=== PATIENT | female | born 2000 | race Caucasian/White ===

== ENCOUNTER 2021-08-25 14:55 | Emergency (ER) | payer OTHER, SELFPAY ==
[2021-08-25 15:04] VITALS: BP 152/97; PULSE 114; RESP 20; TEMP 36.8; O2SAT 100; BMI 25.6
--- NOTE | 2021-08-25 16:24 | ED_ITS ---
HPI - Abdominal Pain General Chief Complaint: Abdominal Pain Stated Complaint: throwing up since this morning Time Seen by Provider: 08/25/21 16:11 Source: patient Mode of arrival: ambulatory Limitations: no limitations History of Present Illness HPI narrative: Patient is a 20-year-old female with no significant past medical history. She reports that she awoke 12 hours ago with nausea and vomiting. She states that since she is vomiting any time she has anything to eat or drink. Had homemade Rolo last night, denies recent eating at any restaurants. In addition, she has diffuse lower abdominal pain, and right greater than left flank pain. She reports the symptoms to be consistent with past pyelonephritis. However, she denies any burning with micturition, dysuria, urinary frequency/hesitancy/urgency. Has not recently been treated for urinary tract infection. She does report that she smoke marijuana about once a week for her migraine headaches. Denies fevers, chills, headache, lightheadedness, di zziness, chest pain, palpitations, shortness of breath. Last menstrual period was 2 weeks ago, she is not on any contraceptives, and denies possibility of . Denies any known sick contacts, others in her home are not experiencing similar symptoms. Denies vaginal bleeding, abnormal vaginal d ischarge, pelvic pain, pain with intercourse. MD elicited complaint: abdominal pain Pertinent past history: past UTI Onset (ago): hour(s) Pain Consistency: constant Location: RLQ and LLQ Severity: moderate Pain scale (0-10): 7 Quality: cramping Exacerbating factors: eating Relieving factors: nothing Associated symptoms: nausea and vomiting Related Data Date of Last Menstrual Period: 08/11/21 Previous Rx's Medication Instructions Recorded ondansetron 4 mg disintegrating 4 mg PO Q8H PRN #6 tab 08/25/21 tablet Allergies Allergy/AdvReac Type Severity Reaction Status Date / Time No Known Allergies Allergy Unverified 04/05/20 16:45 [No Known Allergies*] Review of Systems Review of Systems Constitutional : No Weight loss, No Fever, No Chills ENT/Mouth :? No sore throat, No Rhinorrhea Eyes: No Swelling, No Redness Cardiovascular : No Chest Pain, No SOB, No Edema Respiratory : No Cough, No Sputum, No Wheezing Gastrointestinal : Positive Nausea, Positive Vomiting, Positive abdominal pain, No Diarrhea, No Constipation, No Hematochezia, No Melena Genitourinary : No Dysuria, No Urinary Frequency, No Hematuria, No Urgency? Musculoskeletal : No joint pain, No Myalgias, No Joint Swelling Skin : No Skin Lesions, No rash Neuro : No Weakness, No Numbness, No Dizziness, No Headache Psych : No Anxiety/Panic, No Depression Heme/Lymph: No Bruising, No Lymphadenopathy Endocrine : No Polyuria, No Polydipsia All other systems reviewed and are negative. Physical Exam Verdana 4l Vital Signs: Verdana 4d Verdana 4d Vital Signs: Verdana 4d Verdana 4Bd Last Vital Signs Verdana 4d [employer] New 4d [employer] New 4d Temp 97.7 F 08/25/21 18:37 [employer] New 4d Pulse 115 H 08/25/21 18:37 [employer] New 4d Resp 12 08/25/21 18:37 BP 130/79 08/25/21 18:37 Pulse Ox 100 08/25/21 18:37 BMI result Body Mass Index 25.6 Vital signs have been reviewed and appeared to be correct. Blood pressure initially elevated at 152/97, improved to 132/83. Heart rate initially elevated at 114, improved to 94.? Respiration rate normal. Temperature normal.? Oxygen saturation normal. Appearance: Alert.?Oriented to person, place and time. No acute distress.?Normal affect. Eyes: Pupils equal, round and reactive to light.? ENT: Pharynx normal.?? Neck: Normal inspection.? Neck supple.?? CVS: Heart sounds normal. Normal heart rate and rhythm.? Pulses normal.?? Respiratory: No respiratory distress.? Lung sounds clear to auscultation bilaterally?? Abdomen: Soft with diffuse lower abdominal tenderness with deep palpation.. Normoactive bowel sounds. No pulsatile mass.?? Skin: Skin warm and dry.? Normal skin color.? Normal skin turgor.?? Extremities: No lower extremity edema.? Neuro: Moves all extremities spontaneously. Sensation intact bilaterally. No focal neuro deficits. Ambulates with normal steady gait. Course Course Course Narrative: Patient is a 20-year-old female being evaluated for vomiting abdominal pain. She is well appearing, nontoxic, afebrile, resolution of initial tachycardia and hypertension. On exam she has no rebound tenderness or involuntary guarding, percussive tenderness. She declines having a exam. Not consistent with GI perforation, GI bleed, AAA, aortic dissection, ectopic , DKA. Not consistent with strangulated hernia, bowel obstruction, pulmonary embolism, mesenteric ischemia, myocardial infarction, or ovarian torsion. Patient to receive Zofran IV, Toradol IV, and 1L NS IV. Disposition pending results and PO trial. Reevaluation(s) Reevaluation #1: CBC reveals a mild anemia, hemoglobin 11.9 and hematocrit 33.5, patient reports that this is typical for her. Urine test is negative, urinalysis is unremarkable. CMP overall unremarkable, however mild LFT elevation AST 56 ALT 45 total bilirubin 2.0 suspect that this is reactive to vomiting. COVID-19 testing negative. Tolerated p.o. trial with crackers and dilshad jessica. Reports resolution of abdomen and flank pain. Symptoms are most consistent with gastroenteritis. Discussed reasons to return to the emergency department, advised plan for discharge home with prescription for ondansetron, all questions answered, patient agrees with plan of care. MDM - Abdominal Pain Medical Records Attestation: I reviewed the patient's medical records. Lab Data Attestation: I reviewed the patient's lab results. Result diagrams: 08/25/21 16:56 08/25/21 16:56 Labs: Lab Results 08/25/21 08/25/21 08/25/21 Range/Units 16:55 16:55 16:55 WBC (4.8-10.8) X10*3/uL RBC (4.20-5.50) X10*6/uL Hgb (12.0-16.0) g/dl Hct (37.0-47.0) % MCV (80.0-98.0) fL MCH (27.0-33.0) pg MCHC (31.0-35.0) g/dl RDW (11.0-16.0) % Plt Count (160-400) X10*3/uL MPV (9.4-12.3) fL Absolute Nucleated (0.0-0.012) RBC X10*3/uL Nucleated RBC % (0.0-0.2) /100WBC (auto) Sodium (135-145) mmol/L Potassium (3.3-5.1) mmol/L Chloride (96-108) mmol/L Carbon Dioxide (22-29) mmol/L Anion Gap (12-20) BUN (9-16) mg/dL Creatinine (0.5-1.4) mg/dL Estim Creat Clear Calc Estimated GFR Random Glucose (60-115) mg/dL Calcium (8.4-10.2) mg/dL Total Bilirubin (0.0-1.0) mg/dL AST (5-31) U/L ALT (0-31) U/L Alkaline Phosphatase (39-117) U/L Total Protein (6.5-8.0) g/dL Albumin (3.5-5.0) g/dL Lipase (8-78) U/L Urine Color DK YELLOW Urine Appearance HAZY Urine pH 6.0 (5.0-8.0) Ur Specific [place] >= 1.030 H (1.005-1.025) Urine Protein 1+ H (NEG-TRACE) MG/DL Urine Glucose (UA) NEG (NEG) MG/DL Urine Ketones >=80 (NEG) MG/DL Urine Blood NEG (NEG) Urine Nitrite NEG (NEG) Ur Leukocyte NEG (NEG) Esterase Urine RBC 0-2 (0) /HPF Urine WBC 1-4 (0-4) /HPF Ur Squamous Epith 1+ /LPF Cells Urine Bacteria TRACE /LPF Urine Mucus 2+ /LPF Urine Test NEGATIVE (NEGATIVE) Urine Opiates Screen Not Detected (Not Detect) Urine Fentanyl Not Detected (Not Detect) Screen Ur Barbiturates Not Detected (Not Detect) Screen Ur Phencyclidine Not Detected (Not Detect) Scrn Ur Amphetamines Not Detected (Not Detect) Screen U Benzodiazepines Not Detected (Not Detect) Scrn Urine Cocaine Screen Not Detected (Not Detect) U Marijuana (THC) POSITIVE H (Not Detect) Screen COVID-19 (NABEEL) (Negative) COVID-19 Clin Com 08/25/21 08/25/21 08/25/21 Range/Units 16:56 16:56 16:56 WBC 4.5 L (4.8-10.8) X10*3/uL RBC 3.58 L (4.20-5.50) X10*6/uL Hgb 11.9 L (12.0-16.0) g/dl Hct 33.5 L (37.0-47.0) % MCV 93.6 (80.0-98.0) fL MCH 33.2 H (27.0-33.0) pg MCHC 35.5 H (31.0-35.0) g/dl RDW 12.0 (11.0-16.0) % Plt Count 200 (160-400) X10*3/uL MPV 10.2 (9.4-12.3) fL Absolute Nucleated RBC 0.000 (0.0-0.012) X10*3/uL Nucleated RBC % (auto) 0.0 (0.0-0.2) /100WBC Sodium 137 (135-145) mmol/L Potassium 4.6 (3.3-5.1) mmol/L Chloride 102 (96-108) mmol/L Carbon Dioxide 22 (22-29) mmol/L Anion Gap 18 (12-20) BUN 12 (9-16) mg/dL Creatinine 0.73 (0.5-1.4) mg/dL Estim Creat Clear Calc 105.8 Estimated GFR > 60 Random Glucose 89 (60-115) mg/dL Calcium 9.9 (8.4-10.2) mg/dL Total Bilirubin 2.0 H (0.0-1.0) mg/dL AST 56 H (5-31) U/L ALT 45 H (0-31) U/L Alkaline Phosphatase 43 (39-117) U/L Total Protein 7.6 (6.5-8.0) g/dL Albumin 4.5 (3.5-5.0) g/dL Lipase 19 (8-78) U/L Urine Color Urine Appearance Urine pH (5.0-8.0) Ur Specific [place] (1.005-1.025) Urine Protein (NEG-TRACE) MG/DL Urine Glucose (UA) (NEG) MG/DL Urine Ketones (NEG) MG/DL Urine Blood (NEG) Urine Nitrite (NEG) Ur Leukocyte Esterase (NEG) Urine RBC (0) /HPF Urine WBC (0-4) /HPF Ur Squamous Epith Cells /LPF Urine Bacteria /LPF Urine Mucus /LPF Urine Test (NEGATIVE) Urine Opiates Screen (Not Detect) Urine Fentanyl Screen (Not Detect) Ur Barbiturates Screen (Not Detect) Ur Phencyclidine Scrn (Not Detect) Ur Amphetamines Screen (Not Detect) U Benzodiazepines Scrn (Not Detect) Urine Cocaine Screen (Not Detect) U Marijuana (THC) Screen (Not Detect) COVID-19 (NABEEL) Negative (Negative) COVID-19 Clin Com See Note ECG Data Attestation: I personally reviewed and interpreted this ECG as follows: Discharge Plan Discharge Clinical Impression: Gastroenteritis Patient Disposition: Home, Self-Care Instructions: Acute Nausea and Vomiting (ED) Additional Instructions: You have been given a new prescription for Zofran, a medication for nausea to be used only as needed. Please be sure to stay well hydrated, and follow a bland diet; including crackers, bananas, rice, cereal, toast, boiled vegetables and you can progress to plain baked or boiled chicken or turkey, and avoid dairy products or foods high in fat or grease until you are feeling better. Please return to the emergency department if you are having profuse watery diarrhea, more than 6 unformed stools in 1 day, severe abdominal pain, persistent v omiting, fevers, chills, blood or mucus in your stool or any new or worsening symptoms or concerns. You may follow up with your primary care provider in 1-3 days. Prescriptions: New ondansetron 4 mg tablet,disintegrating 4 mg PO Q8H PRN (Reason: nausea and vomiting) Qty: 6 0RF Interventions: ED Discharge Assessment Last Done: 08/25/21 19:16 Discharge Date/Time: 08/25/21 19:18 [facility] Past Medical History Attestation statement: The following information was validated with the patient. Source: old records reviewed Medical History No known health problems No known health problems Date of Last Menstrual Period: 08/11/21 Social History Social History Alcohol intake: never Patient Tobacco Use Status: Never used Tobacco Use of substances other than those prescribed or required for medical reasons: No Advance Directives: No Advance Directives Information Provided: No Patient : No
[2021-08-25 16:47] VITALS: BP 132/83; PULSE 94; RESP 18; TEMP 37.1; O2SAT 98
[2021-08-25] MEDS: Ketorolac Tromethamine 30 MG/ML VIAL IVPUSH (17:05)
[2021-08-25] MEDS: ondansetron HCL 4 MG/2 ML VIAL IVPUSH (17:05)
[2021-08-25] MEDS: 0.9 % Sodium Chloride 1,000 ML 999 ML IV (17:05)
--- NOTE | 2021-08-25 17:09 | PC.NURSE ---
Pt describing bilateral lower abd pain near ovaries. also radiating pain to Bli lower back. no CVA tenderness. urine is very concentrated, color of ice tea. Awaits results. no active vomiting while in ed but states she's been unable to keep po down. abd is soft and non tender. moist mm. skin pwd/
[2021-08-25 17:13] LABS: Appearance Urine HAZY; Color Urine DK YELLOW; Glucose Urine UA NEG (NEG); Leukocyte Esterase Urine NEG (NEG); Nitrite Urine NEG (NEG); Specific Gravity - Urine >= 1.030 (1.005-1.025); UACC Culture Trigger NO; Urine Blood NEG (NEG); Urine Ketones >=80 MG/DL (NEG); Urine Protein 1+ MG/DL (NEG-TRACE)
[2021-08-25 17:14] LABS: Hematocrit 33.5 % (37.0-47.0); Hemoglobin 11.9 g/dl (12.0-16.0); Mean Corpuscular HGB Conc 35.5 g/dl (31.0-35.0); Mean Corpuscular Hemoglobin 33.2 pg (27.0-33.0); Mean Corpuscular Volume 93.6 fL (80.0-98.0); Mean Platelet Volume 10.2 fL (9.4-12.3); Platelet Count 200 X10*3/uL (160-400); Red Blood Count 3.58 X10*6/uL (4.20-5.50); White Blood Count 4.5 X10*3/uL (4.8-10.8)
[2021-08-25 17:14] LABS: UPreg QC Valid YES; Urine Pregnancy NEGATIVE (NEGATIVE)
[2021-08-25 17:20] LABS: COVID-19 Test Negative (Negative)
[2021-08-25 17:23] LABS: Bacteria Urine TRACE /LPF; Mucus Urine 2+ /LPF; RBC Urine 0-2 /HPF (0); Squamous Epithelial Cell Urine 1+ /LPF
[2021-08-25 17:28] LABS: Alanine Aminotransferase 45 U/L (0-31); Albumin Level 4.5 g/dL (3.5-5.0); Alkaline Phosphatase 43 U/L (39-117); Anion Gap 18 (12-20); Aspartate Amino Transferase 56 U/L (5-31); Blood Urea Nitrogen 12 mg/dL (9-16); Calcium 9.9 mg/dL (8.4-10.2); Carbon Dioxide 22 mmol/L (22-29); Chloride 102 mmol/L (96-108); Creatinine Clr Calc Pharmacy 105.8; Estimated Glomerular Filt Rate > 60; Glucose Random 89 mg/dL (60-115); Lipase 19 U/L (8-78); Potassium 4.6 mmol/L (3.3-5.1); Sodium 137 mmol/L (135-145); Total Protein 7.6 g/dL (6.5-8.0)
--- NOTE | 2021-08-25 18:14 | PC.NURSE ---
taking PO without vomiting
[2021-08-25 18:37] VITALS: BP 130/79; PULSE 115; RESP 12; TEMP 36.5; O2SAT 100
[2021-08-25 19:13] LABS: Amphetamine Screen Urine Not Detected (Not Detect); Barbiturates, Urine Not Detected (Not Detect); Benzodiazepines Screen Urine Not Detected (Not Detect); Cannabinoid Screen Urine POSITIVE (Not Detect); Cocaine Screen Urine Not Detected (Not Detect); Fentanyl, urine Not Detected (Not Detect); Opiate Screen Urine Not Detected (Not Detect); Phencyclidine Screen Urine Not Detected (Not Detect)
== END 2021-08-25 19:18 | disposition home or self-care (01) ==
PROVIDERS: Nurse Practitioner Family; Emergency Provider Emergency Medicine Emergency Medical Services
DX: K52.9 Noninfective gastroenteritis and colitis, unspecified (principal); R11.10 Vomiting, unspecified; Z20.822 Contact with and (suspected) exposure to COVID-19; Z79.899 Other long term (current) drug therapy
CPT/HCPCS: 36415; 80053; 80307; 81001; 81025; 83690; 85027; 87635; 96374; 96376; 99284; J1885; J2405

== ENCOUNTER 2022-10-30 04:46 | Emergency (ER) | payer OTHER, SELFPAY ==
[2022-10-30 04:50] VITALS: BP 152/93; PULSE 111; RESP 18; TEMP 36.6; O2SAT 100
[2022-10-30 05:09] LABS: Basophils Absolute Auto 0.1 X10*3/uL (0.0-0.2); Basophils Percent Auto 0.4 % (0-2); Hematocrit 42.5 % (37.0-47.0); Hemoglobin 14.6 g/dl (12.0-16.0); Imm Gran Abs Auto 0.04 X10*3/uL (0.00-0.03); Imm Gran Pct Auto 0.3 % (0.0-0.4); Lymphocytes Absolute Auto 0.7 X10*3/uL (1.2-4.9); Lymphocytes Percent Auto 4.9 % (20-40); Mean Corpuscular HGB Conc 34.4 g/dl (31.0-35.0); Mean Corpuscular Hemoglobin 32.3 pg (27.0-33.0); Mean Platelet Volume 9.4 fL (9.4-12.3); Monocytes Absolute Auto 0.5 X10*3/uL (0.1-1.2); Monocytes Percent Auto 3.5 % (2-11); Neutrophils Absolute Auto 13.5 x10*3/uL (2.0-8.3); Neutrophils Percent Auto 90.9 % (45-73); Platelet Count 459 X10*3/uL (160-400); Red Blood Count 4.52 X10*6/uL (4.20-5.50); Red Cell Distribution Width 13.5 % (11.0-16.0); SCAN SMEAR FLAG 1; White Blood Count 14.9 X10*3/uL (4.8-10.8)
[2022-10-30] MEDS: ondansetron HCL 4 MG/2 ML VIAL IVPUSH (05:10)
[2022-10-30 05:11] LABS: MANUAL DIFF FLAG SCAN
--- NOTE | 2022-10-30 05:17 | ED_ITS ---
HPI - Headache General Chief Complaint: Headache Stated Complaint: n/v, migraine Time Seen by Provider: 10/30/22 05:17 Source: patient Mode of arrival: ambulatory Limitations: no limitations History of Present Illness HPI Narrative: Patient history of chronic migraine headaches been having headache as usual getting worse for last 2 days associated with nausea vomiting photosensitivity vomited about more than 15 times also had diarrhea about 10 times unable to hold down anything solid liquids no fever no chills no neck pain no other family member sick patient also does smoke marijuana and feels better after hot shower Related Data Previous Rx's Medication Instructions Recorded ondansetron 4 mg disintegrating 4 mg PO Q8H PRN nausea and 08/25/21 tablet vomiting #6 tabs nczeftride-wforjdvqvolfm-vttuokos 1 cap PO Q6H PRN headache #20 caps 10/30/22 50 mg-300 mg-40 mg capsule (Fioricet) loperamide 2 mg tablet (Imodium 2 mg PO Q6H PRN loose stool #14 10/30/22 A-D) tabs ondansetron 4 mg disintegrating 4 mg PO Q6-8H PRN nausea and 10/30/22 tablet vomiting #10 tabs sumatriptan succinate 50 mg tablet 50 mg PO Q2H PRN migraine headache 10/30/22 (Imitrex) #10 tabs Allergies Allergy/AdvReac Type Severity Reaction Status Date / Time No Known Allergies Allergy Verified 10/30/22 04:53 [No Known Allergies*] Review of Systems Review of Systems: Yes all other systems are reviewed and are negative [facility] Past Medical History Medical History (Updated 10/30/22 @ 07:06 by Kelver Kyle MD) Migraine headache Social History Social History Alcohol intake: never Patient Tobacco Use Status: Never used Tobacco Smoked in Last 30 Days: No Use of substances other than those prescribed or required for medical reasons: Yes Substance Use Type: Marijuana Substance Use Frequency: Weekly Advance Directives: No Advance Directives Information Provided: Yes Patient : No Physical Exam Vital Signs: Vital Signs: Last Vital Signs Temp 97.8 F 10/30/22 04:50 Pulse 111 H 10/30/22 04:50 Resp 18 10/30/22 04:50 BP 152/93 H 10/30/22 04:50 Pulse Ox 100 10/30/22 04:50 O2 Del Method Room Air 10/30/22 04:50 BMI result Body Mass Index 20.0 Appearance: Alert. Oriented X3. Sensitive to light Eyes: PERRLA, No Nystagmus ENT: Pharynx normal. Oral Mucosa dry Neck: Normal inspection. Neck supple. No temporal artery tenderness CVS: Normal heart rate and rhythm. Pulses normal. Respiratory: No respiratory distress. Equal air entry bilateral, no wheezing/rales/rhonchi Abdomen: Soft and nontender. Bowel sounds are present, no mass palpable, no CVA tenderness Skin: Skin warm and dry. Normal skin color. Normal skin turgor. Extremities: No lower extremity edema. No calf tenderness Neuro: Oriented X 3. No motor deficit. No sensory deficit.No cerebellar signs , cranial nerves II-XII intact Medications Administered Discontinued Medications Generic Name Dose Route Start Last Admin Trade Name Freq PRN Reason Stop Dose Admin Sodium Chloride 1,000 mls @ 999 mls/hr 10/30/22 05:22 10/30/22 05:34 Ns IV 10/30/22 06:22 999 mls/hr .Q1H1M ONE Administration Lorazepam 2 mg 10/30/22 05:41 10/30/22 05:58 Lorazepam 2 Mg/Ml Vial IVPUSH 10/30/22 05:42 2 mg ONCE ONE Administration Ondansetron HCl 4 mg 10/30/22 05:07 10/30/22 05:10 Ondansetron Hcl 4 Mg/2 Ml Vial IVPUSH 10/30/22 05:08 4 mg ONCE ONE Administration Sumatriptan Succinate 6 mg 10/30/22 05:22 10/30/22 05:30 Sumatriptan Succinate 6 Mg/0.5 Ml Vial SUBCUT 10/30/22 05:23 6 mg ONCE ONE Administration Medical Decision Making Medical Decision Making MDM Narrative: Patient with migraine headache along with likely cannabis induced vomiting possible viral also had anion gap metabolic acidosis likely from fluid loss in diarrhea will give IV fluids recheck chemistry patient feeling much better after Ativan Lab Data MDM Lab Attestation statement: I reviewed the patient's lab results. 10/30/22 05:02 10/30/22 05:02 Labs: Lab Results 04/13/23 04/13/23 04/13/23 Range/Units 05:02 05:02 05:02 WBC 14.9 H (4.8-10.8) X10*3/uL RBC 4.52 D (4.20-5.50) X10*6/uL Hgb 14.6 D (12.0-16.0) g/dl Hct 42.5 D (37.0-47.0) % MCV 94.0 (80.0-98.0) fL MCH 32.3 (27.0-33.0) pg MCHC 34.4 (31.0-35.0) g/dl RDW 13.5 (11.0-16.0) % Plt Count 459 H D (160-400) X10*3/uL MPV 9.4 (9.4-12.3) fL Immature Gran % (Auto) 0.3 (0.0-0.4) % Neut % (Auto) 90.9 H (45-73) % Lymph % (Auto) 4.9 L (20-40) % [place] % (Auto) 3.5 (2-11) % Eos % (Auto) 0.0 (0-4) % Baso % (Auto) 0.4 (0-2) % Lymph # (Auto) 0.7 L (1.2-4.9) X10*3/uL [place] # (Auto) 0.5 (0.1-1.2) X10*3/uL Eos # (Auto) 0.0 (0.0-0.4) X10*3/uL Baso # (Auto) 0.1 (0.0-0.2) X10*3/uL Abs Immat Gran (auto) 0.04 H (0.00-0.03) X10*3/uL Absolute Neuts (auto) 13.5 H (2.0-8.3) x10*3/uL Absolute Nucleated RBC 0.000 (0.0-0.012) X10*3/uL Nucleated RBC % (auto) 0.0 (0.0-0.2) /100WBC Smear Tech's Comments VERIFIED Sodium (135-145) mmol/L Potassium (3.3-5.1) mmol/L Chloride (96-108) mmol/L Carbon Dioxide (22-29) mmol/L Anion Gap (12-20) BUN (9-16) mg/dL Creatinine (0.5-1.4) mg/dL Estim Creat Clear Calc Estimated GFR Random Glucose (60-115) mg/dL Calcium (8.4-10.2) mg/dL Total Bilirubin (0.0-1.0) mg/dL AST (5-31) U/L ALT (0-31) U/L Alkaline Phosphatase (39-117) U/L Total Protein (6.5-8.0) g/dL Albumin (3.5-5.0) g/dL Lipase (8-78) U/L COVID-19 (NABEEL) Negative (Negative) COVID-19 Clin Com See Note Influenza Type A (JOVANA) Negative (Negative) Influenza Type B (JOVANA) Negative (Negative) Influenza A & B Note See Note 10/30/22 Range/Units 05:02 WBC (4.8-10.8) X10*3/uL RBC (4.20-5.50) X10*6/uL Hgb (12.0-16.0) g/dl Hct (37.0-47.0) % MCV (80.0-98.0) fL MCH (27.0-33.0) pg MCHC (31.0-35.0) g/dl RDW (11.0-16.0) % Plt Count (160-400) X10*3/uL MPV (9.4-12.3) fL Immature Gran % (Auto) (0.0-0.4) % Neut % (Auto) (45-73) % Lymph % (Auto) (20-40) % [place] % (Auto) (2-11) % Eos % (Auto) (0-4) % Baso % (Auto) (0-2) % Lymph # (Auto) (1.2-4.9) X10*3/uL [place] # (Auto) (0.1-1.2) X10*3/uL Eos # (Auto) (0.0-0.4) X10*3/uL Baso # (Auto) (0.0-0.2) X10*3/uL Abs Immat Gran (auto) (0.00-0.03) X10*3/uL Absolute Neuts (auto) (2.0-8.3) x10*3/uL Absolute Nucleated RBC (0.0-0.012) X10*3/uL Nucleated RBC % (auto) (0.0-0.2) /100WBC Smear Tech's Comments Sodium 139 (135-145) mmol/L Potassium 4.6 (3.3-5.1) mmol/L Chloride 102 (96-108) mmol/L Carbon Dioxide 9 L* D (22-29) mmol/L Anion Gap 33 H (12-20) BUN 20 H (9-16) mg/dL Creatinine 0.75 (0.5-1.4) mg/dL Estim Creat Clear Calc 99.4 Estimated GFR > 60 Random Glucose 92 (60-115) mg/dL Calcium 9.9 (8.4-10.2) mg/dL Total Bilirubin 0.9 (0.0-1.0) mg/dL AST 48 H (5-31) U/L ALT 21 (0-31) U/L Alkaline Phosphatase 50 (39-117) U/L Total Protein 8.4 H (6.5-8.0) g/dL Albumin 5.1 H (3.5-5.0) g/dL Lipase 13 (8-78) U/L COVID-19 (NABEEL) (Negative) COVID-19 Clin Com Influenza Type A (JOVANA) (Negative) Influenza Type B (JOVANA) (Negative) Influenza A & B Note Discharge Plan Discharge Clinical Impression: Migraine, Gastroenteritis, Cannabis abuse with cannabis-induced disorder Patient Disposition: Still a Patient Instructions: Migraine Headache (ED), Gastroenteritis (ED), Cannabis Abuse (ED) Additional Instructions: Drink plenty of fluids Stop using cannabis at it may be contributing to the vomiting Imitrex and Fioricet for headache Zofran for nausea Follow with PCP if not better Prescriptions: New loperamide [Imodium A-D] 2 mg tablet 2 mg PO Q6H PRN (Reason: loose stool) Qty: 14 0RF sumatriptan succinate [Imitrex] 50 mg tablet 50 mg PO Q2H PRN (Reason: migraine headache) Qty: 10 0RF Rx Instructions: do not exceed 2 doses per 24 hrs tporbwvgdd-xrqeemiosefgy-qcos [Fioricet] 50-300-40 mg capsule 1 cap PO Q6H PRN (Reason: headache) Qty: 20 0RF ondansetron 4 mg tablet,disintegrating 4 mg PO Q6-8H PRN (Reason: nausea and vomiting) Qty: 10 0RF No Action ondansetron 4 mg tablet,disintegrating 4 mg PO Q8H PRN (Reason: nausea and vomiting) Qty: 6 0RF
[2022-10-30 05:28] LABS: Alanine Aminotransferase 21 U/L (0-31); Albumin Level 5.1 g/dL (3.5-5.0); Alkaline Phosphatase 50 U/L (39-117); Anion Gap 33 (12-20); Aspartate Amino Transferase 48 U/L (5-31); Bilirubin Total 0.9 mg/dL (0.0-1.0); Blood Urea Nitrogen 20 mg/dL (9-16); Calcium 9.9 mg/dL (8.4-10.2); Carbon Dioxide 9 mmol/L (22-29); Chloride 102 mmol/L (96-108); Creatinine Clr Calc Pharmacy 99.4; Estimated Glomerular Filt Rate > 60; Glucose Random 92 mg/dL (60-115); Lipase 13 U/L (8-78); Potassium 4.6 mmol/L (3.3-5.1); Sodium 139 mmol/L (135-145); Total Protein 8.4 g/dL (6.5-8.0)
[2022-10-30] MEDS: SUMAtriptan succinate 6 MG/0.5 ML VIAL SUBCUT (05:30)
[2022-10-30 05:31] LABS: COVID-19 Test Negative (Negative); IDNOW Serial# 08D9AD1C; IDNOW Serial# BCCEAD1C; Influenza A Negative (Negative); Influenza B2 Negative (Negative)
[2022-10-30 05:32] LABS: SLIDE REVIEW VERIFIED
[2022-10-30] MEDS: 0.9 % Sodium Chloride 1,000 ML 999 ML IV ×4 (05:34→10:34)
[2022-10-30] MEDS: LORazepam 2 MG/ML VIAL IVPUSH (05:58)
--- NOTE | 2022-10-30 06:32 | PC.NURSE ---
Pt reports 10/10 constant headache with N/V, states it feels like pressure and similar episodes. IV line started, meds given as documented. Pt dry heaving, ambulating to BR with staff stand by assist. Pt reports effectiveness to meds given.
[2022-10-30 07:16] VITALS: BP 120/58; PULSE 114; RESP 16; O2SAT 99
[2022-10-30 07:27] LABS: Appearance Urine Clear; Color Urine Yellow; Glucose Urine UA Negative (Negative); Leukocyte Esterase Urine Negative (Negative); Nitrite Urine Negative (Negative); UMIC TRIGGER UACC YES; Urine Blood Moderate (2+) (Negative); Urine Ketones 80 mg/dL (Negative); Urine Protein 30 (1+) mg/dL (Neg-Trace)
[2022-10-30 07:28] LABS: UPreg QC Valid YES; Urine Pregnancy NEGATIVE (NEGATIVE)
[2022-10-30 07:39] LABS: Bacteria Urine None Seen (None Seen); Hyaline Casts Urine 0-2 /LPF (0-2); RBC Urine 0-2 /HPF (0-2); WBC Urine 0-5 /HPF (0-5)
--- NOTE | 2022-10-30 09:10 | MHC.EDTECH ---
Labs collected and sent
[2022-10-30 09:31] LABS: Blood Urea Nitrogen 15 mg/dL (9-16); Creatinine Clr Calc Pharmacy 116.5; Estimated Glomerular Filt Rate > 60; Glucose Random 83 mg/dL (60-115)
[2022-10-30 09:38] LABS: Anion Gap 17 (12-20); Calcium 7.9 mg/dL (8.4-10.2); Carbon Dioxide 11 mmol/L (22-29); Chloride 110 mmol/L (96-108); Potassium 4.8 mmol/L (3.3-5.1); Sodium 133 mmol/L (135-145)
[2022-10-30 10:12] VITALS: BP 130/65; PULSE 107; RESP 19; O2SAT 98
--- NOTE | 2022-10-30 11:18 | PC.NURSE ---
resumed care of patient at this time. Pt dad is present at bedside, IV fluids running via pressure bag, plan to redraw lab work and assess at that time for further plan
[2022-10-30 12:42] LABS: Anion Gap 17 (12-20); Blood Urea Nitrogen 13 mg/dL (9-16); Carbon Dioxide 16 mmol/L (22-29); Chloride 106 mmol/L (96-108); Creatinine Clr Calc Pharmacy 122.1; Estimated Glomerular Filt Rate > 60; Glucose Random 66 mg/dL (60-115); Potassium 4.6 mmol/L (3.3-5.1); Sodium 134 mmol/L (135-145)
== END 2022-10-30 13:49 | disposition home or self-care (01) ==
PROVIDERS: Emergency Medicine; Emergency Provider Internal Medicine
DX: G43.909 Migraine, unspecified, not intractable, without status migrainosus (principal); K52.9 Noninfective gastroenteritis and colitis, unspecified; F12.19 Cannabis abuse with unspecified cannabis-induced disorder; Z20.822 Contact with and (suspected) exposure to COVID-19; Z20.828 Contact with and (suspected) exposure to other viral communicable diseases; Z79.899 Other long term (current) drug therapy
CPT/HCPCS: 36415; 80048; 80053; 81001; 81025; 83690; 85025; 87502; 87635; 96361; 96372; 96374; 96375; 99285; J2060; J2405; J3030

== ENCOUNTER 2022-11-08 17:32 | Emergency (ER) | payer OTHER, SELFPAY ==
--- NOTE | 2022-11-08 17:41 | ED_ITS ---
HPI - General Adult General Chief complaint: Headache <Tj Corbin - Last Filed: 11/08/22 17:48> Stated complaint: vomiting, migraine, lightheadedness, fainting <Tj Corbin - Last Filed: 11/08/22 17:48> Time Seen by Provider: 11/08/22 18:31 <Tj Corbin - Last Filed: 11/08/22 17:48> Source: patient <Nancy Alonzo MD - Last Filed: 11/08/22 21:42> Mode of arrival: ambulatory <Nancy Alonzo MD - Last Filed: 11/08/22 21:42> Limitations: no limitations <Nancy Alonzo MD - Last Filed: 11/08/22 21:42> History of Present Illness HPI narrative: Patient comes t consisting of blurred vision and visual o the emergency room complaining of 24 hours plus of migraine headache. Patient recently moved from [place] and does not have a primary care physician or neurologist here in [place]. Patient states that she frequently has migraine he adaches. Over the last 24 hours, patient has tried p.o. sumatriptan, Fioricet, Excedrin without any relief. Patient states that before the migraine started, she gets auras consisting of color changes/blurred vision. Sometimes before she gets migraine, she passes out, no chest pain or shortness of breath. Patient states that on her last visit she was told that smoking marijuana may worsen her vomiting symptoms and therefore states that she does not smoke marijuana anymore. It has been a week. <Nancy Alonzo MD - Last Filed: 11/08/22 21:42> Related Data Home medications: Previous Rx's Medication Instructions Recorded ondansetron 4 mg disintegrating 4 mg PO Q8H PRN nausea and 08/25/21 tablet vomiting #6 tabs azyxrmehsy-xaozkrdslsdqc-tkrxzybf 1 cap PO Q6H PRN headache #20 caps 10/30/22 50 mg-300 mg-40 mg capsule (Fioricet) loperamide 2 mg tablet (Imodium 2 mg PO Q6H PRN loose stool #14 10/30/22 A-D) tabs ondansetron 4 mg disintegrating 4 mg PO Q6-8H PRN nausea and 10/30/22 tablet vomiting #10 tabs sumatriptan succinate 50 mg tablet 50 mg PO Q2H PRN migraine headache 10/30/22 (Imitrex) #10 tabs ketorolac 10 mg tablet 10 mg PO TID PRN pain #12 tabs 11/08/22 metoclopramide HCl 5 mg tablet 5 mg PO DAILY PRN nausea and 11/08/22 (Reglan) vomiting #10 tabs <Tj Corbin - Last Filed: 11/08/22 17:48> Allergies/adverse reactions: Allergies Allergy/AdvReac Type Severity Reaction Status Date / Time No Known Allergies Allergy Verified 11/08/22 17:46 [No Known Allergies*] <Tj Corbin - Last Filed: 11/08/22 17:48> Review of Systems Review of Systems: Constitutional : No Weight loss, No Fever, No Chills, No Night Sweats, No Fatigue, No Malaise ENT/Mouth : No Hearing loss, No Ear Pain, No Nasal Congestion, No Sinus Pain, No Hoarseness, No sore throat, No Rhinorrhea, No Swallowing Difficulty Eyes: No Eye Pain, No Swelling, No Redness, No Foreign Body, No Discharge, complaining of visual changes/aura before the migraine starts Cardiovascular : No Chest Pain, No SOB, No Dyspnea on Exertion, No Orthopnea, No Edema, No Palpitations Respiratory : No Cough, No Sputum, No Wheezing, No Smoke Exposure, No Dyspnea Gastrointestinal : Complaining of nausea and vomiting No Diarrhea, No Constipat ion, No abdominal Pain, No Hematochezia, No Melena Genitourinary : no irregular bleeding, No Dysuria, No Urinary Frequency, No Hematuria, No Urinary Incontinence, No Urgency, No Flank Pain, No Urinary Flow Changes, No Hesitancy Musculoskeletal : No joint pain, No Myalgias, No Joint Swelling Skin : No Skin Lesions, No rash Neuro : No Weakness, No Numbness, No Paresthesias, No Loss of Consciousness, No Dizziness, complaining of severe migraine Psych : No Anxiety/Panic, No Depression, No SI/HI/AH/VH, No Social Issues, Heme/Lymph: No Bruising, No Bleeding,No Lymphadenopathy Endocrine : No Polyuria, No Polydipsia, No Temperature Intolerance <Nancy Alonzo MD - Last Filed: 11/08/22 21:42> [facility] Past Medical History Medical History: Medical History Migraine headache <Tj Corbin - Last Filed: 11/08/22 17:48> Social History Social History: Social History Alcohol intake: never Patient Tobacco Use Status: Never used Tobacco Smoked in Last 30 Days: No Use of substances other than those prescribed or required for medical reasons: No Substance Use Type: Marijuana Advance Directives: No Advance Directives Information Provided: No <Tj Corbin - Last Filed: 11/08/22 17:48> Physical Exam ED Vital Signs: Vital Signs - 24 hr 11/08/22 17:46 11/08/22 18:00 11/08/22 19:34 Temperature 97.6 F 98.5 F 98.2 F Pulse Rate 86 109 H 103 H Respiratory Rate 18 18 16 Blood Pressure 129/83 150/101 H 126/80 Pulse Oximetry 99 98 98 Oxygen Delivery Method Room Air Room Air Room Air BMI result Body Mass Index 20.7 <Tj Corbin - Last Filed: 11/08/22 17:48> Vital Signs - 24 hr 11/08/22 17:46 11/08/22 18:00 11/08/22 19:34 Temperature 97.6 F 98.5 F 98.2 F Pulse Rate 86 109 H 103 H Respiratory Rate 18 18 16 Blood Pressure 129/83 150/101 H 126/80 Pulse Oximetry 99 98 98 Oxygen Delivery Method Room Air Room Air Room Air BMI result Body Mass Index 20.7 <Nancy Alonzo MD - Last Filed: 11/08/22 21:42> Const Other: Appearance: Alert. Oriented X3. Looks very uncomfortable Eyes: Pupils equal, round and reactive to light. ENT: Pharynx normal. Neck: Normal inspection. Neck supple. No lymph nodes noted. No crepitus CVS: Normal heart rate and rhythm. Pulses normal. Normal S1 and S2 Respiratory: No respiratory distress. Breath sounds normal. No Wheezing. No rales Abdomen: Actively vomiting, Soft and nontender. No rigidity. No distention. Skin: Skin warm and dry. Normal skin color. Normal skin turgor. Extremities: No lower extremity edema. No Lacerations. No Rash Neuro: Oriented X 3. No motor deficit. No sensory deficit. Moving all e xtremities. No slurred speech. CN 2 through 12 grossly intact Psych: calm, cooperative, normal affect <Nancy Alonzo MD - Last Filed: 11/08/22 21:42> Course Course Course Narrative: 22-year-old female presents for evaluation of headache and vomiting. Rep orts history of migraines. Was seen here on 10/30/2022 for similar complaint <Tj Corbin - Last Filed: 11/08/22 17:48> 22-year-old female presents for evaluation of headache and vomiting. Reports history of migraines. Was seen here on 10/30/2022 for similar complaint -patient received IV fluids, IV Toradol, Reglan, Benadryl. -all labs are pending. <Nancy Alonzo MD - Last Filed: 11/08/22 21:42> Medications Administered Discontinued Medications Generic Name Dose Route Start Last Admin Trade Name Freq PRN Reason Stop Dose Admin Diphenhydramine HCl 25 mg 11/08/22 18:35 11/08/22 19:22 Diphenhydramine Hcl 50 Mg/Ml Vial IVPUSH 11/08/22 18:36 25 mg ONCE ONE Administration Sodium Chloride 1,000 mls @ 999 mls/hr 11/08/22 18:35 11/08/22 20:26 Ns IVCONT 11/08/22 19:35 Infused .Q1H1M ONE Infusion Ketorolac Tromethamine 30 mg 11/08/22 18:35 11/08/22 19:22 Ketorolac Tromethamine 30 Mg/Ml Vial IVPUSH 11/08/22 18:36 30 mg ONCE ONE Administration Metoclopramide HCl 10 mg 11/08/22 18:35 11/08/22 19:31 Metoclopramide Hcl 10 Mg/2 Ml Vial IVPUSH 11/08/22 18:36 10 mg ONCE ONE Administration Ondansetron HCl 4 mg 11/08/22 17:47 11/08/22 18:28 Ondansetron Odt 4 Mg Tab.Rapdis TRANSLINGU 11/08/22 17:48 Not Given ONCE ONE Ondansetron HCl 4 mg 11/08/22 18:23 11/08/22 18:27 Ondansetron Hcl 4 Mg/2 Ml Vial IVPUSH 11/08/22 18:24 4 mg ONCE ONE Administration <Tj RenettaOdilonGarland - Last Filed: 11/08/22 17:48> Medications Administered Discontinued Medications Generic Name Dose Route Start Last Admin Trade Name Mariela PRN Reason Stop Dose Admin Diphenhydramine HCl 25 mg 11/08/22 18:35 11/08/22 19:22 Diphenhydramine Hcl 50 Mg/Ml Vial IVPUSH 11/08/22 18:36 25 mg ONCE ONE Administration Sodium Chloride 1,000 mls @ 999 mls/hr 11/08/22 18:35 11/08/22 20:26 Ns IVCONT 11/08/22 19:35 Infused .Q1H1M ONE Infusion Ketorolac Tromethamine 30 mg 11/08/22 18:35 11/08/22 19:22 Ketorolac Tromethamine 30 Mg/Ml Vial IVPUSH 11/08/22 18:36 30 mg ONCE ONE Administration Metoclopramide HCl 10 mg 11/08/22 18:35 11/08/22 19:31 Metoclopramide Hcl 10 Mg/2 Ml Vial IVPUSH 11/08/22 18:36 10 mg ONCE ONE Administration Ondansetron HCl 4 mg 11/08/22 17:47 11/08/22 18:28 Ondansetron Odt 4 Mg Tab.Rapdis TRANSLINGU 11/08/22 17:48 Not Given ONCE ONE Ondansetron HCl 4 mg 11/08/22 18:23 11/08/22 18:27 Ondansetron Hcl 4 Mg/2 Ml Vial IVPUSH 11/08/22 18:24 4 mg ONCE ONE Administration <Nancy Alonzo MD - Last Filed: 11/08/22 21:42> Medical Decision Making Medical Decision Making MDM Narrative: -after the IV cocktail, patient feeling much better. Patient states that she has residual headache but feeling much better. Feels well to go home. -D-dimer is pending. -interpretation of EKG: Sinus rhythm, rate 88, no ST segment depression or elevation, no T-wave inversion, QTC 508 -wells criteria score for pulmonary embolism or DVT is 0. Patient's syncopal episodes are related only to migraine headaches, no other times. <Nancy Alonzo MD - Last Filed: 11/08/22 21:42> Differential Diagnosis Differential Diagnoses: The differential diagnosis associated with the presentation includes (Pain headache, tension headache) <Nancy Alonzo MD - Last Filed: 11/08/22 21:42> Lab Data MDM Lab Attestation statement: I reviewed the patient's lab results. <Nancy Alonzo MD - Last Filed: 11/08/22 21:42> Result Diagrams: 11/08/22 17:59 11/08/22 17:59 <Tj Corbin - Last Filed: 11/08/22 17:48> Labs: Lab Results 11/08/22 11/08/22 11/08/22 Range/Units 17:59 17:59 19:27 WBC 2.8 L (4.8-10.8) X10*3/uL RBC 4.60 (4.20-5.50) X10*6/uL Hgb 15.0 (12.0-16.0) g/dl Hct 41.9 (37.0-47.0) % MCV 91.1 (80.0-98.0) fL MCH 32.6 (27.0-33.0) pg MCHC 35.8 H (31.0-35.0) g/dl RDW 13.8 (11.0-16.0) % Plt Count 190 D (160-400) X10*3/uL MPV 10.1 (9.4-12.3) fL Immature Gran % (Auto) 0.0 (0.0-0.4) % Neut % (Auto) 70.3 (45-73) % Lymph % (Auto) 17.2 L (20-40) % [place] % (Auto) 11.8 H (2-11) % Eos % (Auto) 0.0 (0-4) % Baso % (Auto) 0.7 (0-2) % Lymph # (Auto) 0.5 L (1.2-4.9) X10*3/uL [place] # (Auto) 0.3 (0.1-1.2) X10*3/uL Eos # (Auto) 0.0 (0.0-0.4) X10*3/uL Baso # (Auto) 0.0 (0.0-0.2) X10*3/uL Abs Immat Gran (auto) 0.00 (0.00-0.03) X10*3/uL Absolute Neuts (auto) 2.0 (2.0-8.3) x10*3/uL Absolute Nucleated RBC 0.000 (0.0-0.012) X10*3/uL Nucleated RBC % (auto) 0.0 (0.0-0.2) /100WBC Sodium 135 (135-145) mmol/L Potassium 3.8 (3.3-5.1) mmol/L Chloride 98 (96-108) mmol/L Carbon Dioxide 14 L (22-29) mmol/L Anion Gap 27 H (12-20) BUN 12 (9-16) mg/dL Creatinine 0.76 (0.5-1.4) mg/dL Estim Creat Clear Calc 90.3 Estimated GFR > 60 Random Glucose 82 (60-115) mg/dL Calcium 10.7 H D (8.4-10.2) mg/dL Total Bilirubin 2.3 H (0.0-1.0) mg/dL AST 38 H (5-31) U/L ALT 16 (0-31) U/L Alkaline Phosphatase 49 (39-117) U/L Troponin I High Sens (<3.5-17.0) ng/L Total Protein 8.6 H (6.5-8.0) g/dL Albumin 5.4 H (3.5-5.0) g/dL Lipase 23 (8-78) U/L Beta HCG, Quant mIU/mL Urine Color Yellow Urine Appearance Clear Urine pH 5.5 (5.0-9.0) Ur Specific [place] >= 1.030 H (1.005-1.025) Urine Protein 30 (1+) H (Neg-Trace) mg/dL Urine Glucose (UA) Negative (Negative) mg/dL Urine Ketones >=160 (Negative) mg/dL Urine Blood Negative (Negative) Urine Nitrite Negative (Negative) Ur Leukocyte Esterase Negative (Negative) Urine RBC 0-2 (0-2) /HPF Urine WBC 0-5 (0-5) /HPF Ur Squamous Epith Cells 6-10 (0-2) /HPF Urine Bacteria Trace (None Seen) Hyaline Casts 0-2 (0-2) /LPF Urine Opiates Screen (Not Detect) Urine Fentanyl Screen (Not Detect) Ur Barbiturates Screen (Not Detect) Ur Phencyclidine Scrn (Not Detect) Ur Amphetamines Screen (Not Detect) U Benzodiazepines Scrn (Not Detect) Urine Cocaine Screen (Not Detect) U Marijuana (THC) Screen (Not Detect) 11/08/22 11/08/22 11/08/22 Range/Units 19:27 20:40 20:40 WBC (4.8-10.8) X10*3/uL RBC (4.20-5.50) X10*6/uL Hgb (12.0-16.0) g/dl Hct (37.0-47.0) % MCV (80.0-98.0) fL MCH (27.0-33.0) pg MCHC (31.0-35.0) g/dl RDW (11.0-16.0) % Plt Count (160-400) X10*3/uL MPV (9.4-12.3) fL Immature Gran % (Auto) (0.0-0.4) % Neut % (Auto) (45-73) % Lymph % (Auto) (20-40) % [place] % (Auto) (2-11) % Eos % (Auto) (0-4) % Baso % (Auto) (0-2) % Lymph # (Auto) (1.2-4.9) X10*3/uL [place] # (Auto) (0.1-1.2) X10*3/uL Eos # (Auto) (0.0-0.4) X10*3/uL Baso # (Auto) (0.0-0.2) X10*3/uL Abs Immat Gran (auto) (0.00-0.03) X10*3/uL Absolute Neuts (auto) (2.0-8.3) x10*3/uL Absolute Nucleated RBC (0.0-0.012) X10*3/uL Nucleated RBC % (auto) (0.0-0.2) /100WBC Sodium (135-145) mmol/L Potassium (3.3-5.1) mmol/L Chloride (96-108) mmol/L Carbon Dioxide (22-29) mmol/L Anion Gap (12-20) BUN (9-16) mg/dL Creatinine (0.5-1.4) mg/dL Estim Creat Clear Calc Estimated GFR Random Glucose (60-115) mg/dL Calcium (8.4-10.2) mg/dL Total Bilirubin (0.0-1.0) mg/dL AST (5-31) U/L ALT (0-31) U/L Alkaline Phosphatase (39-117) U/L Troponin I High Sens < 2.7 (<3.5-17.0) ng/L Total Protein (6.5-8.0) g/dL Albumin (3.5-5.0) g/dL Lipase (8-78) U/L Beta HCG, Quant < 2 mIU/mL Urine Color Urine Appearance Urine pH (5.0-9.0) Ur Specific [place] (1.005-1.025) Urine Protein (Neg-Trace) mg/dL Urine Glucose (UA) (Negative) mg/dL Urine Ketones (Negative) mg/dL Urine Blood (Negative) Urine Nitrite (Negative) Ur Leukocyte Esterase (Negative) Urine RBC (0-2) /HPF Urine WBC (0-5) /HPF Ur Squamous Epith Cells (0-2) /HPF Urine Bacteria (None Seen) Hyaline Casts (0-2) /LPF Urine Opiates Screen Not Detected (Not Detect) Urine Fentanyl Screen Not Detected (Not Detect) Ur Barbiturates Screen POSITIVE H (Not Detect) Ur Phencyclidine Scrn Not Detected (Not Detect) Ur Amphetamines Screen Not Detected (Not Detect) U Benzodiazepines Scrn Not Detected (Not Detect) Urine Cocaine Screen Not Detected (Not Detect) U Marijuana (THC) Screen POSITIVE H (Not Detect) <Tj Corbin - Last Filed: 11/08/22 17:48> Lab Results 11/08/22 11/08/22 11/08/22 Range/Units 17:59 17:59 19:27 WBC 2.8 L (4.8-10.8) X10*3/uL RBC 4.60 (4.20-5.50) X10*6/uL Hgb 15.0 (12.0-16.0) g/dl Hct 41.9 (37.0-47.0) % MCV 91.1 (80.0-98.0) fL MCH 32.6 (27.0-33.0) pg MCHC 35.8 H (31.0-35.0) g/dl RDW 13.8 (11.0-16.0) % Plt Count 190 D (160-400) X10*3/uL MPV 10.1 (9.4-12.3) fL Immature Gran % (Auto) 0.0 (0.0-0.4) % Neut % (Auto) 70.3 (45-73) % Lymph % (Auto) 17.2 L (20-40) % [place] % (Auto) 11.8 H (2-11) % Eos % (Auto) 0.0 (0-4) % Baso % (Auto) 0.7 (0-2) % Lymph # (Auto) 0.5 L (1.2-4.9) X10*3/uL [place] # (Auto) 0.3 (0.1-1.2) X10*3/uL Eos # (Auto) 0.0 (0.0-0.4) X10*3/uL Baso # (Auto) 0.0 (0.0-0.2) X10*3/uL Abs Immat Gran (auto) 0.00 (0.00-0.03) X10*3/uL Absolute Neuts (auto) 2.0 (2.0-8.3) x10*3/uL Absolute Nucleated RBC 0.000 (0.0-0.012) X10*3/uL Nucleated RBC % (auto) 0.0 (0.0-0.2) /100WBC Sodium 135 (135-145) mmol/L Potassium 3.8 (3.3-5.1) mmol/L Chloride 98 (96-108) mmol/L Carbon Dioxide 14 L (22-29) mmol/L Anion Gap 27 H (12-20) BUN 12 (9-16) mg/dL Creatinine 0.76 (0.5-1.4) mg/dL Estim Creat Clear Calc 90.3 Estimated GFR > 60 Random Glucose 82 (60-115) mg/dL Calcium 10.7 H D (8.4-10.2) mg/dL Total Bilirubin 2.3 H (0.0-1.0) mg/dL AST 38 H (5-31) U/L ALT 16 (0-31) U/L Alkaline Phosphatase 49 (39-117) U/L Troponin I High Sens (<3.5-17.0) ng/L Total Protein 8.6 H (6.5-8.0) g/dL Albumin 5.4 H (3.5-5.0) g/dL Lipase 23 (8-78) U/L Beta HCG, Quant mIU/mL Urine Color Yellow Urine Appearance Clear Urine pH 5.5 (5.0-9.0) Ur Specific [place] >= 1.030 H (1.005-1.025) Urine Protein 30 (1+) H (Neg-Trace) mg/dL Urine Glucose (UA) Negative (Negative) mg/dL Urine Ketones >=160 (Negative) mg/dL Urine Blood Negative (Negative) Urine Nitrite Negative (Negative) Ur Leukocyte Esterase Negative (Negative) Urine RBC 0-2 (0-2) /HPF Urine WBC 0-5 (0-5) /HPF Ur Squamous Epith Cells 6-10 (0-2) /HPF Urine Bacteria Trace (None Seen) Hyaline Casts 0-2 (0-2) /LPF Urine Opiates Screen (Not Detect) Urine Fentanyl Screen (Not Detect) Ur Barbiturates Screen (Not Detect) Ur Phencyclidine Scrn (Not Detect) Ur Amphetamines Screen (Not Detect) U Benzodiazepines Scrn (Not Detect) Urine Cocaine Screen (Not Detect) U Marijuana (THC) Screen (Not Detect) 11/08/22 11/08/22 11/08/22 Range/Units 19:27 20:40 20:40 WBC (4.8-10.8) X10*3/uL RBC (4.20-5.50) X10*6/uL Hgb (12.0-16.0) g/dl Hct (37.0-47.0) % MCV (80.0-98.0) fL MCH (27.0-33.0) pg MCHC (31.0-35.0) g/dl RDW (11.0-16.0) % Plt Count (160-400) X10*3/uL MPV (9.4-12.3) fL Immature Gran % (Auto) (0.0-0.4) % Neut % (Auto) (45-73) % Lymph % (Auto) (20-40) % [place] % (Auto) (2-11) % Eos % (Auto) (0-4) % Baso % (Auto) (0-2) % Lymph # (Auto) (1.2-4.9) X10*3/uL [place] # (Auto) (0.1-1.2) X10*3/uL Eos # (Auto) (0.0-0.4) X10*3/uL Baso # (Auto) (0.0-0.2) X10*3/uL Abs Immat Gran (auto) (0.00-0.03) X10*3/uL Absolute Neuts (auto) (2.0-8.3) x10*3/uL Absolute Nucleated RBC (0.0-0.012) X10*3/uL Nucleated RBC % (auto) (0.0-0.2) /100WBC Sodium (135-145) mmol/L Potassium (3.3-5.1) mmol/L Chloride (96-108) mmol/L Carbon Dioxide (22-29) mmol/L Anion Gap (12-20) BUN (9-16) mg/dL Creatinine (0.5-1.4) mg/dL Estim Creat Clear Calc Estimated GFR Random Glucose (60-115) mg/dL Calcium (8.4-10.2) mg/dL Total Bilirubin (0.0-1.0) mg/dL AST (5-31) U/L ALT (0-31) U/L Alkaline Phosphatase (39-117) U/L Troponin I High Sens < 2.7 (<3.5-17.0) ng/L Total Protein (6.5-8.0) g/dL Albumin (3.5-5.0) g/dL Lipase (8-78) U/L Beta HCG, Quant < 2 mIU/mL Urine Color Urine Appearance Urine pH (5.0-9.0) Ur Specific [place] (1.005-1.025) Urine Protein (Neg-Trace) mg/dL Urine Glucose (UA) (Negative) mg/dL Urine Ketones (Negative) mg/dL Urine Blood (Negative) Urine Nitrite (Negative) Ur Leukocyte Esterase (Negative) Urine RBC (0-2) /HPF Urine WBC (0-5) /HPF Ur Squamous Epith Cells (0-2) /HPF Urine Bacteria (None Seen) Hyaline Casts (0-2) /LPF Urine Opiates Screen Not Detected (Not Detect) Urine Fentanyl Screen Not Detected (Not Detect) Ur Barbiturates Screen POSITIVE H (Not Detect) Ur Phencyclidine Scrn Not Detected (Not Detect) Ur Amphetamines Screen Not Detected (Not Detect) U Benzodiazepines Scrn Not Detected (Not Detect) Urine Cocaine Screen Not Detected (Not Detect) U Marijuana (THC) Screen POSITIVE H (Not Detect) <Nancy Alonzo MD - Last Filed: 11/08/22 21:42> Discharge Plan Discharge Clinical Impression: Migraine <Tj Corbin - Last Filed: 11/08/22 17:48> Patient Disposition: Home, Self-Care <Tj Corbin - Last Filed: 11/08/22 17:48> Instructions: Migraine Headache (ED) <Tj Corbin - Last Filed: 11/08/22 17:48> Additional Instructions: Please follow-up with your primary care physician tomorrow. If you have any worsening or new symptoms, please return to the emergency room or call 911 <Tj Corbin - Last Filed: 11/08/22 17:48> Prescriptions: New ketorolac 10 mg tablet 10 mg PO TID PRN (Reason: pain) Qty: 12 0RF metoclopramide HCl [Reglan] 5 mg tablet 5 mg PO DAILY PRN (Reason: nausea and vomiting) Qty: 10 0RF Rx Instructions: PRN migraine headache, take together with ketorolac No Action ondansetron 4 mg tablet,disintegrating 4 mg PO Q8H PRN (Reason: nausea and vomiting) Qty: 6 0RF loperamide [Imodium A-D] 2 mg tablet 2 mg PO Q6H PRN (Reason: loose stool) Qty: 14 0RF sumatriptan succinate [Imitrex] 50 mg tablet 50 mg PO Q2H PRN (Reason: migraine headache) Qty: 10 0RF Rx Instructions: do not exceed 2 doses per 24 hrs [id number] [Fioricet] 50-300-40 mg capsule 1 cap PO Q6H PRN (Reason: headache) Qty: 20 0RF ondansetron 4 mg tablet,disintegrating 4 mg PO Q6-8H PRN (Reason: nausea and vomiting) Qty: 10 0RF <Tj Corbin - Last Filed: 11/08/22 17:48> Referrals: Alfonso Casey MD [Physician] - 11/10/22 (migraines) <Tj Corbin - Last Filed: 11/08/22 17:48>
[2022-11-08 17:46] VITALS: BP 129/83; PULSE 86; RESP 18; TEMP 36.4; O2SAT 99; BMI 20.7
[2022-11-08 18:00] VITALS: BP 150/101; PULSE 109; RESP 18; TEMP 36.9; O2SAT 98
[2022-11-08 18:04] LABS: MANUAL DIFF FLAG NO
[2022-11-08 18:10] LABS: Basophils Percent Auto 0.7 % (0-2); Hematocrit 41.9 % (37.0-47.0); Lymphocytes Absolute Auto 0.5 X10*3/uL (1.2-4.9); Lymphocytes Percent Auto 17.2 % (20-40); Mean Corpuscular HGB Conc 35.8 g/dl (31.0-35.0); Mean Corpuscular Hemoglobin 32.6 pg (27.0-33.0); Mean Corpuscular Volume 91.1 fL (80.0-98.0); Mean Platelet Volume 10.1 fL (9.4-12.3); Monocytes Absolute Auto 0.3 X10*3/uL (0.1-1.2); Monocytes Percent Auto 11.8 % (2-11); Neutrophils Percent Auto 70.3 % (45-73); Platelet Count 190 X10*3/uL (160-400); Red Cell Distribution Width 13.8 % (11.0-16.0); White Blood Count 2.8 X10*3/uL (4.8-10.8)
[2022-11-08 18:25] LABS: Alanine Aminotransferase 16 U/L (0-31); Albumin Level 5.4 g/dL (3.5-5.0); Alkaline Phosphatase 49 U/L (39-117); Anion Gap 27 (12-20); Aspartate Amino Transferase 38 U/L (5-31); Bilirubin Total 2.3 mg/dL (0.0-1.0); Blood Urea Nitrogen 12 mg/dL (9-16); Calcium 10.7 mg/dL (8.4-10.2); Carbon Dioxide 14 mmol/L (22-29); Chloride 98 mmol/L (96-108); Creatinine Clr Calc Pharmacy 90.3; Estimated Glomerular Filt Rate > 60; Glucose Random 82 mg/dL (60-115); Lipase 23 U/L (8-78); Potassium 3.8 mmol/L (3.3-5.1); Sodium 135 mmol/L (135-145); Total Protein 8.6 g/dL (6.5-8.0)
[2022-11-08] MEDS: ondansetron HCL 4 MG/2 ML VIAL IVPUSH (18:27)
--- NOTE | 2022-11-08 18:39 | ECG_ITS ---
Test Reason : HEADACHE Blood Pressure : / mmHG Vent. Rate : 088 BPM Atrial Rate : 088 BPM P-R Int : 122 ms QRS Dur : 072 ms QT Int : 420 ms P-R-T Axes : 071 075 059 degrees QTc Int : 508 ms Normal sinus rhythm with sinus arrhythmia Prolonged QT Abnormal ECG No previous ECGs available Referred By: Nancy Alonzo Electronically Signed By:ZAINAB HIDALGO
[2022-11-08] MEDS: diphenhydrAMINE HCL 50 MG/ML VIAL 25 MG IVPUSH (19:22)
[2022-11-08] MEDS: Ketorolac Tromethamine 30 MG/ML VIAL IVPUSH (19:22)
[2022-11-08] MEDS: 0.9 % Sodium Chloride 1,000 ML 999 ML IVCONT (19:23)
[2022-11-08] MEDS: Metoclopramide HCl 10 MG/2 ML VIAL IVPUSH (19:31)
[2022-11-08 19:34] VITALS: BP 126/80; PULSE 103; RESP 16; TEMP 36.8; O2SAT 98
[2022-11-08 19:37] LABS: Appearance Urine Clear; Color Urine Yellow; Glucose Urine UA Negative (Negative); Leukocyte Esterase Urine Negative (Negative); Nitrite Urine Negative (Negative); PH 5.5 (5.0-9.0); Specific Gravity - Urine >= 1.030 (1.005-1.025); UMIC TRIGGER UACC YES; Urine Blood Negative (Negative); Urine Ketones >=160 mg/dL (Negative); Urine Protein 30 (1+) mg/dL (Neg-Trace)
[2022-11-08 19:42] LABS: Bacteria Urine Trace (None Seen); Hyaline Casts Urine 0-2 /LPF (0-2); RBC Urine 0-2 /HPF (0-2); WBC Urine 0-5 /HPF (0-5)
[2022-11-08 19:48] LABS: Amphetamine Screen Urine Not Detected (Not Detect); Barbiturates, Urine POSITIVE (Not Detect); Benzodiazepines Screen Urine Not Detected (Not Detect); Cannabinoid Screen Urine POSITIVE (Not Detect); Cocaine Screen Urine Not Detected (Not Detect); Fentanyl, urine Not Detected (Not Detect); Opiate Screen Urine Not Detected (Not Detect); Phencyclidine Screen Urine Not Detected (Not Detect)
--- NOTE | 2022-11-08 20:44 | PC.NURSE ---
Patient provided gingerale and tolerated well. Patient reports no nausea at this time. Labs drawn as ordered.
[2022-11-08 21:09] LABS: HCG Quantitative < 2 mIU/mL; Troponin-I High Sensitivity < 2.7 ng/L (<3.5-17.0)
== END 2022-11-08 21:59 | disposition home or self-care (01) ==
PROVIDERS: Physician Assistant; Emergency Provider Emergency Medicine
DX: G43.909 Migraine, unspecified, not intractable, without status migrainosus (principal); H53.8 Other visual disturbances; F12.90 Cannabis use, unspecified, uncomplicated; Z79.899 Other long term (current) drug therapy
CPT/HCPCS: 36415; 80053; 80307; 81001; 83690; 84484; 84702; 85025; 85379; 93005; 96361; 96374; 96375; 99284; 99285; J1200; J1885; J2405; J2765

== ENCOUNTER 2022-12-02 06:53 | Emergency (ER) | payer OTHER, SELFPAY ==
[2022-12-02 06:56] VITALS: BP 148/89; PULSE 123; RESP 18; TEMP 36.8; O2SAT 99; BMI 21.3
--- NOTE | 2022-12-02 08:22 | ED.GENADULT ---
HPI - General Adult General Chief complaint: General Medical Stated complaint: Migraine Vomiting Time Seen by Provider: 12/02/22 07:13 Source: patient and family (Fall) Mode of arrival: ambulatory History of Present Illness HPI narrative: 22-year-old female with known chronic headaches, migraine, since she was 10 years old comes in with onset of migraine with typical onset and progression and associated with photosensitivity and multiple episodes of nausea and vomiting. Related Data Previous Rx's Medication Instructions Recorded ondansetron 4 mg disintegrating 4 mg PO Q8H PRN nausea and 08/25/21 tablet vomiting #6 tabs gexbfzbzwt-zdfzspzajuaiy-iexfbxgx 1 cap PO Q6H PRN headache #20 caps 10/30/22 50 mg-300 mg-40 mg capsule (Fioricet) loperamide 2 mg tablet (Imodium 2 mg PO Q6H PRN loose stool #14 10/30/22 A-D) tabs ondansetron 4 mg disintegrating 4 mg PO Q6-8H PRN nausea and 10/30/22 tablet vomiting #10 tabs sumatriptan succinate 50 mg tablet 50 mg PO Q2H PRN migraine headache 10/30/22 (Imitrex) #10 tabs ketorolac 10 mg tablet 10 mg PO TID PRN pain #12 tabs 11/08/22 metoclopramide HCl 5 mg tablet 5 mg PO DAILY PRN nausea and 11/08/22 (Reglan) vomiting #10 tabs ondansetron 4 mg disintegrating 4 mg PO Q8H PRN nausea and 12/02/22 tablet vomiting 4 days #14 tabs Allergies Allergy/AdvReac Type Severity Reaction Status Date / Time No Known Allergies Allergy Verified 11/08/22 17:46 [No Known Allergies*] Review of Systems Review of Systems: Pertinent positives and negatives as stated in [facility] Past Medical History Source: nursing notes reviewed Medical History Migraine headache Social History Social History Alcohol intake: never Patient Tobacco Use Status: Never used Tobacco Smoked in Last 30 Days: No Use of substances other than those prescribed or required for medical reasons: No Substance Use Type: Marijuana Advance Directives: No Advance Directives Information Provided: Yes Patient : No Physical Exam ED Vital Signs: Vital Signs - 24 hr 12/02/22 06:56 12/02/22 09:44 12/02/22 09:52 Temperature 98.2 F 98.6 F 97.9 F Pulse Rate 123 H 103 H 94 Respiratory Rate 18 20 14 Blood Pressure 148/89 H 124/73 125/77 Pulse Oximetry 99 100 100 Oxygen Delivery Method Room Air Room Air Room Air BMI result Body Mass Index 21.3 VITAL SIGNS: Reviewed. GENERAL: Well developed, well nourished, in no acute distress. HEAD: Normocephalic/atraumatic EYES: PERRLA, EOMI EARS: Ext canals without abnormality NOSE: Nares patent bilateral OROPHARYNX: no oral lesions noted, posterior pharynx clear NECK: Supple, no adenopathy LUNGS: Normal breath sounds. No adventitious sounds or accessory muscle use. SpO2<100> CARDIOVASCULAR: Regular rate and rhythm without noted murmurs ABDOMEN: Soft, non-tender, non-distended with bowel sounds. NEUROLOGIC: Alert and oriented x 4. Strength and sensation to light touch were grossly intact x 4. Medications Administered Discontinued Medications Generic Name Dose Route Start Last Admin Trade Name Freq PRN Reason Stop Dose Admin Famotidine 20 mg 12/02/22 08:10 12/02/22 08:59 Famotidine/Pf 20 Mg/2 Ml Vial IVPUSH 12/02/22 08:11 20 mg ONCE ONE Administration Sodium Chloride 1,000 mls @ 999 mls/hr 12/02/22 08:15 12/02/22 10:49 Ns IV 12/02/22 09:15 Infused .Q1H1M EDMOND Infusion Ondansetron HCl 4 mg 12/02/22 08:10 12/02/22 08:59 Ondansetron Hcl 4 Mg/2 Ml Vial IVPUSH 12/02/22 08:11 4 mg ONCE ONE Administration Medical Decision Making Medical Decision Making MDM Narrative: 22-year-old female with typical onset or progression of her migraines but also has underlying cannabis use disorder. Start IV fluids, Zofran, UDS, UA, Upreg, Pepcid. Review of all investigations and my interpretation is this patient has had acute exacerbation underlying migraine headache that is likely contributed to her cannabis use as well. On re-evaluation patient is tolerating oral intake, has been fluid resuscitated and is feeling better. She will be discharged on anti emetics. Differential Diagnosis Please see the discussion above Lab Data Please see the discussion above Labs: Lab Results 12/02/22 12/02/22 12/02/22 Range/Units 08:16 08:16 08:16 Urine Color Dark Yellow Urine Appearance Cloudy Urine pH 5.5 (5.0-9.0) Ur Specific [place] 1.025 (1.005-1.025) Urine Protein 30 (1+) H (Neg-Trace) mg/dL Urine Glucose (UA) Negative (Negative) mg/dL Urine Ketones 40 (Negative) mg/dL Urine Blood Negative (Negative) Urine Nitrite Negative (Negative) Ur Leukocyte Esterase Negative (Negative) Urine RBC 0-2 (0-2) /HPF Urine WBC 0-5 (0-5) /HPF Ur Squamous Epith Cells 6-10 (0-2) /HPF Urine Bacteria None Seen (None Seen) Hyaline Casts 0-2 (0-2) /LPF Urine Test NEGATIVE (NEGATIVE) Urine Opiates Screen Not Detected (Not Detect) Urine Fentanyl Screen Not Detected (Not Detect) Ur Barbiturates Screen POSITIVE H (Not Detect) Ur Phencyclidine Scrn Not Detected (Not Detect) Ur Amphetamines Screen Not Detected (Not Detect) U Benzodiazepines Scrn Not Detected (Not Detect) Urine Cocaine Screen Not Detected (Not Detect) U Marijuana (THC) Screen POSITIVE H (Not Detect) External Record Review External record reviewed: Outpatient record and Prior outpatient labs Discharge Plan Discharge Clinical Impression: Migraine, Cannabis use disorder Patient Disposition: Home, Self-Care Instructions: Migraine Headache (ED), Cyclic Vomiting Syndrome (ED) Additional Instructions: 1. Attempt to use [id number] Excedrin migraine medication. 2. I have given you a prescription for antinausea medication. 3. Please continue to follow-up with your primary care provider. Return to the ER for any worsening symptoms. Prescriptions: New ondansetron 4 mg tablet,disintegrating 4 mg PO Q8H PRN (Reason: nausea and vomiting) 4 Days Qty: 14 0RF No Action ondansetron 4 mg tablet,disintegrating 4 mg PO Q8H PRN (Reason: nausea and vomiting) Qty: 6 0RF loperamide [Imodium A-D] 2 mg tablet 2 mg PO Q6H PRN (Reason: loose stool) Qty: 14 0RF sumatriptan succinate [Imitrex] 50 mg tablet 50 mg PO Q2H PRN (Reason: migraine headache) Qty: 10 0RF Rx Instructions: do not exceed 2 doses per 24 hrs qzedqprmfs-wapxazxarsaod-yerw [Fioricet] 50-300-40 mg capsule 1 cap PO Q6H PRN (Reason: headache) Qty: 20 0RF ondansetron 4 mg tablet,disintegrating 4 mg PO Q6-8H PRN (Reason: nausea and vomiting) Qty: 10 0RF ketorolac 10 mg tablet 10 mg PO TID PRN (Reason: pain) Qty: 12 0RF metoclopramide HCl [Reglan] 5 mg tablet 5 mg PO DAILY PRN (Reason: nausea and vomiting) Qty: 10 0RF Rx Instructions: PRN migraine headache, take together with ketorolac
[2022-12-02 08:23] LABS: Appearance Urine Cloudy; Color Urine Dark Yellow; Glucose Urine UA Negative (Negative); Leukocyte Esterase Urine Negative (Negative); Nitrite Urine Negative (Negative); PH 5.5 (5.0-9.0); Specific Gravity - Urine 1.025 (1.005-1.025); UMIC TRIGGER UACC YES; Urine Blood Negative (Negative); Urine Ketones 40 mg/dL (Negative); Urine Protein 30 (1+) mg/dL (Neg-Trace)
[2022-12-02 08:27] LABS: Bacteria Urine None Seen (None Seen); Hyaline Casts Urine 0-2 /LPF (0-2); RBC Urine 0-2 /HPF (0-2); WBC Urine 0-5 /HPF (0-5)
[2022-12-02 08:31] LABS: Amphetamine Screen Urine Not Detected (Not Detect); Barbiturates, Urine POSITIVE (Not Detect); Benzodiazepines Screen Urine Not Detected (Not Detect); Cannabinoid Screen Urine POSITIVE (Not Detect); Cocaine Screen Urine Not Detected (Not Detect); Fentanyl, urine Not Detected (Not Detect); Opiate Screen Urine Not Detected (Not Detect); Phencyclidine Screen Urine Not Detected (Not Detect)
[2022-12-02] MEDS: Famotidine/PF 20 MG/2 ML VIAL IVPUSH (08:59)
[2022-12-02] MEDS: ondansetron HCL 4 MG/2 ML VIAL IVPUSH (08:59)
[2022-12-02] MEDS: 0.9 % Sodium Chloride 1,000 ML 999 ML IV (09:02)
[2022-12-02 09:11] LABS: UPreg QC Valid YES; Urine Pregnancy NEGATIVE (NEGATIVE)
[2022-12-02 09:44] VITALS: BP 124/73; PULSE 103; RESP 20; TEMP 37; O2SAT 100
[2022-12-02 09:52] VITALS: BP 125/77; PULSE 94; RESP 14; TEMP 36.6; O2SAT 100
--- NOTE | 2022-12-02 10:53 | PC.NURSE ---
pt resting comfortably, verbalizes no needs at this time. states she is feeling better, tolerated PO intake.
--- NOTE | 2022-12-02 11:34 | PC.NURSE ---
pt dc'd with script called into pharmacy. iv removed.
== END 2022-12-02 11:36 | disposition home or self-care (01) ==
PROVIDERS: Emergency Provider Student in an Organized Health Care Education/Training Program
DX: G43.909 Migraine, unspecified, not intractable, without status migrainosus (principal); F12.90 Cannabis use, unspecified, uncomplicated; Z79.899 Other long term (current) drug therapy
CPT/HCPCS: 80307; 81001; 81025; 96361; 96374; 96375; 99284; J2405

== ENCOUNTER 2022-12-02 13:47 | Emergency (ER) | payer OTHER, SELFPAY ==
--- NOTE | 2022-12-02 14:16 | ED_ITS ---
HPI - General Adult General Chief complaint: Nausea/Vomiting/Diarrhea Stated complaint: Migraine Vomiting Time Seen by Provider: 12/02/22 16:25 Source: patient, RN notes reviewed and old records reviewed Mode of arrival: ambulatory History of Present Illness HPI narrative: 22-year-old female with a past medical history of migraine headaches, cannabis induced emesis, presenting to the ED complaining of migraine headache since 21:00 last night with associated blurry vision, nausea, vomiting, and inability to tolerate p.o. Patient has been seen and treated in our ED multiple times for similar symptoms, most recently this morning. Admits symptoms are typical for her migraine headaches, took Zofran and Excedrin without relief. Admits recently moved from [place], cannot get in with PCP until February. Denies vision loss, abdominal pain, dysuria/hematuria, fever/chills, weakness. Headache not maximal at onset Onset (ago): hour(s) Related Data Previous Rx's Medication Instructions Recorded ondansetron 4 mg disintegrating 4 mg PO Q8H PRN nausea and 08/25/21 tablet vomiting #6 tabs tnxzcpnwvs-ecvmipdisrjvp-ggyjyyfr 1 cap PO Q6H PRN headache #20 caps 10/30/22 50 mg-300 mg-40 mg capsule (Fioricet) loperamide 2 mg tablet (Imodium 2 mg PO Q6H PRN loose stool #14 10/30/22 A-D) tabs ondansetron 4 mg disintegrating 4 mg PO Q6-8H PRN nausea and 10/30/22 tablet vomiting #10 tabs sumatriptan succinate 50 mg tablet 50 mg PO Q2H PRN migraine headache 10/30/22 (Imitrex) #10 tabs ketorolac 10 mg tablet 10 mg PO TID PRN pain #12 tabs 11/08/22 metoclopramide HCl 5 mg tablet 5 mg PO DAILY PRN nausea and 11/08/22 (Reglan) vomiting #10 tabs haloperidol 2 mg tablet 2 mg PO TID #20 tabs 12/02/22 magnesium oxide 500 mg capsule 500 mg PO DAILY #10 caps 12/02/22 metoclopramide HCl 10 mg tablet 10 mg PO Q6H PRN nausea and 12/02/22 vomiting #30 tabs ondansetron 4 mg disintegrating 4 mg PO Q8H PRN nausea and 12/02/22 tablet vomiting 4 days #14 tabs Allergies Allergy/AdvReac Type Severity Reaction Status Date / Time No Known Allergies Allergy Verified 11/08/22 17:46 [No Known Allergies*] Review of Systems Review of Systems: Constitutional: No Fever, No Chills, No Fatigue, No Malaise ENT/Mouth: No Ear Pain, No Nasal Congestion, No sore throat, No Rhinorrhea, No Swallowing Difficulty Eyes: No Eye Pain, No Swelling, No Redness, No Discharge, + Vision Changes Cardiovascular: No Chest Pain, No SOB, No Edema, No Palpitations Respiratory: No Cough, No Sputum, No Dyspnea Gastrointestinal: + Nausea, + Vomiting, No Diarrhea, No Constipation, No Abdominal pain Genitourinary: No Dysuria, No Hematuria, No Urinary Incontinence/retention, No Flank Pain Musculoskeletal: No joint pain, No Myalgias, No Joint Swelling Skin: No Skin Lesions, No rash Neuro: No Weakness, No Dizziness, + Headache Yes all other systems are reviewed and are negative Constitutional: Constitutional: Reports as per [facility] Past Medical History Attestation statement: The following information was validated with the patient. Source: old records reviewed Medical History Migraine headache Social History Social History Alcohol intake: never Patient Tobacco Use Status: Never used Tobacco Substance Use Type: Marijuana Advance Directives: No Advance Directives Information Provided: Yes Physical Exam ED Vital Signs: Vital Signs - 24 hr 12/02/22 14:17 12/02/22 16:20 Temperature 98.1 F 98.3 F Pulse Rate 98 88 Respiratory Rate 22 H 18 Blood Pressure 124/76 131/72 Pulse Oximetry 98 97 Oxygen Delivery Method Room Air Room Air BMI result Body Mass Index 21.3 Const General: cooperative, healthy appearing and no acute distress Orientation/consciousness: patient oriented x3 Limitations: no limitations HENMT Head: Yes normal to inspection and Yes atraumatic Ears: hearing grossly normal bilaterally General nose exam: Normal external nose present Face and sinus: Yes normal facial exam Eyes General: appearance normal, both eyes and all related structures EOM: EOMs intact bilaterally Neck Neck: Yes normal visual inspection and Yes no meningeal signs Resp Effort & Inspection: normal respiratory effort and no respiratory distress Auscultation: clear to auscultation bilaterally Cardio Rate: regular rate Heart sounds: S1 normal heart sound present and S2 normal heart sound present GI Inspection: Yes normal to inspection Palpation (GI): Soft to palpation, nontender, no guarding and not rigid General: Yes no CVA tenderness Back/Spine/Pelvis Back: no CVA tenderness Skin Rashes: no rashes Wounds: no wounds Neuro General: patient oriented x3, gait normal, tone normal, moves all extremities, no meningeal signs, no focal motor deficits and CN's II-XI intact bilaterally Cranial nerves: Yes CN's II-XII intact bilaterally Cognition (Neuro): normal cognition Extrem General: Yes normal to inspection Course Course Course Narrative: This is an RME: Additional HPI, ROS, PE not included below will be deferred to primary provider. 22 y/o F, hx of migraine headaches presenting with nausea, vomiting and head aches since last night. Has been here multiple times for the same thing. Pt actively vomiting in triage. Has tried taking at home zofran but unable to keep down. Recently moved here from [place], has PCP appt in February. Plan: Labs and UA ordered. -1725--no leukocytosis. H&H stable. Anion gap 25 likely from ketosis/fluid losses -magnesium low at 1.32 g IV repletion ordered. T bili and AST chronically elevated -UA with protein and 40 ketones. Tox positive for barbiturates and THC -1900--ED care transferred to Dr. Oates pending IVF, Sx improvement/PO challenge and repeat labs Medications Administered Generic Name Dose Route Start Last Admin Trade Name Freq PRN Reason Stop Dose Admin Magnesium Sulfate 2 gm in 50 mls @ 25 mls/hr 12/02/22 17:21 12/02/22 17:37 Magnesium Sulfate/H2o IV 12/02/22 19:20 25 mls/hr ONCE ONE Administration Discontinued Medications Generic Name Dose Route Start Last Admin Trade Name Freq PRN Reason Stop Dose Admin Diphenhydramine HCl 50 mg 12/02/22 16:43 12/02/22 17:02 Diphenhydramine Hcl 50 Mg/Ml Vial IVPUSH 12/02/22 16:44 50 mg ONCE ONE Administration Sodium Chloride 1,000 mls @ 999 mls/hr 12/02/22 16:45 12/02/22 18:30 Ns IV 12/02/22 17:45 Infused .Q1H1M [facility] Infusion Lactated Ringer's 1,000 mls @ 999 mls/hr 12/02/22 17:30 12/02/22 17:41 Lr IV 12/02/22 18:30 999 mls/hr .Q1H1M EDMOND Administration Ketorolac Tromethamine 15 mg 12/02/22 16:43 12/02/22 17:03 Ketorolac Tromethamine 15 Mg/Ml Vial IVPUSH 12/02/22 16:44 15 mg ONCE ONE Administration Metoclopramide HCl 10 mg 12/02/22 16:43 12/02/22 17:00 Metoclopramide Hcl 10 Mg/2 Ml Vial IVPUSH 12/02/22 16:44 10 mg ONCE ONE Administration Medical Decision Making Medical Decision Making MDM Narrative: 22-year-old female with a past medical history of migraine headaches, cannabis induced emesis, presenting to the ED complaining of migraine headache since 21:00 last night with associated blurry vision, nausea, vomiting, and inability to tolerate p.o. On exam vital signs stable, nontoxic appearing, actively dry heaving during evaluation, abdomen soft/nontender, no focal neuro deficits. Concern for migraine headache vs cannabis induced emesis. Rule out metabolic abnormalities. Low suspicion for ICH Plan: Labs, UA, , IVF, IV Toradol/Reglan/Benadryl, re-evaluate Please refer to course for remaining clinical decision making, interpretation of labs/imaging results, and discussions with consultants and/or family members. 18:50. Patient taken on sign-out pending re-evaluation. Labs reviewed. It shows an anion gap of 25 but secondary to a bicarb of 12 and a sodium of 134. Her potassium is normal. Her magnesium, however, is 1.3. That has been replaced with 2 g IV. I will also prescribe more for home. I discussed with patient possibilities and triggers for her vomiting. It seems air 100% related to migraines. She reports daily use of cannabinoids, but states she was having the same frequency of migraines and vomiting when she was living in the [facility] and was not using marijuana products at all. It seems this is more migraine related at this point given that history. With still refrain from cannabinoid use. In the meantime, will add Reglan to her outpatient regimen to start early on in the headache prior to vomiting. She is also on sumatriptan and can continue to use this for the migraines. She is feeling much better now and would rather go home than wait for repeat lab work. I think this is reasonable as her anion gap is explainable and has already been treated. She will return if worse or unable to keep down liquids. Differential Diagnosis Differential Diagnoses: The differential diagnosis associated with the presentation includes As above Admission/Observation Consideration of admission/observation: Escalation of care including admission/observation considered Lab Data MDM Lab Attestation statement: I reviewed the patient's lab results. 12/02/22 14:56 12/02/22 14:56 Labs: Lab Results 12/02/22 12/02/22 Range/Units 14:56 14:56 WBC 10.4 (4.8-10.8) X10*3/uL RBC 3.82 L (4.20-5.50) X10*6/uL Hgb 12.5 (12.0-16.0) g/dl Hct 35.8 L (37.0-47.0) % MCV 93.7 (80.0-98.0) fL MCH 32.7 (27.0-33.0) pg MCHC 34.9 (31.0-35.0) g/dl RDW 13.7 (11.0-16.0) % Plt Count 249 D (160-400) X10*3/uL MPV 10.0 (9.4-12.3) fL Immature Gran % (Auto) 0.3 (0.0-0.4) % Neut % (Auto) 89.1 H (45-73) % Lymph % (Auto) 6.2 L (20-40) % [place] % (Auto) 4.0 (2-11) % Eos % (Auto) 0.1 (0-4) % Baso % (Auto) 0.3 (0-2) % Lymph # (Auto) 0.6 L (1.2-4.9) X10*3/uL [place] # (Auto) 0.4 (0.1-1.2) X10*3/uL Eos # (Auto) 0.0 (0.0-0.4) X10*3/uL Baso # (Auto) 0.0 (0.0-0.2) X10*3/uL Abs Immat Gran (auto) 0.03 (0.00-0.03) X10*3/uL Absolute Neuts (auto) 9.3 H (2.0-8.3) x10*3/uL Absolute Nucleated RBC 0.000 (0.0-0.012) X10*3/uL Nucleated RBC % (auto) 0.0 (0.0-0.2) /100WBC Sodium 134 L (135-145) mmol/L Potassium 4.0 (3.3-5.1) mmol/L Chloride 101 (96-108) mmol/L Carbon Dioxide 12 L (22-29) mmol/L Anion Gap 25 H (12-20) BUN 15 (9-16) mg/dL Creatinine 0.80 (0.5-1.4) mg/dL Estim Creat Clear Calc 89.7 Estimated GFR > 60 Random Glucose 83 (60-115) mg/dL Calcium 9.5 D (8.4-10.2) mg/dL Magnesium 1.3 L* (1.6-2.6) mg/dL Total Bilirubin 1.6 H (0.0-1.0) mg/dL Direct Bilirubin 0.4 (0.0-0.5) mg/dL AST 37 H (5-31) U/L ALT 22 (0-31) U/L Alkaline Phosphatase 41 (39-117) U/L Total Protein 7.3 (6.5-8.0) g/dL Albumin 4.6 (3.5-5.0) g/dL Lipase 20 (8-78) U/L Ethyl Alcohol < 10 mg/dL Radiology Impression Discussion of test interpretation with radiology: I have reviewed the [facility] ologist's reading. External Record Review External record reviewed: Inpatient record, Office record, Outpatient record, Prior outpatient labs, Prior outpatient radiology, Primary care record and Outside ED record Tests considered The following testing was considered but not selected: As above Discharge Plan Discharge Clinical Impression: Migraine headache, Cannabis use disorder Patient Disposition: Still a Patient Instructions: Migraine Headache (ED), Cannabis Abuse (ED) Prescriptions: New metoclopramide HCl 10 mg tablet 10 mg PO Q6H PRN (Reason: nausea and vomiting) Qty: 30 0RF Rx Instructions: And Headache magnesium oxide 500 mg capsule 500 mg PO DAILY Qty: 10 0RF haloperidol 2 mg tablet 2 mg PO TID Qty: 20 0RF Rx Instructions: Use instead of metoclopramide/reglan No Action ondansetron 4 mg tablet,disintegrating 4 mg PO Q8H PRN (Reason: nausea and vomiting) Qty: 6 0RF loperamide [Imodium A-D] 2 mg tablet 2 mg PO Q6H PRN (Reason: loose stool) Qty: 14 0RF sumatriptan succinate [Imitrex] 50 mg tablet 50 mg PO Q2H PRN (Reason: migraine headache) Qty: 10 0RF Rx Instructions: do not exceed 2 doses per 24 hrs sbouxilvtw-tkdihuxwoqowu-byzo [Fioricet] 50-300-40 mg capsule 1 cap PO Q6H PRN (Reason: headache) Qty: 20 0RF ondansetron 4 mg tablet,disintegrating 4 mg PO Q6-8H PRN (Reason: nausea and vomiting) Qty: 10 0RF ketorolac 10 mg tablet 10 mg PO TID PRN (Reason: pain) Qty: 12 0RF metoclopramide HCl [Reglan] 5 mg tablet 5 mg PO DAILY PRN (Reason: nausea and vomiting) Qty: 10 0RF Rx Instructions: PRN migraine headache, take together with ketorolac ondansetron 4 mg tablet,disintegrating 4 mg PO Q8H PRN (Reason: nausea and vomiting) 4 Days Qty: 14 0RF Referrals: [facility] Family Medicine [Provider Group] [facility] Primary CareJose [Provider Group] Physician,None [Primary Care Provider] -
[2022-12-02 14:17] VITALS: BP 124/76; PULSE 98; RESP 22; TEMP 36.7; O2SAT 98; BMI 21.3
[2022-12-02 15:00] LABS: MANUAL DIFF FLAG NO
[2022-12-02 15:01] LABS: Basophils Percent Auto 0.3 % (0-2); Eosinophils Percent Auto 0.1 % (0-4); Hematocrit 35.8 % (37.0-47.0); Hemoglobin 12.5 g/dl (12.0-16.0); Imm Gran Abs Auto 0.03 X10*3/uL (0.00-0.03); Imm Gran Pct Auto 0.3 % (0.0-0.4); Lymphocytes Absolute Auto 0.6 X10*3/uL (1.2-4.9); Lymphocytes Percent Auto 6.2 % (20-40); Mean Corpuscular HGB Conc 34.9 g/dl (31.0-35.0); Mean Corpuscular Hemoglobin 32.7 pg (27.0-33.0); Mean Corpuscular Volume 93.7 fL (80.0-98.0); Monocytes Absolute Auto 0.4 X10*3/uL (0.1-1.2); Neutrophils Absolute Auto 9.3 x10*3/uL (2.0-8.3); Neutrophils Percent Auto 89.1 % (45-73); Platelet Count 249 X10*3/uL (160-400); Red Blood Count 3.82 X10*6/uL (4.20-5.50); Red Cell Distribution Width 13.7 % (11.0-16.0); White Blood Count 10.4 X10*3/uL (4.8-10.8)
[2022-12-02 16:20] VITALS: BP 131/72; PULSE 88; RESP 18; TEMP 36.8; O2SAT 97
[2022-12-02] MEDS: Metoclopramide HCl 10 MG/2 ML VIAL IVPUSH (17:00)
[2022-12-02] MEDS: 0.9 % Sodium Chloride 1,000 ML 999 ML IV (17:00)
[2022-12-02] MEDS: diphenhydrAMINE HCL 50 MG/ML VIAL IVPUSH (17:02)
[2022-12-02] MEDS: Ketorolac Tromethamine 15 MG/ML VIAL IVPUSH (17:03)
[2022-12-02 17:23] LABS: Alanine Aminotransferase 22 U/L (0-31); Albumin Level 4.6 g/dL (3.5-5.0); Alkaline Phosphatase 41 U/L (39-117); Anion Gap 25 (12-20); Aspartate Amino Transferase 37 U/L (5-31); Bilirubin Direct 0.4 mg/dL (0.0-0.5); Bilirubin Total 1.6 mg/dL (0.0-1.0); Blood Urea Nitrogen 15 mg/dL (9-16); Calcium 9.5 mg/dL (8.4-10.2); Carbon Dioxide 12 mmol/L (22-29); Chloride 101 mmol/L (96-108); Creatinine Clr Calc Pharmacy 89.7; Estimated Glomerular Filt Rate > 60; Ethanol < 10 mg/dL; Glucose Random 83 mg/dL (60-115); Lipase 20 U/L (8-78); Magnesium 1.3 mg/dL (1.6-2.6); Sodium 134 mmol/L (135-145); Total Protein 7.3 g/dL (6.5-8.0)
[2022-12-02] MEDS: Magnesium Sulfate/H2O 2 GM/50 ML PIGGYBACK IV (17:37)
[2022-12-02] MEDS: Lactated Ringers 1,000 ML 999 ML IV (17:41)
--- NOTE | 2022-12-02 17:44 | PC.NURSE ---
LR and Mag infusing per provider order, pt transferred to ED 13, report given to delaney KLINE
--- NOTE | 2022-12-02 17:45 | PC.NURSE ---
pt changed into hospital attire and placed on monitoring and evaluation advisor call haile within reach
--- NOTE | 2022-12-02 17:48 | PC.NURSE ---
assumed care of this pt at 1745. pt transferred [place] [facility] [place] to ed 13 for closer observation. pt a+o, dad present during transfer.
[2022-12-02 18:59] VITALS: BP 127/79; PULSE 109; RESP 14; TEMP 36.8; O2SAT 100
[2022-12-02 19:22] LABS: Appearance Urine Clear; Color Urine Yellow; Glucose Urine UA Negative (Negative); Leukocyte Esterase Urine Negative (Negative); Nitrite Urine Negative (Negative); PH 5.5 (5.0-9.0); Urine Blood Negative (Negative); Urine Ketones >=160 mg/dL (Negative); Urine Protein Negative (Neg-Trace)
--- NOTE | 2022-12-02 19:30 | PC.NURSE ---
this rn assumed care of pt @ 1900. pt father at bedside. bilateral IV removed at discharge. pt ambulatory. skin pwd. vss. pt provided with discharge packet. pt verbalized understanding of discharge plan
[2022-12-02 19:39] LABS: Amphetamine Screen Urine Not Detected (Not Detect); Barbiturates, Urine POSITIVE (Not Detect); Benzodiazepines Screen Urine Not Detected (Not Detect); Cannabinoid Screen Urine POSITIVE (Not Detect); Cocaine Screen Urine Not Detected (Not Detect); Fentanyl, urine Not Detected (Not Detect); Opiate Screen Urine Not Detected (Not Detect); Phencyclidine Screen Urine Not Detected (Not Detect)
[2022-12-02 19:56] LABS: Anion Gap 18 (12-20); Blood Urea Nitrogen 11 mg/dL (9-16); Carbon Dioxide 14 mmol/L (22-29); Chloride 105 mmol/L (96-108); Estimated Glomerular Filt Rate > 60; Glucose Random 111 mg/dL (60-115); Magnesium 2.3 mg/dL (1.6-2.6); Sodium 133 mmol/L (135-145)
== END 2022-12-02 19:35 | disposition home or self-care (01) ==
PROVIDERS: Physician Assistant; Physician Assistant Medical; Emergency Provider Emergency Medicine
DX: G43.909 Migraine, unspecified, not intractable, without status migrainosus (principal); F12.90 Cannabis use, unspecified, uncomplicated; Z79.899 Other long term (current) drug therapy
CPT/HCPCS: 36415; 80048; 80076; 80307; 81003; 83690; 83735; 85025; 96361; 96374; 96375; 99284; J1200; J1885; J2765; J3475

== ENCOUNTER 2022-12-11 09:47 | Emergency (ER) | payer OTHER, SELFPAY ==
[2022-12-11 10:16] VITALS: BP 126/82; PULSE 112; RESP 20; TEMP 36.8; O2SAT 100; BMI 21.9
[2022-12-11] MEDS: Ondansetron ODT 4 MG TAB.RAPDIS TRANSLINGU (10:19)
[2022-12-11] MEDS: 0.9 % Sodium Chloride 1,000 ML 999 ML IV (12:42)
[2022-12-11] MEDS: dexAMETHasone sod phosphate 10 MG/ML VIAL IVPUSH (12:43)
[2022-12-11] MEDS: Ketorolac Tromethamine 15 MG/ML VIAL IVPUSH (12:43)
[2022-12-11] MEDS: Metoclopramide HCl 10 MG/2 ML VIAL IVPUSH (12:43)
[2022-12-11] MEDS: Acetaminophen 325 MG TABLET 975 MG PO (12:50)
[2022-12-11] MEDS: Dihydroergotamine Mesylate 1 MG/ML AMPUL IVPUSH ×2 (12:58→14:50)
--- NOTE | 2022-12-11 13:38 | ED_ITS ---
HPI - Headache General Chief Complaint: Headache Stated Complaint: Migraine Time Seen by Provider: 12/11/22 10:48 Source: patient Mode of arrival: ambulatory Limitations: no limitations History of Present Illness HPI Narrative: 22-year-old female with a long history of migraine headaches presents with acute migraine headache. Symptoms started within the last 24 hours. Headaches typically occur 3 times per week. The headaches are generalized. There is no associated neck pain or stiffness. No fevers or chills. Associated with nausea vomiting multiple episodes. Prior treatment included Excedrin without relief. She also uses Imitrex from time to time. Patient describes her pain as a 9/10. The pain is described as pressure and aching in nature. Associated photo and phonophobia. She denies any focal deficits. This is her typical headache. Patient recently moved from [place] and does not have a neurologist or primary care provider at this time. Related Data Previous Rx's Medication Instructions Recorded ondansetron 4 mg disintegrating 4 mg PO Q8H PRN nausea and 08/25/21 tablet vomiting #6 tabs tmlucpklhf-ruhwekkdjuvot-kbanmysf 1 cap PO Q6H PRN headache #20 caps 10/30/22 50 mg-300 mg-40 mg capsule (Fioricet) loperamide 2 mg tablet (Imodium 2 mg PO Q6H PRN loose stool #14 10/30/22 A-D) tabs ondansetron 4 mg disintegrating 4 mg PO Q6-8H PRN nausea and 10/30/22 tablet vomiting #10 tabs sumatriptan succinate 50 mg tablet 50 mg PO Q2H PRN migraine headache 10/30/22 (Imitrex) #10 tabs ketorolac 10 mg tablet 10 mg PO TID PRN pain #12 tabs 11/08/22 metoclopramide HCl 5 mg tablet 5 mg PO DAILY PRN nausea and 11/08/22 (Reglan) vomiting #10 tabs haloperidol 2 mg tablet 2 mg PO TID #20 tabs 12/02/22 magnesium oxide 500 mg capsule 500 mg PO DAILY #10 caps 12/02/22 metoclopramide HCl 10 mg tablet 10 mg PO Q6H PRN nausea and 12/02/22 vomiting #30 tabs ondansetron 4 mg disintegrating 4 mg PO Q8H PRN nausea and 12/02/22 tablet vomiting 4 days #14 tabs propranolol 20 mg tablet 10 mg PO BID #30 tabs 12/11/22 Allergies Allergy/AdvReac Type Severity Reaction Status Date / Time No Known Allergies Allergy Verified 11/08/22 17:46 [No Known Allergies*] [facility] Past Medical History Medical History Migraine headache Social History Social History Alcohol intake: never Patient Tobacco Use Status: Never used Tobacco Smoked in Last 30 Days: No Substance Use Type: Marijuana Advance Directives: No Advance Directives Information Provided: Yes Physical Exam Vital Signs: Vital Signs: Last Vital Signs Temp 98.3 F 12/11/22 10:16 Pulse 112 H 12/11/22 10:16 Resp 20 12/11/22 10:16 BP 126/82 12/11/22 10:16 Pulse Ox 100 12/11/22 10:16 O2 Del Method Room Air 12/11/22 10:16 BMI result Body Mass Index 21.9 GEN: Well developed, no acute distress, alert, oriented HEENT: Normocephalic, atraumatic, normal external ears, nose appears normal, no oropharyngeal edema or exudates Eyes: Normal to appearance Neck: Supple, no lymphadenopathy Respiratory: Talks in complete sentences, no respiratory distress, clear to auscultation bilaterally Cardiovascular: Regular rate and rhythm, no murmurs rubs or gallops Abdomen: Soft, nontender, nondistended, no guarding, no rebound Back: No CVA tenderness Extremities: No clubbing cyanosis or edema Neurologic: No focal neurologic deficits, cranial nerves 2-12 intact, strength is 5/5 bilaterally Skin: No rash Course Course Course Narrative: 22-year-old female presents with a headache. This is her typical migraine presentation. My evaluation, there is no meningeal signs. She has no fever chills. Doubt acute meningitis. There is no thunderclap sudden onset, doubt subarachnoid hemorrhage. There is no indication for emergent imaging at this time. Patient's pain was a 9/10 at presentation is currently 5/10. She would like to be discharged at this time. She does have Imitrex at home. We did discuss propranolol for prophylactic management and she would like to give that a try over the next couple of weeks. She does have follow-up appointment but not until February. Medications Administered Discontinued Medications Generic Name Dose Route Start Last Admin Trade Name Mariela PRN Reason Stop Dose Admin Acetaminophen 975 mg 12/11/22 12:27 12/11/22 12:50 Acetaminophen 325 Mg Tablet PO 12/11/22 12:28 975 mg ONCE ONE Administration Dexamethasone Sodium Phosphate 10 mg 12/11/22 12:27 12/11/22 12:43 Dexamethasone Sod Phosphate 10 Mg/Ml Vial IVPUSH 12/11/22 12:28 10 mg ONCE ONE Administration Dihydroergotamine Mesylate 1 mg 12/11/22 12:30 12/11/22 12:58 Dihydroergotamine Mesylate 1 Mg/Ml Ampul IVPUSH 12/11/22 13:31 1 mg Q1H EDMOND Administration Sodium Chloride 1,000 mls @ 999 mls/hr 12/11/22 12:30 12/11/22 12:42 Ns IV 12/11/22 13:30 999 mls/hr .Q1H1M EDMOND Administration Ketorolac Tromethamine 15 mg 12/11/22 12:27 12/11/22 12:43 Ketorolac Tromethamine 15 Mg/Ml Vial IVPUSH 12/11/22 12:28 15 mg ONCE ONE Administration Metoclopramide HCl 10 mg 12/11/22 12:27 12/11/22 12:43 Metoclopramide Hcl 10 Mg/2 Ml Vial IVPUSH 12/11/22 12:28 10 mg ONCE ONE Administration Ondansetron HCl 4 mg 12/11/22 10:10 12/11/22 10:19 Ondansetron Odt 4 Mg Tab.Rapdis TRANSLINGU 12/11/22 10:11 4 mg ONCE ONE Administration Medical Decision Making Medical Decision Making MDM Narrative: The Pt presents with a gradual onset headache, that I believe is due to a benign generalized headache, and DDx includes tension vs migraine. Given the time course of pain and the Pt?s reassuring exam, I have much lower suspicion for a more emergent etiology including intracranial bleed, stroke, acute TECHNICIAN PREVENTATIVE MEDICINE infxn, venous sinus thrombosis, temporal arteritis, or acute angle glaucoma. Will provide basic analgesia with frequent ? 1L NS, Toradol, Reglan, IVF, DHEA, Dexamethasone, Valproic acid PRN Differential Diagnosis Differential Diagnoses: The differential diagnosis associated with the presentation includes (Migraine headache, tension headache, sinusitis, cluster headache) Migraine headache Admission/Observation Consideration of admission/observation: Escalation of care including admission/observation considered Independent Historian Clinical information obtained from an independent historian. History obtained from or confirmed by: Parent Tests considered The following testing was considered but not selected: CT head Prescription Management I considered prescription management with: Pain Medication Discharge Plan Discharge Clinical Impression: Migraine Patient Disposition: Home, Self-Care Instructions: Migraine Headache (ED) Prescriptions: New propranolol 20 mg tablet 10 mg PO BID Qty: 30 0RF No Action ondansetron 4 mg tablet,disintegrating 4 mg PO Q8H PRN (Reason: nausea and vomiting) Qty: 6 0RF loperamide [Imodium A-D] 2 mg tablet 2 mg PO Q6H PRN (Reason: loose stool) Qty: 14 0RF sumatriptan succinate [Imitrex] 50 mg tablet 50 mg PO Q2H PRN (Reason: migraine headache) Qty: 10 0RF Rx Instructions: do not exceed 2 doses per 24 hrs [id number]-kkejtblnkxnmf-gpjl [Fioricet] 50-300-40 mg capsule 1 cap PO Q6H PRN (Reason: headache) Qty: 20 0RF ondansetron 4 mg tablet,disintegrating 4 mg PO Q6-8H PRN (Reason: nausea and vomiting) Qty: 10 0RF ketorolac 10 mg tablet 10 mg PO TID PRN (Reason: pain) Qty: 12 0RF metoclopramide HCl [Reglan] 5 mg tablet 5 mg PO DAILY PRN (Reason: nausea and vomiting) Qty: 10 0RF Rx Instructions: PRN migraine headache, take together with ketorolac ondansetron 4 mg tablet,disintegrating 4 mg PO Q8H PRN (Reason: nausea and vomiting) 4 Days Qty: 14 0RF metoclopramide HCl 10 mg tablet 10 mg PO Q6H PRN (Reason: nausea and vomiting) Qty: 30 0RF Rx Instructions: And Headache magnesium oxide 500 mg capsule 500 mg PO DAILY Qty: 10 0RF haloperidol 2 mg tablet 2 mg PO TID Qty: 20 0RF Rx Instructions: Use instead of metoclopramide/reglan Referrals: [facility] [place] [facility] [Provider Group]
[2022-12-11 14:00] VITALS: BP 146/94; PULSE 99; RESP 16; O2SAT 98
--- NOTE | 2022-12-11 14:56 | PC.NURSE ---
pt medicated per sep. med was delayed bc pyxis was out. pt ready for discharge
--- NOTE | 2022-12-11 15:04 | PC.NURSE ---
pt feels ready to recuperated and rest at home. medications given, pt pain down to 6.
== END 2022-12-11 15:12 | disposition home or self-care (01) ==
PROVIDERS: Emergency Provider Emergency Medicine
DX: G43.909 Migraine, unspecified, not intractable, without status migrainosus (principal); Z79.899 Other long term (current) drug therapy
CPT/HCPCS: 96361; 96374; 96375; 99284; J1100; J1110; J1885; J2765

== ENCOUNTER 2023-04-08 08:03 | Emergency (ER) | payer OTHER, SELFPAY ==
[2023-04-08 08:14] VITALS: BP 153/90; PULSE 109; RESP 20; O2SAT 100
[2023-04-08 08:20] VITALS: BP 153/90; PULSE 109; RESP 20; O2SAT 100; BMI 21.9
--- NOTE | 2023-04-08 08:20 | ED_ITS ---
HPI - Headache General Chief Complaint: General Medical Stated Complaint: migraine Time Seen by Provider: 04/08/23 08:11 Source: patient, family and old records reviewed Mode of arrival: ambulatory Limitations: no limitations History of Present Illness HPI Narrative: 22 yo female with hx of migraines who has had them since she is 11 - not completely aware of triggers and not on prophylactic medications. Just started with [facility] in [place] and has an appointment to start on medications in 2 days. She does not have a neurologist just moved here from [place]. She comes in with c/o typical gradual onset of headache frontal that radiates down R head and R neck. She has n/v that started last night. MD elicited complaint: migraine Pertinent past history: migraines Onset (ago): day(s) (1) Onset description: gradually Location: right, left, frontal and temporal Severity: moderate Quality & Timing: throbbing Exacerbating factors: movement of head/neck, light and noise Relieving factors: nothing Context: occurred at rest Associated symptoms: nausea, vomiting and photophobia Treatments prior to arrival: none Related Data Previous Rx's Medication Instructions Recorded ondansetron 4 mg disintegrating 4 mg PO Q8H PRN nausea and 08/25/21 tablet vomiting #6 tabs cyqvnmlvva-fdubrpawpxmym-otndqlvo 1 cap PO Q6H PRN headache #20 caps 10/30/22 50 mg-300 mg-40 mg capsule (Fioricet) loperamide 2 mg tablet (Imodium 2 mg PO Q6H PRN loose stool #14 10/30/22 A-D) tabs ondansetron 4 mg disintegrating 4 mg PO Q6-8H PRN nausea and 10/30/22 tablet vomiting #10 tabs sumatriptan succinate 50 mg tablet 50 mg PO Q2H PRN migraine headache 10/30/22 (Imitrex) #10 tabs ketorolac 10 mg tablet 10 mg PO TID PRN pain #12 tabs 11/08/22 metoclopramide HCl 5 mg tablet 5 mg PO DAILY PRN nausea and 11/08/22 (Reglan) vomiting #10 tabs haloperidol 2 mg tablet 2 mg PO TID #20 tabs 12/02/22 magnesium oxide 500 mg capsule 500 mg PO DAILY #10 caps 12/02/22 metoclopramide HCl 10 mg tablet 10 mg PO Q6H PRN nausea and 12/02/22 vomiting #30 tabs ondansetron 4 mg disintegrating 4 mg PO Q8H PRN nausea and 12/02/22 tablet vomiting 4 days #14 tabs propranolol 20 mg tablet 10 mg (1/2 x 20 mg) PO BID #30 tabs 12/11/22 cyclobenzaprine 10 mg tablet 10 mg PO TID PRN muscle spasm #14 04/08/23 tabs hydroxyzine HCl 25 mg tablet 25 mg PO Q8H PRN anxiety #30 tabs 04/08/23 ondansetron 4 mg disintegrating 4 mg PO Q8H PRN nausea and 04/08/23 tablet vomiting #20 tabs Allergies Allergy/AdvReac Type Severity Reaction Status Date / Time No Known Allergies Allergy Verified 11/08/22 17:46 [No Known Allergies*] Review of Systems Review of Systems: Constitutional : No Fever, No Chills, No Fatigue ENT/Mouth : No sore throat, No Rhinorrhea Eyes: No Eye Pain, No Swelling, No Redness Cardiovascular : No Chest Pain, No SOB, No Dyspnea on Exertion Respiratory : No Cough, No Sputum Gastrointestinal : pos Nausea, pos Vomiting, No Diarrhea, No abdominal Pain Genitourinary : No Dysuria, No Urinary Frequency, No Hematuria, Musculoskeletal : No joint pain, No Myalgias, No Joint Swelling Skin : No Skin Lesions, No rash Neuro : No Weakness, No Numbness, No Dizziness, positive Headache Psych : No Anxiety/Panic, No Depression Heme/Lymph: No Bruising, No Bleeding,No Lymphadenopathy Endocrine : No Polyuria, No Polydipsia All other systems reviewed and are negative [facility] Past Medical History Attestation statement: The following information was validated with the patient. Medical History Migraine headache Social History Social History Alcohol intake: never Patient Tobacco Use Status: Never used Tobacco Substance Use Type: Marijuana Advance Directives: No Physical Exam Vital Signs: Vital Signs: Last Vital Signs Pulse 109 H 04/08/23 08:20 Resp 20 04/08/23 08:20 BP 153/90 H 04/08/23 08:20 Pulse Ox 100 04/08/23 08:20 O2 Del Method Room Air 04/08/23 08:20 BMI result Body Mass Index 21.9 Appearance: Alert. Oriented X3. No acute distress. appears uncomfortable Eyes: Pupils equal, round and reactive to light. ENT: Pharynx normal. Neck: Normal inspection. Neck supple. no meningeal signs CVS: Normal heart rate and rhythm. Pulses normal. Respiratory: No respiratory distress. Breath sounds normal. Abdomen: Soft and nontender. Skin: Skin warm and dry. Normal skin color. Normal skin turgor. Extremities: No lower extremity edema. No calf ttp Neuro: Oriented X 3. No motor deficit. No sensory deficit. Course Course Course Narrative: feels better tolerating PO stable for DC Medications Administered Discontinued Medications Generic Name Dose Route Start Last Admin Trade Name Freq PRN Reason Stop Dose Admin Diphenhydramine HCl 25 mg 04/08/23 08:17 04/08/23 08:49 Diphenhydramine Hcl 50 Mg/Ml Vial IVPUSH 04/08/23 08:18 25 mg ONCE ONE Administration Sodium Chloride 1,000 mls @ 999 mls/hr 04/08/23 08:30 04/08/23 08:45 Ns IV 04/08/23 09:30 999 mls/hr .Q1H1M EDMOND Administration Ketorolac Tromethamine 15 mg 04/08/23 08:17 04/08/23 08:48 Ketorolac Tromethamine 15 Mg/Ml Vial IVPUSH 04/08/23 08:18 15 mg ONCE ONE Administration Metoclopramide HCl 10 mg 04/08/23 08:17 04/08/23 08:56 Metoclopramide Hcl 10 Mg/2 Ml Vial IVPUSH 04/08/23 08:18 10 mg ONCE ONE Administration Medical Decision Making Medical Decision Making [facility] Narrative: 22 yo female with hx of migraines here with c/o typical migraine gradual in nature with n/v and no fevers - hx of same in past not on daily meds but has appointment in 2 days. She is neuro intact, not on thinners and has no meningeal signs. Doubt SAH or ENVIRONMENTAL LABORATORY TECHNICIAN infection. At this time will treat supportively and reassess. Differential Diagnosis Differential Diagnoses: The differential diagnosis associated with the presentation includes migraine, tensions headache, given typical pattern doubt SAH, no fevers doubt ENVIRONMENTAL LABORATORY TECHNICIAN infection Admission/Observation Consideration of admission/observation: Escalation of care including admission/observation considered feels better tolerating PO stable for DC Independent Historian Clinical information obtained from an independent historian. History obtained from or confirmed by: Parent External Record Review External record reviewed: Inpatient record Tests considered The following testing was considered but not selected: CT head but given chronicity and nature doubt SAH Prescription Management I considered prescription management with: Other Discharge Plan Discharge Clinical Impression: Headache, migraine Qualifiers: Migraine type: without aura Status migrainosus presence: without status migrainosus Intractability: not intractable Qualified Code(s): G43.009 - Migraine without aura, not intractable, without status migrainosus Patient Disposition: Home, Self-Care Instructions: Migraine Headache (ED) Additional Instructions: return for fevers, vomiting, confusion, numbness, weakness, inabillity to tolerate PO or any other concerns. keep your appointment and discuss migraine daily medications such as starting topamax to prevent headaches Prescriptions: New cyclobenzaprine 10 mg tablet 10 mg PO TID PRN (Reason: muscle spasm) Qty: 14 0RF ondansetron 4 mg tablet,disintegrating 4 mg PO Q8H PRN (Reason: nausea and vomiting) Qty: 20 0RF hydroxyzine HCl 25 mg tablet 25 mg PO Q8H PRN (Reason: anxiety) Qty: 30 0RF No Action ondansetron 4 mg tablet,disintegrating 4 mg PO Q8H PRN (Reason: nausea and vomiting) Qty: 6 0RF loperamide [Imodium A-D] 2 mg tablet 2 mg PO Q6H PRN (Reason: loose stool) Qty: 14 0RF sumatriptan succinate [Imitrex] 50 mg tablet 50 mg PO Q2H PRN (Reason: migraine headache) Qty: 10 0RF Rx Instructions: do not exceed 2 doses per 24 hrs qsijjjgrfp-tfhlxpqyrlunb-kdbg [Fioricet] 50-300-40 mg capsule 1 cap PO Q6H PRN (Reason: headache) Qty: 20 0RF ondansetron 4 mg tablet,disintegrating 4 mg PO Q6-8H PRN (Reason: nausea and vomiting) Qty: 10 0RF ketorolac 10 mg tablet 10 mg PO TID PRN (Reason: pain) Qty: 12 0RF metoclopramide HCl [Reglan] 5 mg tablet 5 mg PO DAILY PRN (Reason: nausea and vomiting) Qty: 10 0RF Rx Instructions: PRN migraine headache, take together with ketorolac ondansetron 4 mg tablet,disintegrating 4 mg PO Q8H PRN (Reason: nausea and vomiting) 4 Days Qty: 14 0RF metoclopramide HCl 10 mg tablet 10 mg PO Q6H PRN (Reason: nausea and vomiting) Qty: 30 0RF Rx Instructions: And Headache magnesium oxide 500 mg capsule 500 mg PO DAILY Qty: 10 0RF haloperidol 2 mg tablet 2 mg PO TID Qty: 20 0RF Rx Instructions: Use instead of metoclopramide/reglan propranolol 20 mg tablet 10 mg PO BID Qty: 30 0RF
[2023-04-08] MEDS: 0.9 % Sodium Chloride 1,000 ML 999 ML IV (08:45)
[2023-04-08] MEDS: Ketorolac Tromethamine 15 MG/ML VIAL IVPUSH (08:48)
[2023-04-08] MEDS: diphenhydrAMINE HCL 50 MG/ML VIAL 25 MG IVPUSH (08:49)
[2023-04-08] MEDS: Metoclopramide HCl 10 MG/2 ML VIAL IVPUSH (08:56)
[2023-04-08] MEDS: LORazepam 2 MG/ML VIAL 0.5 MG IVPUSH (10:17)
[2023-04-08 10:20] VITALS: BP 140/92; PULSE 126; RESP 18; O2SAT 99
[2023-04-08 10:44] VITALS: BP 130/83; PULSE 95; RESP 16; O2SAT 99
== END 2023-04-08 10:56 | disposition home or self-care (01) ==
PROVIDERS: Emergency Provider Emergency Medicine
DX: G43.009 Migraine without aura, not intractable, without status migrainosus (principal); R11.2 Nausea with vomiting, unspecified; H53.143 Visual discomfort, bilateral; Z79.899 Other long term (current) drug therapy
CPT/HCPCS: 96361; 96374; 96375; 99284; J1200; J1885; J2060; J2765

== ENCOUNTER 2023-08-01 07:00 | Emergency (ER) | payer OTHER, SELFPAY ==
[2023-08-01 07:03] VITALS: BP 144/97; PULSE 128; RESP 22; TEMP 36.8; O2SAT 98; BMI 23.8
--- OUTSIDE RECORDS SUMMARY | 2023-08-01 07:25 | XMS_ITS | Continuity of Care Document ---
Author Name Unknown Organization [facility] Address [address] [place] [address]- Care Team Providers Care Program Manager Environmental Planning Name Role Phone Tram Hillman MD Primary Care Physician [phone] Encounter [facility] Date(s): 03/18/23 - 04/17/[address] [address] Attending Physician: Admtr Ar8 Admitting Physician: Admtr, Ar8 Referring Physician: Admtr, Ar8 Allergies, Adverse Reactions, Alerts No Known Medication Allergies Patient Care team information Care Team Personnel Name: Tram Hillman MD Position: Reference Physician Member Role: PCP Address: Address: [address] [place] [id number]- Care Team Related Persons Name: VICK PARK Address: home [address] [place] [address]
--- OUTSIDE RECORDS SUMMARY | 2023-08-01 07:25 | XMS_ITS | Continuity of Care Document ---
Author Name Unknown Organization [facility] Address [address], [address], [address] [place] [id number]- Care Team Providers Care Hotel Service Manager Name Role Phone Tram Hillman MD Primary Care Physician [phone] Encounter [facility] Date(s): 03/13/23 - 04/12/23 [facility] [address], [address], [address] [place] [phone]- Allergies, Adverse Reactions, Alerts No Known Medication Allergies Patient Care team information Care Team Personnel Name: Tram Hillman MD Position: Reference Physician Member Role: PCP Address: Address: [address] [place] [id number]- Care Team Related Persons Name: VICK PARK Address: home [address] [place] [address]
--- OUTSIDE RECORDS SUMMARY | 2023-08-01 07:25 | XMS_ITS | Continuity of Care Document ---
Author Name Unknown Organization [facility] Address [address], [address], [address] [place] [id number]- Care Team Providers Care Associate Professor Of Biblical Studies Name Role Phone Tram Hillman MD Primary Care Physician Encounter [facility] Date(s): 04/11/23 - 05/11/23 [facility] [address], [address], [address] [place] [id number]- Allergies, Adverse Reactions, Alerts No Known Medication Allergies Patient Care team information Care Team Personnel Name: Tram Hillman MD Position: Reference Physician Member Role: PCP Address: Address: [address] [place] [address]- Care Team Related Persons Name: VICK PARK Address: home [address] [place] [address]
--- OUTSIDE RECORDS SUMMARY | 2023-08-01 07:25 | XMS_ITS | Continuity of Care Document ---
Author Name Unknown Organization [facility] Address [address] [place] [address]- Care Team Providers Care Director Non Profit Name Role Phone Tram Hillman MD Primary Care Physician [phone] [id number] Date(s): 03/13/23 - 04/17/[address] [address]- Attending Physician: Tram Hillman MD Allergies, Adverse Reactions, Alerts No Known Medication Allergies Patient Care team information Care Team Personnel Name: Tram Hillman MD Position: Reference Physician Member Role: PCP Address: Address: [address] [place] [id number]- Care Team Related Persons Name: VICK PARK Address: home [address] [place] [address]
[2023-08-01 08:30] LABS: MANUAL DIFF FLAG NO
[2023-08-01] MEDS: ondansetron HCL 4 MG/2 ML VIAL IVPUSH (08:30)
[2023-08-01] MEDS: 0.9 % Sodium Chloride 1,000 ML 999 ML IV ×2 (08:30→09:47)
[2023-08-01 08:32] LABS: Basophils Percent Auto 0.8 % (0-2); Eosinophils Percent Auto 0.4 % (0-4); Hematocrit 37.4 % (37.0-47.0); Hemoglobin 13.5 g/dl (12.0-16.0); Imm Gran Abs Auto 0.01 X10*3/uL (0.00-0.03); Imm Gran Pct Auto 0.4 % (0.0-0.4); Lymphocytes Absolute Auto 0.3 X10*3/uL (1.2-4.9); Lymphocytes Percent Auto 12.3 % (20-40); Mean Corpuscular HGB Conc 36.1 g/dl (31.0-35.0); Mean Corpuscular Hemoglobin 35.5 pg (27.0-33.0); Mean Corpuscular Volume 98.4 fL (80.0-98.0); Mean Platelet Volume 10.5 fL (9.4-12.3); Monocytes Absolute Auto 0.3 X10*3/uL (0.1-1.2); Monocytes Percent Auto 10.3 % (2-11); Neutrophils Percent Auto 75.8 % (45-73); Red Cell Distribution Width 13.5 % (11.0-16.0); White Blood Count 2.6 X10*3/uL (4.8-10.8)
--- NOTE | 2023-08-01 08:36 | ED.GENADULT ---
HPI - General Adult General Chief complaint: Headache Stated complaint: nausea Time Seen by Provider: 08/01/23 08:27 History of Present Illness HPI narrative: The patient is a 22-year-old female with a history of migraine headaches who says that for the last 2 nights she has had episodes of vomiting and she has also developed a migraine headache. She has a history of similar problems with vomiting and migraine headaches. She has been prescribed sumatriptan in the past. The patient denies any fever, sweats, chills. The patient has had dysuria however. The patient denies taking any significant amount of any medications recently. Specifically she denies acetaminophen use. She also denies phenazopyridine use. The patient also denies any recent alcohol use. She says that she used to drink heavily but has not done so for a couple of years. She says she has had no alcohol for a few months.. Related Data Previous Rx's Medication Instructions Recorded ondansetron 4 mg disintegrating 4 mg PO Q8H PRN nausea and 08/25/21 tablet vomiting #6 tabs [id number] 1 cap PO Q6H PRN headache #20 caps 10/30/22 50 mg-300 mg-40 mg capsule (Fioricet) loperamide 2 mg tablet (Imodium 2 mg PO Q6H PRN loose stool #14 10/30/22 A-D) tabs ondansetron 4 mg disintegrating 4 mg PO Q6-8H PRN nausea and 10/30/22 tablet vomiting #10 tabs sumatriptan succinate 50 mg tablet 50 mg PO Q2H PRN migraine headache 10/30/22 (Imitrex) #10 tabs ketorolac 10 mg tablet 10 mg PO TID PRN pain #12 tabs 11/08/22 metoclopramide HCl 5 mg tablet 5 mg PO DAILY PRN nausea and 11/08/22 (Reglan) vomiting #10 tabs haloperidol 2 mg tablet 2 mg PO TID #20 tabs 12/02/22 magnesium oxide 500 mg capsule 500 mg PO DAILY #10 caps 12/02/22 metoclopramide HCl 10 mg tablet 10 mg PO Q6H PRN nausea and 12/02/22 vomiting #30 tabs ondansetron 4 mg disintegrating 4 mg PO Q8H PRN nausea and 12/02/22 tablet vomiting 4 days #14 tabs propranolol 20 mg tablet 10 mg (1/2 x 20 mg) PO BID #30 tabs 12/11/22 cyclobenzaprine 10 mg tablet 10 mg PO TID PRN muscle spasm #14 04/08/23 tabs hydroxyzine HCl 25 mg tablet 25 mg PO Q8H PRN anxiety #30 tabs 04/08/23 ondansetron 4 mg disintegrating 4 mg PO Q8H PRN nausea and 04/08/23 tablet vomiting #20 tabs cephalexin 500 mg capsule 500 mg PO BID #10 caps 08/01/23 Allergies Allergy/AdvReac Type Severity Reaction Status Date / Time No Known Allergies Allergy Verified 08/01/23 07:03 [No Known Allergies*] Review of Systems Review of Systems: Yes all other systems are reviewed and are negative PMFSH Past Medical History Onset Date is defined in the Problem List Problems that require an onset date and time if occurred within 24 hrs of arrival to the ED Aortic Dissection and Rupture; Neurologic impairment; Cardiopulmonary Arrest; Endotracheal Intubation; Insertion or Replacement of Mechanical Circulatory Assist Device Medical History Migraine headache Social History Social History Alcohol intake: former Patient Tobacco Use Status: Never used Tobacco Smoked in Last 30 Days: No Use of substances other than those prescribed or required for medical reasons: Yes Substance Use Type: Marijuana Substance Use Frequency: Occasionally Advance Directives: No Advance Directives Information Provided: No Patient : No Physical Exam ED Vital Signs: Vital Signs - 24 hr 08/01/23 07:03 08/01/23 09:51 08/01/23 10:44 Temperature 98.2 F 98.5 F Pulse Rate 128 H 74 90 Respiratory Rate 22 H 16 17 Blood Pressure 144/97 H 121/82 126/79 Pulse Oximetry 98 97 100 Oxygen Delivery Method Room Air Room Air 08/01/23 12:57 Temperature 98.4 F Pulse Rate 77 Respiratory Rate 18 Blood Pressure 131/74 Pulse Oximetry 98 Oxygen Delivery Method Room Air BMI result Body Mass Index 23.8 Const Other: The patient is awake and alert. The patient looked uncomfortable and was retching. She looked quite unwell. HENMT Other: Face is symmetrical. Mucous membranes moist. Airway clear. Eyes Other: Pupils round equal, conjunctivae clear Neck Other: Neck is supple, no cervical adenopathy. Resp Other: Lungs are clear bilaterally. Cardio Other: The patient has a regular rate and rhythm with no murmur. GI Other: Abdomen is soft and nontender. Specifically no right upper quadrant tenderness Skin Other: Skin is pale and dry. No lesions. Neuro Other: The patient is awake, alert, oriented, appropriate. Initially she looked quite miserable. Later she looked better and was entirely appropriate with a clear mental status. Cranial nerves were intact. She moves all 4 extremities normally and was grossly neurologically intact. Extrem Other: No peripheral edema. Medications Administered Discontinued Medications Generic Name Dose Route Start Last Admin Trade Name Freq PRN Reason Stop Dose Admin Cephalexin HCl 500 mg 08/01/23 14:01 08/01/23 15:11 Cephalexin 500 Mg Capsule PO 08/01/23 14:02 500 mg ONCE ONE Administration Droperidol 1.25 mg 08/01/23 08:34 08/01/23 08:47 Droperidol 5 Mg/2 Ml Vial IVPUSH 08/01/23 08:35 1.25 mg ONCE ONE Administration Sodium Chloride 1,000 mls @ 999 mls/hr 08/01/23 08:15 08/01/23 09:31 Ns IV 08/01/23 09:15 Infused .Q1H1M EDMOND Infusion Sodium Chloride 1,000 mls @ 999 mls/hr 08/01/23 09:45 08/01/23 10:48 Ns IV 08/01/23 10:45 Infused .Q1H1M EDMOND Infusion Ketorolac Tromethamine 15 mg 08/01/23 08:34 08/01/23 08:47 Ketorolac Tromethamine 15 Mg/Ml Vial IVPUSH 08/01/23 08:35 15 mg ONCE ONE Administration Ondansetron HCl 4 mg 08/01/23 08:14 08/01/23 08:30 Ondansetron Hcl 4 Mg/2 Ml Vial IVPUSH 08/01/23 08:15 4 mg ONCE ONE Administration Medical Decision Making Medical Decision Making MDM Narrative: Patient presented in a manner highly suggestive of a bad migraine headache. She was treated symptomatically with significant improvement. She had some unexpected lab abnormalities. Her white blood count was low at 2.6 this has been the case on previous occasions. Also concerning where her abnormal LFTs. Her AST was 301 and her ALT was 153. She denies any recent alcohol use. She also denies any acetaminophen use. She also denies any phenazopyridine use. She denies any suicidality or any plans to harm herself. Her urinalysis was also strangely abnormal. Her urine was somewhat orange tinted and this interfered with the dipstick portion of the urinalysis so that there were no results of the dipstick. However she did have white cells and bacteria on microscopy and she has urinary symptoms. She will therefore be treated with cephalexin for possible UTI. Since a repeat of her LFTs was significantly better I felt she was safe for discharge. Lab Data 08/01/23 08:21 08/01/23 08:21 Labs: Lab Results 08/01/23 08/01/23 08/01/23 Range/Units 08:21 10:47 11:50 WBC 2.6 L (4.8-10.8) X10*3/uL RBC 3.80 L (4.20-5.50) X10*6/uL Hgb 13.5 (12.0-16.0) g/dl Hct 37.4 (37.0-47.0) % MCV 98.4 H (80.0-98.0) fL MCH 35.5 H (27.0-33.0) pg MCHC 36.1 H (31.0-35.0) g/dl RDW 13.5 (11.0-16.0) % Plt Count 129 L D (160-400) X10*3/uL MPV 10.5 (9.4-12.3) fL Immature Gran % (Auto) 0.4 (0.0-0.4) % Neut % (Auto) 75.8 H (45-73) % Lymph % (Auto) 12.3 L (20-40) % [place] % (Auto) 10.3 (2-11) % Eos % (Auto) 0.4 (0-4) % Baso % (Auto) 0.8 (0-2) % Lymph # (Auto) 0.3 L (1.2-4.9) X10*3/uL [place] # (Auto) 0.3 (0.1-1.2) X10*3/uL Eos # (Auto) 0.0 (0.0-0.4) X10*3/uL Baso # (Auto) 0.0 (0.0-0.2) X10*3/uL Abs Immat Gran (auto) 0.01 (0.00-0.03) X10*3/uL Absolute Neuts (auto) 2.0 (2.0-8.3) x10*3/uL Absolute Nucleated RBC 0.000 (0.0-0.012) X10*3/uL Nucleated RBC % (auto) 0.0 (0.0-0.2) /100WBC Sodium 134 L (135-145) mmol/L Potassium 3.8 (3.3-5.1) mmol/L Chloride 97 (96-108) mmol/L Carbon Dioxide 20 L (22-29) mmol/L Anion Gap 21 H (12-20) BUN 13 (9-16) mg/dL Creatinine 0.71 (0.5-1.4) mg/dL Estim Creat Clear Calc 96.6 Estimated GFR > 60 Random Glucose 80 (60-115) mg/dL Calcium 10.3 H D (8.4-10.2) mg/dL Total Bilirubin 2.5 H (0.0-1.0) mg/dL Direct Bilirubin (0.0-0.5) mg/dL AST 301 H (5-31) U/L ALT 153 H (0-31) U/L Alkaline Phosphatase 57 (39-117) U/L Total Creatine Kinase 86 (26-140) U/L C-Reactive Protein 0.16 (< or = 0.50) mg/dL Total Protein 7.9 (6.5-8.0) g/dL Albumin 4.8 (3.5-5.0) g/dL Urine Color Liberty A Liberty A Urine Appearance Clear Cloudy Urine pH 6.0 6.0 (5.0-9.0) Ur Specific [place] 1.025 1.025 (1.005-1.025) Urine Protein See Note See Note (Neg-Trace) mg/dL Urine Glucose (UA) Negative Negative (Negative) mg/dL Urine Ketones See Note See Note (Negative) mg/dL Urine Blood See Note See Note (Negative) Urine Nitrite See Note See Note (Negative) Ur Leukocyte Esterase See Note See Note (Negative) Urine RBC 0-2 0-2 (0-2) /HPF Urine WBC 0-5 0-5 (0-5) /HPF Ur Squamous Epith Cells 3-5 3-5 (0-2) /HPF Urine Bacteria 4+ 4+ (None Seen) Hyaline Casts 0-2 0-2 (0-2) /LPF Urine Test NEGATIVE (NEGATIVE) Acetaminophen (<30) mcg/mL Ethyl Alcohol mg/dL COVID-19 (NABEEL) Negative (Negative) COVID-19 Clin Com See Note Influenza Type A (JOVANA) Negative (Negative) Influenza Type B (JOVANA) Negative (Negative) Influenza A & B Note See Note 08/01/23 Range/Units 13:19 WBC (4.8-10.8) X10*3/uL RBC (4.20-5.50) X10*6/uL Hgb (12.0-16.0) g/dl Hct (37.0-47.0) % MCV (80.0-98.0) fL MCH (27.0-33.0) pg MCHC (31.0-35.0) g/dl RDW (11.0-16.0) % Plt Count (160-400) X10*3/uL MPV (9.4-12.3) fL Immature Gran % (Auto) (0.0-0.4) % Neut % (Auto) (45-73) % Lymph % (Auto) (20-40) % [place] % (Auto) (2-11) % Eos % (Auto) (0-4) % Baso % (Auto) (0-2) % Lymph # (Auto) (1.2-4.9) X10*3/uL [place] # (Auto) (0.1-1.2) X10*3/uL Eos # (Auto) (0.0-0.4) X10*3/uL Baso # (Auto) (0.0-0.2) X10*3/uL Abs Immat Gran (auto) (0.00-0.03) X10*3/uL Absolute Neuts (auto) (2.0-8.3) x10*3/uL Absolute Nucleated RBC (0.0-0.012) X10*3/uL Nucleated RBC % (auto) (0.0-0.2) /100WBC Sodium (135-145) mmol/L Potassium (3.3-5.1) mmol/L Chloride (96-108) mmol/L Carbon Dioxide (22-29) mmol/L Anion Gap (12-20) BUN (9-16) mg/dL Creatinine (0.5-1.4) mg/dL Estim Creat Clear Calc Estimated GFR Random Glucose (60-115) mg/dL Calcium (8.4-10.2) mg/dL Total Bilirubin 1.6 H (0.0-1.0) mg/dL Direct Bilirubin 0.7 H (0.0-0.5) mg/dL AST 201 H (5-31) U/L ALT 112 H (0-31) U/L Alkaline Phosphatase 44 (39-117) U/L Total Creatine Kinase (26-140) U/L C-Reactive Protein (< or = 0.50) mg/dL Total Protein 5.9 L (6.5-8.0) g/dL Albumin 3.6 (3.5-5.0) g/dL Urine Color Urine Appearance Urine pH (5.0-9.0) Ur Specific [place] (1.005-1.025) Urine Protein (Neg-Trace) mg/dL Urine Glucose (UA) (Negative) mg/dL Urine Ketones (Negative) mg/dL Urine Blood (Negative) Urine Nitrite (Negative) Ur Leukocyte Esterase (Negative) Urine RBC (0-2) /HPF Urine WBC (0-5) /HPF Ur Squamous Epith Cells (0-2) /HPF Urine Bacteria (None Seen) Hyaline Casts (0-2) /LPF Urine Test (NEGATIVE) Acetaminophen < 3 (<30) mcg/mL Ethyl Alcohol < 10 mg/dL COVID-19 (NABEEL) (Negative) COVID-19 Clin Com Influenza Type A (JOVANA) (Negative) Influenza Type B (JOVANA) (Negative) Influenza A & B Note Discharge Plan Discharge Clinical Impression: Migraine headache, Vomiting, Abnormal liver function tests, Urinary tract infection Patient Disposition: Home, Self-Care Instructions: Migraine Headache (ED), Acute Urinary Retention in Women (ED) Additional Instructions: A prescription for an antibiotic for a possible urinary tract infection has been sent to your pharmacy. Please take this medication 2 times a day. The name of the medication is cephalexin. Rest and take it easy today. Drink lot of fluids. Please follow-up with the regular doctor at [facility] sometime soon for further management of your migraines and for recheck of your urinary tract infection. Return to the emergency room if significantly worse. Prescriptions: New cephalexin 500 mg capsule 500 mg PO BID Qty: 10 0RF No Action ondansetron 4 mg tablet,disintegrating 4 mg PO Q8H PRN (Reason: nausea and vomiting) Qty: 6 0RF loperamide [Imodium A-D] 2 mg tablet 2 mg PO Q6H PRN (Reason: loose stool) Qty: 14 0RF sumatriptan succinate [Imitrex] 50 mg tablet 50 mg PO Q2H PRN (Reason: migraine headache) Qty: 10 0RF Rx Instructions: do not exceed 2 doses per 24 hrs [id number] [Fioricet] 50-300-40 mg capsule 1 cap PO Q6H PRN (Reason: headache) Qty: 20 0RF ondansetron 4 mg tablet,disintegrating 4 mg PO Q6-8H PRN (Reason: nausea and vomiting) Qty: 10 0RF ketorolac 10 mg tablet 10 mg PO TID PRN (Reason: pain) Qty: 12 0RF metoclopramide HCl [Reglan] 5 mg tablet 5 mg PO DAILY PRN (Reason: nausea and vomiting) Qty: 10 0RF Rx Instructions: PRN migraine headache, take together with ketorolac ondansetron 4 mg tablet,disintegrating 4 mg PO Q8H PRN (Reason: nausea and vomiting) 4 Days Qty: 14 0RF metoclopramide HCl 10 mg tablet 10 mg PO Q6H PRN (Reason: nausea and vomiting) Qty: 30 0RF Rx Instructions: And Headache magnesium oxide 500 mg capsule 500 mg PO DAILY Qty: 10 0RF haloperidol 2 mg tablet 2 mg PO TID Qty: 20 0RF Rx Instructions: Use instead of metoclopramide/reglan propranolol 20 mg tablet 10 mg PO BID Qty: 30 0RF cyclobenzaprine 10 mg tablet 10 mg PO TID PRN (Reason: muscle spasm) Qty: 14 0RF ondansetron 4 mg tablet,disintegrating 4 mg PO Q8H PRN (Reason: nausea and vomiting) Qty: 20 0RF hydroxyzine HCl 25 mg tablet 25 mg PO Q8H PRN (Reason: anxiety) Qty: 30 0RF Referrals: Tram Hillman MD [Physician] - (migraines, UTI, abnormal LFTs) Interventions: ED Discharge Assessment Last Done: 08/01/23 15:30 Discharge Date/Time: 08/01/23 15:31
[2023-08-01] MEDS: droPERidol 5 MG/2 ML VIAL 1.25 MG IVPUSH (08:47)
[2023-08-01] MEDS: Ketorolac Tromethamine 15 MG/ML VIAL IVPUSH (08:47)
[2023-08-01 08:49] LABS: COVID-19 Test Negative (Negative); IDNOW Serial# 6674DD1D
[2023-08-01 08:51] LABS: Alanine Aminotransferase 153 U/L (0-31); Albumin Level 4.8 g/dL (3.5-5.0); Alkaline Phosphatase 57 U/L (39-117); Anion Gap 21 (12-20); Aspartate Amino Transferase 301 U/L (5-31); Bilirubin Total 2.5 mg/dL (0.0-1.0); Blood Urea Nitrogen 13 mg/dL (9-16); Calcium 10.3 mg/dL (8.4-10.2); Carbon Dioxide 20 mmol/L (22-29); Chloride 97 mmol/L (96-108); Creatinine Clr Calc Pharmacy 96.6; Estimated Glomerular Filt Rate > 60; Glucose Random 80 mg/dL (60-115); Potassium 3.8 mmol/L (3.3-5.1); Sodium 134 mmol/L (135-145); Total Protein 7.9 g/dL (6.5-8.0)
[2023-08-01 08:53] LABS: IDNOW Serial# 58CA691E; Influenza A Negative (Negative); Influenza B2 Negative (Negative)
[2023-08-01 08:55] LABS: Platelet Count 129 X10*3/uL (160-400)
[2023-08-01 09:51] VITALS: BP 121/82; PULSE 74; RESP 16; TEMP 36.9; O2SAT 97
--- NOTE | 2023-08-01 09:55 | PC.NURSE ---
pt a&ox3, ivf hung per order, vss, pt states her headache has reduced from 9/10 down to 5/10- pt states she sees black floaters in her vision as well as blurry vision which is normal with her migraines, pt states that she stopped drinking 1 month ago but only drank on occasion, pt also admitted to smoking marijuana once in a while to help with migraines. pt aware we need a UA, call haile within reach, will continue to monitor
[2023-08-01 10:44] VITALS: BP 126/79; PULSE 90; RESP 17; O2SAT 100
[2023-08-01 10:59] LABS: UPreg QC Valid YES; Urine Pregnancy NEGATIVE (NEGATIVE)
[2023-08-01 11:14] LABS: Appearance Urine Clear; Color Urine Orange; Glucose Urine UA Negative (Negative); Specific Gravity - Urine 1.025 (1.005-1.025); UMIC TRIGGER UACC YES
[2023-08-01 11:15] LABS: Bacteria Urine 4+ (None Seen); Hyaline Casts Urine 0-2 /LPF (0-2); RBC Urine 0-2 /HPF (0-2); WBC Urine 0-5 /HPF (0-5)
[2023-08-01 11:16] LABS: UACC Culture Trigger YES
[2023-08-01 12:15] LABS: Appearance Urine Cloudy; Color Urine Orange; Glucose Urine UA Negative (Negative); Specific Gravity - Urine 1.025 (1.005-1.025); UMIC TRIGGER UACC YES
[2023-08-01 12:18] LABS: Bacteria Urine 4+ (None Seen); Hyaline Casts Urine 0-2 /LPF (0-2); RBC Urine 0-2 /HPF (0-2); WBC Urine 0-5 /HPF (0-5)
[2023-08-01 12:57] VITALS: BP 131/74; PULSE 77; RESP 18; TEMP 36.9; O2SAT 98
--- NOTE | 2023-08-01 12:57 | PC.NURSE ---
patient a&ox3, vss, pt states her headache is currently a 3/10, pt to have repeat labs drawn, call haile within reach, will continue to monitor
[2023-08-01 13:35] LABS: C Reactive Protein 0.16 mg/dL (< or = 0.50)
--- NOTE | 2023-08-01 13:48 | PC.NURSE ---
pt given po challenge of crackers.
[2023-08-01 13:52] LABS: Alanine Aminotransferase 112 U/L (0-31); Albumin Level 3.6 g/dL (3.5-5.0); Alkaline Phosphatase 44 U/L (39-117); Aspartate Amino Transferase 201 U/L (5-31); Bilirubin Direct 0.7 mg/dL (0.0-0.5); Bilirubin Total 1.6 mg/dL (0.0-1.0); Ethanol < 10 mg/dL; Total Protein 5.9 g/dL (6.5-8.0)
[2023-08-01 13:53] LABS: Acetaminophen LAB < 3 mcg/mL (<30)
[2023-08-01] MEDS: cephALEXin 500 MG CAPSULE PO (15:11)
== END 2023-08-01 15:31 | disposition home or self-care (01) ==
PROVIDERS: Emergency Provider Emergency Medicine
DX: G43.909 Migraine, unspecified, not intractable, without status migrainosus (principal); N39.0 Urinary tract infection, site not specified; R11.10 Vomiting, unspecified; R79.89 Other specified abnormal findings of blood chemistry; Z11.52 Encounter for screening for COVID-19; Z79.899 Other long term (current) drug therapy
CPT/HCPCS: 36415; 80053; 80076; 80143; 80307; 81001; 81003; 81025; 82550; 85025; 86140; 87086; 87088; 87186; 87502; 87635; 96361; 96374; 96375; 99284; 99285; J1790; J1885; J2405

== ENCOUNTER 2023-12-20 07:06 | Emergency (ER) | payer OTHER, SELFPAY ==
[2023-12-20 07:10] VITALS: BP 156/100; PULSE 144; RESP 20; TEMP 36.7; O2SAT 100; BMI 21.9
[2023-12-20 07:35] VITALS: BP 126/90; PULSE 99; RESP 20; O2SAT 100
--- NOTE | 2023-12-20 08:07 | PC.NURSE ---
pt is alert and oriented, skin pwd, respirations even and unlabored, pt reports since Thursday has been unable to stop vomiting and epigastric pain from vomiting per patient-since the arrival to the ed pt has been dry heaving non stop, pt reports that she feel from the stairs about a week ago hitting her head and was never seen after the fall, pt also reports chronic migraines and chronic abd pain with dizziness, pt does smoke marijuana daily to help with her anxiety, pt's normal sinus to sinus tach on the monitor
[2023-12-20 08:08] LABS: MANUAL DIFF FLAG NO
[2023-12-20 08:11] LABS: Basophils Percent Auto 0.8 % (0-2); Hematocrit 34.9 % (37.0-47.0); Hemoglobin 12.4 g/dl (12.0-16.0); Imm Gran Abs Auto 0.01 X10*3/uL (0.00-0.03); Imm Gran Pct Auto 0.4 % (0.0-0.4); Lymphocytes Absolute Auto 0.6 X10*3/uL (1.2-4.9); Lymphocytes Percent Auto 21.7 % (20-40); Mean Corpuscular HGB Conc 35.5 g/dl (31.0-35.0); Mean Corpuscular Hemoglobin 34.2 pg (27.0-33.0); Mean Corpuscular Volume 96.1 fL (80.0-98.0); Mean Platelet Volume 10.2 fL (9.4-12.3); Monocytes Absolute Auto 0.2 X10*3/uL (0.1-1.2); Monocytes Percent Auto 9.3 % (2-11); Neutrophils Absolute Auto 1.8 x10*3/uL (2.0-8.3); Neutrophils Percent Auto 67.8 % (45-73); Platelet Count 136 X10*3/uL (160-400); Red Blood Count 3.63 X10*6/uL (4.20-5.50); Red Cell Distribution Width 16.1 % (11.0-16.0); White Blood Count 2.6 X10*3/uL (4.8-10.8)
[2023-12-20 08:27] LABS: Alanine Aminotransferase 82 U/L (0-31); Albumin Level 4.6 g/dL (3.5-5.0); Alkaline Phosphatase 53 U/L (39-117); Anion Gap 26 (12-20); Aspartate Amino Transferase 178 U/L (5-31); Bilirubin Direct 0.3 mg/dL (0.0-0.5); Bilirubin Total 0.9 mg/dL (0.0-1.0); Blood Urea Nitrogen 10 mg/dL (9-16); Calcium 9.4 mg/dL (8.4-10.2); Carbon Dioxide 17 mmol/L (22-29); Chloride 101 mmol/L (96-108); Estimated Glomerular Filt Rate > 60; Glucose Random 81 mg/dL (60-115); Lipase 33 U/L (8-78); Potassium 3.7 mmol/L (3.3-5.1); Sodium 140 mmol/L (135-145); Total Protein 7.7 g/dL (6.5-8.0)
[2023-12-20] MEDS: 0.9 % Sodium Chloride 1,000 ML 999 ML IV (09:01)
[2023-12-20] MEDS: ondansetron HCL 4 MG/2 ML VIAL IVPUSH (09:04)
[2023-12-20] MEDS: Famotidine/PF 20 MG/2 ML VIAL IVPUSH (09:04)
--- NOTE | 2023-12-20 09:05 | ED.NAVMDI ---
HPI - Nausea/Vomiting/Diarrhea General Chief complaint: Nausea/Vomiting/Diarrhea Stated complaint: Concussion? Vomiting Time Seen by Provider: 12/20/23 08:44 Source: patient Mode of arrival: ambulatory Limitations: no limitations History of Present Illness ED Provider: DR. Solorio HPI Narrative: 23-year-old female history of migraines since age of 11 with unclear aggravating factor or relieving factor patient admit to smoking marijuana daily to help her migraine but every now and then she got severe migraine with intractable vomiting, patient has been vomiting since yesterday, admitted to drinking 1 drink of alcohol 2 days ago patient normally not a daily drinker, Related Data Previous Rx's ?Medication ?Instructions ?Recorded ondansetron 4 mg disintegrating 4 mg PO Q8H PRN nausea and 08/25/21 tablet vomiting #6 tabs vnwtbgnwik-xtmmpqteyhcyb-bsekkwlb 1 cap PO Q6H PRN headache #20 caps 10/30/22 50 mg-300 mg-40 mg capsule (Fioricet) loperamide 2 mg tablet (Imodium 2 mg PO Q6H PRN loose stool #14 10/30/22 A-D) tabs ondansetron 4 mg disintegrating 4 mg PO Q6-8H PRN nausea and 10/30/22 tablet vomiting #10 tabs sumatriptan succinate 50 mg tablet 50 mg PO Q2H PRN migraine headache 10/30/22 (Imitrex) #10 tabs ketorolac 10 mg tablet 10 mg PO TID PRN pain #12 tabs 11/08/22 metoclopramide HCl 5 mg tablet 5 mg PO DAILY PRN nausea and 11/08/22 (Reglan) vomiting #10 tabs haloperidol 2 mg tablet 2 mg PO TID #20 tabs 12/02/22 magnesium oxide 500 mg capsule 500 mg PO DAILY #10 caps 12/02/22 metoclopramide HCl 10 mg tablet 10 mg PO Q6H PRN nausea and 12/02/22 vomiting #30 tabs ondansetron 4 mg disintegrating 4 mg PO Q8H PRN nausea and 12/02/22 tablet vomiting 4 days #14 tabs propranolol 20 mg tablet 10 mg (1/2 x 20 mg) PO BID #30 tabs 12/11/22 cyclobenzaprine 10 mg tablet 10 mg PO TID PRN muscle spasm #14 04/08/23 tabs hydroxyzine HCl 25 mg tablet 25 mg PO Q8H PRN anxiety #30 tabs 04/08/23 ondansetron 4 mg disintegrating 4 mg PO Q8H PRN nausea and 04/08/23 tablet vomiting #20 tabs cephalexin 500 mg capsule 500 mg PO BID #10 caps 08/01/23 Allergies Allergy/AdvReac Type Severity Reaction Status Date / Time No Known Allergies Allergy Verified 12/20/23 07:11 [No Known Allergies*] Review of Systems Review of Systems: all other systems are reviewed and are negative Constitutional: Reports as per HPI and Reports no additional constitutional complaints Eyes: Reports as per HPI and Reports no additional eye complaints Reports system reviewed and no additional complaints, except as documented Cardiovascular: Reports as per HPI and Reports no additional cardiovascular complaints Respiratory: Reports as per HPI and Reports no additional respiratory complaints Gastrointestinal: Reports as per HPI and Reports no additional gastrointestinal complaints Genitourinary: Reports no additional female genitourinary complaints Musculoskeletal: Reports no additional musculoskeletal complaints Skin/Breast: Reports system reviewed and no additional complaints, except as docu Psychiatric: Reports no additional psychiatric complaints Endocrine: Reports no additional endocrine complaints Hematologic/Lymphatic: Reports no additional hematologic/lymphatic complaints Allergic/Immunologic: Reports no additional allergic/immunologic complaints Reports system reviewed and no additional complaints, except as documented and Reports Abnormal speech present [facility] Past Medical History Medical History Migraine headache Social History Social History Alcohol intake: former Patient Tobacco Use Status: Never used Tobacco Smoked in Last 30 Days: No Use of substances other than those prescribed or required for medical reasons: Yes Substance Use Type: Marijuana Substance Use Frequency: Daily Advance Directives: No Advance Directives Information Provided: Yes Do you have a plan to hurt others: No Plan Patient : No Physical Exam Vital Signs: Vital Signs: Last Vital Signs Temp 98.2 F 12/20/23 12:08 Pulse 95 12/20/23 12:08 Resp 18 12/20/23 12:08 BP 131/78 12/20/23 12:08 Pulse Ox 100 12/20/23 12:08 O2 Del Method Room Air 12/20/23 12:08 BMI result Body Mass Index 21.9 Vital signs have been reviewed and appear to be correct. Blood pressure elevated. Heart rate normal. Respiratory rate normal. Temperature normal. Oxygen saturation normal. Appearance: anxious, Alert. Oriented X3. No acute distress. Head: Normal external exam. Normocephalic. Atraumatic. No Plasencia signs noted. No raccoon eyes noted Eyes: PERRLA. EOMI. Conjunctiva and sclera normal. Eyelids normal. ENT: TM's Normal. Pharynx normal. Uvula midline. Moist mucous membranes. No trismus noted. No drooling noted. No muffled voice noted. Neck: Normal inspection. Neck supple. FROM. No adenopathy. Thyroid Normal. No meningeal signs. No neck mass noted. CVS: Normal heart rate and rhythm. Heart sound normal. No murmurs noted. Pulses normal throughout. Respiratory: No respiratory distress. Painless inspiration. Breath sounds normal. No wheezes/rales/rhonchi noted. Chest nontender. No accessory muscle usage noted or decreased air movement noted. Abdomen: Soft, epigastric tenderness, Bowel sounds normal in all 4 quadrants. No distention noted. No organomegaly noted. No visible injury noted. Back: No CVA tenderness. Full range of motion noted. Skin: Skin warm and dry. Normal skin color. Normal skin turgor. No rashes/lesions/lacerations noted. Extremities: No lower extremity edema. Extremities exhibit normal range of motion. Extremities nontender. Neuro: Oriented X 3. Cranial nerve exam: II-XII are grossly intact No motor deficit. No sensory deficit. Reflexes normal. Course Reevaluation(s) Reevaluation #1: patient now feels better able to tolerate p.o. intake, no more nausea or vomiting. headache has improved significantly as per patient. UTI start the patient on cefuroxime and encouraged to drink plenty of fluids. Time: 13:10 Medications Administered Discontinued Medications Generic Name Dose Route Start Last Admin Trade Name Freq PRN Reason Stop Dose Admin Al Hydroxide/Mg Hydroxide 30 ml 12/20/23 08:52 12/20/23 09:54 Magnesium Hydrox/Alum Hydrox 30 Ml Oral.Susp PO 12/20/23 08:53 30 ml ONCE ONE Administration Famotidine 20 mg 12/20/23 08:52 12/20/23 09:04 Famotidine/Pf 20 Mg/2 Ml Vial IVPUSH 12/20/23 08:53 20 mg ONCE ONE Administration Sodium Chloride 1,000 mls @ 999 mls/hr 12/20/23 08:52 12/20/23 10:53 Ns IV 12/20/23 09:52 Infused .Q1H1M ONE Infusion Ondansetron HCl 4 mg 12/20/23 08:52 12/20/23 09:04 Ondansetron Hcl 4 Mg/2 Ml Vial IVPUSH 12/20/23 08:53 4 mg ONCE ONE Administration Medical Decision Making Differential Diagnosis Differential Diagnoses: The differential diagnosis associated with the presentation includes ( Food poisoning, gastritis, gastroenteritis, dehydration, emesis induced by cannabinoid, , UTI.) Admission/Observation Consideration of admission/observation: Escalation of care including admission/observation considered Lab Data MDM Lab Attestation statement: I reviewed the patient's lab results. 12/20/23 08:04 12/20/23 08:04 Labs: Lab Results 12/20/23 12/20/23 Range/Units 08:04 09:04 WBC 2.6 L (4.8-10.8) X10*3/uL RBC 3.63 L (4.20-5.50) X10*6/uL Hgb 12.4 (12.0-16.0) g/dl Hct 34.9 L (37.0-47.0) % MCV 96.1 (80.0-98.0) fL MCH 34.2 H (27.0-33.0) pg MCHC 35.5 H (31.0-35.0) g/dl RDW 16.1 H (11.0-16.0) % Plt Count 136 L (160-400) X10*3/uL MPV 10.2 (9.4-12.3) fL Immature Gran % (Auto) 0.4 (0.0-0.4) % Neut % (Auto) 67.8 (45-73) % Lymph % (Auto) 21.7 (20-40) % [place] % (Auto) 9.3 (2-11) % Eos % (Auto) 0.0 (0-4) % Baso % (Auto) 0.8 (0-2) % Lymph # (Auto) 0.6 L (1.2-4.9) X10*3/uL [place] # (Auto) 0.2 (0.1-1.2) X10*3/uL Eos # (Auto) 0.0 (0.0-0.4) X10*3/uL Baso # (Auto) 0.0 (0.0-0.2) X10*3/uL Abs Immat Gran (auto) 0.01 (0.00-0.03) X10*3/uL Absolute Neuts (auto) 1.8 L (2.0-8.3) x10*3/uL Absolute Nucleated RBC 0.000 (0.0-0.012) X10*3/uL Nucleated RBC % (auto) 0.0 (0.0-0.2) /100WBC Sodium 140 (135-145) mmol/L Potassium 3.7 (3.3-5.1) mmol/L Chloride 101 (96-108) mmol/L Carbon Dioxide 17 L (22-29) mmol/L Anion Gap 26 H (12-20) BUN 10 (9-16) mg/dL Creatinine 0.85 (0.5-1.4) mg/dL Estim Creat Clear Calc 80.0 Estimated GFR > 60 Random Glucose 81 (60-115) mg/dL Calcium 9.4 D (8.4-10.2) mg/dL Total Bilirubin 0.9 (0.0-1.0) mg/dL Direct Bilirubin 0.3 (0.0-0.5) mg/dL AST 178 H (5-31) U/L ALT 82 H (0-31) U/L Alkaline Phosphatase 53 (39-117) U/L Total Protein 7.7 (6.5-8.0) g/dL Albumin 4.6 (3.5-5.0) g/dL Lipase 33 (8-78) U/L Beta HCG, Quant < 2 mIU/mL Urine Color Yellow Urine Appearance Cloudy Urine pH 5.5 (5.0-9.0) Ur Specific [place] 1.020 (1.005-1.025) Urine Protein 30 (1+) H (Neg-Trace) mg/dL Urine Glucose (UA) Negative (Negative) mg/dL Urine Ketones 80 (Negative) mg/dL Urine Blood Negative (Negative) Urine Nitrite Positive H (Negative) Ur Leukocyte Esterase Small (1+) H (Negative) Urine RBC 0-2 (0-2) /HPF Urine WBC 21-50 H (0-5) /HPF Ur Squamous Epith Cells 6-10 (0-2) /HPF Urine Bacteria 4+ (None Seen) Hyaline Casts 0-2 (0-2) /LPF Urine Test NEGATIVE (NEGATIVE) Discharge Plan Discharge Clinical Impression: Cannabinoid hyperemesis syndrome, Migraine Patient Disposition: Home, Self-Care Instructions: Cannabis Abuse (ED) Prescriptions: No Action ondansetron 4 mg tablet,disintegrating 4 mg PO Q8H PRN (Reason: nausea and vomiting) Qty: 6 0RF loperamide [Imodium A-D] 2 mg tablet 2 mg PO Q6H PRN (Reason: loose stool) Qty: 14 0RF sumatriptan succinate [Imitrex] 50 mg tablet 50 mg PO Q2H PRN (Reason: migraine headache) Qty: 10 0RF Rx Instructions: do not exceed 2 doses per 24 hrs mlkuwowyqt-kimhizkvsiprc-silq [Fioricet] 50-300-40 mg capsule 1 cap PO Q6H PRN (Reason: headache) Qty: 20 0RF ondansetron 4 mg tablet,disintegrating 4 mg PO Q6-8H PRN (Reason: nausea and vomiting) Qty: 10 0RF ketorolac 10 mg tablet 10 mg PO TID PRN (Reason: pain) Qty: 12 0RF metoclopramide HCl [Reglan] 5 mg tablet 5 mg PO DAILY PRN (Reason: nausea and vomiting) Qty: 10 0RF Rx Instructions: PRN migraine headache, take together with ketorolac ondansetron 4 mg tablet,disintegrating 4 mg PO Q8H PRN (Reason: nausea and vomiting) 4 Days Qty: 14 0RF metoclopramide HCl 10 mg tablet 10 mg PO Q6H PRN (Reason: nausea and vomiting) Qty: 30 0RF Rx Instructions: And Headache magnesium oxide 500 mg capsule 500 mg PO DAILY Qty: 10 0RF haloperidol 2 mg tablet 2 mg PO TID Qty: 20 0RF Rx Instructions: Use instead of metoclopramide/reglan propranolol 20 mg tablet 10 mg PO BID Qty: 30 0RF cyclobenzaprine 10 mg tablet 10 mg PO TID PRN (Reason: muscle spasm) Qty: 14 0RF ondansetron 4 mg tablet,disintegrating 4 mg PO Q8H PRN (Reason: nausea and vomiting) Qty: 20 0RF hydroxyzine HCl 25 mg tablet 25 mg PO Q8H PRN (Reason: anxiety) Qty: 30 0RF cephalexin 500 mg capsule 500 mg PO BID Qty: 10 0RF Print Language: Vietnamese
[2023-12-20 09:18] LABS: Appearance Urine Cloudy; Color Urine Yellow; Glucose Urine UA Negative (Negative); Leukocyte Esterase Urine Small (1+) (Negative); Nitrite Urine Positive (Negative); PH 5.5 (5.0-9.0); UMIC TRIGGER UACC YES; Urine Blood Negative (Negative); Urine Ketones 80 mg/dL (Negative); Urine Protein 30 (1+) mg/dL (Neg-Trace)
[2023-12-20 09:20] LABS: UPreg QC Valid YES; Urine Pregnancy NEGATIVE (NEGATIVE)
[2023-12-20 09:23] LABS: Bacteria Urine 4+ (None Seen); Hyaline Casts Urine 0-2 /LPF (0-2); RBC Urine 0-2 /HPF (0-2); UACC Culture Trigger YES; WBC Urine 21-50 /HPF (0-5)
[2023-12-20 09:25] LABS: HCG Quantitative < 2 mIU/mL
[2023-12-20] MEDS: Magnesium Hydrox/Alum Hydrox 30 ML ORAL.SUSP PO (09:54)
[2023-12-20 09:56] VITALS: BP 132/88; PULSE 98; RESP 18; O2SAT 99
--- NOTE | 2023-12-20 10:04 | PC.NURSE ---
pt reports feeling slightly better, no dry heaving at this time
[2023-12-20 12:08] VITALS: BP 131/78; PULSE 95; RESP 18; TEMP 36.8; O2SAT 100
--- NOTE | 2023-12-20 12:09 | PC.NURSE ---
pt tolerated the ice chips now attempting few sips of dilshad jessica
[2023-12-20 14:59] VITALS: BP 131/78; PULSE 95; RESP 18; TEMP 36.8; O2SAT 100
== END 2023-12-20 14:59 | disposition home or self-care (01) ==
PROVIDERS: Emergency Provider Emergency Medicine
DX: N39.0 Urinary tract infection, site not specified (principal); R11.10 Vomiting, unspecified; R51.9 Headache, unspecified
CPT/HCPCS: 36415; 80048; 80076; 81001; 81025; 83690; 84702; 85025; 87086; 87088; 87186; 96361; 96374; 96375; 99284; J2405

== ENCOUNTER 2024-01-10 11:08 | Emergency (ER) | payer OTHER, SELFPAY ==
[2024-01-10 11:27] VITALS: BP 99/74; PULSE 94; RESP 16; TEMP 36.7; O2SAT 100; BMI 21.9
--- NOTE | 2024-01-10 11:33 | ED_ITS ---
HPI - General Adult General Chief complaint: Abdominal Pain Stated complaint: Vomiting, lightheaded Time Seen by Provider: 01/10/24 14:06 Source: patient, RN notes reviewed and old records reviewed Mode of arrival: ambulatory History of Present Illness ED Provider: Gila Rapp PA-C HPI narrative: 23-year-old female with a past medical history migraine headaches presenting to the ED complaining of migraine KEITA, epigastric abdominal pain, nausea, vomiting, and diarrhea with inability to tolerate p.o. since 22:00 last night. Admits to similar symptoms in the past associated with her migraine headaches. Usually takes Excedrin, denies taking anything today. Headache not maximal onset, admits these symptoms are unchanged from her typical. Reports epigastric burning. Denies hematemesis, bloody BMs, dysuria/hematuria, suspicious food intake. Related Data Previous Rx's ?Medication ?Instructions ?Recorded ondansetron 4 mg disintegrating 4 mg PO Q8H PRN nausea and 08/25/21 tablet vomiting #6 tabs mhlruxasqx-zsahxcsgxlyba-lfslqred 1 cap PO Q6H PRN headache #20 caps 10/30/22 50 mg-300 mg-40 mg capsule (Fioricet) loperamide 2 mg tablet (Imodium 2 mg PO Q6H PRN loose stool #14 10/30/22 A-D) tabs ondansetron 4 mg disintegrating 4 mg PO Q6-8H PRN nausea and 10/30/22 tablet vomiting #10 tabs sumatriptan succinate 50 mg tablet 50 mg PO Q2H PRN migraine headache 10/30/22 (Imitrex) #10 tabs ketorolac 10 mg tablet 10 mg PO TID PRN pain #12 tabs 11/08/22 metoclopramide HCl 5 mg tablet 5 mg PO DAILY PRN nausea and 11/08/22 (Reglan) vomiting #10 tabs haloperidol 2 mg tablet 2 mg PO TID #20 tabs 12/02/22 magnesium oxide 500 mg capsule 500 mg PO DAILY #10 caps 12/02/22 metoclopramide HCl 10 mg tablet 10 mg PO Q6H PRN nausea and 12/02/22 vomiting #30 tabs ondansetron 4 mg disintegrating 4 mg PO Q8H PRN nausea and 12/02/22 tablet vomiting 4 days #14 tabs propranolol 20 mg tablet 10 mg (1/2 x 20 mg) PO BID #30 tabs 12/11/22 cyclobenzaprine 10 mg tablet 10 mg PO TID PRN muscle spasm #14 04/08/23 tabs hydroxyzine HCl 25 mg tablet 25 mg PO Q8H PRN anxiety #30 tabs 04/08/23 ondansetron 4 mg disintegrating 4 mg PO Q8H PRN nausea and 04/08/23 tablet vomiting #20 tabs cephalexin 500 mg capsule 500 mg PO BID #10 caps 08/01/23 cefuroxime axetil 250 mg tablet 250 mg PO BID 7 days #14 tabs 12/24/23 Allergies Allergy/AdvReac Type Severity Reaction Status Date / Time No Known Allergies Allergy Verified 01/10/24 11:29 [No Known Allergies*] Review of Systems 2 Review of Systems: Constitutional: No Fever, No Chills ENT/Mouth: No Ear Pain, No Nasal Congestion, No sore throat, No Rhinorrhea, No Swallowing Difficulty Cardiovascular: No Chest Pain, No SOB Respiratory: No Cough, No Sputum, No Wheezing Gastrointestinal: +Nausea, + Vomiting, +Diarrhea, No Constipation, + Abdominal pain Genitourinary: No Dysuria, No Urinary Frequency, No Hematuria, No Flank Pain Musculoskeletal: No joint pain, No Myalgias, No Joint Swelling Skin: No Skin Lesions, No rash Neuro: No Weakness, No Numbness, No Paresthesias, +KEITA Yes all other systems are reviewed and are negative Constitutional: Constitutional: Reports as per HPI Neurologic: Denies Abnormal speech present [facility] Past Medical History Attestation statement: The following information was validated with the patient. Source: old records reviewed Medical History Migraine headache Social History Social History Alcohol intake: former Patient Tobacco Use Status: Never used Tobacco Smoked in Last 30 Days: No Use of substances other than those prescribed or required for medical reasons: Yes Substance Use Type: Marijuana Advance Directives: No Advance Directives Information Provided: Yes Do you have a plan to hurt others: No Plan Patient : No Physical Exam ED Vital Signs: Vital Signs - 24 hr 01/10/24 11:27 01/10/24 14:04 Temperature 98.1 F 98.5 F Pulse Rate 94 94 Respiratory Rate 16 20 Blood Pressure 99/74 144/88 H Pulse Oximetry 100 99 Oxygen Delivery Method Room Air Room Air BMI result Body Mass Index 21.9 Const General: cooperative, healthy appearing and no acute distress Orientation/consciousness: patient oriented x3 Limitations: no limitations HENMT Head: Yes normal to inspection and Yes atraumatic Ears: hearing grossly normal bilaterally General nose exam: Normal external nose present Face and sinus: Yes normal facial exam Eyes General: appearance normal, both eyes and all related structures EOM: EOMs intact bilaterally Neck Neck: Yes normal visual inspection and Yes no meningeal signs Resp Effort & Inspection: normal respiratory effort and no respiratory distress Auscultation: clear to auscultation bilaterally Cardio Rate: regular rate Heart sounds: S1 normal heart sound present and S2 normal heart sound present GI Inspection: Yes normal to inspection Palpation (GI): Soft to palpation, Tenderness to palpation present (GI) in the epigastrum; with no rebound tenderness, no guarding and not rigid General: Yes no CVA tenderness Back/Spine/Pelvis Back: no CVA tenderness Skin Rashes: no rashes Wounds: no wounds Neuro General: patient oriented x3, tone normal, moves all extremities, no meningeal signs, no focal motor deficits and CN's II-XI intact bilaterally Cranial nerves: Yes CN's II-XII intact bilaterally Cognition (Neuro): normal cognition Speech: No Abnormal speech present Gait exam (Neuro): Normal gait present Motor exam (neuro): 5/5 motor strength present throughout and no tremor noted Extrem General: Yes normal to inspection Course Course Course Narrative: 1430--ED care transferred to DANIEL Murphy pending labs, UA, and re- evaluation/p.o. challenge Medications Administered Generic Name Dose Route Start Last Admin Trade Name Freq PRN Reason Stop Dose Admin Magnesium Sulfate 2 gm in 50 mls @ 25 mls/hr 01/10/24 15:09 01/10/24 15:57 Magnesium Sulfate/H2o IV 01/10/24 17:08 25 mls/hr ONCE ONE Administration Discontinued Medications Generic Name Dose Route Start Last Admin Trade Name Freq PRN Reason Stop Dose Admin Al Hydroxide/Mg Hydroxide 30 ml 01/10/24 14:11 01/10/24 14:57 Magnesium Hydrox/Alum Hydrox 30 Ml Oral.Susp PO 01/10/24 14:12 30 ml ONCE ONE Administration Diphenhydramine HCl 25 mg 01/10/24 14:07 01/10/24 14:55 Diphenhydramine Hcl 50 Mg/Ml Vial IVPUSH 01/10/24 14:08 25 mg ONCE ONE Administration Famotidine 20 mg 01/10/24 14:11 01/10/24 14:57 Famotidine/Pf 20 Mg/2 Ml Vial IVPUSH 01/10/24 14:12 20 mg ONCE ONE Administration Sodium Chloride 1,000 mls @ 999 mls/hr 01/10/24 14:15 01/10/24 16:16 Ns IV 01/10/24 15:15 Infused .Q1H1M EDMOND Infusion Ketorolac Tromethamine 15 mg 01/10/24 14:07 01/10/24 14:54 Ketorolac Tromethamine 15 Mg/Ml Vial IVPUSH 01/10/24 14:08 15 mg ONCE ONE Administration Metoclopramide HCl 10 mg 01/10/24 14:07 01/10/24 14:56 Metoclopramide Hcl 10 Mg/2 Ml Vial IVPUSH 01/10/24 14:08 10 mg ONCE ONE Administration Ondansetron HCl 4 mg 01/10/24 11:33 01/10/24 11:34 Ondansetron Odt 4 Mg Tab.Rapdis TRANSLINGU 01/10/24 11:34 4 mg ONCE ONE Administration Medical Decision Making Medical Decision Making MDM Narrative: RME: Done by DANIEL Landers. 23 yold female with pmh of anxiety presents to the ED for vomitting, diarrhea, and abdominal pain since last night. can have anything Po. Vital signs stable. labs and meds ordered 23-year-old female with a past medical history migraine headaches presenting to the ED complaining of migraine KEITA, epigastric abdominal pain, nausea, vomiting, and diarrhea with inability to tolerate p.o. since 22:00 last night. On exam vital signs stable, NAD, nontoxic appearing, abdomen soft with mild epigastric tenderness, no rebound or guarding, no CVAT. No focal neuro deficits. Concern for complicated migraine headache vs GERD/gastritis vs dehydration/metabolic abnormalities. Lower suspicion for acute cholecystitis/lithiasis, renal stone, appendicitis or diverticulitis at this time Plan: Labs, UA, IVF, symptomatic treatment/GI cocktail, re-evaluate Differential Diagnosis Differential Diagnoses: The differential diagnosis associated with the presentation includes As above Admission/Observation Consideration of admission/observation: Escalation of care including admission/observation considered Lab Data MDM Lab Attestation statement: I reviewed the patient's lab results. 01/10/24 14:36 01/10/24 14:36 Labs: Lab Results 01/10/24 01/10/24 01/10/24 Range/Units 11:47 14:32 14:36 WBC 6.8 (4.8-10.8) X10*3/uL RBC 3.41 L (4.20-5.50) X10*6/uL Hgb 12.1 (12.0-16.0) g/dl Hct 33.0 L (37.0-47.0) % MCV 96.8 (80.0-98.0) fL MCH 35.5 H (27.0-33.0) pg MCHC 36.7 H (31.0-35.0) g/dl RDW 16.8 H (11.0-16.0) % Plt Count 236 D (160-400) X10*3/uL MPV 9.9 (9.4-12.3) fL Immature Gran % (Auto) 0.3 (0.0-0.4) % Neut % (Auto) 88.0 H (45-73) % Lymph % (Auto) 4.4 L (20-40) % [place] % (Auto) 6.6 (2-11) % Eos % (Auto) 0.0 (0-4) % Baso % (Auto) 0.7 (0-2) % Lymph # (Auto) 0.3 L (1.2-4.9) X10*3/uL [place] # (Auto) 0.5 (0.1-1.2) X10*3/uL Eos # (Auto) 0.0 (0.0-0.4) X10*3/uL Baso # (Auto) 0.1 (0.0-0.2) X10*3/uL Abs Immat Gran (auto) 0.02 (0.00-0.03) X10*3/uL Absolute Neuts (auto) 6.0 (2.0-8.3) x10*3/uL Absolute Nucleated RBC 0.000 (0.0-0.012) X10*3/uL Nucleated RBC % (auto) 0.0 (0.0-0.2) /100WBC Sodium 134 L (135-145) mmol/L Potassium 3.7 (3.3-5.1) mmol/L Chloride 99 (96-108) mmol/L Carbon Dioxide 19 L (22-29) mmol/L Anion Gap 20 (12-20) BUN 14 (9-16) mg/dL Creatinine 0.72 (0.5-1.4) mg/dL Estim Creat Clear Calc 94.4 Estimated GFR > 60 Random Glucose 95 (60-115) mg/dL Calcium 9.9 (8.4-10.2) mg/dL Magnesium 1.2 L* (1.6-2.6) mg/dL Total Bilirubin 2.1 H (0.0-1.0) mg/dL AST 94 H (5-31) U/L ALT 92 H (0-31) U/L Alkaline Phosphatase 54 (39-117) U/L Total Protein 7.4 (6.5-8.0) g/dL Albumin 4.6 (3.5-5.0) g/dL Lipase 26 (8-78) U/L Beta HCG, Quant < 2 mIU/mL Urine Color Dark Yellow Urine Appearance Clear Urine pH >= 9.0 (5.0-9.0) Ur Specific [place] 1.020 (1.005-1.025) Urine Protein 100 (2+) H (Neg-Trace) mg/dL Urine Glucose (UA) Negative (Negative) mg/dL Urine Ketones 40 (Negative) mg/dL Urine Blood Negative (Negative) Urine Nitrite Negative (Negative) Ur Leukocyte Esterase Trace H (Negative) Urine RBC 0-2 (0-2) /HPF Urine WBC 0-5 (0-5) /HPF Ur Squamous Epith Cells 3-5 (0-2) /HPF Urine Bacteria None Seen (None Seen) Hyaline Casts 0-2 (0-2) /LPF Urine Test NEGATIVE (NEGATIVE) Influenza Type A (PCR) NEGATIVE (Negative) Influenza Type B (PCR) NEGATIVE (Negative) RSV RNA Qual (PCR) NEGATIVE (Negative) SARS-CoV-2 RNA (RT-PCR) NEGATIVE (Negative) Radiology Impression Discussion of test interpretation with radiology: I have reviewed the radiologist's reading. External Record Review External record reviewed: Inpatient record, Office record, Outpatient record, Prior outpatient labs, Prior outpatient radiology, Primary care record and Outside ED record Tests considered The following testing was considered but not selected: As above Discharge Plan Discharge Clinical Impression: Migraine, Nausea, vomiting, and diarrhea Patient Disposition: Still a Patient Prescriptions: No Action ondansetron 4 mg tablet,disintegrating 4 mg PO Q8H PRN (Reason: nausea and vomiting) Qty: 6 0RF loperamide [Imodium A-D] 2 mg tablet 2 mg PO Q6H PRN (Reason: loose stool) Qty: 14 0RF sumatriptan succinate [Imitrex] 50 mg tablet 50 mg PO Q2H PRN (Reason: migraine headache) Qty: 10 0RF Rx Instructions: do not exceed 2 doses per 24 hrs gyfppfjupc-hhbjrupezzfdh-gvhg [Fioricet] 50-300-40 mg capsule 1 cap PO Q6H PRN (Reason: headache) Qty: 20 0RF ondansetron 4 mg tablet,disintegrating 4 mg PO Q6-8H PRN (Reason: nausea and vomiting) Qty: 10 0RF ketorolac 10 mg tablet 10 mg PO TID PRN (Reason: pain) Qty: 12 0RF metoclopramide HCl [Reglan] 5 mg tablet 5 mg PO DAILY PRN (Reason: nausea and vomiting) Qty: 10 0RF Rx Instructions: PRN migraine headache, take together with ketorolac ondansetron 4 mg tablet,disintegrating 4 mg PO Q8H PRN (Reason: nausea and vomiting) 4 Days Qty: 14 0RF metoclopramide HCl 10 mg tablet 10 mg PO Q6H PRN (Reason: nausea and vomiting) Qty: 30 0RF Rx Instructions: And Headache magnesium oxide 500 mg capsule 500 mg PO DAILY Qty: 10 0RF haloperidol 2 mg tablet 2 mg PO TID Qty: 20 0RF Rx Instructions: Use instead of metoclopramide/reglan cefuroxime axetil 250 mg tablet 250 mg PO BID 7 Days Qty: 14 0RF propranolol 20 mg tablet 10 mg PO BID Qty: 30 0RF cyclobenzaprine 10 mg tablet 10 mg PO TID PRN (Reason: muscle spasm) Qty: 14 0RF ondansetron 4 mg tablet,disintegrating 4 mg PO Q8H PRN (Reason: nausea and vomiting) Qty: 20 0RF hydroxyzine HCl 25 mg tablet 25 mg PO Q8H PRN (Reason: anxiety) Qty: 30 0RF cephalexin 500 mg capsule 500 mg PO BID Qty: 10 0RF Print Language: [place]ian
[2024-01-10] MEDS: Ondansetron ODT 4 MG TAB.RAPDIS TRANSLINGU (11:34)
[2024-01-10 12:35] LABS: Influenza A PCR NEGATIVE (Negative); Influenza B PCR NEGATIVE (Negative); Resp Syncy Virus RNA Qual PCR NEGATIVE (Negative); SARS COV2 PCR INHOUSE NEGATIVE (Negative)
[2024-01-10 14:04] VITALS: BP 144/88; PULSE 94; RESP 20; TEMP 36.9; O2SAT 99
[2024-01-10 14:40] LABS: MANUAL DIFF FLAG NO
[2024-01-10 14:41] LABS: Appearance Urine Clear; Color Urine Dark Yellow; Glucose Urine UA Negative (Negative); Leukocyte Esterase Urine Trace (Negative); Nitrite Urine Negative (Negative); PH >= 9.0 (5.0-9.0); UMIC TRIGGER UACC YES; Urine Blood Negative (Negative); Urine Ketones 40 mg/dL (Negative); Urine Pregnancy NEGATIVE (NEGATIVE); Urine Protein 100 (2+) mg/dL (Neg-Trace)
[2024-01-10 14:42] LABS: UPreg QC Valid YES
[2024-01-10 14:42] LABS: Basophils Absolute Auto 0.1 X10*3/uL (0.0-0.2); Basophils Percent Auto 0.7 % (0-2); Hemoglobin 12.1 g/dl (12.0-16.0); Imm Gran Abs Auto 0.02 X10*3/uL (0.00-0.03); Imm Gran Pct Auto 0.3 % (0.0-0.4); Lymphocytes Absolute Auto 0.3 X10*3/uL (1.2-4.9); Lymphocytes Percent Auto 4.4 % (20-40); Mean Corpuscular HGB Conc 36.7 g/dl (31.0-35.0); Mean Corpuscular Hemoglobin 35.5 pg (27.0-33.0); Mean Corpuscular Volume 96.8 fL (80.0-98.0); Mean Platelet Volume 9.9 fL (9.4-12.3); Monocytes Absolute Auto 0.5 X10*3/uL (0.1-1.2); Monocytes Percent Auto 6.6 % (2-11); Platelet Count 236 X10*3/uL (160-400); Red Blood Count 3.41 X10*6/uL (4.20-5.50); Red Cell Distribution Width 16.8 % (11.0-16.0); White Blood Count 6.8 X10*3/uL (4.8-10.8)
[2024-01-10 14:46] LABS: Bacteria Urine None Seen (None Seen); Hyaline Casts Urine 0-2 /LPF (0-2); RBC Urine 0-2 /HPF (0-2); WBC Urine 0-5 /HPF (0-5)
[2024-01-10] MEDS: Ketorolac Tromethamine 15 MG/ML VIAL IVPUSH (14:54)
[2024-01-10] MEDS: diphenhydrAMINE HCL 50 MG/ML VIAL 25 MG IVPUSH (14:55)
[2024-01-10] MEDS: Metoclopramide HCl 10 MG/2 ML VIAL IVPUSH (14:56)
[2024-01-10] MEDS: Magnesium Hydrox/Alum Hydrox 30 ML ORAL.SUSP PO (14:57)
[2024-01-10] MEDS: Famotidine/PF 20 MG/2 ML VIAL IVPUSH (14:57)
[2024-01-10] MEDS: 0.9 % Sodium Chloride 1,000 ML 999 ML IV (14:57)
[2024-01-10 15:10] LABS: Alanine Aminotransferase 92 U/L (0-31); Albumin Level 4.6 g/dL (3.5-5.0); Alkaline Phosphatase 54 U/L (39-117); Anion Gap 20 (12-20); Aspartate Amino Transferase 94 U/L (5-31); Bilirubin Total 2.1 mg/dL (0.0-1.0); Blood Urea Nitrogen 14 mg/dL (9-16); Calcium 9.9 mg/dL (8.4-10.2); Carbon Dioxide 19 mmol/L (22-29); Chloride 99 mmol/L (96-108); Creatinine Clr Calc Pharmacy 94.4; Estimated Glomerular Filt Rate > 60; Glucose Random 95 mg/dL (60-115); HCG Quantitative < 2 mIU/mL; Lipase 26 U/L (8-78); Magnesium 1.2 mg/dL (1.6-2.6); Potassium 3.7 mmol/L (3.3-5.1); Sodium 134 mmol/L (135-145); Total Protein 7.4 g/dL (6.5-8.0)
[2024-01-10] MEDS: Magnesium Sulfate/H2O 2 GM/50 ML PIGGYBACK IV (15:57)
[2024-01-10 16:35] VITALS: BP 115/78; PULSE 93; RESP 14; TEMP 36.9; O2SAT 100
[2024-01-10 18:12] LABS: Magnesium 2.4 mg/dL (1.6-2.6)
[2024-01-10 18:34] VITALS: BP 115/78; PULSE 93; RESP 14; TEMP 36.9; O2SAT 100
== END 2024-01-10 18:35 | disposition home or self-care (01) ==
PROVIDERS: Physician Assistant; Physician Assistant Medical; Emergency Provider Emergency Medicine
DX: R51.9 Headache, unspecified (principal); R11.2 Nausea with vomiting, unspecified; R19.7 Diarrhea, unspecified; R10.13 Epigastric pain; Z03.818 Encounter for observation for suspected exposure to other biological agents ruled out
CPT/HCPCS: 0241U; 36415; 80053; 81001; 81025; 83690; 83735; 84702; 85025; 96361; 96365; 96375; 99285; J1200; J1885; J2765; J3475

== ENCOUNTER 2024-05-23 10:28 | Inpatient (IN) | payer OTHER, SELFPAY ==
[2024-05-23] VITALS (7 sets, daily range): BP systolic 106–144; BP diastolic 45–81; PULSE 99–135; RESP 14–22; TEMP 36.9–37.4; O2SAT 95–100; BMI 21.3
--- NOTE | 2024-05-23 | ECG_ITS ---
Test Reason : PROLONGED QT Blood Pressure : / mmHG Vent. Rate : 113 BPM Atrial Rate : 113 BPM P-R Int : 156 ms QRS Dur : 078 ms QT Int : 340 ms P-R-T Axes : 072 069 054 degrees QTc Int : 466 ms Sinus tachycardia Otherwise normal ECG When compared with ECG of 23-MAY-2024 11:23, Nonspecific T wave abnormality no longer evident in Anterior leads Referred By: Lazaro Tran Electronically Signed By:MANI REYNOSO MD
--- NOTE | ~2024-05-23 | CT_ITS ---
EXAMINATION: CT ABDOMEN AND PELVIS WITH CONTRAST CLINICAL INFORMATION: Elevated WBC count COMPARISON: None available. TECHNIQUE: Multidetector volumetric images were obtained from the superior aspect of the liver through the pubic symphysis following administration 85 mL of Omnipaque 350 intravenous contrast. Sagittal and coronal reformatted images were obtained on the technologist's workstation. Oral contrast: No This CT examination was performed using dose optimization techniques as appropriate, variously including the following: *Automated exposure control *Adjustment of mA and/or kV according to patient size (this includes techniques or standardized protocols for targeted exams where dose is matched to indication/reason for exam; i.e. extremities or head) *Use of iterative reconstruction technique DLP: 638 mGy-cm FINDINGS: LUNG BASES: The visualized lung bases are unremarkable. LIVER, GALLBLADDER, AND BILIARY TREE: The liver is normal in size, shape, and attenuation. No focal hepatic lesion or biliary ductal dilatation is present. The gallbladder is unremarkable with no evidence of radiopaque gallstones, gallbladder wall thickening, or obvious pericholecystic inflammatory changes. PANCREAS: Unremarkable. SPLEEN: Unremarkable. ADRENAL GLANDS: Unremarkable. KIDNEYS AND URETERS: The kidneys are normal in size, shape, and attenuation. No hydronephrosis, hydroureter, or calculi seen. No perinephric stranding. BLADDER: Bladder is distended. No calculus or inflammation. There is no bladder mass. GASTROINTESTINAL TRACT: The small and large bowel are unremarkable. The appendix is unremarkable. ABDOMINAL WALL: No significant hernia is appreciated. LYMPH NODES: Normal. VASCULAR: Unremarkable. PELVIC VISCERA: Unremarkable. OSSEOUS STRUCTURES: Unremarkable. CT/CT abdomen pelvis w IV con IMPRESSION: Normal CT of abdomen and pelvis. Fleischner guidelines were followed. Electronically signed by: August Bolaoñs MD 05/23/2024 04:50 PM EST
--- NOTE | ~2024-05-23 | XR_ITS ---
EXAMINATION: XR CHEST CLINICAL INFORMATION: Elevated white blood cell count COMPARISON: None available. TECHNIQUE: Frontal view of the chest was obtained. FINDINGS: There is a 6 mm nodule present in the right upper lobe projecting between the second and third anterior rib ends just below the right sixth rib. No other significant abnormality is noted involving the heart, lungs, mediastinum, bony thorax or soft tissues. XR/XR chest 1V IMPRESSION: 6 mm right upper lobe nodule. CT scan could be performed for further evaluation if clinically indicated. Electronically signed by: Fernie Trivedi MD 05/23/2024 04:30 PM [facility]
--- NOTE | 2024-05-23 10:42 | PC.NURSE ---
unable to obtain oral temp at this time d/t pt vomiting
--- NOTE | 2024-05-23 10:45 | ECG_ITS ---
Test Reason : VOMITING Blood Pressure : / mmHG Vent. Rate : 126 BPM Atrial Rate : 126 BPM P-R Int : 130 ms QRS Dur : 066 ms QT Int : 324 ms P-R-T Axes : 083 076 052 degrees QTc Int : 469 ms Sinus tachycardia Nonspecific ST and T wave abnormality Abnormal ECG When compared with ECG of 08-NOV-2022 19:25, No significant change was found Referred By: Mak Tovar Electronically Signed By:MANI REYNOSO MD
--- NOTE | 2024-05-23 10:46 | ED.NAVMDI ---
HPI - Nausea/Vomiting/Diarrhea General Chief complaint: Nausea/Vomiting/Diarrhea Stated complaint: vomiting Time Seen by Provider: 05/23/24 10:41 Source: patient Mode of arrival: ambulatory Limitations: no limitations History of Present Illness HPI Narrative: 23 year old female PMH: cannabis hyperemesis, migraines and daily marijuana use 4th visit this year for headache and recurrent vomiting had 5 visits last year continues with marijuana use. Arrives with very dramatic loud wretching. She was treated aggressively with anti emetics as it was disruptive to the entire department. We will check labs and again attempt education. MD elicited complaint: nausea and vomiting Related Data Previous Rx's ?Medication ?Instructions ?Recorded ondansetron 4 mg disintegrating 4 mg PO Q8H PRN nausea and 08/25/21 tablet vomiting #6 tabs slezlpvdcw-cqhpifskislnt-ehnirdxn 1 cap PO Q6H PRN headache #20 caps 10/30/22 50 mg-300 mg-40 mg capsule (Fioricet) loperamide 2 mg tablet (Imodium 2 mg PO Q6H PRN loose stool #14 10/30/22 A-D) tabs ondansetron 4 mg disintegrating 4 mg PO Q6-8H PRN nausea and 10/30/22 tablet vomiting #10 tabs sumatriptan succinate 50 mg tablet 50 mg PO Q2H PRN migraine headache 10/30/22 (Imitrex) #10 tabs ketorolac 10 mg tablet 10 mg PO TID PRN pain #12 tabs 11/08/22 metoclopramide HCl 5 mg tablet 5 mg PO DAILY PRN nausea and 11/08/22 (Reglan) vomiting #10 tabs haloperidol 2 mg tablet 2 mg PO TID #20 tabs 12/02/22 magnesium oxide 500 mg capsule 500 mg PO DAILY #10 caps 12/02/22 metoclopramide HCl 10 mg tablet 10 mg PO Q6H PRN nausea and 12/02/22 vomiting #30 tabs ondansetron 4 mg disintegrating 4 mg PO Q8H PRN nausea and 12/02/22 tablet vomiting 4 days #14 tabs propranolol 20 mg tablet 10 mg (1/2 x 20 mg) PO BID #30 tabs 12/11/22 cyclobenzaprine 10 mg tablet 10 mg PO TID PRN muscle spasm #14 09/20/23 tabs hydroxyzine HCl 25 mg tablet 25 mg PO Q8H PRN anxiety #30 tabs 04/08/23 ondansetron 4 mg disintegrating 4 mg PO Q8H PRN nausea and 04/08/23 tablet vomiting #20 tabs cephalexin 500 mg capsule 500 mg PO BID #10 caps 08/01/23 cefuroxime axetil 250 mg tablet 250 mg PO BID 7 days #14 tabs 12/24/23 Allergies Allergy/AdvReac Type Severity Reaction Status Date / Time No Known Allergies Allergy Verified 05/23/24 10:41 [No Known Allergies*] Review of Systems Review of Systems: Review of systems: General: Patient denies any fever chills recent illness or falls Musculoskeletal: Denies back pain or body aches or other injuries HEENT: denies headache, runny nose, ear pain Respiratory: denies shortness of breath, cough Cardiovascular: no chest pain or palpitations : denies dysuria, frequency Abdomen: Retching nausea no actual vomiting denies abdominal pain Extremities: no swelling, no pain Skin: no diaphoresis Yes all other systems are reviewed and are negative PMFSH Past Medical History Medical History Migraine headache Social History Social History Alcohol intake: former Patient Tobacco Use Status: Never used Tobacco Smoked in Last 30 Days: No Use of substances other than those prescribed or required for medical reasons: Yes Substance Use Type: Marijuana Advance Directives: No Advance Directives Information Provided: Yes Do you have a plan to hurt others: No Plan Patient : No Physical Exam Vital Signs: Vital Signs: Last Vital Signs Temp 98.9 F 05/23/24 15:40 Pulse 129 H 05/23/24 15:40 Resp 18 05/23/24 15:36 BP 144/60 H 05/23/24 15:36 Pulse Ox 99 05/23/24 15:36 O2 Del Method Room Air 05/23/24 15:36 BMI result Body Mass Index 21.3 General: Well-appearing well-nourished in no signs of distress HEENT: Normocephalic atraumatic Neck: No signs of JVD, no masses no tenderness or lymphadenopathy Cardiovascular: Regular rate and rhythm Respiratory: Clear to auscultation bilaterally Abdomen: Soft nontender no masses Extremities: Normal pedal pulses no signs of edema Skin: Dry warm no rashes Back: No tenderness full ROM Course Course Course Narrative: Patient sleeping comfortably for a few hours now. Was a difficult stick for labs but are starting to come back with signs of low bicarbonate, and a anion gap of 24. I will send a VBG, alcohol and replete her potassium. Reevaluation(s) Reevaluation #1: Alcohol level added on apparently was drinking last night as level is 13 at this point. Similiar to her last visit. She is not a daily drinker. Pending repeat labs. Time: 14:34 Reevaluation #2: I will sign out to Dr. Alonzo pending CT UA labs and ultimate disposition. Of note Heart rate went from 99 to 113 to 129 after 3 liters of fluid and sleeping in room for the duration of the visit Time: 15:52 Medications Administered Discontinued Medications Generic Name Dose Route Start Last Admin Trade Name Freq PRN Reason Stop Dose Admin Diphenhydramine HCl 50 mg 05/23/24 10:44 05/23/24 11:10 Diphenhydramine Hcl 50 Mg/Ml Vial IVPUSH 05/23/24 10:45 50 mg ONCE ONE Administration Droperidol 1.25 mg 05/23/24 10:44 05/23/24 11:13 Droperidol 5 Mg/2 Ml Vial IVPUSH 05/23/24 10:45 Not Given ONCE ONE Famotidine 20 mg 05/23/24 10:44 05/23/24 11:12 Famotidine/Pf 20 Mg/2 Ml Vial IVPUSH 05/23/24 10:45 20 mg ONCE ONE Administration Haloperidol Lactate 5 mg 05/23/24 11:04 05/23/24 11:12 Haloperidol Lactate 5 Mg/Ml Vial IVPUSH 05/23/24 11:05 5 mg ONCE ONE Administration Haloperidol Lactate 5 mg 05/23/24 14:00 05/23/24 15:51 Haloperidol Lactate 5 Mg/Ml Vial IVPUSH 05/23/24 14:01 Not Given ONCE ONE Sodium Chloride 1,000 mls @ 999 mls/hr 05/23/24 10:45 05/23/24 14:53 Ns IV 05/23/24 11:45 Infused .Q1H1M EDMOND Infusion Sodium Chloride 1,000 mls @ 999 mls/hr 05/23/24 13:15 05/23/24 13:24 Ns IV 05/23/24 14:15 999 mls/hr .Q1H1M EDMOND Administration Sodium Chloride 1,000 mls @ 999 mls/hr 05/23/24 13:30 05/23/24 15:51 Ns IV 05/23/24 14:30 999 mls/hr .Q1H1M EDMOND Administration Magnesium Sulfate 2 gm in 50 mls @ 25 mls/hr 05/23/24 13:30 05/23/24 13:57 Magnesium Sulfate/H2o IV 05/23/24 15:29 25 mls/hr ONCE ONE Administration Lorazepam 2 mg 05/23/24 10:44 05/23/24 11:11 Lorazepam 2 Mg/Ml Vial IVPUSH 05/23/24 10:45 2 mg ONCE ONE Administration Lorazepam 1 mg 05/23/24 13:13 05/23/24 15:51 Lorazepam 2 Mg/Ml Vial IVPUSH 05/23/24 13:14 Not Given ONCE ONE Medical Decision Making Medical Decision Making [facility] Narrative: I will treat leave droperidol Ativan Benadryl give the patient fluids and check labs Differential Diagnosis Differential Diagnoses: The differential diagnosis associated with the presentation includes Hypomagnesemia hypokalemia recurrent vomiting Admission/Observation Consideration of admission/observation: Escalation of care including admission/observation considered Lab Data [facility] Lab Attestation statement: I reviewed the patient's lab results. 05/23/24 12:16 05/23/24 12:16 Labs: Lab Results 05/23/24 05/23/24 Range/Units 12:16 15:17 WBC 23.7 H (4.8-10.8) X10*3/uL RBC 4.17 L D (4.20-5.50) X10*6/uL Hgb 12.8 (12.0-16.0) g/dl Hct 37.5 (37.0-47.0) % MCV 89.9 (80.0-98.0) fL MCH 30.7 (27.0-33.0) pg MCHC 34.1 (31.0-35.0) g/dl RDW 12.6 (11.0-16.0) % Plt Count 306 D (160-400) X10*3/uL MPV 10.0 (9.4-12.3) fL Immature Gran % (Auto) 0.7 H (0.0-0.4) % Neut % (Auto) 90.7 H (45-73) % Lymph % (Auto) 2.7 L (20-40) % [place] % (Auto) 5.6 (2-11) % Eos % (Auto) 0.0 (0-4) % Baso % (Auto) 0.3 (0-2) % Lymph # (Auto) 0.6 L (1.2-4.9) X10*3/uL [place] # (Auto) 1.3 H (0.1-1.2) X10*3/uL Eos # (Auto) 0.0 (0.0-0.4) X10*3/uL Baso # (Auto) 0.1 (0.0-0.2) X10*3/uL Abs Immat Gran (auto) 0.17 H (0.00-0.03) X10*3/uL Absolute Neuts (auto) 21.5 H (2.0-8.3) x10*3/uL Absolute Nucleated RBC 0.000 (0.0-0.012) X10*3/uL Nucleated RBC % (auto) 0.0 (0.0-0.2) /100WBC Smear Tech's Comments VERIFIED VBG pH 7.30 L (7.32-7.43) VBG pCO2 17 mmHg VBG pO2 222 mmHg VBG HCO3 8 L (22-26) mmol/L VBG O2 Saturation 99.0 % VBG Base Excess -14.8 mmol/L Sodium 139 (135-145) mmol/L Potassium 4.9 D (3.3-5.1) mmol/L Chloride 110 H (96-108) mmol/L Carbon Dioxide 10 L* D (22-29) mmol/L Anion Gap 24 H (12-20) BUN 15 (9-16) mg/dL Creatinine 0.76 (0.5-1.4) mg/dL Estim Creat Clear Calc 110.0 Estimated GFR > 60 Random Glucose 81 (60-115) mg/dL Calcium 9.7 (8.4-10.2) mg/dL Magnesium 1.5 L (1.6-2.6) mg/dL Total Bilirubin 0.4 (0.0-1.0) mg/dL Direct Bilirubin 0.2 (0.0-0.5) mg/dL AST 42 H (5-31) U/L ALT 17 (0-31) U/L Alkaline Phosphatase 51 (39-117) U/L Total Protein 7.7 (6.5-8.0) g/dL Albumin 4.9 (3.5-5.0) g/dL Lipase 8 (8-78) U/L Beta HCG, Quant < 2 mIU/mL Ethyl Alcohol 13 mg/dL Independent Interpretation I performed an independent interpretation of an: EKG Radiology Impression Discussion of test interpretation with radiology: I have reviewed the radiologist's reading. External Record Review External record reviewed: Inpatient record, Office record and Outpatient record Social Determinants Patient?s care significantly limited by Social Determinants of Health including: Inadequate housing Discharge Plan Discharge Clinical Impression: Dehydration, Cannabis abuse with cannabis-induced anxiety disorder, Hyperemesis, Hypocarbia, Weakness, Elevated WBC count Patient Disposition: Still a Patient Prescriptions: No Action ondansetron 4 mg tablet,disintegrating 4 mg PO Q8H PRN (Reason: nausea and vomiting) Qty: 6 0RF loperamide [Imodium A-D] 2 mg tablet 2 mg PO Q6H PRN (Reason: loose stool) Qty: 14 0RF sumatriptan succinate [Imitrex] 50 mg tablet 50 mg PO Q2H PRN (Reason: migraine headache) Qty: 10 0RF Rx Instructions: do not exceed 2 doses per 24 hrs [id number]-[id number]-nqip [Fioricet] 50-300-40 mg capsule 1 cap PO Q6H PRN (Reason: headache) Qty: 20 0RF ondansetron 4 mg tablet,disintegrating 4 mg PO Q6-8H PRN (Reason: nausea and vomiting) Qty: 10 0RF ketorolac 10 mg tablet 10 mg PO TID PRN (Reason: pain) Qty: 12 0RF metoclopramide HCl [Reglan] 5 mg tablet 5 mg PO DAILY PRN (Reason: nausea and vomiting) Qty: 10 0RF Rx Instructions: PRN migraine headache, take together with ketorolac ondansetron 4 mg tablet,disintegrating 4 mg PO Q8H PRN (Reason: nausea and vomiting) 4 Days Qty: 14 0RF metoclopramide HCl 10 mg tablet 10 mg PO Q6H PRN (Reason: nausea and vomiting) Qty: 30 0RF Rx Instructions: And Headache magnesium oxide 500 mg capsule 500 mg PO DAILY Qty: 10 0RF haloperidol 2 mg tablet 2 mg PO TID Qty: 20 0RF Rx Instructions: Use instead of metoclopramide/reglan cefuroxime axetil 250 mg tablet 250 mg PO BID 7 Days Qty: 14 0RF propranolol 20 mg tablet 10 mg PO BID Qty: 30 0RF cyclobenzaprine 10 mg tablet 10 mg PO TID PRN (Reason: muscle spasm) Qty: 14 0RF ondansetron 4 mg tablet,disintegrating 4 mg PO Q8H PRN (Reason: nausea and vomiting) Qty: 20 0RF hydroxyzine HCl 25 mg tablet 25 mg PO Q8H PRN (Reason: anxiety) Qty: 30 0RF cephalexin 500 mg capsule 500 mg PO BID Qty: 10 0RF Print Language: Armenian
--- NOTE | 2024-05-23 10:52 | PC.NURSE ---
Patient up ambulating to bathroom with visitor, took off own collar.
[2024-05-23] MEDS: diphenhydrAMINE HCL 50 MG/ML VIAL IVPUSH (11:10)
[2024-05-23] MEDS: LORazepam 2 MG/ML VIAL IVPUSH (11:11)
[2024-05-23] MEDS: Haloperidol Lactate 5 MG/ML VIAL IVPUSH (11:12)
[2024-05-23] MEDS: Famotidine/PF 20 MG/2 ML VIAL IVPUSH (11:12)
[2024-05-23] MEDS: 0.9 % Sodium Chloride 1,000 ML 999 ML IV ×3 (11:13→15:51)
--- NOTE | 2024-05-23 11:17 | PC.NURSE ---
Pt medicated per SEP. Pt given warm blankets and head of bed adjust, lights dimmer per pt request.
--- NOTE | 2024-05-23 12:07 | PC.NURSE ---
Labs unable to be obtained by 2 different techs, additional tech at the bedside at this time.
[2024-05-23 12:24] LABS: Basophils Absolute Auto 0.1 X10*3/uL (0.0-0.2); Basophils Percent Auto 0.3 % (0-2); Hematocrit 37.5 % (37.0-47.0); Hemoglobin 12.8 g/dl (12.0-16.0); Imm Gran Abs Auto 0.17 X10*3/uL (0.00-0.03); Imm Gran Pct Auto 0.7 % (0.0-0.4); Lymphocytes Absolute Auto 0.6 X10*3/uL (1.2-4.9); Lymphocytes Percent Auto 2.7 % (20-40); MANUAL DIFF FLAG SCAN; Mean Corpuscular HGB Conc 34.1 g/dl (31.0-35.0); Mean Corpuscular Hemoglobin 30.7 pg (27.0-33.0); Mean Corpuscular Volume 89.9 fL (80.0-98.0); Monocytes Absolute Auto 1.3 X10*3/uL (0.1-1.2); Monocytes Percent Auto 5.6 % (2-11); Neutrophils Absolute Auto 21.5 x10*3/uL (2.0-8.3); Neutrophils Percent Auto 90.7 % (45-73); Platelet Count 306 X10*3/uL (160-400); Red Blood Count 4.17 X10*6/uL (4.20-5.50); Red Cell Distribution Width 12.6 % (11.0-16.0); SCAN SMEAR FLAG 1; White Blood Count 23.7 X10*3/uL (4.8-10.8)
--- NOTE | 2024-05-23 12:44 | PC.NURSE ---
Pt resting on stretcher with respirations equal and unlabored. Pt no longer restless or moaning, no active vomiting noted.
[2024-05-23 12:49] LABS: SLIDE REVIEW VERIFIED
[2024-05-23 13:13] LABS: Alanine Aminotransferase 17 U/L (0-31); Albumin Level 4.9 g/dL (3.5-5.0); Alkaline Phosphatase 51 U/L (39-117); Anion Gap 24 (12-20); Aspartate Amino Transferase 42 U/L (5-31); Bilirubin Direct 0.2 mg/dL (0.0-0.5); Bilirubin Total 0.4 mg/dL (0.0-1.0); Blood Urea Nitrogen 15 mg/dL (9-16); Calcium 9.7 mg/dL (8.4-10.2); Carbon Dioxide 10 mmol/L (22-29); Chloride 110 mmol/L (96-108); Estimated Glomerular Filt Rate > 60; Glucose Random 81 mg/dL (60-115); HCG Quantitative < 2 mIU/mL; Lipase 8 U/L (8-78); Magnesium 1.5 mg/dL (1.6-2.6); Potassium 4.9 mmol/L (3.3-5.1); Sodium 139 mmol/L (135-145); Total Protein 7.7 g/dL (6.5-8.0)
[2024-05-23] MEDS: Magnesium Sulfate/H2O 2 GM/50 ML PIGGYBACK IV (13:57)
--- NOTE | 2024-05-23 13:57 | PC.NURSE ---
Magnesium replacement hung. Pt continues resting on stretcher, denies needs. No active vomiting noted.
--- NOTE | 2024-05-23 14:18 | PC.NURSE ---
Additional medications ordered for pt but she is resting comfortably on stretcher with no active vomiting. Meds held at this time, not needed.
[2024-05-23 14:32] LABS: Ethanol 13 mg/dL
[2024-05-23 15:29] LABS: VBG Base Excess -14.8 mmol/L; VBG HCO3 8 mmol/L (22-26); VBG pCO2 17 mmHg; VBG pO2 222 mmHg
[2024-05-23 15:34] LABS: Venous Blood Gas Refer to POC result
--- NOTE | 2024-05-23 15:38 | PC.NURSE ---
Pt sleeping. easily aroused to voice. st on monitor. difficult IV stick for 2nnd line. no active vomiting. awaits CT. Fluids infusing.
[2024-05-23] MEDS: iohexoL 350 MG/ML 100 ML INFUS..BTL 85 ML IV (16:11)
[2024-05-23 17:07] LABS: Anion Gap 20 (12-20); Blood Urea Nitrogen 13 mg/dL (9-16); Calcium 8.7 mg/dL (8.4-10.2); Carbon Dioxide 11 mmol/L (22-29); Chloride 110 mmol/L (96-108); Estimated Glomerular Filt Rate > 60; Glucose Random 70 mg/dL (60-115); Potassium 5.6 mmol/L (3.3-5.1); Sodium 135 mmol/L (135-145)
[2024-05-23 19:05] LABS: Appearance Urine Clear; Color Urine Yellow; Glucose Urine UA Negative (Negative); Leukocyte Esterase Urine Negative (Negative); Nitrite Urine Negative (Negative); Specific Gravity - Urine >= 1.030 (1.005-1.025); Urine Blood Negative (Negative); Urine Ketones 80 mg/dL (Negative); Urine Protein Negative (Neg-Trace)
[2024-05-23 19:06] LABS: Magnesium 2.3 mg/dL (1.6-2.6)
[2024-05-23 19:12] LABS: Amphetamine Screen Urine Not Detected (Not Detect); Barbiturates, Urine Not Detected (Not Detect); Benzodiazepines Screen Urine Not Detected (Not Detect); Buprenorphine Scr Not Detected (Not Detect); Cannabinoid Screen Urine POSITIVE (Not Detect); Cocaine Screen Urine Not Detected (Not Detect); Fentanyl, urine Not Detected (Not Detect); Methadone Screen, Urine Not Detected (Not Detect); Opiate Screen Urine Not Detected (Not Detect); Oxycodone Screen Urine Not Detected (Not Detect); Phencyclidine Screen Urine Not Detected (Not Detect)
[2024-05-23 19:12] LABS: Carbon Dioxide 10 mmol/L (22-29)
[2024-05-23 19:13] LABS: Anion Gap 19 (12-20); Blood Urea Nitrogen 11 mg/dL (9-16); Calcium 8.8 mg/dL (8.4-10.2); Chloride 111 mmol/L (96-108); Creatinine Clr Calc Pharmacy 108.5; Estimated Glomerular Filt Rate > 60; Glucose Random 71 mg/dL (60-115); Potassium 5.2 mmol/L (3.3-5.1); Sodium 135 mmol/L (135-145)
[2024-05-23] MEDS: Dextrose 5 % and 0.45 % NaCl 1,000 ML 999 ML IVCONT (20:16)
--- NOTE | 2024-05-23 20:19 | PC.NURSE ---
continues to sleep mostly. skin pwd. heart rate improving
--- NOTE | 2024-05-23 21:43 | P.HPHOSP_ITS ---
History of Present Illness Date of Service: 05/23/24 Attending physician on admission: Lazaro Tran Chief Complaint: Nausea and vomiting Diana Wilder is a 23 years old woman with past medical history significant for migraine and multiple visits to the emergency department due to nausea and vomiting presents to the ED today complaining of multiple events of vomiting over the last 2 days associated with generalized abdominal pain and diarrhea (last BM was this morning). She did not report any associated fever, chills or acute urinary symptoms. Denied any cardiopulmonary symptoms. She smokes marijuana nightly. Denied tobacco smoking, illicit drug use or alcohol abuse. In the ED, she has been found with significant tachycardia (max 135 bpm). Blood pressure stable. Oxygen saturation is 98% on room air. Blood workup was significant for acidosis with a CO2 of 10. There is also hyperkalemia of 5.6 and hypomagnesemia 1.2 the normalized after repletion. Renal function, lipase and LFTs are normal. test is negative. Urinalysis consistent with elevated specific gravity, positive ketones and no evidence of UTI. Toxicology is positive for marijuana. Viral testing is negative for COVID-19, influenza and RSV. Chest x-ray is negative for pneumonia, pleural effusion or pneumothorax. It showed a 6 mm right upper lobe nodule. Abdominal pelvis CT scan is normal. ECG showed sinus tachycardia 113 beats per minute without ischemic changes are normal QT interval. ED tx: NS bolus 2 L, D5/0.9ss 1 L, Pepcid 20 mg IV, droperidol 1.25 mg IV, Benadryl 50 mg IV, lorazepam 3 mg IV Haldol 10 mg IV (total). Review of Systems 2 Review of Systems: All 12 systems were reviewed and normal except as noted in HPI. [facility] Medical History (Updated 05/23/24 @ 22:16 by Lazaro Tran MD) Cannabinoid hyperemesis syndrome Migraine headache Social History Alcohol intake: former Patient Tobacco Use Status: Never used Tobacco Smoked in Last 30 Days: No Use of substances other than those prescribed or required for medical reasons: Yes Substance Use Type: Marijuana Advance Directives: No Advance Directives Information Provided: Yes Do you have a plan to hurt others: No Plan Patient : No Meds Allergies Allergy/AdvReac Type Severity Reaction Status Date / Time No Known Allergies Allergy Verified 05/23/24 10:41 [No Known Allergies*] Active Medications: Current Medications Enoxaparin Sodium (Enoxaparin Sodium 40 Mg/0.4 Ml Syringe) 40 mg SUBCUT Q24H EDMOND Hydromorphone HCl (Hydromorphone Hcl 1 Mg/Ml Syringe) 0.5 mg IVPUSH Q4H PRN; Protocol PRN Reason: Pain, Severe (Pain Scale 7-10) Sodium Bicarbonate 125 meq/ (Dextrose) 1,025 mls @ 100 mls/hr IV .[id number] EDMOND Melatonin (Melatonin 3 Mg Tablet) 6 mg PO BEDTIME PRN PRN Reason: Insomnia Metoclopramide HCl (Metoclopramide Hcl 10 Mg/2 Ml Vial) 5 mg IVPUSH Q6H EDMOND Sodium Chloride (0.9 % Sodium Chloride Flush 3 Ml Syringe) 3 ml IVFLUSH QSHIFT EDMOND Physical Exam 2 Vital Signs and Narrative: Vital Signs: Last Vital Signs Temp 98.9 F 05/23/24 20:17 Pulse 108 H 05/23/24 20:17 Resp 16 05/23/24 20:17 BP 121/52 L 05/23/24 20:17 Pulse Ox 98 05/23/24 20:17 O2 Del Method Room Air 05/23/24 20:17 BMI result Body Mass Index 21.3 Constitutional - Awake and Alert. drowsy but able to converse adequately. Looks acutely ill. HEENT - PER, EOMI. Dry oral mucosa. Heart - Tachycardia, regular rhythm, no murmur. Lungs - Normal lung expansion, Normal respiratory effort, No respiratory distress, CTA bilaterally Abdomen - Nondistended. General discomfort to palpation. No rebound. No guarding. Increased bowel sounds. Extremities - no calf tenderness bilaterally, no swelling Musculoskeletal - Normal inspection, normal ROM Skin - Warm/Dry Neurological - Alert & oriented x3. No focal weakness grossly noted. Normal speech. Psychological - Appropriate affect Results Labs 05/23/24 12:16 05/23/24 18:39 Labs: Laboratory Results - last 24 hr 05/23/24 05/23/24 05/23/24 12:16 15:17 16:45 MCV 89.9 MCH 30.7 MCHC 34.1 RDW 12.6 Plt Count 306 D MPV 10.0 Immature Gran % (Auto) 0.7 H Neut % (Auto) 90.7 H Lymph % (Auto) 2.7 L [place] % (Auto) 5.6 Eos % (Auto) 0.0 Baso % (Auto) 0.3 Lymph # (Auto) 0.6 L [place] # (Auto) 1.3 H Eos # (Auto) 0.0 Baso # (Auto) 0.1 Abs Immat Gran (auto) 0.17 H Absolute Neuts (auto) 21.5 H Absolute Nucleated RBC 0.000 Nucleated RBC % (auto) 0.0 Smear Tech's Comments VERIFIED VBG pH 7.30 L VBG pCO2 17 VBG pO2 222 VBG HCO3 8 L VBG O2 Saturation 99.0 VBG Base Excess -14.8 Anion Gap 24 H 20 Estim Creat Clear Calc 110.0 113.0 Estimated GFR > 60 > 60 Random Glucose 81 70 Calcium 9.7 8.7 D Magnesium 1.5 L Total Bilirubin 0.4 Direct Bilirubin 0.2 AST 42 H ALT 17 Alkaline Phosphatase 51 Total Protein 7.7 Albumin 4.9 Lipase 8 Beta HCG, Quant < 2 Urine Color Urine Appearance Urine pH Ur Specific [place] Urine Protein Urine Glucose (UA) Urine Ketones Urine Blood Urine Nitrite Ur Leukocyte Esterase Urine Opiates Screen Ur Buprenorphine Scrn Ur Oxycodone Screen Urine Methadone Screen Urine Fentanyl Screen Ur Barbiturates Screen Ur Phencyclidine Scrn Ur Amphetamines Screen U Benzodiazepines Scrn Urine Cocaine Screen U Marijuana (THC) Screen Ethyl Alcohol 13 05/23/24 05/23/24 18:39 18:53 MCV MCH MCHC RDW Plt Count MPV Immature Gran % (Auto) Neut % (Auto) Lymph % (Auto) [place] % (Auto) Eos % (Auto) Baso % (Auto) Lymph # (Auto) [place] # (Auto) Eos # (Auto) Baso # (Auto) Abs Immat Gran (auto) Absolute Neuts (auto) Absolute Nucleated RBC Nucleated RBC % (auto) Smear Tech's Comments VBG pH VBG pCO2 VBG pO2 VBG HCO3 VBG O2 Saturation VBG Base Excess Anion Gap 19 Estim Creat Clear Calc 108.5 Estimated GFR > 60 Random Glucose 71 Calcium 8.8 Magnesium 2.3 Total Bilirubin Direct Bilirubin AST ALT Alkaline Phosphatase Total Protein Albumin Lipase Beta HCG, Quant Urine Color Yellow Urine Appearance Clear Urine pH 5.0 Ur Specific [place] >= 1.030 H Urine Protein Negative Urine Glucose (UA) Negative Urine Ketones 80 Urine Blood Negative Urine Nitrite Negative Ur Leukocyte Esterase Negative Urine Opiates Screen Not Detected Ur Buprenorphine Scrn Not Detected Ur Oxycodone Screen Not Detected Urine Methadone Screen Not Detected Urine Fentanyl Screen Not Detected Ur Barbiturates Screen Not Detected Ur Phencyclidine Scrn Not Detected Ur Amphetamines Screen Not Detected U Benzodiazepines Scrn Not Detected Urine Cocaine Screen Not Detected U Marijuana (THC) Screen POSITIVE H Ethyl Alcohol Imaging Radiologist's Impressions: Impressions Chest X-Ray 05/23/24 14:57 IMPRESSION: 6 mm right upper lobe nodule. CT scan could be performed for further evaluation if clinically indicated. Electronically signed by: Fernie Trivedi MD 05/23/2024 04:30 PM EST RP Abdomen/Pelvis CT 05/23/24 16:00 IMPRESSION: Normal CT of abdomen and pelvis. Fleischner guidelines were followed. Electronically signed by: August Bolaños MD 05/23/2024 04:50 PM EST RP Assessment and Plan (1) Elevated WBC count: Qualifiers: Leukocytosis type: leukemoid reaction Qualified Code(s): D72.823 - Leukemoid reaction Status: Acute (2) Normal anion gap metabolic acidosis: Status: Acute (3) Cannabinoid hyperemesis syndrome: Status: Acute (4) Diarrhea: Qualifiers: Diarrhea type: unspecified type Qualified Code(s): R19.7 - Diarrhea, unspecified Status: Acute (5) Hyperkalemia: Status: Acute Plan Diana Wilder is a 23 y/o woman admitted with: * Intractable nausea, vomiting and abdominal discomfort secondary to cannabinoid hyperemesis syndrome. Admit to hospitalist service. NPO. Continue antiemetic therapy, IV pain meds and IV fluids (bicarb drip; s/p 2 L of NS + 1 L D5/0.45SS). Patient has been advised to avoid using marijuana (smokes 1 cigarette before bedtime). Recheck ECG for QT prolongation -received Haldol and doperidol IV. * Normal anion gap metabolic acidosis secondary multiple events of vomiting, diarrhea (last event this morning) ketosis (starvation, poor PO intake). Start bicarb infusion. Continue to monitor venous pH and CO2. * Hyperkalemia, likely secondary to shifting due to acidosis. Start bicarb drip. Continue to monitor K level. * Leukocytosis, likely secondary to vomiting/dehydration. Continue IV fluids. Continue to monitor WBC count. * Mood disorder. Continue home meds when able. DVT prophylaxis: Lovenox Code status: Full at bedside. Patient will need hospitalization for at least 2 midnights for cannabinoid hyperemesis syndrome treatment resulting in marked severe metabolic acidosis with antiemetic therapy, IV fluids and bicarb drip. Quality Stroke Does the patient have a stroke diagnosis?: No VTE Prior VTE?: No VTE Risk Level:: Medical - moderate - high VTE Device Contraindication: Treatment Not Indicated VTE Drug Contraindication: N/A - Med Ordered
[2024-05-23] MEDS: Metoclopramide HCl 10 MG/2 ML VIAL 5 MG IVPUSH (22:42)
[2024-05-23] MEDS: SODIUM BICARBONATE IV (22:44)
[2024-05-23] MEDS: DEXTROSE 5% IV (22:44)
--- NOTE | 2024-05-23 23:10 | PC.NURSE ---
Pt has been up to urinate frequently. steay on feet.
[2024-05-23 23:43] LABS: Basophils Percent Auto 0.2 % (0-2); Hemoglobin 11.4 g/dl (12.0-16.0); Imm Gran Abs Auto 0.09 X10*3/uL (0.00-0.03); Imm Gran Pct Auto 0.5 % (0.0-0.4); Lymphocytes Absolute Auto 1.6 X10*3/uL (1.2-4.9); Lymphocytes Percent Auto 8.6 % (20-40); MANUAL DIFF FLAG SCAN; Mean Corpuscular HGB Conc 34.5 g/dl (31.0-35.0); Mean Corpuscular Hemoglobin 30.7 pg (27.0-33.0); Mean Corpuscular Volume 88.9 fL (80.0-98.0); Mean Platelet Volume 9.8 fL (9.4-12.3); Monocytes Percent Auto 10.9 % (2-11); Neutrophils Absolute Auto 14.5 x10*3/uL (2.0-8.3); Neutrophils Percent Auto 79.8 % (45-73); Platelet Count 270 X10*3/uL (160-400); Red Blood Count 3.71 X10*6/uL (4.20-5.50); Red Cell Distribution Width 12.7 % (11.0-16.0); SCAN SMEAR FLAG 1; White Blood Count 18.2 X10*3/uL (4.8-10.8)
[2024-05-23 23:45] LABS: Venous Blood Gas Refer to POC result
[2024-05-23 23:46] LABS: VBG Base Excess -11.4 mmol/L; VBG HCO3 12 mmol/L (22-26); VBG pCO2 21 mmHg; VBG pH 7.35 (7.32-7.43); VBG pO2 140 mmHg
[2024-05-23 23:58] LABS: Chloride 111 mmol/L (96-108); Potassium 4.3 mmol/L (3.3-5.1); Sodium 135 mmol/L (135-145)
[2024-05-23 23:59] LABS: Anion Gap 15 (12-20); Blood Urea Nitrogen 9 mg/dL (9-16); Calcium 8.6 mg/dL (8.4-10.2); Carbon Dioxide 13 mmol/L (22-29); Estimated Glomerular Filt Rate > 60; Glucose Random 103 mg/dL (60-115); Magnesium 2.1 mg/dL (1.6-2.6)
[2024-05-24 00:03] LABS: SLIDE REVIEW VERIFIED
[2024-05-24 01:59] VITALS: BMI 21.4
[2024-05-24 02:33] VITALS: BP 112/56; PULSE 94; RESP 14; TEMP 36; O2SAT 98
[2024-05-24] MEDS: Metoclopramide HCl 10 MG/2 ML VIAL 5 MG IVPUSH ×4 (04:41→23:08)
[2024-05-24 07:32] LABS: MANUAL DIFF FLAG NO
[2024-05-24 07:38] LABS: Basophils Percent Auto 0.2 % (0-2); Hematocrit 34.4 % (37.0-47.0); Hemoglobin 11.8 g/dl (12.0-16.0); Imm Gran Abs Auto 0.05 X10*3/uL (0.00-0.03); Imm Gran Pct Auto 0.4 % (0.0-0.4); Lymphocytes Percent Auto 7.8 % (20-40); Mean Corpuscular HGB Conc 34.3 g/dl (31.0-35.0); Mean Corpuscular Hemoglobin 30.3 pg (27.0-33.0); Mean Corpuscular Volume 88.2 fL (80.0-98.0); Mean Platelet Volume 10.5 fL (9.4-12.3); Monocytes Absolute Auto 0.9 X10*3/uL (0.1-1.2); Monocytes Percent Auto 6.6 % (2-11); Neutrophils Absolute Auto 10.9 x10*3/uL (2.0-8.3); Platelet Count 294 X10*3/uL (160-400); Red Cell Distribution Width 12.6 % (11.0-16.0); White Blood Count 12.8 X10*3/uL (4.8-10.8)
[2024-05-24 07:39] VITALS: BP 114/61; PULSE 120; RESP 18; TEMP 37.2; O2SAT 98
[2024-05-24 07:56] LABS: Anion Gap 18 (12-20); Blood Urea Nitrogen 9 mg/dL (9-16); Calcium 9.2 mg/dL (8.4-10.2); Carbon Dioxide 14 mmol/L (22-29); Chloride 108 mmol/L (96-108); Creatinine Clr Calc Pharmacy 119.4; Estimated Glomerular Filt Rate > 60; Glucose Random 88 mg/dL (60-115); Potassium 3.9 mmol/L (3.3-5.1); Sodium 136 mmol/L (135-145)
--- NOTE | 2024-05-24 08:44 | MHC.CM.PN ---
Female 23 DX Hyperemesis She is independent She is independent. She lives with her spouse. A HCP has been documented scanned and copied. Copies have been given to the patient. DP home self care family transport.
--- NOTE | 2024-05-24 09:06 | P.PNIM_ITS ---
Subjective Subjective Date of Service: 05/24/24 Interval History: f/u on nausea and vomitting, abdominal pain, hyperkalemia and metabolic acidosis she's overall feels better, potassium is normal, bicab remains low Physical Exam 2 Vital Signs: Vital Signs: Last Vital Signs Temp 99.0 F 05/24/24 07:39 Pulse 120 H 05/24/24 07:39 Resp 18 05/24/24 07:39 BP 114/61 05/24/24 07:39 Pulse Ox 98 05/24/24 07:39 O2 Del Method Room Air 05/24/24 07:39 BMI result Body Mass Index 21.4 General: AO X 3, no acute distress Resp: CTA bilateral CVS: S1,S2,RRR GI: +BS, NT, no distention Skin: No rash Neuro: motor grossly intact Psych: appropriate affect Objective Data Active Medications Enoxaparin Sodium (Enoxaparin Sodium 40 Mg/0.4 Ml Syringe) 40 mg SUBCUT Q24H [facility] Hydromorphone HCl (Hydromorphone Hcl 1 Mg/Ml Syringe) 0.5 mg IVPUSH Q4H PRN; Protocol PRN Reason: Pain, Severe (Pain Scale 7-10) Sodium Bicarbonate 125 meq/ (Dextrose) 1,000 mls @ 100 mls/hr IV .Q10H [facility] Last Admin: 05/23/24 22:44 Dose: 100 mls/hr Documented By: NITA Loperamide HCl (Loperamide Hcl 2 Mg Capsule) 2 mg PO Q6H PRN PRN Reason: Diarrhea Melatonin (Melatonin 3 Mg Tablet) 6 mg PO BEDTIME PRN PRN Reason: Insomnia Metoclopramide HCl (Metoclopramide Hcl 10 Mg/2 Ml Vial) 5 mg IVPUSH Q6H [facility] Last Admin: 05/24/24 04:41 Dose: 5 mg Documented By: ROSI Ondansetron HCl (Ondansetron Hcl 4 Mg/2 Ml Vial) 4 mg IVPUSH Q6H PRN PRN Reason: Nausea and Vomiting Sodium Chloride (0.9 % Sodium Chloride Flush 3 Ml Syringe) 3 ml IVFLUSH QSHIFT [facility] Last Admin: 05/24/24 08:01 Dose: Not Given Documented By: JUS Non-Admin Reason: IV Running Sumatriptan Succinate (Sumatriptan Succinate 6 Mg/0.5 Ml Vial) 6 mg SUBCUT ONCE PRN PRN Reason: migraine headache Labs 05/24/24 06:07 05/24/24 06:07 Labs: Laboratory Results - last 24 hr 05/23/24 05/23/24 05/23/24 12:16 15:17 16:45 MCV 89.9 MCH 30.7 MCHC 34.1 RDW 12.6 Plt Count 306 D MPV 10.0 Immature Gran % (Auto) 0.7 H Neut % (Auto) 90.7 H Lymph % (Auto) 2.7 L [place] % (Auto) 5.6 Eos % (Auto) 0.0 Baso % (Auto) 0.3 Lymph # (Auto) 0.6 L [place] # (Auto) 1.3 H Eos # (Auto) 0.0 Baso # (Auto) 0.1 Abs Immat Gran (auto) 0.17 H Absolute Neuts (auto) 21.5 H Absolute Nucleated RBC 0.000 Nucleated RBC % (auto) 0.0 Smear Tech's Comments VERIFIED VBG pH 7.30 L VBG pCO2 17 VBG pO2 222 VBG HCO3 8 L VBG O2 Saturation 99.0 VBG Base Excess -14.8 Anion Gap 24 H 20 Estim Creat Clear Calc 110.0 113.0 Estimated GFR > 60 > 60 Random Glucose 81 70 Calcium 9.7 8.7 D Magnesium 1.5 L Total Bilirubin 0.4 Direct Bilirubin 0.2 AST 42 H ALT 17 Alkaline Phosphatase 51 Total Protein 7.7 Albumin 4.9 Lipase 8 Beta HCG, Quant < 2 Urine Color Urine Appearance Urine pH Ur Specific [place] Urine Protein Urine Glucose (UA) Urine Ketones Urine Blood Urine Nitrite Ur Leukocyte Esterase Urine Opiates Screen Ur Buprenorphine Scrn Ur Oxycodone Screen Urine Methadone Screen Urine Fentanyl Screen Ur Barbiturates Screen Ur Phencyclidine Scrn Ur Amphetamines Screen U Benzodiazepines Scrn Urine Cocaine Screen U Marijuana (THC) Screen Ethyl Alcohol 13 05/23/24 05/23/24 05/23/24 18:39 18:53 23:37 MCV 88.9 MCH 30.7 MCHC 34.5 RDW 12.7 Plt Count 270 MPV 9.8 Immature Gran % (Auto) 0.5 H Neut % (Auto) 79.8 H Lymph % (Auto) 8.6 L [place] % (Auto) 10.9 Eos % (Auto) 0.0 Baso % (Auto) 0.2 Lymph # (Auto) 1.6 [place] # (Auto) 2.0 H Eos # (Auto) 0.0 Baso # (Auto) 0.0 Abs Immat Gran (auto) 0.09 H Absolute Neuts (auto) 14.5 H Absolute Nucleated RBC 0.000 Nucleated RBC % (auto) 0.0 Smear Tech's Comments VERIFIED VBG pH VBG pCO2 VBG pO2 VBG HCO3 VBG O2 Saturation VBG Base Excess Anion Gap 19 15 Estim Creat Clear Calc 108.5 110.0 Estimated GFR > 60 > 60 Random Glucose 71 103 Calcium 8.8 8.6 Magnesium 2.3 2.1 Total Bilirubin Direct Bilirubin AST ALT Alkaline Phosphatase Total Protein Albumin Lipase Beta HCG, Quant Urine Color Yellow Urine Appearance Clear Urine pH 5.0 Ur Specific [place] >= 1.030 H Urine Protein Negative Urine Glucose (UA) Negative Urine Ketones 80 Urine Blood Negative Urine Nitrite Negative Ur Leukocyte Esterase Negative Urine Opiates Screen Not Detected Ur Buprenorphine Scrn Not Detected Ur Oxycodone Screen Not Detected Urine Methadone Screen Not Detected Urine Fentanyl Screen Not Detected Ur Barbiturates Screen Not Detected Ur Phencyclidine Scrn Not Detected Ur Amphetamines Screen Not Detected U Benzodiazepines Scrn Not Detected Urine Cocaine Screen Not Detected U Marijuana (THC) Screen POSITIVE H Ethyl Alcohol 05/23/24 05/24/24 23:41 06:07 MCV 88.2 MCH 30.3 MCHC 34.3 RDW 12.6 Plt Count 294 MPV 10.5 Immature Gran % (Auto) 0.4 Neut % (Auto) 85.0 H Lymph % (Auto) 7.8 L [place] % (Auto) 6.6 Eos % (Auto) 0.0 Baso % (Auto) 0.2 Lymph # (Auto) 1.0 L [place] # (Auto) 0.9 Eos # (Auto) 0.0 Baso # (Auto) 0.0 Abs Immat Gran (auto) 0.05 H Absolute Neuts (auto) 10.9 H Absolute Nucleated RBC 0.000 Nucleated RBC % (auto) 0.0 Smear Tech's Comments VBG pH 7.35 VBG pCO2 21 VBG pO2 140 VBG HCO3 12 L VBG O2 Saturation 100.0 VBG Base Excess -11.4 Anion Gap 18 Estim Creat Clear Calc 119.4 Estimated GFR > 60 Random Glucose 88 Calcium 9.2 D Magnesium Total Bilirubin Direct Bilirubin AST ALT Alkaline Phosphatase Total Protein Albumin Lipase Beta HCG, Quant Urine Color Urine Appearance Urine pH Ur Specific [place] Urine Protein Urine Glucose (UA) Urine Ketones Urine Blood Urine Nitrite Ur Leukocyte Esterase Urine Opiates Screen Ur Buprenorphine Scrn Ur Oxycodone Screen Urine Methadone Screen Urine Fentanyl Screen Ur Barbiturates Screen Ur Phencyclidine Scrn Ur Amphetamines Screen U Benzodiazepines Scrn Urine Cocaine Screen U Marijuana (THC) Screen Ethyl Alcohol Assessment and Plan (1) Hyperkalemia: Status: Acute (2) Diarrhea: Status: Acute (3) Normal anion gap metabolic acidosis: Status: Acute (4) Cannabinoid hyperemesis syndrome: Status: Acute Plan 23/F with intractable nausea and vomitting ? related cyclical vomitting Intractable nausea, vomiting and abdominal discomfort secondary to cannabinoid hyperemesis syndrome. symptomas are better -continue IVF -advance diet Tachycardia--likely related to above -hydrate and moniotor Normal anion gap metabolic acidosis secondary, this is acute on chronic, etiology unclear ? startvation ketosis, diarrhea and ? RTA4 -continue IVF with bicab replacement -Nephrology consult in light of chronicity Hyperkalemia, resolved, ? RTA4 as above Leukocytosis, reactive and improving Mood disorder. Continue home meds when able. Canabid use disorder, advised to stop Lovenox for dvt prophylaxis full code Quality Stroke Does the patient have a stroke diagnosis?: No VTE Prior VTE?: No VTE Risk Level:: Medical - moderate - high VTE Device Contraindication: Treatment Not Indicated VTE Drug Contraindication: N/A - Med Ordered
[2024-05-24] MEDS: SODIUM BICARBONATE IV ×2 (09:08→19:19)
[2024-05-24] MEDS: DEXTROSE 5% IV ×2 (09:08→19:19)
[2024-05-24] MEDS: HYDROmorphone HCl 1 MG/ML SYRINGE 0.5 MG IVPUSH ×3 (09:27→19:32)
[2024-05-24] MEDS: ondansetron HCL 4 MG/2 ML VIAL IVPUSH (09:27)
--- NOTE | 2024-05-24 13:08 | P.CONNP_ITS ---
History of Present Illness Reason for Consult Consult date: 05/24/24 Chief Complaint Chief complaint: cannabinoid hyperemesis, metabolic acidosis History of Present Illness Narrative: 23 y/o female with a medical history of migraines and canabis hyperemesis syndrome presents 05/23 with nausea, vomiting in setting of migraine. +marijuana nightly, denies alcohol or ilicit drug use. Nephrology consulted for metabolic acidosis CO2 has been chronically low on labs (correlating with previous visits for vomiting/diarrhea) 05/23 CO2 10, 05/23 pm 13, 05/24 14 (increased with bicarb drip) Potassium 5.6 on 05/23, normalized 05/24 at 3.9 Creatinine 0.7, GFR >60, urine bland with high specific gravity on 05/23 patient states she has been struggling with migraines for some time reports gets debilitating migraine with severe vomiting and diarrhea, last episode of 6-8 weeks ago prior to this reports prior to that getting migraines like this every 2 weeks or so she does not see a migraine specialist but has an appointment scheduled with one in July reports currently nausea is better and she is feeling herself, just very tired. Reports nausea and diarrhea have resolved. Review of Systems Constitutional: Reports fatigue and Reports headache(s) (reports resolved) Denies dizziness and Reports headache(s) (reports resolved) Cardiovascular: Denies chest pain, Denies leg edema, Denies lightheadedness and Denies dyspnea Respiratory: Denies cough and Denies dyspnea Gastrointestinal: Denies abdominal pain, Denies diarrhea, Denies nausea and Denies vomiting Genitourinary: Denies hematuria, Denies difficulty voiding, Denies dysuria and Denies flank pain Musculoskeletal: Denies arthralgias and Denies muscle cramps Skin/Breast: Denies rash Denies dizziness and Reports headache(s) (reports resolved) Endocrine: Reports fatigue PMFSH Past Medical History Medical History (Updated 05/23/24 @ 22:16 by Lazaro Tran MD) Cannabinoid hyperemesis syndrome Migraine headache Social History Social History Household Members: Spouse Housing: House Do you presently have visiting nurse or other home services: No Alcohol intake: former Patient Tobacco Use Status: Never used Tobacco Substance Use Type: Marijuana service: No Meds Allergies Allergy/AdvReac Type Severity Reaction Status Date / Time No Known Allergies Allergy Verified 05/23/24 10:41 [No Known Allergies*] Active Medications: Current Medications Enoxaparin Sodium (Enoxaparin Sodium 40 Mg/0.4 Ml Syringe) 40 mg SUBCUT Q24H [facility] Last Admin: 05/24/24 10:27 Dose: Not Given Hydromorphone HCl (Hydromorphone Hcl 1 Mg/Ml Syringe) 0.5 mg IVPUSH Q4H PRN; Protocol PRN Reason: Pain, Severe (Pain Scale 7-10) Last Admin: 05/24/24 09:27 Dose: 0.5 mg Sodium Bicarbonate 125 meq/ (Dextrose) 1,000 mls @ 100 mls/hr IV .Q10H [facility] Last Admin: 05/24/24 09:08 Dose: 100 mls/hr Loperamide HCl (Loperamide Hcl 2 Mg Capsule) 2 mg PO Q6H PRN PRN Reason: Diarrhea Melatonin (Melatonin 3 Mg Tablet) 6 mg PO BEDTIME PRN PRN Reason: Insomnia Metoclopramide HCl (Metoclopramide Hcl 10 Mg/2 Ml Vial) 5 mg IVPUSH Q6H [facility] Last Admin: 05/24/24 10:44 Dose: 5 mg Ondansetron HCl (Ondansetron Hcl 4 Mg/2 Ml Vial) 4 mg IVPUSH Q6H PRN PRN Reason: Nausea and Vomiting Last Admin: 05/24/24 09:27 Dose: 4 mg Sodium Chloride (0.9 % Sodium Chloride Flush 3 Ml Syringe) 3 ml IVFLUSH QSHIFT [facility] Last Admin: 05/24/24 08:01 Dose: Not Given Sumatriptan Succinate (Sumatriptan Succinate 6 Mg/0.5 Ml Vial) 6 mg SUBCUT ONCE PRN PRN Reason: migraine headache Home Medications ?Medication ?Instructions ?Recorded ?Confirmed ?Last Taken ?Type buspirone 15 mg tablet 15 mg PO TID 05/24/24 05/24/24 Unknown History clonidine HCl 0.1 mg tablet 0.1 mg PO TID PRN Anxiety 05/24/24 05/24/24 Unknown History hydroxyzine HCl 25 mg tablet 25 - 50 mg PO TID PRN anxiety 05/24/24 05/24/24 Unknown History propranolol 10 mg tablet 10 mg PO TID PRN Anxiety 05/24/24 05/24/24 Unknown History sertraline 50 mg tablet 75 mg PO DAILY 05/24/24 05/24/24 Unknown History trazodone 50 mg tablet 75 - 100 mg PO BEDTIME PRN Insomnia 05/24/24 05/24/24 Unknown History Physical Exam Vital Signs: Last Vital Signs Temp 99.0 F 05/24/24 07:39 Pulse 120 H 05/24/24 07:39 Resp 18 05/24/24 07:39 BP 114/61 05/24/24 07:39 Pulse Ox 98 05/24/24 07:39 O2 Del Method Room Air 05/24/24 07:39 BMI result Body Mass Index 21.4 Const General: no acute distress, alert and awake Resp Effort & Inspection: normal respiratory effort and able to speak in complete sentences Auscultation: clear to auscultation bilaterally Cardio Rate: regular rate Rhythm: regular rhythm Heart sounds: S1 normal heart sound present and S2 normal heart sound present GI Palpation (GI): Soft to palpation and nontender General: Yes no CVA tenderness Back/Spine/Pelvis Back: no CVA tenderness Skin Rashes: no rashes Extrem General: No edema and No pedal edema Results Lab Results 05/24/24 06:07 05/24/24 06:07 Lab results: Chemistry 05/23/24 05/23/24 05/23/24 12:16 16:45 18:39 Sodium 139 135 135 Potassium 4.9 D 5.6 H 5.2 H Carbon Dioxide 10 L* D 11 L 10 L* BUN 15 13 11 Creatinine 0.76 0.74 0.77 Calcium 9.7 8.7 D 8.8 05/23/24 05/24/24 23:37 06:07 Sodium 135 136 Potassium 4.3 3.9 Carbon Dioxide 13 L 14 L BUN 9 9 Creatinine 0.76 0.70 Calcium 8.6 9.2 D Hematology 05/23/24 05/23/24 05/24/24 12:16 23:37 06:07 WBC 23.7 H 18.2 H 12.8 H Hgb 12.8 11.4 L 11.8 L Plt Count 306 D 270 294 Urinalysis 05/23/24 18:53 Urine Color Yellow Urine Appearance Clear Urine pH 5.0 Ur Specific [place] >= 1.030 H Urine Protein Negative Urine Glucose (UA) Negative Urine Ketones 80 Urine Blood Negative Urine Nitrite Negative Ur Leukocyte Esterase Negative Assessment and Plan (1) Hyperkalemia: Status: Acute (2) Normal anion gap metabolic acidosis: Status: Acute Plan metabolic acidosis secondary to diarrhea and vomiting hyperkalemia likely secondary to potassium shift in presence of acidosis will check urine anion gap to r/o RTA contributing to acidosis recommend continuing bicarbonate drip as ordered recommend monitoring for hypokalemia while on bicarbonate drip, potassium supplementation if needed while on bicarb drip continue supportive care Discussed with Dr Spencer Procedures Date of Service Date of Service: 05/24/24
--- NOTE | 2024-05-24 13:16 | PHA.MEDREC ---
Addendum entered by Issa Nieves RPh 05/24/24 17:50: Spoke to Michael via phone ([phone]) and he said the 3 active medications that patient is taking are sertraline 75 mg daily, clonidine 0.1 mg bid prn and 0.1 mg qhs, and buspirone 15 mg tid. Original Note: Pharmacy Consult ? Medication Reconciliation Pharmacy has completed the medication reconciliation, med rec [facility] spoke to patient last night 05/23 and patient did not know what she was on, told to call . Attempted to call this morning 05/24 with no response and no voicemail box. Med rec [facility] tried to speak to patient again and pt was still unsure but said she fills at [facility] in [place]. Called [facility] and confirmed the meds they had records of as reflected. Will have pm team follow up with to see if he is able to confirm any more meds.
[2024-05-24 15:49] VITALS: BP 127/67; PULSE 93; RESP 16; TEMP 37.2; O2SAT 99
[2024-05-24 16:09] LABS: Potassium Urine Random 22.4 mmol/L
[2024-05-24] MEDS: 0.9 % Sodium Chloride Flush 3 ML SYRINGE IVFLUSH (16:36)
[2024-05-24 19:13] VITALS: BP 120/70; PULSE 98; RESP 18; TEMP 36.8; O2SAT 98
[2024-05-24 21:36] LABS: Anion Gap 15 (12-20); Blood Urea Nitrogen 5 mg/dL (9-16); Carbon Dioxide 21 mmol/L (22-29); Chloride 105 mmol/L (96-108); Creatinine Clr Calc Pharmacy 122.9; Estimated Glomerular Filt Rate > 60; Glucose Random 101 mg/dL (60-115); Potassium 3.4 mmol/L (3.3-5.1); Sodium 138 mmol/L (135-145)
[2024-05-24] MEDS: Melatonin 3 MG TABLET 6 MG PO (23:32)
[2024-05-25 03:57] VITALS: BP 117/69; PULSE 88; RESP 18; TEMP 36.8; O2SAT 97
[2024-05-25] MEDS: Morphine Sulfate 2 MG/ML CARTRIDGE IVPUSH ×2 (04:47→09:01)
[2024-05-25] MEDS: Metoclopramide HCl 10 MG/2 ML VIAL 5 MG IVPUSH (04:53)
[2024-05-25] MEDS: DEXTROSE 5% IV (05:17)
[2024-05-25] MEDS: SODIUM BICARBONATE IV (05:17)
[2024-05-25 06:09] LABS: Anion Gap 14 (12-20); Blood Urea Nitrogen 4 mg/dL (9-16); Calcium 8.9 mg/dL (8.4-10.2); Carbon Dioxide 25 mmol/L (22-29); Chloride 104 mmol/L (96-108); Creatinine Clr Calc Pharmacy 124.8; Estimated Glomerular Filt Rate > 60; Glucose Random 109 mg/dL (60-115); Potassium 3.2 mmol/L (3.3-5.1); Sodium 140 mmol/L (135-145)
[2024-05-25 07:30] VITALS: BP 117/60; PULSE 95; RESP 16; TEMP 36.4; O2SAT 99
--- NOTE | 2024-05-25 08:25 | P.DS_ITS ---
DS: Providers Provider Date of Service: 05/25/24 Date of admission: 05/23/24 21:33 Primary care physician: Malcom Marquez MD Consults: 05/24/24 09:04 Consult to Nephrology Routine Consulting Provider: [facility] Reason for consultation: chronic metabolic acidosis DS: Diagnosis Discharge Diagnosis (1) Hyperkalemia: Status: Acute (2) Normal anion gap metabolic acidosis: Status: Acute DS: Summary Hospital Course Hospital Course: admission hpi Attending physician on admission: Lazaro Tran Chief Complaint: Nausea and vomiting Diana Wilder is a 23 years old woman with past medical history significant for migraine and multiple visits to the emergency department due to nausea and vomiting presents to the ED today complaining of multiple events of vomiting over the last 2 days associated with generalized abdominal pain and diarrhea (last BM was this morning). She did not report any associated fever, chills or acute urinary symptoms. Denied any cardiopulmonary symptoms. She smokes marijuana nightly. Denied tobacco smoking, illicit drug use or alcohol abuse. In the ED, she has been found with significant tachycardia (max 135 bpm). Blood pressure stable. Oxygen saturation is 98% on room air. Blood workup was significant for acidosis with a CO2 of 10. There is also hyperkalemia of 5.6 and hypomagnesemia 1.2 the normalized after repletion. Renal function, lipase and LFTs are normal. test is negative. Urinalysis consistent with elevated specific gravity, positive ketones and no evidence of UTI. Toxicology is positive for marijuana. Viral testing is negative for COVID-19, influenza and RSV. Chest x-ray is negative for pneumonia, pleural effusion or pneumothorax. It showed a 6 mm right upper lobe nodule. Abdominal pelvis CT scan is normal. ECG showed sinus tachycardia 113 beats per minute without ischemic changes are normal QT interval. ED tx: NS bolus 2 L, D5/0.9ss 1 L, Pepcid 20 mg IV, droperidol 1.25 mg IV, Benadryl 50 mg IV, lorazepam 3 mg IV Haldol 10 mg IV (total). Hospital course: The patient presented with nausea, vomiting, and abdominal pain. A CT scan of the abdomen and pelvis showed no acute findings. She was profoundly acidotic with a bicarbonate level of 10 and initially had hyperkalemia, which later shifted to hypokalemia. Her symptoms of nausea, vomiting, and abdominal discomfort were attributed to cyclical vomiting due to cannabis use. She was treated with IV fluids, antiemetics, and electrolyte correction, resulting in significant improvement, and she is now tolerating a regular diet. She was advised to avoid marijuana and cannabis products. Her non-anion gap metabolic acidosis was attributed to diarrhea and managed with bicarbonate replacement, fully resolving the acidosis. Nephrology evaluated her due to a history of chronic metabolic acidosis, typically presenting similarly with nausea, vomiting, and diarrhea. Time Attestation Discharge Coordination Time (in mins): 35 Quality: Safe Use of Opioids Does Pt have an Active Cancer Diagnosis on the Problem List?: No Quality: Stroke Does the patient have a stroke diagnosis?: No Physical Exam Vital Signs: Vital Signs: Last Vital Signs Temp 97.5 F 05/25/24 07:30 Pulse 95 05/25/24 07:30 Resp 16 05/25/24 07:30 BP 117/60 05/25/24 07:30 Pulse Ox 99 05/25/24 07:30 O2 Del Method Room Air 05/25/24 07:30 BMI result Body Mass Index 21.4 DS: Data Data Completed and Pending Labs on day of discharge: Laboratory Results - last 24 hr 05/24/24 05/24/24 05/24/24 15:45 15:45 15:45 Hold Purple Top Sodium Potassium Chloride Carbon Dioxide Anion Gap BUN Creatinine Estim Creat Clear Calc Estimated GFR Random Glucose Calcium Ur Random Sodium 102.0 Ur Random Potassium Cancelled 22.4 Ur Random Chloride Cancelled 114.0 05/24/24 05/24/24 05/25/24 21:16 21:19 05:19 Hold Purple Top SEE NOTE Sodium 138 140 Potassium 3.4 3.2 L Chloride 105 104 Carbon Dioxide 21 L 25 Anion Gap 15 14 BUN 5 L 4 L Creatinine 0.68 0.67 Estim Creat Clear Calc 122.9 124.8 Estimated GFR > 60 > 60 Random Glucose 101 109 Calcium 9.0 8.9 Ur Random Sodium Ur Random Potassium Ur Random Chloride Discharge Plan Discharge Anticipated Discharge Date/Time: 05/25/24 08:41 Patient Disposition: Home, Self-Care Discharge Diagnosis: Cyclical vomiting , hpokalemia, metabolic acidosis Referrals: Malcom Marquez MD [Primary Care Provider] - 1 Week Discharge Medications: Continued clonidine HCl 0.1 mg Tablet 0.1 mg PO TID PRN (Reason: Anxiety) sertraline 50 mg Tablet 75 mg PO DAILY buspirone 15 mg Tablet 15 mg PO TID Diet: Advance to usual diet Activity on Discharge: As tolerated Stand Alone Forms: Patient Portal Discharge page Print Language: [place] Care Plan Goals: recovery from cyclical vomiting syndrome, metabolic acidosis, diarrhea, Health Concerns: Hypokalemia hyperkalemia cyclical vomiting diarrhea metabolic acidosis non-anion gap type Plan of Treatment: Drink plenty of fluid, avoid marijuana follow-up with the nephrology clinic Assessment: see above
[2024-05-25] MEDS: Potassium Chloride ER 20 MEQ TAB.ER.PRT 40 MEQ PO (08:51)
[2024-05-25] MEDS: Enoxaparin Sodium 40 MG/0.4 ML SYRINGE SUBCUT (08:52)
[2024-05-25] MEDS: 0.9 % Sodium Chloride Flush 3 ML SYRINGE IVFLUSH (08:59)
--- NOTE | 2024-05-25 10:31 | MHC.CM.PN ---
pt dcd home self care
== END 2024-05-25 11:08 | disposition home or self-care (01) | DRG 641 ==
LOC: HO.ED 18:35 → HO.EDOVER 22:10 → HO.S3 05-24 00:43
PROVIDERS: Nurse Practitioner Family; Student in an Organized Health Care Education/Training Program; Admitting Provider Internal Medicine; Emergency Provider Emergency Medicine; PCP Internal Medicine; Visit Provider Internal Medicine
DX: E87.5 Hyperkalemia (principal); R11.2 Nausea with vomiting, unspecified; E87.22 Chronic metabolic acidosis; E87.21 Acute metabolic acidosis; F12.90 Cannabis use, unspecified, uncomplicated; E86.0 Dehydration; E88.89 Other specified metabolic disorders; Z20.822 Contact with and (suspected) exposure to COVID-19; Z79.899 Other long term (current) drug therapy
CPT/HCPCS: 36415; 71045; 74177; 80048; 80076; 80307; 81003; 82436; 82803; 83690; 83735; 84133; 84300; 84702; 85025; 93005; 99285; J1171; J1200; J1630; J1650; J2060; J2270; J2405; J2765; J3475; Q9967

== ENCOUNTER → 2024-05-23 10:45 | Outpatient (BNV) | payer OTHER, SELFPAY | PROVIDERS: Emergency Provider Student in an Organized Health Care Education/Training Program; PCP Internal Medicine; Visit Provider Internal Medicine Cardiovascular Disease | DX: I45.81 Long QT syndrome (principal) | CPT/HCPCS: 93010 ==

== ENCOUNTER → 2024-05-23 21:33 | Outpatient (BNV) | payer OTHER, SELFPAY | PROVIDERS: Admitting Provider Internal Medicine; Emergency Provider Emergency Medicine; PCP Internal Medicine; Visit Provider Internal Medicine | DX: E87.21 Acute metabolic acidosis (principal); F12.90 Cannabis use, unspecified, uncomplicated; D72.823 Leukemoid reaction; E87.5 Hyperkalemia; R19.7 Diarrhea, unspecified | CPT/HCPCS: 99223; 99232 ==

== ENCOUNTER → 2024-05-23 21:33 | Outpatient (BNV) | payer OTHER, SELFPAY | PROVIDERS: Admitting Provider Internal Medicine; Emergency Provider Emergency Medicine; PCP Internal Medicine; Visit Provider Nurse Practitioner Family | DX: E87.5 Hyperkalemia (principal); E87.21 Acute metabolic acidosis | CPT/HCPCS: 99222 ==

== ENCOUNTER 2024-05-31 20:24 | Emergency (ER) | payer OTHER, SELFPAY ==
--- NOTE | 2024-05-31 | ECG_ITS ---
Test Reason : ABD PAIN Blood Pressure : / mmHG Vent. Rate : 137 BPM Atrial Rate : 137 BPM P-R Int : 118 ms QRS Dur : 066 ms QT Int : 312 ms P-R-T Axes : 076 074 061 degrees QTc Int : 471 ms Sinus tachycardia Right atrial enlargement Borderline ECG When compared with ECG of 23-MAY-2024 21:40, No significant change was found Referred By: Ga Baeza Electronically Signed By:Leonel Aleman
[2024-05-31 20:29] VITALS: BP 133/64; PULSE 166; RESP 20; TEMP 35.9; O2SAT 100; BMI 21.9
--- NOTE | 2024-05-31 20:37 | ED.GENADULT ---
HPI - General Adult General Chief complaint: General Medical Stated complaint: Syncope/Seizure Time Seen by Provider: 05/31/24 20:37 History of Present Illness ED Provider: Aryan JUSTICE narrative: The patient is a 23-year-old female who was brought to the hospital by her boyfriend today because she was having multiple episodes of vomiting. She has a history of hyperemesis. The boyfriend thought that her episodes of vomiting were so bad that perhaps they were seizures. The vomiting started today. The patient has a history of multiple emergency room visits for vomiting and also for other issues related to cannabis and migraine headaches. Last week the patient was hospitalized for hyperemesis and metabolic derangements. The patient was vomiting a great deal and was not able to give any significant additional history. Related Data Home Medications ?Medication ?Instructions ?Recorded ?Confirmed buspirone 15 mg tablet 15 mg PO TID 05/24/24 05/24/24 clonidine HCl 0.1 mg tablet 0.1 mg PO TID PRN Anxiety 05/24/24 05/24/24 sertraline 50 mg tablet 75 mg PO DAILY 05/24/24 05/24/24 Allergies Allergy/AdvReac Type Severity Reaction Status Date / Time No Known Allergies Allergy Verified 05/31/24 20:30 [No Known Allergies*] Review of Systems Review of Systems: Yes all other systems are reviewed and are negative [facility] Past Medical History Medical History (Updated 06/01/24 @ 09:55 by Ga Baeza MD) Cannabinoid hyperemesis syndrome Migraine headache Social History Social History Household Members: Spouse Housing: House Do you presently have visiting nurse or other home services: No Alcohol intake: former Patient Tobacco Use Status: Never used Tobacco Substance Use Type: Marijuana Advance Directives: Yes Advance Directives on File: Yes Advance Directives Date on File: 05/26/24 Do you have a plan to hurt others: No Plan service: No Physical Exam ED Vital Signs: Vital Signs - 24 hr 05/31/24 20:29 05/31/24 21:22 06/01/24 00:31 Temperature 96.7 F L 97.4 F 98.5 F Pulse Rate 166 H 122 H 131 H Respiratory Rate 20 24 H 16 Blood Pressure 133/64 154/91 H 154/83 H Pulse Oximetry 100 95 95 Oxygen Delivery Method Room Air Room Air 06/01/24 02:19 06/01/24 04:02 06/01/24 04:08 Temperature 98.7 F 98.9 F 98.9 F Pulse Rate 122 H 122 H 122 H Respiratory Rate 18 14 14 Blood Pressure 117/62 126/79 126/79 Pulse Oximetry 97 98 98 Oxygen Delivery Method Room Air Room Air Room Air BMI result Body Mass Index 21.9 Const Other: The patient is a slim young woman who was awake and alert and was retching loudly. I felt there was an odor of alcohol. She was curled up in the position. HENMT Other: Face was symmetrical. Mucous membranes not obviously dry. Eyes Other: Pupils are round equal, conjunctivae are clear, extraocular movements intact Neck Neck: Yes full ROM and Yes supple Resp Effort & Inspection: normal respiratory effort Auscultation: clear to auscultation bilaterally Cardio Rate: tachycardic Rhythm: regular rhythm Heart sounds: S1 normal heart sound present and S2 normal heart sound present GI Other: The patient has a flat, soft abdomen. She reports diffuse abdominal tenderness but no real focal tenderness or rebound Skin Other: Skin is dry and unremarkable Neuro Other: The patient was awake and alert but for the most part was either retching or curled up in a position. A few times I saw her get up and walk to the bathroom. Her gait seemed steady. She smelled of alcohol. She seemed fatigued and nauseated and did not engage in significant conversation. Her face seems symmetrical. Eye movements normal. Moves her extremities symmetrically. Extrem Other: No peripheral edema Medications Administered Discontinued Medications Generic Name Dose Route Start Last Admin Trade Name Mariela PRN Reason Stop Dose Admin Diphenhydramine HCl 50 mg 05/31/24 20:40 05/31/24 21:06 Diphenhydramine Hcl 50 Mg/Ml Vial IVPUSH 05/31/24 20:41 50 mg ONCE ONE Administration Haloperidol Lactate 5 mg 05/31/24 22:04 05/31/24 22:11 Haloperidol Lactate 5 Mg/Ml Vial IVPUSH 05/31/24 22:05 5 mg ONCE ONE Administration Sodium Chloride 1,000 mls @ 999 mls/hr 05/31/24 20:45 05/31/24 23:26 Ns IV 05/31/24 21:45 Infused .Q1H1M EDMOND Infusion Lactated Ringer's 1,000 mls @ 999 mls/hr 05/31/24 22:45 06/01/24 00:50 Lr IV 05/31/24 23:45 Infused .Q1H1M EDMOND Infusion Lactated Ringer's 1,000 mls @ 999 mls/hr 06/01/24 01:00 06/01/24 02:53 Lr IV 06/01/24 02:00 Infused .Q1H1M EDMOND Infusion Dextrose/Lactated Ringer's 1,000 mls @ 999 mls/hr 06/01/24 02:29 06/01/24 04:04 D5lr IVCONT 06/01/24 03:29 Infused .Q1H1M STA Infusion Lorazepam 2 mg 05/31/24 22:07 05/31/24 22:11 Lorazepam 2 Mg/Ml Vial IVPUSH 05/31/24 22:08 2 mg ONCE ONE Administration Medical Decision Making Medical Decision Making [facility] Narrative: The patient is a 23-year-old female with previous emergency room visits for vomiting related to cannabis use. She was brought to the hospital today by her boyfriend after she seemed to exhibit intractable nausea and vomiting. The boyfriend was also concerned that he thought she was having seizures. However the boyfriend's description of what he thought might be seizures did not sound highly suggestive of seizure activity to me. This included apparent episodes that occurred in the emergency room prior to my evaluation and which emergency room staff did not think were seizures. The patient was retching frequently and loudly and seemed distracted by her nausea. There wa also fairly strong odor of alcohol. The patient was treated with anti emetics and IV fluids. Initially the patient seemed to exhibit significant metabolic derangements including an anion gap acidosis. She had a lactic acid of 13. her ethanol level was 250. the patient was ultimately treated for nausea with IV diphenhydramine as well as IV haloperidol and lorazepam. After the haloperidol and lorazepam the patient's vomiting finally stopped. The patient was treated with a total of 4 L of crystalloid. Including 1 L of normal saline, 2 L of lactated Ringer's, and 1 L of D5 lactated Ringer's. Patient had a mildly elevated white count. She had a completely normal C-reactive protein. I felt her abdomen was benign. She had a negative CT of the abdomen and pelvis 8 days ago when in the emergency room for vomiting. Although the patient's lactate was 13 and a repeat lactate after 2 L of fluid went up to 15 ultimately her lactate came down to 3.3 and a repeat basic metabolic panel showed significant improvement in her anion gap acidosis. She was observed for several hours during which time she did not have any ongoing vomiting. Ultimately I felt that she was appropriate for discharge with her boyfriend. She is advised to avoid cannabis in the future. She should follow up with her regular doctor's office to discuss these episodes further. Lab Data 05/31/24 21:01 06/01/24 03:02 Labs: Lab Results 05/31/24 05/31/24 05/31/24 Range/Units 21:01 21:25 21:30 WBC 13.1 H (4.8-10.8) X10*3/uL RBC 5.09 D (4.20-5.50) X10*6/uL Hgb 15.5 D (12.0-16.0) g/dl Hct 45.4 D (37.0-47.0) % MCV 89.2 (80.0-98.0) fL MCH 30.5 (27.0-33.0) pg MCHC 34.1 (31.0-35.0) g/dl RDW 13.1 (11.0-16.0) % Plt Count 444 H D (160-400) X10*3/uL MPV 9.9 (9.4-12.3) fL Immature Gran % (Auto) 0.6 H (0.0-0.4) % Neut % (Auto) 78.8 H (45-73) % Lymph % (Auto) 18.3 L (20-40) % [place] % (Auto) 1.5 L (2-11) % Eos % (Auto) 0.1 (0-4) % Baso % (Auto) 0.7 (0-2) % Lymph # (Auto) 2.4 (1.2-4.9) X10*3/uL [place] # (Auto) 0.2 (0.1-1.2) X10*3/uL Eos # (Auto) 0.0 (0.0-0.4) X10*3/uL Baso # (Auto) 0.1 (0.0-0.2) X10*3/uL Abs Immat Gran (auto) 0.08 H (0.00-0.03) X10*3/uL Absolute Neuts (auto) 10.4 H (2.0-8.3) x10*3/uL Absolute Nucleated RBC 0.000 (0.0-0.012) X10*3/uL Nucleated RBC % (auto) 0.0 (0.0-0.2) /100WBC VBG pH (7.32-7.43) VBG pCO2 mmHg VBG pO2 mmHg VBG HCO3 (22-26) mmol/L VBG O2 Saturation % VBG Base Excess mmol/L Sodium (135-145) mmol/L Potassium (3.3-5.1) mmol/L Chloride (96-108) mmol/L Carbon Dioxide (22-29) mmol/L Anion Gap (12-20) BUN (9-16) mg/dL Creatinine (0.5-1.4) mg/dL Estim Creat Clear Calc Estimated GFR Random Glucose (60-115) mg/dL Lactic Acid (0.5-2.0) mmol/L Lactic Acid F/U @ 2Hr (0.5-2.0) mmol/L Lactic Acid F/U @ 4Hr (0.5-2.0) mmol/L Calcium (8.4-10.2) mg/dL Magnesium (1.6-2.6) mg/dL Total Bilirubin (0.0-1.0) mg/dL Direct Bilirubin (0.0-0.5) mg/dL AST (5-31) U/L ALT (0-31) U/L Alkaline Phosphatase (39-117) U/L C-Reactive Protein (< or = 0.50) mg/dL Total Protein (6.5-8.0) g/dL Albumin (3.5-5.0) g/dL Lipase (8-78) U/L Beta HCG, Quant mIU/mL Urine Color Yellow Urine Appearance Clear Urine pH 5.0 (5.0-9.0) Ur Specific [place] 1.015 (1.005-1.025) Urine Protein 30 (1+) H (Neg-Trace) mg/dL Urine Glucose (UA) Negative (Negative) mg/dL Urine Ketones 40 (Negative) mg/dL Urine Blood Trace H (Negative) Urine Nitrite Positive H (Negative) Ur Leukocyte Esterase Negative (Negative) Urine RBC 0-2 (0-2) /HPF Urine WBC 0-5 (0-5) /HPF Ur Squamous Epith Cells 6-10 (0-2) /HPF Urine Bacteria 4+ (None Seen) Hyaline Casts 0-2 (0-2) /LPF Urine Test NEGATIVE (NEGATIVE) Urine Opiates Screen Not Detected (Not Detect) Ur Buprenorphine Scrn Not Detected (Not Detect) ng/mL Ur Oxycodone Screen Not Detected (Not Detect) ng/mL Urine Methadone Screen Not Detected (Not Detect) ng/mL Urine Fentanyl Screen Not Detected (Not Detect) Ur Barbiturates Screen Not Detected (Not Detect) Ur Phencyclidine Scrn Not Detected (Not Detect) Ur Amphetamines Screen POSITIVE H (Not Detect) U Benzodiazepines Scrn Not Detected (Not Detect) Urine Cocaine Screen Not Detected (Not Detect) U Marijuana (THC) Screen POSITIVE H (Not Detect) Ethyl Alcohol mg/dL 05/31/24 05/31/24 06/01/24 Range/Units 21:55 21:56 00:26 WBC (4.8-10.8) X10*3/uL RBC (4.20-5.50) X10*6/uL Hgb (12.0-16.0) g/dl Hct (37.0-47.0) % MCV (80.0-98.0) fL MCH (27.0-33.0) pg MCHC (31.0-35.0) g/dl RDW (11.0-16.0) % Plt Count (160-400) X10*3/uL MPV (9.4-12.3) fL Immature Gran % (Auto) (0.0-0.4) % Neut % (Auto) (45-73) % Lymph % (Auto) (20-40) % [place] % (Auto) (2-11) % Eos % (Auto) (0-4) % Baso % (Auto) (0-2) % Lymph # (Auto) (1.2-4.9) X10*3/uL [place] # (Auto) (0.1-1.2) X10*3/uL Eos # (Auto) (0.0-0.4) X10*3/uL Baso # (Auto) (0.0-0.2) X10*3/uL Abs Immat Gran (auto) (0.00-0.03) X10*3/uL Absolute Neuts (auto) (2.0-8.3) x10*3/uL Absolute Nucleated RBC (0.0-0.012) X10*3/uL Nucleated RBC % (auto) (0.0-0.2) /100WBC VBG pH (7.32-7.43) VBG pCO2 mmHg VBG pO2 mmHg VBG HCO3 (22-26) mmol/L VBG O2 Saturation % VBG Base Excess mmol/L Sodium 143 (135-145) mmol/L Potassium 4.1 D (3.3-5.1) mmol/L Chloride 105 (96-108) mmol/L Carbon Dioxide 10 L* D (22-29) mmol/L Anion Gap 32 H (12-20) BUN 17 H (9-16) mg/dL Creatinine 0.91 (0.5-1.4) mg/dL Estim Creat Clear Calc 74.7 Estimated GFR > 60 Random Glucose 99 (60-115) mg/dL Lactic Acid 13.6 H* (0.5-2.0) mmol/L Lactic Acid F/U @ 2Hr 15.0 H* (0.5-2.0) mmol/L Lactic Acid F/U @ 4Hr (0.5-2.0) mmol/L Calcium 9.5 D (8.4-10.2) mg/dL Magnesium 2.3 (1.6-2.6) mg/dL Total Bilirubin 0.3 (0.0-1.0) mg/dL Direct Bilirubin 0.1 (0.0-0.5) mg/dL AST 40 H (5-31) U/L ALT 25 (0-31) U/L Alkaline Phosphatase 68 (39-117) U/L C-Reactive Protein 0.12 (< or = 0.50) mg/dL Total Protein 8.6 H (6.5-8.0) g/dL Albumin 5.2 H (3.5-5.0) g/dL Lipase 12 (8-78) U/L Beta HCG, Quant < 2 mIU/mL Urine Color Urine Appearance Urine pH (5.0-9.0) Ur Specific [place] (1.005-1.025) Urine Protein (Neg-Trace) mg/dL Urine Glucose (UA) (Negative) mg/dL Urine Ketones (Negative) mg/dL Urine Blood (Negative) Urine Nitrite (Negative) Ur Leukocyte Esterase (Negative) Urine RBC (0-2) /HPF Urine WBC (0-5) /HPF Ur Squamous Epith Cells (0-2) /HPF Urine Bacteria (None Seen) Hyaline Casts (0-2) /LPF Urine Test (NEGATIVE) Urine Opiates Screen (Not Detect) Ur Buprenorphine Scrn (Not Detect) ng/mL Ur Oxycodone Screen (Not Detect) ng/mL Urine Methadone Screen (Not Detect) ng/mL Urine Fentanyl Screen (Not Detect) Ur Barbiturates Screen (Not Detect) Ur Phencyclidine Scrn (Not Detect) Ur Amphetamines Screen (Not Detect) U Benzodiazepines Scrn (Not Detect) Urine Cocaine Screen (Not Detect) U Marijuana (THC) Screen (Not Detect) Ethyl Alcohol 240 mg/dL 06/01/24 06/01/24 06/01/24 Range/Units 03:02 03:03 03:07 WBC (4.8-10.8) X10*3/uL RBC (4.20-5.50) X10*6/uL Hgb (12.0-16.0) g/dl Hct (37.0-47.0) % MCV (80.0-98.0) fL MCH (27.0-33.0) pg MCHC (31.0-35.0) g/dl RDW (11.0-16.0) % Plt Count (160-400) X10*3/uL MPV (9.4-12.3) fL Immature Gran % (Auto) (0.0-0.4) % Neut % (Auto) (45-73) % Lymph % (Auto) (20-40) % [place] % (Auto) (2-11) % Eos % (Auto) (0-4) % Baso % (Auto) (0-2) % Lymph # (Auto) (1.2-4.9) X10*3/uL [place] # (Auto) (0.1-1.2) X10*3/uL Eos # (Auto) (0.0-0.4) X10*3/uL Baso # (Auto) (0.0-0.2) X10*3/uL Abs Immat Gran (auto) (0.00-0.03) X10*3/uL Absolute Neuts (auto) (2.0-8.3) x10*3/uL Absolute Nucleated RBC (0.0-0.012) X10*3/uL Nucleated RBC % (auto) (0.0-0.2) /100WBC VBG pH 7.37 (7.32-7.43) VBG pCO2 28 mmHg VBG pO2 66 mmHg VBG HCO3 16 L (22-26) mmol/L VBG O2 Saturation 89.0 % VBG Base Excess -7.3 mmol/L Sodium 139 (135-145) mmol/L Potassium 5.1 D (3.3-5.1) mmol/L Chloride 107 (96-108) mmol/L Carbon Dioxide 14 L (22-29) mmol/L Anion Gap 23 H (12-20) BUN 15 (9-16) mg/dL Creatinine 0.74 (0.5-1.4) mg/dL Estim Creat Clear Calc 91.9 Estimated GFR > 60 Random Glucose 96 (60-115) mg/dL Lactic Acid (0.5-2.0) mmol/L Lactic Acid F/U @ 2Hr (0.5-2.0) mmol/L Lactic Acid F/U @ 4Hr 3.3 H* (0.5-2.0) mmol/L Calcium 9.0 (8.4-10.2) mg/dL Magnesium (1.6-2.6) mg/dL Total Bilirubin (0.0-1.0) mg/dL Direct Bilirubin (0.0-0.5) mg/dL AST (5-31) U/L ALT (0-31) U/L Alkaline Phosphatase (39-117) U/L C-Reactive Protein (< or = 0.50) mg/dL Total Protein (6.5-8.0) g/dL Albumin (3.5-5.0) g/dL Lipase (8-78) U/L Beta HCG, Quant mIU/mL Urine Color Urine Appearance Urine pH (5.0-9.0) Ur Specific [place] (1.005-1.025) Urine Protein (Neg-Trace) mg/dL Urine Glucose (UA) (Negative) mg/dL Urine Ketones (Negative) mg/dL Urine Blood (Negative) Urine Nitrite (Negative) Ur Leukocyte Esterase (Negative) Urine RBC (0-2) /HPF Urine WBC (0-5) /HPF Ur Squamous Epith Cells (0-2) /HPF Urine Bacteria (None Seen) Hyaline Casts (0-2) /LPF Urine Test (NEGATIVE) Urine Opiates Screen (Not Detect) Ur Buprenorphine Scrn (Not Detect) ng/mL Ur Oxycodone Screen (Not Detect) ng/mL Urine Methadone Screen (Not Detect) ng/mL Urine Fentanyl Screen (Not Detect) Ur Barbiturates Screen (Not Detect) Ur Phencyclidine Scrn (Not Detect) Ur Amphetamines Screen (Not Detect) U Benzodiazepines Scrn (Not Detect) Urine Cocaine Screen (Not Detect) U Marijuana (THC) Screen (Not Detect) Ethyl Alcohol mg/dL Independent Interpretation I performed an independent interpretation of an: EKG Critical Care Time Critical Care Time Critical Care Time: Yes Total Critical Care Time: 35 Attestation: The patient was critically ill with a high probability of imminent or life-threatening deterioration. I spent greater than 30 minutes of discontinuous time evaluating the patient, delivering critical care at the bedside, discussing evaluating data with consultants. Critical care time does not include time spent performing separately billable procedures or teaching. Time spent performing critical care with 35 minutes. Discharge Plan Discharge Clinical Impression: Hyperemesis, Acute dehydration, Cannabis hyperemesis syndrome concurrent with and due to cannabis abuse, Alcohol intoxication Patient Disposition: Home, Self-Care Additional Instructions: Please rest and take it easy today. I would recommend that you avoid any form of cannabis in the future. It is becoming more and more clear that cannabis can be associated with a significant vomiting episodes. Please contact your regular doctor's office in the morning to make a follow up appointment to discuss this episode further. Return to the emergency room if significantly worse. Prescriptions: No Action clonidine HCl 0.1 mg Tablet 0.1 mg PO TID PRN (Reason: Anxiety) sertraline 50 mg Tablet 75 mg PO DAILY buspirone 15 mg Tablet 15 mg PO TID Referrals: Malcom Marquez MD [Primary Care Provider] - (hyperemesis) Interventions: ED Discharge Assessment Last Done: 06/01/24 04:08 Discharge Date/Time: 06/01/24 04:08 Print Language: [place]
[2024-05-31] MEDS: 0.9 % Sodium Chloride 1,000 ML 999 ML IV (21:05)
[2024-05-31] MEDS: diphenhydrAMINE HCL 50 MG/ML VIAL IVPUSH (21:06)
[2024-05-31 21:07] LABS: MANUAL DIFF FLAG NO
[2024-05-31 21:09] LABS: Basophils Absolute Auto 0.1 X10*3/uL (0.0-0.2); Basophils Percent Auto 0.7 % (0-2); Eosinophils Percent Auto 0.1 % (0-4); Hematocrit 45.4 % (37.0-47.0); Hemoglobin 15.5 g/dl (12.0-16.0); Imm Gran Abs Auto 0.08 X10*3/uL (0.00-0.03); Imm Gran Pct Auto 0.6 % (0.0-0.4); Lymphocytes Absolute Auto 2.4 X10*3/uL (1.2-4.9); Lymphocytes Percent Auto 18.3 % (20-40); Mean Corpuscular HGB Conc 34.1 g/dl (31.0-35.0); Mean Corpuscular Hemoglobin 30.5 pg (27.0-33.0); Mean Corpuscular Volume 89.2 fL (80.0-98.0); Mean Platelet Volume 9.9 fL (9.4-12.3); Monocytes Absolute Auto 0.2 X10*3/uL (0.1-1.2); Monocytes Percent Auto 1.5 % (2-11); Neutrophils Absolute Auto 10.4 x10*3/uL (2.0-8.3); Neutrophils Percent Auto 78.8 % (45-73); Platelet Count 444 X10*3/uL (160-400); Red Blood Count 5.09 X10*6/uL (4.20-5.50); Red Cell Distribution Width 13.1 % (11.0-16.0); White Blood Count 13.1 X10*3/uL (4.8-10.8)
[2024-05-31 21:22] VITALS: BP 154/91; PULSE 122; RESP 24; TEMP 36.3; O2SAT 95
[2024-05-31 21:36] LABS: Appearance Urine Clear; Color Urine Yellow; Glucose Urine UA Negative (Negative); Leukocyte Esterase Urine Negative (Negative); Nitrite Urine Positive (Negative); Specific Gravity - Urine 1.015 (1.005-1.025); UMIC TRIGGER UACC YES; Urine Blood Trace (Negative); Urine Ketones 40 mg/dL (Negative); Urine Protein 30 (1+) mg/dL (Neg-Trace)
[2024-05-31 21:38] LABS: Bacteria Urine 4+ (None Seen); Hyaline Casts Urine 0-2 /LPF (0-2); RBC Urine 0-2 /HPF (0-2); UACC Culture Trigger YES; WBC Urine 0-5 /HPF (0-5)
[2024-05-31 21:57] LABS: UPreg QC Valid YES; Urine Pregnancy NEGATIVE (NEGATIVE)
--- NOTE | 2024-05-31 22:00 | MHC.EDTECH ---
Patient was biba ,vitals taken ,ekg done and was read by Provider ,blood drawn including both sets of blood culture and lactic acid ,all sent to lab ,Patient was assisted to change into hospital attire ,Patient was assisted unto bedpan ,void ,but also had an incontinent episode ,Care given ,Patient boyfriend at bedside ,Call haile within Pt reach .
[2024-05-31] MEDS: LORazepam 2 MG/ML VIAL IVPUSH (22:11)
[2024-05-31] MEDS: Haloperidol Lactate 5 MG/ML VIAL IVPUSH (22:11)
[2024-05-31 22:18] LABS: Amphetamine Screen Urine POSITIVE (Not Detect); Barbiturates, Urine Not Detected (Not Detect); Benzodiazepines Screen Urine Not Detected (Not Detect); Buprenorphine Scr Not Detected (Not Detect); Cannabinoid Screen Urine POSITIVE (Not Detect); Cocaine Screen Urine Not Detected (Not Detect); Fentanyl, urine Not Detected (Not Detect); Methadone Screen, Urine Not Detected (Not Detect); Opiate Screen Urine Not Detected (Not Detect); Oxycodone Screen Urine Not Detected (Not Detect); Phencyclidine Screen Urine Not Detected (Not Detect)
[2024-05-31 22:28] LABS: Alanine Aminotransferase 25 U/L (0-31); Albumin Level 5.2 g/dL (3.5-5.0); Alkaline Phosphatase 68 U/L (39-117); Anion Gap 32 (12-20); Aspartate Amino Transferase 40 U/L (5-31); Bilirubin Direct 0.1 mg/dL (0.0-0.5); Bilirubin Total 0.3 mg/dL (0.0-1.0); Blood Urea Nitrogen 17 mg/dL (9-16); C Reactive Protein 0.12 mg/dL (< or = 0.50); Calcium 9.5 mg/dL (8.4-10.2); Carbon Dioxide 10 mmol/L (22-29); Chloride 105 mmol/L (96-108); Creatinine Clr Calc Pharmacy 74.7; Estimated Glomerular Filt Rate > 60; Ethanol 240 mg/dL; Glucose Random 99 mg/dL (60-115); HCG Quantitative < 2 mIU/mL; Lipase 12 U/L (8-78); Magnesium 2.3 mg/dL (1.6-2.6); Potassium 4.1 mmol/L (3.3-5.1); Sodium 143 mmol/L (135-145); Total Protein 8.6 g/dL (6.5-8.0)
[2024-05-31 22:31] LABS: Lactic Acid 13.6 mmol/L (0.5-2.0)
--- NOTE | 2024-05-31 22:45 | PC.NURSE ---
pt now resting comfortably on the stretcher
[2024-05-31] MEDS: Lactated Ringers 1,000 ML 999 ML IV (23:29)
[2024-06-01] LABS: Reflex Lactate? Lactic Acid Added
[2024-06-01 00:31] VITALS: BP 154/83; PULSE 131; RESP 16; TEMP 36.9; O2SAT 95
[2024-06-01] MEDS: Lactated Ringers 1,000 ML 999 ML IV (01:18)
[2024-06-01 02:19] VITALS: BP 117/62; PULSE 122; RESP 18; TEMP 37.1; O2SAT 97
[2024-06-01 02:30] LABS: Reflex Lactate? 2 Y
[2024-06-01] MEDS: Dextrose 5 % and Lactated Ring 1,000 ML 999 ML IVCONT (02:53)
[2024-06-01 03:10] LABS: Venous Blood Gas Refer to POC result
[2024-06-01 03:13] LABS: VBG Base Excess -7.3 mmol/L; VBG HCO3 16 mmol/L (22-26); VBG pCO2 28 mmHg; VBG pH 7.37 (7.32-7.43); VBG pO2 66 mmHg
[2024-06-01 03:28] LABS: Anion Gap 23 (12-20); Blood Urea Nitrogen 15 mg/dL (9-16); Carbon Dioxide 14 mmol/L (22-29); Chloride 107 mmol/L (96-108); Creatinine Clr Calc Pharmacy 91.9; Estimated Glomerular Filt Rate > 60; Glucose Random 96 mg/dL (60-115); Potassium 5.1 mmol/L (3.3-5.1); Sodium 139 mmol/L (135-145)
[2024-06-01 03:29] LABS: ~Lactic Acid-LAB USE ONLY 3.3 mmol/L (0.5-2.0)
[2024-06-01 04:02] VITALS: BP 126/79; PULSE 122; RESP 14; TEMP 37.2; O2SAT 98
[2024-06-01 04:08] VITALS: BP 126/79; PULSE 122; RESP 14; TEMP 37.2; O2SAT 98
== END 2024-06-01 04:08 | disposition home or self-care (01) ==
PROVIDERS: Emergency Provider Emergency Medicine; PCP Internal Medicine
DX: E86.0 Dehydration (principal); F12.120 Cannabis abuse with intoxication, uncomplicated; F10.90 Alcohol use, unspecified, uncomplicated; Y90.8 Blood alcohol level of 240 mg/100 ml or more; R11.10 Vomiting, unspecified; R10.9 Unspecified abdominal pain
CPT/HCPCS: 36415; 80048; 80076; 80307; 81001; 81025; 82803; 83605; 83690; 83735; 84702; 85025; 86140; 87040; 87086; 87088; 87186; 93005; 96361; 96365; 96375; 99284; J1200; J1630; J2060; J7120

== ENCOUNTER → 2024-05-31 21:10 | Outpatient (BNV) | payer OTHER, SELFPAY | PROVIDERS: Emergency Provider Emergency Medicine; PCP Internal Medicine; Visit Provider Internal Medicine Cardiovascular Disease | DX: R10.9 Unspecified abdominal pain (principal) | CPT/HCPCS: 93010 ==

== ENCOUNTER 2024-08-10 13:52 | Outpatient (REF) | payer OTHER, SELFPAY ==
--- OUTSIDE RECORDS SUMMARY | 2024-08-10 16:08 | XMS_ITS | Data Portability ---
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 Plan of Treatment Reminders Order Date Submit Date Provider Last Modified By Organization Details Last Modified Time Details Appointments None recorde dJerome Lab lipid panel, serum 2022 023 [email or web address] [facility], [address] [facility], [facility], [place], [address], 3 10:43:10 BMP, serum or plasma 2022 023 KARY [facility], [address], [facility], [place], [address], 3 10:05:31 CBC w/ auto diff 2022 023 KARY [facility], [address], [facility], [place], [address], 3 10:05:32 TSH, serum or plasma 2022 023 KARY [facility], [address], [facility], [place], [address], 3 10:05:32 hepatic functio n panel, serum 2022 023 KARY [facility], [address] [facility], [address], [place], [address], 3 10:05:31 hepatit is C virus Ab, serum 2022 023 KARY [facility], [address] [facility], [address], [place], [address], 3 10:05:31 Referral neurolo gist referra l - severe migrain es and headach es 2022 023 oneal [facility], [address] [facility] [address], [place], [address], 3 07:50:30 gynecol ogist referra l - Patient to schedul e 2022 023 [email or web address] Not available 4 12:33:55 audiolo gist referra l - hx of several ear infecti ons, complai timur of hearing loss, ordered to check baselin e 2022 023 [facility], [address] [place], [address], 3 18:20:56 dermato logist referra l 2022 023 silvio Baptiste MD, [address] [facility], [place], [address], 4 09:30:28 Procedures None recorde d. Surgeries None recorde d. Imaging MRI, brain, w/o contras t - wakes with headach es 2022 023 oneal [facility] (Ultrasound), [address] [place], [address], 3 14:30:45 Medication Orders sumatri ptan 50 mg tablet 2022 023 [facility], [address] [place], [address], 3 09:14:47 Topamax 50 mg tablet 2022 023 [email or web address] [facility] [address] [place], [address], 3 13:11:07 hydroco rtisone 2.5 % topical cream 2022 023 [facility] [address] [place], [address], 3 15:09:11 sertral ine 25 mg tablet 2022 023 [facility] [address] [place], [address], 3 15:09:10 sertral ine 50 mg tablet 2022 023 [facility] [address] [place], [address], 3 15:09:11 Ubrelvy 50 mg tablet 2022 023 [email or web address] [facility] [address] [place], [address], 3 13:07:14 Patient TargetsNo targets recorded. Patient Instructions Encounter Date Encounter Id Patient Instructions Last Modified By Organization Details Last Modified Time 03/10/2023 [id number] medical record request* [email or web address] Not available 03/10/2023 13:41:00 Well Visit, Ages 18 to 65: Care Instructions Not available 03/10/2023 10:05:25 Cervical Cancer Screening Not available 03/10/2023 10:05:26 03/18/2023 [id number] [facility], all current and discharge medications (OTC, herbal therapies, supplements) reviewed and reconciled with patient and or caregiver, including potential side effects, drug interactions, instructions, and the consequences of not taking medication. Reviewed potential barriers to medication adherence, such as side effects from medication or cost of medication. [email or web address] Not available 03/18/2023 08:51:39 04/10/2023 [id number] [facility], all current and discharge medications (OTC, herbal therapies, supplements) reviewed and reconciled with patient and or caregiver, including potential side effects, drug interactions, instructions, and the consequences of not taking medication. Reviewed potential barriers to medication adherence, such as side effects from medication or cost of medication. 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 Referral for Yobany ateral hearing loss hx of several ear infections, complaining of hearing loss, ordered to check baseline Referring Physician: Tram Hillman [facility], Encounter Date: 03/10/2023 Service Worker Helper Referral for U rticaria Referring Physician: Tram Hillman [facility], Encounter Date: 04/10/2023 Results Created Date Observation Date Name Description Value Unit Range Abnormal Flag Note LastModifiedBy Organization Detail LastModifiedTime 04/11/20 23 04/10/2023 MRI, brain , w/o contr ast MRI Brain W/O Contra st INDICA TION: Reason : R51.9 headac he; Clinic al Questi on(s): Other: Other: TECHNI QUE: MRI of the brain was perfor med withou t contra st utiliz ing sagitt al T1, axial T2, axial FLAIR, axial SWAN, and axial DWI sequen allyn. COMPAR PAOLA: No prior studie s are availa ble for compar paola at the time of interp retati on. FINDIN GS: Multip le images are degrad ed by cassidy gupta motion which dimini shes detail , and interp retati on was made in light of this techni rhoda confin e. BRAIN and EXTRA- AXIAL SPACES : The flow voids throug h the native of Eng are mainta ined, and there is no restri cted diffus ion or abnorm al suscep tibili ty artifa ct. Small puncta te FLAIR bright foci are presen t within the right fronta l white matter . The ventri cles are normal in size, and the cervic omedul milagro juncti on is unrema rkable . Asymme trical promin ence of the extra- axial CSF space of the left superi or harvey gemina l plate cister n is noted measur ing approx imatel y 18 mm x 10 mm. This displa allyn the left internal controls consultant al cerebr al vein and pineal gland slight ly to the right. EXTRAC RANIAL SOFT TISSUE S: Orbits are unrema rkable . Parana justin sinuse s and mastoi ds are unrema rkable . BONES: Marrow signal is preser cathy. IMPRES SENG: 1. Puncta te FLAIR bright foci are presen t within the fronta l white matter of indete rminat e etiolo gy. These may repres ent the sequel a of an inflam matory proces s. Small white matter lesion s have also been report ed in patien ts with migrai ne headac he. 2. Focal promin ence of the extra- axial CSF space of the superi or left harvey gemina l plate cister n. This measur es approx imatel y 18 mm x 10 mm and is compat ible with a small arachn oid cyst. WSN: [id number] Orderi ng Physic ai: Patrice Conte ie Dictat ed By: Salvatore Lara MD Dictat ed Date/T donna: 11:47 a Review ed By: Salvatore Lara MD Signed By: Salvatore Lara MD Signed Date/T donna: 11:47 am Transc ribed By: ANGIE Transc ribed Date/T donna: 11:41 am Patien t Class: Outpat ient [email or web address] [facility] (Out[facility]) [address] [place], [address], 05/20/2023 16:05:27 04/11/2004/10/2023 MRI, brain , w/o contr ast No observ ation record ed. [email or web address] [facility] [address] [facility], [place], [address], 04/12/2023 11:45:48 Result Notes None recorded. Problems Name Problem SNOMED Code Status Onset Date Resolution Date Notes Provider Name and Address Organization Details Recorded Time Priscilla johnson [id number] Completed 202203/10/2023 TRAM HILLMAN MD [address] [facility] [address], [place], [address], [facility] 3 04:52:57 Headache 82187035 Active 2022 TRAM HILLMAN MD [address] [facility] [address], [place], [address], [facility] 3 13:26:41 Bipolar disorder 89721554 Active 2022 type II TRAM HILLMAN MD [address] [facility] [address], [place], [address], [facility] 3 13:26:32 Lighthead edness 889528201 Active 2022 while doing house chores TRAM HILLMAN MD [address] [facility] [address], [place], [address], [facility] 3 09:53:11 Anxiety 99453587 Active 2022 once a month will have a therapis t, looking for a new one TRAM HILLMAN MD [address] [facility] [address], [place], [address], [facility] 3 09:54:42 Depressiv e disorder 00650933 Active 2022 TRAM HILLMAN MD [address] [facility] [address], [place], [address], [facility] 3 09:54:12 Migraine without aura 77652623 Active 2022 Yanique Isaacs PA-C [address] [address], [place], [address], [facility] 3 09:12:42 Problem Notes None recorded. Procedures Surgical History None recorded. Imaging Results Imaging Date Name Status LastModified by Organiz ation Details LastModified Time 04/10/2023 MRI, brain, w/o contrast completed [email or web address] [facility] ([facility]) [address], [place], [address], 05/20/2023 16:05:27 04/10/2023 MRI, brain, w/o contrast completed [email or web address] [facility] [address], [place], [address], 04/12/2023 11:45:48 Procedure Notes None recorded. Medical Equipment None Reported. Allergies No known drug allergies Medications Name Sig Start Date Stop Date Status Note LastModified by Organization Details LastModified Time cyclobenza ken 10 mg tablet 1 po at hs active Not Available Not Available No t Available Anti-Diarr heal (loperamid e) 2 mg tablet TAKE 1 TABLET BY MOUTH EVERY 6 HOURS NEEDED FOR LOOSE STOOL active Not Available Not Available No t Available sumatripta n 50 mg tablet TAKE 1 TABLET AT ONSET OF MIGRAINE , MAY REPEAT ONCE AFTER TWO HOURS, MAX 2 TABS IN 24 HRS active Not Available Not Available No t Available butalbital -acetamino phen-caffe ine 50 mg-325 mg-40 mg tablet 03/10 completed Not Available Not Available Not Available ketorolac 10 mg tablet TAKE 1 TABLET BY MOUTH 3 TIMES A DAY NEEDED FOR PAIN 03/10 completed Not Available Not Available Not Available pantoprazo le 20 mg tablet,del ayed release 03/10 completed Not Available Not Available Not Available metoclopra mide 5 mg tablet TAKE 1 TABLET BY MOUTH EVERY DAY NEEDED FOR MIGRAINE /HEADACH E TAKE WITH KETOROLA C 03/10 completed Not Available Not Available Not Available cephalexin 500 mg capsule active Not Available Not Available Not Available magnesium 500 mg (as magnesium oxide) tablet TAKE 1 TABLET BY MOUTH EVERY DAY 03/10 completed Not Available Not Available Not Available sertraline 25 mg tablet TAKE 1 TABLET BY MOUTH EVERY DAY FOR 7 DAYS active Not Available Not Available No t Available hydrocorti sone 2.5 % topical cream APPLY A THIN LAYER TO THE AFFECTED AREA(S) 2 TIMES PER DAY NEEDED active Not Available Not Available No t Available hydroxyzin e HCl 25 mg tablet 04/10 completed Not Available Not Available Not Available Promethega n 25 mg rectal suppositor y 03/10 completed Not Available Not Available Not Available propranolo l 20 mg tablet TAKE 1/2 TABLET (10MG) BY MOUTH 2 TIMES A DAY 03/10 completed Not Available Not Available Not Available haloperido l 2 mg tablet TAKE 1 TABLET BY MOUTH 3 TIMES A DAY USE INSTEAD OF METOCLOP RAMIDE/R EGLAN 03/10 completed Not Available Not Available Not Available ondansetro n 4 mg disintegra ting tablet DISSOLVE 1 TABLET ON THE TONGUE EVERY 8 HOURS NEEDED FOR NAUSEA AND VOMITING active Not Available Not Available No t Available sertraline 50 mg tablet TAKE 1 TABLET BY MOUTH EVERY DAY FOR 30 DAYS active Not Available Not Available No t Available metoclopra mide 10 mg tablet TAKE 1 TABLET BY MOUTH EVERY 6 HOURS NEEDED FOR NAUSEA AND VOMITING AND HEADACHE 03/10 completed Not Available Not Available Not Available hydroxyzin e pamoate 25 mg capsule TAKE 1-2 CAPSULES BY MOUTH AT BEDTIME NEEDED active Not Available Not Available No t Available escitalopr am 20 mg tablet TAKE 1 TABLET BY MOUTH EVERY DAY IN THE MORNING active Not Available Not Available No t Available topiramate 50 mg tablet TAKE 1 TABLET BY MOUTH EVERY DAY FOR 30 DAYS active Not Available Not Available No t Available aripiprazo le 2 mg tablet TAKE 0.5 TABLET BY MOUTH IN THE MORNING FOR 5 DAYS, THEN 1 TABLET EVERY MORNING active is taking one po qd Not Available Not Available Not Available butalbital -acetamino phen-caffe ine 50 mg-300 mg-40 mg capsule TAKE 1 CAPSULE BY MOUTH EVERY 6 HOURS NEEDED FOR HEADACHE 03/18 completed no refills , needs a neuro visit date before we refill this Not Available Not Available Not Available Ubrelvy 100 mg tablet Take by oral route for 16 days. active Not Available Not Available No t Available Ubrelvy 50 mg tablet Take 1 tablet by oral route for 30 days. 2022 active Not Available Not Available Not Avai lable Vitals Date Recorded Body height Body mass index (BMI) Body weight Oxygen saturation Oxygen saturation in Arterial blood by Pulse oximetry Heart rate Body temperature Systolic blood pressure Diastolic blood pressure Systolic blood pressure Diastolic blood pressure Provider Name and Address Organization Details Last Updated DateTime 3 160.02 cm 21.1 kg/m2 97293.4 9 g 100 % 100 % 92 /min 98 [degF] 134 mm[Hg] 91 mm[Hg] 131 mm[Hg] 81 mm[Hg] Marlena Aquino MA [facility] 3 10:00:01 Date Recorded Body height Body mass index (BMI) Body weight Heart rate Oxygen saturation Oxygen saturation in Arterial blood by Pulse oximetry Body temperature Systolic blood pressure Diastolic blood pressure Systolic blood pressure Diastolic blood pressure Provider Name and Address Organization Details Last Updated DateTime 3 160.02 cm 21.6 kg/m2 21039.2 7 g 94 /min 99 % 99 % 98.8 [degF] 145 mm[Hg] 98 mm[Hg] 132 mm[Hg] 90 mm[Hg] Vic Hernandez MA [facility] 3 09:03:07 Date Recorded Body height Body mass index (BMI) Body weight Oxygen saturation Oxygen saturation in Arterial blood by Pulse oximetry Heart rate Body temperature Systolic blood pressure Diastolic blood pressure Systolic blood pressure Diastolic blood pressure Provider Name and Address Organization Details Last Updated DateTime 3 160.02 cm 22.9 kg/m2 62072.5 2 g 97 % 97 % 95 /min 98.3 [degF] 126 mm[Hg] 93 mm[Hg] 121 mm[Hg] 77 mm[Hg] Marlena Aquino MA [facility] 3 14:56:59 Social History Question Answer Notes LastModified by Organizat ion Details LastModified Time Tobacco Smoking Status Never Smoker Marlena Aquino MA [facility] 03/10/2023 09:41:26 What Is Your Level Of Alcohol Consumption? Occasional Rare [email or web address] Information not available 03/10/2023 Is Blood Transfusion Acceptable In An Emergency? Yes [email or web address] Information not available 03/10/2023 Are You Currently Employed? No [email or web address] Information not available 03/10/2023 What Type Of Diet Are You Following? REGULAR Information not available 03/10/2023 Which Illicit Or Recreational Drugs Have You Used? Marijuana [email or web address] Information not available 03/10/2023 Do You Take Precautions To Prevent Distracted Driving? Yes [email or web address] Information not available 03/10/2023 How Often Do You Need To Have Someone Help You When You Read Instructions, Pamphlets, Or Other Written Material From Your Doctor Or Pharmacy? Sometimes [email or web address] Information not available 03/10/2023 Have You Served In The ? No [email or web address] Information not available 03/10/2023 How Many Children Do You Have? 0 [email or web address] Information not available 03/10/2023 Are You Passively Exposed To Smoke? No [email or web address] Information no t available 03/10/2023 Do You Use Any Illicit Or Recreational Drugs? Yes Information not available 03/10/2023 Do You Or Have You Ever Used Any Other Forms Of Tobacco Or Nicotine? No [email or web address] Information not available 03/10/2023 Sex: Unknown Functional Status Question Answer Note LastModified by Organization D etails LastModified Time Are you able to walk? YESWOREST [email or web address] Information not available 03/10/2023 What is your exercise level? None [email or web address] Information not available 03/10/2023 Mental Status None recorded. Family History Relationship Description Onset Age of this Age Resolved Age Notes LastModified by Organization Details LastModified Time Paternal Aunt Malignant tumor of breast 4 patern al aunts [email or web address] Not available 03/10/2023 09:40:06 Paternal Aunt Diabetes mellitus [email or web address] Not available 03/10 09:40:22 Maternal Grandfather Diabetes mellitus [email or web address] Not available 03/10 09:40:15 Mother Depressive disorder [email or web address] Not available 03/10 09:40:42 Father Depressive disorder Not available 03/10 09:40:49 Brother Depressive disorder Not available 03/10 09:40:56 Medical History No medical history recorded. Gynecological History Statement/Question Response Date of Last Pap Smear Obstetrics History GPAL:G 0 P 0 0 0 0 Past Encounters Encounter ID Performer Location Encounter Start Date Encounter Closed Date Diagnosis/Indication Diagnosis SNOMED-CT Code Diagnosis ICD10 Code Diagnosis Note [id number] TRAM HILLMAN MD Main Office [address] [place] [address] 03/10/2023 09:16:25 03/10/2023 10:12:07 Adult health examination 706334196 Z00.00 Health Maintenanc e FemaleA) Patient was counseled on healthy diet, exercise and nutrition. BMI is 21.1 B) ScreeningL ast Mammogram: start at age 50 stop at 72Date: Result: BIRADS ???Next: not yet of age Last Pap smear: start at age 21 to age 65Date: Results : ???Next: has not yet had one, ordered Last Colonoscop y: start at age 45-75Date: Result: Next: not yet of age Last DEXA scan:Date: due at 65Result: ??? C) Vaccines:I nfluenza: received in 2021TdAP: will considerZo ster: due at 67EPT53: due at 51ERFY67: due at 27EWK57:PC V15:COVID: REFUSED D) Routine blood work orderedE) Updated patient's history RTC in one year for annual exam or sooner if any acute complaints Fatigue 53723044 R53.83 Z00.00 Hyperlipidemia 03153596 E78.5 Z00.00 Screening for malignant neoplasm of cervix 096624532 Z12.4 Hepatitis C screening 39 4590372 Z11.59 Patient ne w to provider [id number] 79436 Z76.89 - reviewed previous pediatric notes Headache 57311793 R51.9 - migraines with vomiting- pt has been on several oral therapies with little relief- has some red flags: wakes up with a headache and goes to bed with a headache> due to red flags ordered a MRI of the brain- occurs weekly, and will lasts several days- pt referred neurologis t as she is only interested in newer medication s and injections (believe pt may be referring to botox), order placed- NO refills on fiorcet until patient establishe s with a neurologis t and has an appoitment date- pt mentions she has been [facility] for treatment of her headaches in the ED, will obtain records Bipolar disorder 0632945 4 F31.9 - pt was relanctant to admit this diagnosis- currently on aripiprazo le, given by a psychiatri st who patient sees monthly> pt currently looking for a new provider as current provider is a close family friend- pt does not have a therapist, advised to find one- will differ all medication s to psychiatri st Bilateral hearing loss 85067566 H91.93 - hx of several ear infections - will send for audiology testing Anxiety 20038002 F41.9 - SONJA-7 score of 19- pt is visibly nervous on exam today noted by her blood pressure and her shaking during the physical exam- currently on escitalopr am 20mg, given by a psychiatri st who patient sees monthly> pt currently looking for a new provider as current provider is a close family friend- also on hydrozine 25mg as needed in the evening Depressive disorder 8647 9007 F32.A - PHQ-9 score of 17- currently on escitalopr am 20mg, given by a psychiatri st who patient sees monthly> pt currently looking for a new provider as current provider is a close family friend- denies SI/HI- counselled patient on finding a therapist as well Requires a tetanus booster 551507003 Z28.39 Nausea and vomiting 1693 2000 R11.2 - associated with patient's migraines- pt does also smoke marijuana which can cause cannabis hyperemesi s syndrome- will first control patient's headaches and then if there is still vomiting present will consider this differenti al diagnosis [id number] Yanique Isaacs PA-C Main Office [address] [facility] [address] [place] [address] 03/18/2023 08:49:59 03/18/2023 09:17:32 Migraine without aura 54407461 G43.009 Uncontroll ed migraine headache syndrome. PT. will require preventati ve medication as well as rescue meds. WE will begin topiramate 50 mg daily and for rescue sumatripta n 50 mg. Migraine diary is recommende d to keep. F/u 1 month with PCP already set up. [id number] TRAM HILLMAN MD Main Office [address] [facility] [address] [place] [address] 04/10/2023 14:42:27 04/10/2023 15:11:37 Migraine without aura 32556241 G43.009 - uncontroll ed, several ED visits- pt has been on several medication s in the past with little relief such has sumatripta n, topiramate , amitriptyl ine, propanolol , fiorecept, ibuprofen and Excedrin- pt has MRI of the brain that will take placed on 04/10- will try ubrelvy as patient has tried several medication with little relief- pt has been referred to neurology Urticaria 348178753 L50. 9 - noted on the abdomen only- will try hydorcorti sone cream- pt referred to dermatolog y Anxiety 81788584 F41.9 - SONJA-7 score of 19 on 03/10- pt is visibly nervous on exam today noted by her blood pressure and her shaking during the physical exam- currently on escitalopr am 20mg, given by a psychiatri st who patient sees monthly> pt currently looking for a new provider as current provider is a close family friend- as escitopram is not helping patient will switch to sertraline > decrease escitalopr am from 20mg to 10mg from 04/11 to 04/17> on 04/18 to 04/24 start sertraline 25mg with escitalopr am 5mg> on 04/25, stop escitalopr am and increase sertraline to 50mg- also on hydrozine 25mg as needed in the evening- RTC in 4 weeks Health Concerns Section Related Observation LastModified by Organization Detai ls LastModified Time None Recorded Concern Status LastModified by Organization Details LastModified Time None Recorded Advance Directives Directive None Recorded Payers Encounter Date Sequence Insurance Name Policy Number Policy Castanon Covered Member ID Castanon Member ID Guarantor Name 03/10/2023 1 [facility] [employer] (POS) Diana D Holland [id number] Terri D Holland 03/18/2023 1 [facility] [employer] [employer] [facility] [employer] [facility]) Diana D Holland [id number] Terri D Holland 04/10/2023 1 [facility] [employer] (POS) Diana D Holland [id number] Terri D Holland Notes Date Note Type Note Provider Name and Address Organization Details Recorded Time 03/10/2023 text/html HeadacheReported bypatient.Location:yobany ateral; frontal; radiates to the back Quality:similar to previous headaches;throbbing;pi ercing/stabbing (lancinating) Severity:severe Duration:started at the age of 11 Onset/Timing:abrupt onset; occur at the same time every day; will wake up with the headache and go sleep with the migraine Context:not related to trauma Alleviating factors:nothing gives relief; caffeine intake Associated Symptoms:nausea;vomiti ngNotes:Pt mentions she tried propanolol and sumatriptan with little relief. Will use fiorcept which helps a lot. No refills until patient sees a neurologist.VomitingRe ported bypatient.Quality:not changing Severity:moderate Duration:unknown Onset/Timing:intermitt ent; 1-3 times a day Context:no one else with similar symptoms; no possible food sources; no recent travel; no well water; non-smoker; no drug/alcohol abuse; no drug alcohol withdrawal Associated Symptoms:no abdominal pain; no excess gas; no fever; no chills; no frequent coughing; no sore throat; no rash; no weight loss; no decreased appetite; no hematuria; no hematochezia; no melena; no weakness; no fatigue;headache;nause a;dry eranaves Diana Wilder is a 22 year old F who presented to the clinic with her to establish care. Pt was last seen by a PCP several years ago. Instead patient has had several ED visits due to severe migraines. Pt is poor historian. Keeps looking at and let him complete the history. Complaints: light-headiness, easy bruising, vomiting, hearing loss, headaches/migraines, blocked artery in the intestine? -> pt was advised that MD cannot cover all these complaints today, will tackle hearing loss, headaches and vomiting. Pt to return for others. Pt also advised to get records and imaging for the hx of a possible blocked artery. Is not using ASA.OTC/Herbal supplements use: not constantly taking MMV (women's one day), was taking iron supplements Gynecologic HistoryPatient's last menstrual period was last weekMenstrual cycle will change from 1 to 7 days, without clothsMenstrual cycle: irregularSexually active: yes with husbandContraception:h as not had a pap smearDenies cysts, stds, fibroids Obstetric HistoryGravida: 0Para: 0AB: 0Complications: Drug use: marijuana (smoking)-> before bed dailyEtoh use: only on holidaystobacco use: neverspf/derm: Dental: every yearEye: has not been, has trouble seeing farDiet: lactose intoleranceActivity: does not do TRAM HILLMAN MD [address] [facility] [address], [place], [id number], [facility] 03/11/2023 13:57:15 03/18/2023 text/html 22 year old femalin olguin with past h/o migraine headache . Pt. [place] recently and just established with this practice with [facility] with new PCP this month. Last visit with the neurologist was about 6 years ago. Old PCP was managing her migraines. Pt. was on Fioricet. Pt. is also treated for bipolar depression and anxiety. On Aripiprazole ,SSRI and hydroxyzine. Pt. reports headaches are daily and start gradually after she wakes up in the am, progressing to strong headache towards later in a day. Accompanied by nausea and vomiting. PT. was seen in the ER due to severe vomiting in November. Pt. is taking Tylenol occasionally. Most of the time no otc meds. Yanique Isaacs PA-C [address] [facility] [address], [place], [phone], [facility] 03/18/2023 13:16:56 04/10/2023 text/html Emergency Depart ment Follow-Up RecordReported bypatient.Discharge Informationname of ED [facility]; emergency department discharge date: (Please enter in format 'MM/DD/YYYY') (04/11/23); date of follow-up phone call: (Please enter in format 'MM/DD/YYYY') (04/12/23)Notes:Pt mentions she went to the ED due to severe migraine. Pt was having nausea and vomiting and received IV treatement due to dehydration and anti-emetic.HeadacheRe ported bypatient.Location:[facility] Quality:similar to previous headaches Severity:severe; pain level 10/10 Duration:occur many times in groups or clusters Onset/Timing:occur upon awakening; occur every few weeks Context:not related to trauma Alleviating factors:OTC medication; laying in a dark room Associated Symptoms:nausea;vomiti ng;photophobia Diana Wilder is a 22 year old F who presented to the clinic for follow-up on her anxiety and migraines. TRAM HILLMAN MD [address], [phone], [facility] 04/12/2023 13:27:53 OBGyn Episode No OBEpisode recorded.
[2024-08-10 17:42] LABS: MANUAL DIFF FLAG NO
[2024-08-10 17:46] LABS: Basophils Absolute Auto 0.1 X10*3/uL (0.0-0.2); Basophils Percent Auto 0.9 % (0-2); Eosinophils Percent Auto 0.5 % (0-4); Hematocrit 36.5 % (37.0-47.0); Hemoglobin 12.2 g/dl (12.0-16.0); Imm Gran Abs Auto 0.01 X10*3/uL (0.00-0.03); Imm Gran Pct Auto 0.2 % (0.0-0.4); Lymphocytes Absolute Auto 1.6 X10*3/uL (1.2-4.9); Lymphocytes Percent Auto 28.4 % (20-40); Mean Corpuscular HGB Conc 33.4 g/dl (31.0-35.0); Mean Corpuscular Hemoglobin 30.8 pg (27.0-33.0); Mean Corpuscular Volume 92.2 fL (80.0-98.0); Mean Platelet Volume 10.8 fL (9.4-12.3); Monocytes Absolute Auto 0.5 X10*3/uL (0.1-1.2); Monocytes Percent Auto 8.8 % (2-11); Neutrophils Absolute Auto 3.5 x10*3/uL (2.0-8.3); Neutrophils Percent Auto 61.2 % (45-73); Platelet Count 316 X10*3/uL (160-400); Red Blood Count 3.96 X10*6/uL (4.20-5.50); Red Cell Distribution Width 14.5 % (11.0-16.0); White Blood Count 5.8 X10*3/uL (4.8-10.8)
[2024-08-10 18:06] LABS: Alanine Aminotransferase 14 U/L (0-31); Albumin Level 4.5 g/dL (3.5-5.0); Alkaline Phosphatase 49 U/L (39-117); Anion Gap 10 (12-20); Aspartate Amino Transferase 26 U/L (5-31); Bilirubin Total 0.6 mg/dL (0.0-1.0); Blood Urea Nitrogen 8 mg/dL (9-16); Calcium 9.9 mg/dL (8.4-10.2); Carbon Dioxide 25 mmol/L (22-29); Chloride 106 mmol/L (96-108); Estimated Glomerular Filt Rate > 60; Glucose Random 114 mg/dL (60-115); Iron 88 mcg/dL (30-160); Percent Iron Saturation 26 % (15-50); Potassium 3.6 mmol/L (3.3-5.1); Sodium 137 mmol/L (135-145); Total Iron Binding Capacity 336 mcg/dL (228-428); Total Protein 7.6 g/dL (6.5-8.0); Unsaturated Iron Binding 248 ug/dL
[2024-08-10 18:23] LABS: Ferritin 11 ng/mL (10-122)
[2024-08-10 18:33] LABS: Folate 7.4 ng/mL (> or = 4.0); Vitamin B12 239 pg/mL (200-900)
[2024-08-10 18:43] LABS: Erythrocyte Sedimentation Rate 2 MM/HR (0-20)
[2024-08-13 18:09] LABS: Methylmalonic Acid 224 nmol/L (55-335)
[2024-08-14 15:52] LABS: Vitamin D 25-OH, D2 <4 ng/mL; Vitamin D 25-OH, D3 8 ng/mL; Vitamin D 25-OH, Total 8 ng/mL (30-100)
[2024-08-16 06:24] LABS: Vitamin B6 57.9 ng/mL (2.1-21.7)
[2024-08-17 13:19] LABS: Vitamin B2 (Riboflavin) 10.7 nmol/L (6.2-39.0)
[2024-08-17 15:18] LABS: Vitamin B1 9 nmol/L (8-30)
== END 2024-08-10 13:53 | disposition home or self-care (01) ==
LOC: HO.HKASLDS 13:52
PROVIDERS: Visit Provider Nurse Practitioner Family
DX: D64.9 Anemia, unspecified (principal); G47.10 Hypersomnia, unspecified; R25.2 Cramp and spasm; R51.9 Headache, unspecified; R55 Syncope and collapse
CPT/HCPCS: 36415; 80053; 82306; 82607; 82728; 82746; 83540; 83735; 83921; 84207; 84252; 84425; 84443; 85025; 85652

== ENCOUNTER 2024-08-14 06:11 | Observation (INO) | payer OTHER, SELFPAY ==
[2024-08-14] VITALS (8 sets, daily range): BP systolic 110–139; BP diastolic 58–74; PULSE 94–153; RESP 16–20; TEMP 36.2–37.1; O2SAT 97–100; BMI 26.6
--- NOTE | 2024-08-14 | ECG_ITS ---
Test Reason : tachycardia Blood Pressure : */* mmHG Vent. Rate : 144 BPM Atrial Rate : 144 BPM P-R Int : 128 ms QRS Dur : 66 ms QT Int : 270 ms P-R-T Axes : 77 77 60 degrees QTcB Int : 418 ms Sinus tachycardia Nonspecific ST abnormality Abnormal ECG When compared with ECG of 31-May-2024 21:10, No significant change was found Referred By: Kevon Causey Electronically Signed By: ZAINAB HIDALGO
--- NOTE | ~2024-08-14 | CT_ITS ---
CLINICAL HISTORY: abd pain n v d CT abdomen pelvis with IV contrast. Comparison: 05/23/2024 Findings: Lung bases clear. Heart size normal. No pleural or pericardial effusion. Motion artifact mildly limits detail. Liver, gallbladder, biliary tree, pancreas, spleen, adrenals and kidneys intact. No stones or hydronephrosis. No apparent bowel obstruction or acute perienteric inflammation. Mild stool burden . Normal-appearing appendix. Possible 18 mm corpus luteum left ovary although similar in appearance to 2023 CT. Small amount of free pelvic fluid increased from prior although most likely ovulatory in this age group. Urinary bladder decompressed Normal abdominal aorta and major branch vessels. Patent hepatic veins, IVC and portal vein. No pathologic adenopathy. No acute fracture. Soft tissues unremarkable. Impression: No acute process evident. No bowel obstruction or acute inflammatory changes. Possible corpus luteum cyst left ovary although although perhaps persistent from prior CT. Small amount of free pelvic fluid most likely physiologic in this age group. If symptoms referable to the pelvis, follow-up pelvic ultrasound suggested. This document has been electronically signed by: Javon Greenwood MD on 08/14/2024 11:02:44
[2024-08-14] MEDS: Ondansetron ODT 4 MG TAB.RAPDIS TRANSLINGU (06:23)
[2024-08-14 06:53] LABS: MANUAL DIFF FLAG NO
[2024-08-14 07:03] LABS: UPreg QC Valid YES; Urine Pregnancy NEGATIVE (NEGATIVE)
[2024-08-14 07:11] LABS: Basophils Absolute Auto 0.1 X10*3/uL (0.0-0.2); Basophils Percent Auto 0.3 % (0-2); Hematocrit 35.3 % (37.0-47.0); Hemoglobin 12.6 g/dl (12.0-16.0); Imm Gran Abs Auto 0.08 X10*3/uL (0.00-0.03); Imm Gran Pct Auto 0.4 % (0.0-0.4); Lymphocytes Absolute Auto 0.7 X10*3/uL (1.2-4.9); Lymphocytes Percent Auto 3.7 % (20-40); Mean Corpuscular HGB Conc 35.7 g/dl (31.0-35.0); Mean Corpuscular Hemoglobin 30.4 pg (27.0-33.0); Mean Corpuscular Volume 85.3 fL (80.0-98.0); Mean Platelet Volume 10.1 fL (9.4-12.3); Monocytes Absolute Auto 1.1 X10*3/uL (0.1-1.2); Monocytes Percent Auto 5.7 % (2-11); Neutrophils Absolute Auto 16.6 x10*3/uL (2.0-8.3); Neutrophils Percent Auto 89.9 % (45-73); Platelet Count 372 X10*3/uL (160-400); Red Blood Count 4.14 X10*6/uL (4.20-5.50); Red Cell Distribution Width 13.8 % (11.0-16.0); White Blood Count 18.5 X10*3/uL (4.8-10.8)
[2024-08-14 07:17] LABS: Alanine Aminotransferase 11 U/L (0-31); Albumin Level 4.9 g/dL (3.5-5.0); Alkaline Phosphatase 52 U/L (39-117); Anion Gap 26 (12-20); Appearance Urine Clear; Aspartate Amino Transferase 35 U/L (5-31); Bilirubin Total 1.2 mg/dL (0.0-1.0); Blood Urea Nitrogen 21 mg/dL (9-16); Calcium 9.2 mg/dL (8.4-10.2); Carbon Dioxide 10 mmol/L (22-29); Chloride 104 mmol/L (96-108); Color Urine Yellow; Creatinine Clr Calc Pharmacy 99.5; Estimated Glomerular Filt Rate > 60; Glucose Random 145 mg/dL (60-115); Glucose Urine UA Negative (Negative); Leukocyte Esterase Urine Negative (Negative); Lipase 7 U/L (8-78); Nitrite Urine Negative (Negative); PH 5.5 (5.0-9.0); Potassium 4.3 mmol/L (3.3-5.1); Sodium 136 mmol/L (135-145); Specific Gravity - Urine 1.025 (1.005-1.025); Total Protein 8.2 g/dL (6.5-8.0); Urine Blood Negative (Negative); Urine Ketones 80 mg/dL (Negative); Urine Protein Trace mg/dL (Neg-Trace)
--- NOTE | 2024-08-14 07:27 | ED.NAVMDI ---
HPI - Nausea/Vomiting/Diarrhea General Chief complaint: Nausea/Vomiting/Diarrhea Stated complaint: n/v/d, abd pain Time Seen by Provider: 08/14/24 07:20 Source: patient and family Mode of arrival: ambulatory History of Present Illness HPI Narrative: This is a 23 years old the patient presented to the emergency department complaining of nausea vomiting unable to keep anything down for about 2 days. She has been seen in this emergency room in the past for the same symptoms, she has been admitted to the hospital because of metabolic acidosis. She was diagnosed in the past with cannabis hyperemesis. She has history of alcohol abuse as well. She is here with the mother MD elicited complaint: nausea and vomiting Onset (ago): day(s) (2) Description of vomiting: watery Description of diarrhea: watery Associated nausea: Yes Associated abdominal pain: No Exacerbating factors: none Relieving factors: none Associated symptoms: denies other symptoms Related Data Home Medications ?Medication ?Instructions ?Recorded ?Confirmed buspirone 15 mg tablet 15 mg PO TID 05/24/24 08/08/24 clonidine HCl 0.1 mg tablet 0.1 mg PO TID PRN Anxiety 05/24/24 08/08/24 sertraline 50 mg tablet 75 mg PO DAILY 05/24/24 08/08/24 trazodone 50 mg tablet 50 mg PO TID 08/08/24 08/08/24 Previous Rx's ?Medication ?Instructions ?Recorded atogepant 60 mg tablet 60 mg PO DAILY 30 days #30 tabs 08/08/24 naratriptan 2.5 mg tablet See Rx Instructions PO .COMPLEX 08/08/24 PRN migraine headache 30 days #12 tabs oxcarbazepine 150 mg tablet 150 mg PO BID 60 days #120 tabs 08/08/24 (Trileptal) Allergies Allergy/AdvReac Type Severity Reaction Status Date / Time No Known Allergies Allergy Verified 08/14/24 06:16 [No Known Allergies*] Review of Systems Constitutional: Constitutional: Reports no additional constitutional complaints Cardiovascular: Cardiovascular: Reports no additional cardiovascular complaints Respiratory: Respiratory: Reports no additional respiratory complaints Gastrointestinal: Gastrointestinal: Reports nausea and Reports vomiting [facility] Past Medical History Attestation statement: The following information was validated with the patient. [facility] Narrative: Alcohol abuse in the past, Medical History Cannabinoid hyperemesis syndrome Migraine headache Social History Social History Household Members: Spouse Housing: House Do you presently have visiting nurse or other home services: No Alcohol intake: former Patient Tobacco Use Status: Never used Tobacco Substance Use Type: Marijuana Advance Directives: Yes Advance Directives on File: Yes Advance Directives Date on File: 05/26/24 Do you have a plan to hurt others: No Plan service: No Physical Exam Vital Signs: Vital Signs: Last Vital Signs Temp 97.4 F 08/14/24 08:29 Pulse 108 H 08/14/24 08:29 Resp 20 08/14/24 08:29 BP 138/60 08/14/24 08:29 Pulse Ox 97 08/14/24 08:29 O2 Del Method Room Air 08/14/24 08:29 BMI result Body Mass Index 26.6 Mild to moderate distress Const: General: alert Orientation/consciousness: patient oriented x3 HEENT: Head: Yes normal to inspection General nose exam: Normal external nose present Face and sinus: Yes normal facial exam Mouth: Normal oral and palatal mucosa present Teeth and gingiva: dentition normal Throat: Yes posterior oropharynx normal Neck: Neck: Yes normal visual inspection Chest: Chest palpation & inspection: normal inspection of the chest Resp: Effort & Inspection: normal respiratory effort Auscultation: clear to auscultation bilaterally Cardio: Jugular venous distension: no JVD Rate: regular rate Rhythm: regular rhythm GI: Inspection: Yes normal to inspection Palpation (GI): Soft to palpation, not firm, nontender and no guarding Percussion: Yes normal to percussion Skin: General skin exam: no rashes or lesions noted Lesions: no lesions Rashes: no rashes Neuro: General: patient oriented x3 Cranial nerves: Yes CN's II-XII intact bilaterally Medications Administered Discontinued Medications Generic Name Dose Route Start Last Admin Trade Name Freq PRN Reason Stop Dose Admin Lactated Ringer's 1,000 mls @ 999 mls/hr 08/14/24 07:30 08/14/24 07:36 Lr IV 08/14/24 08:30 999 mls/hr .Q1H1M EDMOND Administration Lactated Ringer's 1,000 mls @ 999 mls/hr 08/14/24 07:30 08/14/24 07:38 Lr IV 08/14/24 08:30 999 mls/hr .Q1H1M EDMOND Administration Lorazepam 1 mg 08/14/24 07:26 08/14/24 07:36 Lorazepam 2 Mg/Ml Vial IVPUSH 08/14/24 07:27 1 mg ONCE ONE Administration Metoclopramide HCl 10 mg 08/14/24 07:59 08/14/24 08:11 Metoclopramide Hcl 10 Mg/2 Ml Vial IVPUSH 08/14/24 08:00 10 mg ONCE ONE Administration Morphine Sulfate 4 mg 08/14/24 07:59 08/14/24 08:11 Morphine Sulfate 4 Mg/Ml Cartridge IVPUSH 08/14/24 08:00 4 mg ONCE ONE Administration Protocol Ondansetron HCl 4 mg 08/14/24 06:21 08/14/24 06:23 Ondansetron Odt 4 Mg Tab.Rapdis TRANSLINGU 08/14/24 06:22 4 mg ONCE ONE Administration Ondansetron HCl 4 mg 08/14/24 07:26 08/14/24 07:36 Ondansetron Hcl 4 Mg/2 Ml Vial IVPUSH 08/14/24 07:27 4 mg ONCE ONE Administration Medical Decision Making Medical Decision Making [facility] Narrative: Patient presented with nausea vomiting unable to keep fluids down she has been in this emergency room in the past she has been admitted in the past for cannabis hyperemesis syndrome Differential Diagnosis Differential Diagnoses: The differential diagnosis associated with the presentation includes Gastroenteritis/cannabis hyperemesis/alcohol withdrawal. Admission/Observation Consideration of admission/observation: Escalation of care including admission/observation considered Lab Data 08/14/24 06:48 08/14/24 06:48 Labs: Lab Results 08/14/24 Range/Units 06:48 WBC 18.5 H (4.8-10.8) X10*3/uL RBC 4.14 L (4.20-5.50) X10*6/uL Hgb 12.6 (12.0-16.0) g/dl Hct 35.3 L (37.0-47.0) % MCV 85.3 D (80.0-98.0) fL MCH 30.4 (27.0-33.0) pg MCHC 35.7 H (31.0-35.0) g/dl RDW 13.8 (11.0-16.0) % Plt Count 372 (160-400) X10*3/uL MPV 10.1 (9.4-12.3) fL Immature Gran % (Auto) 0.4 (0.0-0.4) % Neut % (Auto) 89.9 H (45-73) % Lymph % (Auto) 3.7 L (20-40) % [place] % (Auto) 5.7 (2-11) % Eos % (Auto) 0.0 (0-4) % Baso % (Auto) 0.3 (0-2) % Lymph # (Auto) 0.7 L (1.2-4.9) X10*3/uL [place] # (Auto) 1.1 (0.1-1.2) X10*3/uL Eos # (Auto) 0.0 (0.0-0.4) X10*3/uL Baso # (Auto) 0.1 (0.0-0.2) X10*3/uL Abs Immat Gran (auto) 0.08 H (0.00-0.03) X10*3/uL Absolute Neuts (auto) 16.6 H (2.0-8.3) x10*3/uL Absolute Nucleated RBC 0.000 (0.0-0.012) X10*3/uL Nucleated RBC % (auto) 0.0 (0.0-0.2) /100WBC Sodium 136 (135-145) mmol/L Potassium 4.3 (3.3-5.1) mmol/L Chloride 104 (96-108) mmol/L Carbon Dioxide 10 L* D (22-29) mmol/L Anion Gap 26 H (12-20) BUN 21 H (9-16) mg/dL Creatinine 0.80 (0.5-1.4) mg/dL Estim Creat Clear Calc 99.5 Estimated GFR > 60 Random Glucose 145 H (60-115) mg/dL Calcium 9.2 D (8.4-10.2) mg/dL Magnesium 1.1 L* (1.6-2.6) mg/dL Total Bilirubin 1.2 H (0.0-1.0) mg/dL AST 35 H (5-31) U/L ALT 11 (0-31) U/L Alkaline Phosphatase 52 (39-117) U/L Total Protein 8.2 H (6.5-8.0) g/dL Albumin 4.9 (3.5-5.0) g/dL Lipase 7 L (8-78) U/L Urine Color Yellow Urine Appearance Clear Urine pH 5.5 (5.0-9.0) Ur Specific [place] 1.025 (1.005-1.025) Urine Protein Trace (Neg-Trace) mg/dL Urine Glucose (UA) Negative (Negative) mg/dL Urine Ketones 80 (Negative) mg/dL Urine Blood Negative (Negative) Urine Nitrite Negative (Negative) Ur Leukocyte Esterase Negative (Negative) Urine Test NEGATIVE (NEGATIVE) Urine Opiates Screen Not Detected (Not Detect) Ur Buprenorphine Scrn Not Detected (Not Detect) ng/mL Ur Oxycodone Screen Not Detected (Not Detect) ng/mL Urine Methadone Screen Not Detected (Not Detect) ng/mL Urine Fentanyl Screen Not Detected (Not Detect) Ur Barbiturates Screen Not Detected (Not Detect) Ur Phencyclidine Scrn Not Detected (Not Detect) Ur Amphetamines Screen Not Detected (Not Detect) U Benzodiazepines Scrn Not Detected (Not Detect) Urine Cocaine Screen Not Detected (Not Detect) U Marijuana (THC) Screen POSITIVE H (Not Detect) Influenza Type A (PCR) NEGATIVE (Negative) Influenza Type B (PCR) NEGATIVE (Negative) RSV RNA Qual (PCR) NEGATIVE (Negative) SARS-CoV-2 RNA (RT-PCR) NEGATIVE (Negative) Critical Care Time Critical Care Time Critical Care Time: Yes Total Critical Care Time: 60 Attestation: severe metabolic derangement, requiring multiple dose of IV morphine Ativan antiemetic Discharge Plan Discharge Clinical Impression: High anion gap metabolic acidosis, Cannabinoid hyperemesis syndrome, Hypomagnesemia Vomiting Qualifiers: Vomiting type: unspecified Nausea presence: with nausea Qualified Code(s): R11.2 - Nausea with vomiting, unspecified Patient Disposition: Admitted As Inpatient Print Language: Swedish
[2024-08-14 07:32] LABS: Influenza A PCR NEGATIVE (Negative); Influenza B PCR NEGATIVE (Negative); Resp Syncy Virus RNA Qual PCR NEGATIVE (Negative); SARS COV2 PCR INHOUSE NEGATIVE (Negative)
[2024-08-14] MEDS: LORazepam 2 MG/ML VIAL 1 MG IVPUSH (07:36)
[2024-08-14] MEDS: ondansetron HCL 4 MG/2 ML VIAL IVPUSH ×2 (07:36→20:14)
[2024-08-14] MEDS: Lactated Ringers 1,000 ML 999 ML IV ×4 (07:36→22:19)
--- OUTSIDE RECORDS SUMMARY | 2024-08-14 08:06 | XMS_ITS | Data Portability ---
Author Organization [facility], Main Office Address [address] [facility] [address] [place] [address] Care Team Providers Care Bet Taker Name Role Phone EMIYL FELDER Professor Of Oceanography TRAM HILLMAN Primary Care Provider Assessment No assessment recorded. Plan of Treatment Reminders Order Date Submit Date Provider Last Modified By Organization Details Last Modified Time Details Appointments None recorde dJerome Lab lipid panel, serum 2022 023 [email or web address] [facility], [address] [facility], [facility], [place], [address], 3 10:43:10 BMP, serum or plasma 2022 023 KARY [facility], [address], [facility], [place], [address], 3 10:05:31 CBC w/ auto diff 2022 023 KARY [facility], [address], [facility], [place], [address], 3 10:05:32 TSH, serum or plasma 2022 023 KARY [facility], [address], [facility], [place], [address], 3 10:05:32 hepatic functio n panel, serum 2022 023 KARY [facility], [address] [facility], [address], [place], [address], 3 10:05:31 hepatit is C virus Ab, serum 2022 023 KARY [facility], [address] [facility], [address], [place], [address], 3 10:05:31 Referral neurolo gist referra l - severe migrain es and headach es 2022 023 oneal [facility] Neurology, [address] [facility] [address], [place], [address], 3 07:50:30 gynecol ogist referra l - Patient to schedul e 2022 023 [email or web address] Not available 4 12:33:55 audiolo gist referra l - hx of several ear infecti ons, complai timur of hearing loss, ordered to check baselin e 2022 023 [email or web address] [facility] Audiology, [address] [place], [address], 3 18:20:56 dermato logist referra l 2022 023 silvio Baptiste MD, [address] [facility], [place], [address], 4 09:30:28 Procedures None recorde d. Surgeries None recorde d. Imaging MRI, brain, w/o contras t - wakes with headach es 2022 023 oneal [facility] (Ultrasound), [address] [place], [address], 3 14:30:45 Medication Orders sumatri ptan 50 mg tablet 2022 023 [place] [facility], [address] [place], [address], 3 09:14:47 Topamax 50 mg tablet 2022 023 [email or web address] [facility] [address] [place], [address], 3 13:11:07 hydroco rtisone 2.5 % topical cream 2022 023 [facility] [address] [place], [address], 3 15:09:11 sertral ine 25 mg tablet 2022 023 [facility] [address] [place], [address], 3 15:09:10 sertral ine 50 mg tablet 2022 023 [facility] [address] [place], [address], 3 15:09:11 Ubrelvy 50 mg tablet 2022 023 [email or web address] [facility] [address] [place], [address], 3 13:07:14 Patient TargetsNo targets recorded. Patient Instructions Encounter Date Encounter Id Patient Instructions Last Modified By Organization Details Last Modified Time 03/10/2023 [id number] medical record request* [email or web address] Not available 03/10/2023 13:41:00 Well Visit, Ages 18 to 65: Care Instructions Not available 03/10/2023 10:05:25 Cervical Cancer Screening Not available 03/10/2023 10:05:26 03/18/2023 [id number] At [facility] follow up visit, all current and discharge medications (OTC, herbal therapies, supplements) reviewed and reconciled with patient and or caregiver, including potential side effects, drug interactions, instructions, and the consequences of not taking medication. Reviewed potential barriers to medication adherence, such as side effects from medication or cost of medication. [email or web address] Not available 03/18/2023 08:51:39 04/10/2023 [id number] At [facility] follow up visit, all current and discharge medications (OTC, herbal therapies, supplements) reviewed and reconciled with patient and or caregiver, including potential side effects, drug interactions, instructions, and the consequences of not taking medication. Reviewed potential barriers to medication adherence, such as side effects from medication or cost of medication. 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 for Sc reening for malignant neoplasm of cervix Patient to schedule Referring Physician: Tram Hillman [facility], Encounter Date: 03/10/2023 Neurologist Referral for Hea dache severe migraines and headaches Referring Physician: Tram Hillman [facility], Encounter Date: 03/10/2023 Transit Operations Supervisor Referral for Yobany ateral hearing loss hx of several ear infections, complaining of hearing loss, ordered to check baseline Referring Physician: Tram Hillman [facility], Encounter Date: 03/10/2023 Photogeologist Referral for U rticaria Referring Physician: Tram Hillman [facility], Encounter Date: 04/10/2023 Results Created Date Observation [...] : The flow voids throug h the [place] of [place] are mainta ined, and there [...] 10 mm. This displa allyn the left international controller al cerebr al vein and pineal gland [...] with a small arachn oid cyst. WSN: [id number] Orderi ng Physic ai: Patrice Conte ie Dictat ed By: Salvatore Lara MD Dictat ed Date/T donna: 11:47 a Review ed By: Salvatore Lara MD Signed By: Salvatore Lara MD Signed Date/T donna: 11:47 am Transc ribed By: ANGIE Transc ribed Date/T donna: 11:41 am Patien t Class: Outpat ient [email or web address] [facility] (Outpt Imaging) [address] [place], [address], 05/20/2023 16:05:27 04/11/2004/10/2023 MRI, brain , w/o contr ast No observ ation record ed. [email or web address] [facility] [address] [facility], [place], [address], 04/12/2023 11:45:48 Result Notes None recorded. Problems Name Problem SNOMED Code Status Onset Date Resolution Date Notes Provider Name and Address Organization Details Recorded Time Priscilla johnson [id number] Completed 202203/10/2023 TRAM HILLMAN MD [address] [facility] [address], [place], [address], [facility] 3 04:52:57 Headache 95643322 Active 2022 TRAM HILLMAN MD [address] [facility] [address], [place], [address], [facility] 3 13:26:41 Bipolar disorder 77188407 Active 2022 type II TRAM HILLMAN MD [address] [facility] [address], [place], [address], [facility] 3 13:26:32 [place] edness 956775592 Active 2022 while doing house chores TRAM HILLMAN MD [address] [facility] [address], [place], [address], [facility] 3 09:53:11 Anxiety 50236085 Active 2022 once a month will have a therapis t, looking for a new one TRAM HILLMAN MD [address] [facility] [address], [place], [address], [facility] 3 09:54:42 Depressiv e disorder 59295823 Active 2022 TRAM HILLMAN MD [address] [facility] [address], [place], [address], [facility] 3 09:54:12 Migraine without aura 72439344 Active 2022 Yanique Isaacs PA-C [address] [address], [place], [address], [facility] 3 09:12:42 Problem Notes None recorded. Procedures Surgical History None recorded. Imaging Results Imaging Date Name Status LastModified by Organiz ation Details LastModified Time 04/10/2023 MRI, brain, w/o contrast completed [email or web address] [facility] (Outpt Imaging) [address], [place], [address], 05/20/2023 16:05:27 04/10/2023 MRI, brain, w/o contrast completed [email or web address] [facility] [address], [place], [address], 04/12/2023 11:45:48 Procedure Notes None recorded. Medical [...] Updated DateTime 3 160.02 cm 21.1 kg/m2 36186.4 9 g 100 % 100 % 92 /min 98 [degF] 134 mm[Hg] 91 mm[Hg] 131 mm[Hg] 81 mm[Hg] Marlena Aquino MA [facility] 3 10:00:01 Date Recorded Body height Body mass index (BMI) Body weight Heart rate Oxygen saturation Oxygen saturation in Arterial blood by Pulse oximetry Body temperature Systolic blood pressure Diastolic blood pressure Systolic blood pressure Diastolic blood pressure Provider Name and Address Organization Details Last Updated DateTime 3 160.02 cm 21.6 kg/m2 03032.2 7 g 94 /min 99 % 99 % 98.8 [degF] 145 mm[Hg] 98 mm[Hg] 132 mm[Hg] 90 mm[Hg] Vic Hernandez MA [facility] 3 09:03:07 Date Recorded Body height Body mass index (BMI) Body weight Oxygen saturation Oxygen saturation in Arterial blood by Pulse oximetry Heart rate Body temperature Systolic blood pressure Diastolic blood pressure Systolic blood pressure Diastolic blood pressure Provider Name and Address Organization Details Last Updated DateTime 3 160.02 cm 22.9 kg/m2 61479.5 2 g 97 % 97 % 95 /min 98.3 [degF] 126 mm[Hg] 93 mm[Hg] 121 mm[Hg] 77 mm[Hg] Marlena Aquino MA [facility] 3 14:56:59 Social History Question Answer Notes LastModified by Organizat ion Details LastModified Time Tobacco Smoking Status Never Smoker Marlena Aquino MA [facility] 03/10/2023 09:41:26 What Is Your Level Of Alcohol Consumption? Occasional Rare [email or web address] Information not available 03/10/2023 Is Blood Transfusion Acceptable In An Emergency? Yes [email or web address] Information not available 03/10/2023 Are You Currently Employed? No Information not available 03/10/2023 What Type Of Diet Are You Following? REGULAR [email or web address] Information not available 03/10/2023 Which Illicit Or Recreational Drugs Have You Used? Marijuana [email or web address] Information not available 03/10/2023 Do You Take Precautions To Prevent Distracted Driving? Yes [email or web address] Information not available 03/10/2023 How Often Do You Need To Have Someone Help You When You Read Instructions, Pamphlets, Or Other Written Material From Your Doctor Or Pharmacy? Sometimes [email or web address] Information not available 03/10/2023 Have You Served In The ? No Information not available 03/10/2023 How Many Children Do You Have? 0 [email or web address] Information not available 03/10/2023 Are You Passively Exposed To Smoke? No Information no t available 03/10/2023 Do You Use Any Illicit Or Recreational Drugs? Yes [email or web address] Information not available 03/10/2023 Do You Or Have You Ever Used Any Other Forms Of Tobacco Or Nicotine? No [email or web address] Information not available 03/10/2023 Sex: Unknown Functional Status Question Answer Note LastModified by Organization D etails LastModified Time Are you able to walk? YESWOREST [email or web address] Information not available 03/10/2023 What is your exercise level? None [email or web address] Information not available 03/10/2023 Mental Status None recorded. Family History Relationship Description Onset Age of this Age Resolved Age Notes LastModified by Organization Details LastModified Time Paternal Aunt Malignant tumor of breast 4 patern al aunts [email or web address] Not available 03/10/2023 09:40:06 Paternal Aunt Diabetes mellitus [email or web address] Not available 03/10 09:40:22 Maternal Grandfather Diabetes mellitus [email or web address] Not available 03/10 09:40:15 Mother Depressive disorder [email or web address] Not available 03/10 09:40:42 Father Depressive disorder [email or web address] Not available 03/10 09:40:49 Brother Depressive disorder Not available 03/10 09:40:56 Medical History No medical history recorded. Gynecological History Statement/Question Response Date of Last Pap Smear Obstetrics History GPAL:G 0 P 0 0 0 0 Past Encounters Encounter ID Performer Location Encounter Start Date Encounter Closed Date Diagnosis/Indication Diagnosis SNOMED-CT Code Diagnosis ICD10 Code Diagnosis Note [id number] TRAM HILLMAN MD Main Office [address] [place] [address] 03/10/2023 09:16:25 03/10/2023 10:12:07 Adult health examination 140746209 Z00.00 Health Maintenanc e FemaleA) Patient was [...] in 2021TdAP: will considerZo ster: due at 64VZF48: due at 15GDVX99: due at 69KJU86:PC V15:COVID: REFUSED D) Routine blood work orderedE) Updated patient's history RTC in one year for annual exam or sooner if any acute complaints Fatigue 23987293 R53.83 Z00.00 Hyperlipidemia 66757283 E78.5 Z00.00 Screening for malignant neoplasm of cervix 150611927 Z12.4 Hepatitis C screening 39 9765084 Z11.59 Patient ne w to provider [id number] 73630 Z76.89 - reviewed previous pediatric notes Headache 80638468 R51.9 - migraines with vomiting- pt has [...] pt mentions she has been going to [facility] for treatment of her headaches in the ED, will obtain records Bipolar disorder 8840441 4 F31.9 - pt was relanctant to admit this diagnosis- currently on aripiprazo le, given by a psychiatri st who patient sees monthly> pt currently looking for a new provider as current provider is a close family friend- pt does not have a therapist, advised to find one- will differ all medication s to psychiatri st Bilateral hearing loss 91475959 H91.93 - hx of several ear infections - will send for audiology testing Anxiety 64120092 F41.9 - SONJA-7 score of 19- pt [...] as needed in the evening Depressive disorder 1675 9007 F32.A - PHQ-9 score of 17- currently on escitalopr am 20mg, given by a psychiatri st who patient sees monthly> pt currently looking for a new provider as current provider is a close family friend- denies SI/HI- counselled patient on finding a therapist as well Requires a tetanus booster 305448883 Z28.39 Nausea and vomiting 1693 2000 R11.2 - associated with patient's migraines- pt does also smoke marijuana which can cause cannabis hyperemesi s syndrome- will first control patient's headaches and then if there is still vomiting present will consider this differenti al diagnosis [id number] Yanique Isaacs PA-C Main Office [address] [facility] [address] [place] [address] 03/18/2023 08:49:59 03/18/2023 09:17:32 Migraine without aura 45536044 G43.009 Uncontroll ed migraine headache syndrome. PT. will require preventati ve medication as well as rescue meds. WE will begin topiramate 50 mg daily and for rescue sumatripta n 50 mg. Migraine diary is recommende d to keep. F/u 1 month with PCP already set up. [id number] TRAM HILLMAN MD Main Office [address] [facility] [address] [place] [address] 04/10/2023 14:42:27 04/10/2023 15:11:37 Migraine without aura 11548661 G43.009 - uncontroll ed, several ED visits- [...] pt has been referred to neurology Urticaria 882600948 L50. 9 - noted on the abdomen only- will try hydorcorti sone cream- pt referred to dermatolog y Anxiety 95723621 F41.9 - SONJA-7 score of 19 on [...] [place] Member ID Guarantor Name 03/10/2023 1 [facility] PL[facility] (POS) Diana D [place] [id number] 3 Terri D [place] 03/18/2023 1 [facility] (POS[facility] Diana D [place] [id number] Terri D [place] 04/10/2023 1 [facility] HE[facility] PLAN (POS) Diana D [place] [id number] 3 Terri D [place] Notes Date Note Type Note Provider Name [...] does not do TRAM HILLMAN MD [address] [facility] [address], [place], [address], [facility] 03/11/2023 13:57:15 03/18/2023 text/html 22 year old [...] no otc meds. Yanique Isaacs PA-C [address] [facility] [address], [place], [address], [facility] 03/18/2023 13:16:56 04/10/2023 text/html Emergency Depart ment Follow-Up RecordReported bypatient.Discharge Informationname of ED [facility]; emergency department discharge date: (Please enter [...] her anxiety and migraines. TRAM HILLMAN MD [address], [address], [facility] 04/12/2023 13:27:53 OBGyn Episode No OBEpisode recorded.
[2024-08-14 08:09] LABS: Amphetamine Screen Urine Not Detected (Not Detect); Barbiturates, Urine Not Detected (Not Detect); Benzodiazepines Screen Urine Not Detected (Not Detect); Buprenorphine Scr Not Detected (Not Detect); Cannabinoid Screen Urine POSITIVE (Not Detect); Cocaine Screen Urine Not Detected (Not Detect); Fentanyl, urine Not Detected (Not Detect); Methadone Screen, Urine Not Detected (Not Detect); Opiate Screen Urine Not Detected (Not Detect); Oxycodone Screen Urine Not Detected (Not Detect); Phencyclidine Screen Urine Not Detected (Not Detect)
[2024-08-14] MEDS: Metoclopramide HCl 10 MG/2 ML VIAL IVPUSH ×2 (08:11→22:23)
[2024-08-14] MEDS: Morphine Sulfate 4 MG/ML CARTRIDGE IVPUSH (08:11)
[2024-08-14 08:29] LABS: Magnesium 1.1 mg/dL (1.6-2.6)
[2024-08-14] MEDS: Magnesium Sulfate/H2O 2 GM/50 ML PIGGYBACK IV (08:38)
[2024-08-14 09:04] LABS: VBG Base Excess -6.9 mmol/L; VBG HCO3 16 mmol/L (22-26); VBG pCO2 26 mmHg; VBG pH 7.39 (7.32-7.43); VBG pO2 58 mmHg
[2024-08-14 09:05] LABS: Venous Blood Gas Refer to POC result
[2024-08-14 09:15] LABS: Beta-Hydroxybutyrate 3.45 mmol/L (0.02-0.27)
--- NOTE | 2024-08-14 09:15 | PM.IMHP ---
History of Present Illness Date of Service: 08/14/24 Attending physician on admission: Erick Hunt Chief Complaint: Nausea, vomiting, diarrhea This is a 23-year-old female history of migraine headaches, unspecified mood disorder, cyclical vomiting who presented to the emergency department with 2 days nausea, vomiting that does not seem to be getting better. Reports one episode of diarrhea. Denies any sick contacts. She reports that when she got to the emergency department she went to the bathroom and had a syncopal episode, and she needed assistance getting into a wheelchair. She does endorse smoking marijuana 1 month ago but nothing recently. Also reporting lower abd discomfort throughout. She denies fevers, chills, headache, vision changes, dizziness, weakness, chances of , cough, chest pain, shortness of breath. Review of Systems Review of Systems: Yes all other systems are reviewed and are negative [facility] Medical History Cannabinoid hyperemesis syndrome Migraine headache Patient : No Social History Household Members: Spouse Housing: House Do you presently have visiting nurse or other home services: No Alcohol intake: former Patient Tobacco Use Status: Never used Tobacco Smoked in Last 30 Days: No Use of substances other than those prescribed or required for medical reasons: Yes Substance Use Type: Marijuana Substance Use Frequency Other:: hasn't used in a month per patient Advance Directives: Yes Advance Directives on File: Yes Advance Directives Date on File: 05/26/24 Do you have a plan to hurt others: No Plan Patient : No service: No Meds Allergies Allergy/AdvReac Type Severity Reaction Status Date / Time No Known Allergies Allergy Verified 08/14/24 06:16 [No Known Allergies*] Active Medications: Current Medications Magnesium Sulfate (Magnesium Sulfate/H2o) 2 gm in 50 mls @ 25 mls/hr IV ONCE ONE Stop: 08/14/24 10:28 Last Admin: 08/14/24 08:38 Dose: 25 mls/hr Home Medications ?Medication ?Instructions ?Recorded ?Confirmed ?Last Taken ?Type buspirone 15 mg tablet 15 mg PO TID 05/24/24 08/14/24 08/12/24 History clonidine HCl 0.1 mg tablet 0.1 mg PO TID PRN Anxiety 05/24/24 08/14/24 Unknown History sertraline 50 mg tablet 50 mg PO DAILY 05/24/24 08/14/24 08/12/24 History trazodone 50 mg tablet 50 mg PO BEDTIME 08/08/24 08/14/24 08/12/24 History prazosin 1 mg capsule 1 mg PO BEDTIME 08/14/24 08/14/24 08/12/24 History Physical Exam Vital Signs and Narrative: Vital Signs: Last Vital Signs Temp 97.4 F 08/14/24 08:29 Pulse 108 H 08/14/24 08:29 Resp 20 08/14/24 08:29 BP 138/60 08/14/24 08:29 Pulse Ox 97 08/14/24 08:29 O2 Del Method Room Air 08/14/24 08:29 BMI result Body Mass Index 26.6 Appearance: Alert.? Oriented X3.? No acute distress.? Head: Normocephalic, atraumatic, no step-offs or deformities Eyes: Pupils equal, round and reactive to light.? ENT: Pharynx normal.? Neck: Normal inspection.? Neck supple.? CVS: Normal heart rate and rhythm.? Pulses normal.? Respiratory: No respiratory distress.? Breath sounds normal.? Abdomen: Soft and diffuse lower abd discomfort.? Skin: Skin warm and dry.? Normal skin color.? Normal skin turgor.? Extremities: No lower extremity edema.? No calf ttp. 5/5 strength to bilateral upper and lower extremities Neuro: Oriented X 3.? No motor deficit.? No sensory deficit. CN 2-12 intact Results Labs 08/14/24 06:48 08/14/24 11:16 Labs: Laboratory Results - last 24 hr 08/14/24 08/14/24 08/14/24 06:48 08:50 08:58 MCV 85.3 D MCH 30.4 MCHC 35.7 H RDW 13.8 Plt Count 372 MPV 10.1 Immature Gran % (Auto) 0.4 Neut % (Auto) 89.9 H Lymph % (Auto) 3.7 L [place] % (Auto) 5.7 Eos % (Auto) 0.0 Baso % (Auto) 0.3 Lymph # (Auto) 0.7 L [place] # (Auto) 1.1 Eos # (Auto) 0.0 Baso # (Auto) 0.1 Abs Immat Gran (auto) 0.08 H Absolute Neuts (auto) 16.6 H Absolute Nucleated RBC 0.000 Nucleated RBC % (auto) 0.0 VBG pH 7.39 VBG pCO2 26 VBG pO2 58 VBG HCO3 16 L VBG O2 Saturation 84.0 VBG Base Excess -6.9 Anion Gap 26 H Estim Creat Clear Calc 99.5 Estimated GFR > 60 Random Glucose 145 H Calcium 9.2 D Magnesium 1.1 L* Total Bilirubin 1.2 H AST 35 H ALT 11 Alkaline Phosphatase 52 Total Protein 8.2 H Albumin 4.9 Lipase 7 L Beta-Hydroxybutyrate 3.45 H Urine Color Yellow Urine Appearance Clear Urine pH 5.5 Ur Specific Arcade 1.025 Urine Protein Trace Urine Glucose (UA) Negative Urine Ketones 80 Urine Blood Negative Urine Nitrite Negative Ur Leukocyte Esterase Negative Urine Test NEGATIVE Urine Opiates Screen Not Detected Ur Buprenorphine Scrn Not Detected Ur Oxycodone Screen Not Detected Urine Methadone Screen Not Detected Urine Fentanyl Screen Not Detected Ur Barbiturates Screen Not Detected Ur Phencyclidine Scrn Not Detected Ur Amphetamines Screen Not Detected U Benzodiazepines Scrn Not Detected Urine Cocaine Screen Not Detected U Marijuana (THC) Screen POSITIVE H Influenza Type A (PCR) NEGATIVE Influenza Type B (PCR) NEGATIVE RSV RNA Qual (PCR) NEGATIVE SARS-CoV-2 RNA (RT-PCR) NEGATIVE Imaging Comment: Impression: No acute process evident. No bowel obstruction or acute inflammatory changes. Possible corpus luteum cyst left ovary although although perhaps persistent from prior CT. Small amount of free pelvic fluid most likely physiologic in this age group. If symptoms referable to the pelvis, follow-up pelvic ultrasound suggested. Assessment and Plan (1) High anion gap metabolic acidosis: Status: Acute (2) Cannabinoid hyperemesis syndrome: Status: Acute (3) Intractable nausea and vomiting: Status: Acute (4) Mood disorder: Status: Acute Plan This is a 23-year-old female being admitted to the hospitalist service for likely cannabinoid hyperemesis syndrome. She has a history of previous admission for a similar complaint. She presented to the emergency department with nausea, vomiting, diarrhea for the past 2 days in 1 syncopal episode while in the emergency department. Her laboratory studies with an elevated white count of 18.5 with a left shift 89.9 likely reactive secondary to nausea and vomiting. Anion gap of 26, CO2 of 10 likely representing starvation ketosis from GI losses. Magnesium 1.1 which was repleted with IV magnesium. Her urine toxicology was positive for marijuana. UA was negative. Flu, COVID, RSV negative. Her beta hydroxybutyrate 3.45 again likely starvation ketosis. There was no imaging done as she did not complain of abdominal pain and there was no abdominal tenderness on exam for ED provider for me there was lower abd discomfort and CT was ordered. For nausea and vomiting she was treated with Zofran x2, Reglan and given Ativan with some improvement of symptoms. # Intractable nausea and vomiting # Cannabinoid hyperemesis syndrome # Marijuana abuse - NPO if needed and not able to tollerate food - Continue with PRN antiemetics (zofran 4 mg IV Q 4H PRN N/V and metoclopramide 10 mg Q6H PRN N/V) - LR for hydration until gap is closed ( on 3 L LR now ) will repeat CMP to look at improvement - Educated on smoking sensation # High anion gap metabolic acidosis -Likely in the setting of GI losses ( N/V/D), poor PO intake and starvation # Leukocytosis -Likely reactive in the setting of N/V/D #Mood disorder -Sertraline 50 mg daily -Trazadone 50 mg bedtime -Clonidine 0.1 mg TID PRN anxiety -Buspirone 15 mg TID #Nighmares -Prazosin 1 mg po bedtime #Migraine headaches -Atogepant 60 mg daily Code status: Full code DVTP: Lovenox 40 mg Q24H Total time managing care of this patient today: 45 minutes. Quality Stroke Does the patient have a stroke diagnosis?: No VTE Prior VTE?: No VTE Risk Level:: Medical - moderate - high VTE Device Contraindication: Treatment Not Indicated VTE Drug Contraindication: N/A - Med Ordered
[2024-08-14] MEDS: iohexoL 350 MG/ML 100 ML INFUS..BTL IV (10:09)
--- NOTE | 2024-08-14 10:13 | PHA.MEDREC ---
Pharmacy Consult ? Medication Reconciliation Pharmacy has completed the medication reconciliation. Spoke to pt to confirm meds. Per pt, takes sertraline 50 mg daily, trazodone 50 mg bedtime.
[2024-08-14 11:49] LABS: Alanine Aminotransferase 13 U/L (0-31); Albumin Level 4.2 g/dL (3.5-5.0); Alkaline Phosphatase 44 U/L (39-117); Anion Gap 15 (12-20); Aspartate Amino Transferase 29 U/L (5-31); Bilirubin Total 1.4 mg/dL (0.0-1.0); Blood Urea Nitrogen 17 mg/dL (9-16); Calcium 8.7 mg/dL (8.4-10.2); Carbon Dioxide 17 mmol/L (22-29); Chloride 106 mmol/L (96-108); Creatinine Clr Calc Pharmacy 118.8; Estimated Glomerular Filt Rate > 60; Glucose Random 90 mg/dL (60-115); Magnesium 1.7 mg/dL (1.6-2.6); Phosphorus 2.7 mg/dL (2.7-4.5); Potassium 4.2 mmol/L (3.3-5.1); Sodium 134 mmol/L (135-145); Total Protein 6.8 g/dL (6.5-8.0)
[2024-08-14] MEDS: Dextrose 5 % and Lactated Ring 1,000 ML 100 ML IVCONT (15:38)
[2024-08-14] MEDS: busPIRone HCl 5 MG TABLET 15 MG PO ×2 (15:40→20:14)
[2024-08-14] MEDS: Morphine Sulfate 2 MG/ML CARTRIDGE IVPUSH (18:33)
--- NOTE | 2024-08-14 19:49 | PC.NURSE ---
assumed care of pt at 1900
[2024-08-14] MEDS: traZODone HCL 50 MG TABLET PO (20:14)
[2024-08-14] MEDS: Prazosin HCL 1 MG CAPSULE PO (20:14)
[2024-08-14] MEDS: Calcium Carbonate 750 MG TAB.CHEW PO (20:14)
[2024-08-14] MEDS: cloNIDine HCL 0.1 MG TABLET PO (22:23)
--- NOTE | 2024-08-14 22:23 | PC.NURSE ---
pt HR went as high as 176 while she was sleeping, states she just feels funny and has a burning sensation to esophagus. no vomiting. EKG being done, MD pelon he aware
--- NOTE | 2024-08-14 22:41 | PC.NURSE ---
pt ambulates to and from bathroom with steady gait in no apparent distress, back in bed resting comfortably. warm blanket and ice chips provided. medicated with reglan for nausea and clonidine for anxiety. pt on monitor, call haile within reach.
[2024-08-14 22:43] LABS: MANUAL DIFF FLAG NO
[2024-08-14 22:44] LABS: Basophils Percent Auto 0.3 % (0-2); Hemoglobin 10.8 g/dl (12.0-16.0); Imm Gran Abs Auto 0.01 X10*3/uL (0.00-0.03); Imm Gran Pct Auto 0.1 % (0.0-0.4); Lymphocytes Percent Auto 25.5 % (20-40); Mean Corpuscular HGB Conc 34.8 g/dl (31.0-35.0); Mean Corpuscular Hemoglobin 30.6 pg (27.0-33.0); Mean Corpuscular Volume 87.8 fL (80.0-98.0); Mean Platelet Volume 9.8 fL (9.4-12.3); Monocytes Absolute Auto 1.2 X10*3/uL (0.1-1.2); Monocytes Percent Auto 15.5 % (2-11); Neutrophils Absolute Auto 4.6 x10*3/uL (2.0-8.3); Neutrophils Percent Auto 58.6 % (45-73); Platelet Count 243 X10*3/uL (160-400); Red Blood Count 3.53 X10*6/uL (4.20-5.50); White Blood Count 7.8 X10*3/uL (4.8-10.8)
[2024-08-14 22:59] LABS: Anion Gap 11 (12-20); Blood Urea Nitrogen 12 mg/dL (9-16); Calcium 8.6 mg/dL (8.4-10.2); Carbon Dioxide 21 mmol/L (22-29); Chloride 108 mmol/L (96-108); Creatinine Clr Calc Pharmacy 103.4; Estimated Glomerular Filt Rate > 60; Glucose Random 102 mg/dL (60-115); Potassium 3.1 mmol/L (3.3-5.1); Sodium 137 mmol/L (135-145)
[2024-08-14 23:00] LABS: Lactic Acid 1.2 mmol/L (0.5-2.0)
[2024-08-15] MEDS: Dextrose 5 % and Lactated Ring 1,000 ML 100 ML IVCONT (00:52)
--- NOTE | 2024-08-15 00:54 | PC.NURSE ---
pt asleep comfortably, respirations even and unlabored. call haile within reach. HR 79 on loom changer.
[2024-08-15 01:25] VITALS: BP 126/77; PULSE 88; RESP 16; TEMP 37.1; O2SAT 96
[2024-08-15 06:38] LABS: MANUAL DIFF FLAG NO
[2024-08-15 06:57] LABS: Basophils Percent Auto 0.4 % (0-2); Hematocrit 29.9 % (37.0-47.0); Hemoglobin 10.6 g/dl (12.0-16.0); Imm Gran Abs Auto 0.01 X10*3/uL (0.00-0.03); Imm Gran Pct Auto 0.2 % (0.0-0.4); Lymphocytes Absolute Auto 1.7 X10*3/uL (1.2-4.9); Lymphocytes Percent Auto 36.5 % (20-40); Mean Corpuscular HGB Conc 35.5 g/dl (31.0-35.0); Mean Corpuscular Volume 87.4 fL (80.0-98.0); Mean Platelet Volume 10.4 fL (9.4-12.3); Monocytes Absolute Auto 0.7 X10*3/uL (0.1-1.2); Monocytes Percent Auto 13.9 % (2-11); Neutrophils Absolute Auto 2.3 x10*3/uL (2.0-8.3); Platelet Count 227 X10*3/uL (160-400); Red Blood Count 3.42 X10*6/uL (4.20-5.50); White Blood Count 4.7 X10*3/uL (4.8-10.8)
[2024-08-15 07:19] LABS: Alanine Aminotransferase 14 U/L (0-31); Albumin Level 3.6 g/dL (3.5-5.0); Alkaline Phosphatase 42 U/L (39-117); Anion Gap 9 (12-20); Aspartate Amino Transferase 30 U/L (5-31); Bilirubin Total 1.1 mg/dL (0.0-1.0); Blood Urea Nitrogen 12 mg/dL (9-16); Calcium 8.2 mg/dL (8.4-10.2); Carbon Dioxide 22 mmol/L (22-29); Chloride 110 mmol/L (96-108); Creatinine Clr Calc Pharmacy 112.1; Estimated Glomerular Filt Rate > 60; Glucose Random 88 mg/dL (60-115); Potassium 3.4 mmol/L (3.3-5.1); Sodium 138 mmol/L (135-145); Total Protein 5.9 g/dL (6.5-8.0)
[2024-08-15] MEDS: busPIRone HCl 5 MG TABLET 15 MG PO (08:35)
[2024-08-15] MEDS: Sertraline HCL 50 MG TABLET PO (08:35)
[2024-08-15] MEDS: Enoxaparin Sodium 40 MG/0.4 ML SYRINGE SUBCUT (08:36)
[2024-08-15 10:15] VITALS: BP 126/77; PULSE 83; RESP 18; TEMP 36.9; O2SAT 97
--- NOTE | 2024-08-15 10:44 | P.DS_ITS ---
DS: Providers Provider Date of Service: 08/15/24 Date of admission: 08/14/24 09:34 Date of discharge: 08/15/24 Primary care physician: Malcom Marquez MD DS: Diagnosis Discharge Diagnosis (1) High anion gap metabolic acidosis: Status: Acute (2) Cannabinoid hyperemesis syndrome: Status: Acute (3) Intractable nausea and vomiting: Status: Acute (4) Mood disorder: Status: Acute (5) Cyclic vomiting syndrome: Status: Acute (6) Starvation ketoacidosis: Status: Acute DS: Summary Hospital Course Hospital Course: From the history and physical by the admitting hospitalist, DANIEL Causey, 08/14/24: This is a 23-year-old female history of migraine headaches, unspecified mood disorder, cyclical vomiting who presented to the emergency department with 2 days nausea, vomiting that does not seem to be getting better. Reports one episode of diarrhea. Denies any sick contacts. She reports that when she got to the emergency department she went to the bathroom and had a syncopal episode, and she needed assistance getting into a wheelchair. She does endorse smoking marijuana 1 month ago but nothing recently. Also reporting lower abd discomfort throughout. She denies fevers, chills, headache, vision changes, dizziness, w eakness, chances of , cough, chest pain, shortness of breath. She was admitted to the hospitalist service and treated with aggressive IV fluid rehydration and given IV magnesium along with ondansetron and metoclopramide. Her symptoms resolved and she was able to tolerate a regular solid diet. Electrolytes normalized and acidosis resolved. She was discharged home with a prescription for ondansetron and was counseled to avoid cannabis entirely. She was recently prescribed atogepant for migraine prevention and was counseled to start this medication. Time Attestation Discharge Coordination Time (in mins): 35 Quality: Safe Use of Opioids Does Pt have an Active Cancer Diagnosis on the Problem List?: No Quality: Stroke Does the patient have a stroke diagnosis?: No Physical Exam Vital Signs: Vital Signs: Last Vital Signs Temp 98.8 F 08/15/24 01:25 Pulse 88 08/15/24 01:25 Resp 16 08/15/24 01:25 BP 126/77 08/15/24 01:25 Pulse Ox 96 08/15/24 01:25 O2 Del Method Room Air 08/15/24 01:25 BMI result Body Mass Index 26.6 Gen: in no acute distress HEENT: sclera anicteric, moist mucus membranes Neck: supple Lungs: clear to auscultation bilaterally Heart: regular rate and rhythm, no murmurs Abd: soft, non-tender, non-distended Ext: no edema Skin: warm/well-perfused Neuro: alert and oriented x3, no focal findings Psych: appropriate affect DS: Data Data Completed and Pending Completed studies during hospitalization [Text1]: Laboratory Results WBC 4.7 X10*3/uL (4.8-10.8) L 08/15/24 05:09 RBC 3.42 X10*6/uL (4.20-5.50) L 08/15/24 05:09 Hgb 10.6 g/dl (12.0-16.0) L 08/15/24 05:09 Hct 29.9 % (37.0-47.0) L 08/15/24 05:09 MCV 87.4 fL (80.0-98.0) 08/15/24 05:09 MCH 31.0 pg (27.0-33.0) 08/15/24 05:09 MCHC 35.5 g/dl (31.0-35.0) H 08/15/24 05:09 RDW 14.0 % (11.0-16.0) 08/15/24 05:09 Plt Count 227 X10*3/uL (160-400) 08/15/24 05:09 MPV 10.4 fL (9.4-12.3) 08/15/24 05:09 Immature Gran % (Auto) 0.2 % (0.0-0.4) 08/15/24 05:09 Neut % (Auto) 49.0 % (45-73) 08/15/24 05:09 Lymph % (Auto) 36.5 % (20-40) 08/15/24 05:09 [place] % (Auto) 13.9 % (2-11) H 08/15/24 05:09 Eos % (Auto) 0.0 % (0-4) 08/15/24 05:09 Baso % (Auto) 0.4 % (0-2) 08/15/24 05:09 Lymph # (Auto) 1.7 X10*3/uL (1.2-4.9) 08/15/24 05:09 [place] # (Auto) 0.7 X10*3/uL (0.1-1.2) 08/15/24 05:09 Eos # (Auto) 0.0 X10*3/uL (0.0-0.4) 08/15/24 05:09 Baso # (Auto) 0.0 X10*3/uL (0.0-0.2) 08/15/24 05:09 Abs Immat Gran (auto) 0.01 X10*3/uL (0.00-0.03) 08/15/24 05:09 Absolute Neuts (auto) 2.3 x10*3/uL (2.0-8.3) 08/15/24 05:09 Absolute Nucleated RBC 0.000 X10*3/uL (0.0-0.012) 08/15/24 05:09 Nucleated RBC % (auto) 0.0 /100WBC (0.0-0.2) 08/15/24 05:09 VBG pH 7.39 (7.32-7.43) 08/14/24 08:58 VBG pCO2 26 mmHg 08/14/24 08:58 VBG pO2 58 mmHg 08/14/24 08:58 VBG HCO3 16 mmol/L (22-26) L 08/14/24 08:58 VBG O2 Saturation 84.0 % 08/14/24 08:58 VBG Base Excess -6.9 mmol/L 08/14/24 08:58 Sodium 138 mmol/L (135-145) 08/15/24 05:09 Potassium 3.4 mmol/L (3.3-5.1) 08/15/24 05:09 Chloride 110 mmol/L (96-108) H 08/15/24 05:09 Carbon Dioxide 22 mmol/L (22-29) 08/15/24 05:09 Anion Gap 9 (12-20) L 08/15/24 05:09 BUN 12 mg/dL (9-16) 08/15/24 05:09 Creatinine 0.71 mg/dL (0.5-1.4) 08/15/24 05:09 Estim Creat Clear Calc 112.1 08/15/24 05:09 Estimated GFR > 60 08/15/24 05:09 Random Glucose 88 mg/dL (60-115) 08/15/24 05:09 Lactic Acid 1.2 mmol/L (0.5-2.0) 08/14/24 22:34 Calcium 8.2 mg/dL (8.4-10.2) L 08/15/24 05:09 Phosphorus 2.7 mg/dL (2.7-4.5) 08/14/24 11:16 Magnesium 1.7 mg/dL (1.6-2.6) 08/14/24 11:16 Magnesium Cancelled 08/14/24 11:16 Total Bilirubin 1.1 mg/dL (0.0-1.0) H 08/15/24 05:09 AST 30 U/L (5-31) 08/15/24 05:09 ALT 14 U/L (0-31) 08/15/24 05:09 Alkaline Phosphatase 42 U/L (39-117) 08/15/24 05:09 Total Protein 5.9 g/dL (6.5-8.0) L 08/15/24 05:09 Albumin 3.6 g/dL (3.5-5.0) 08/15/24 05:09 Lipase 7 U/L (8-78) L 08/14/24 06:48 Beta-Hydroxybutyrate 3.45 mmol/L (0.02-0.27) H 08/14/24 08:50 Urine Color Yellow 08/14/24 06:48 Urine Appearance Clear 08/14/24 06:48 Urine pH 5.5 (5.0-9.0) 08/14/24 06:48 Ur Specific [place] 1.025 (1.005-1.025) 08/14/24 06:48 Urine Protein Trace mg/dL (Neg-Trace) 08/14/24 06:48 Urine Glucose (UA) Negative mg/dL (Negative) 08/14/24 06:48 Urine Ketones 80 mg/dL (Negative) 08/14/24 06:48 Urine Blood Negative (Negative) 08/14/24 06:48 Urine Nitrite Negative (Negative) 08/14/24 06:48 Ur Leukocyte Esterase Negative (Negative) 08/14/24 06:48 Urine Test NEGATIVE (NEGATIVE) 08/14/24 06:48 Urine Opiates Screen Not Detected (Not Detect) 08/14/24 06:48 Ur Buprenorphine Scrn Not Detected ng/mL (Not Detect) 08/14/24 06:48 Ur Oxycodone Screen Not Detected ng/mL (Not Detect) 08/14/24 06:48 Urine Methadone Screen Not Detected ng/mL (Not Detect) 08/14/24 06:48 Urine Fentanyl Screen Not Detected (Not Detect) 08/14/24 06:48 Ur Barbiturates Screen Not Detected (Not Detect) 08/14/24 06:48 Ur Phencyclidine Scrn Not Detected (Not Detect) 08/14/24 06:48 Ur Amphetamines Screen Not Detected (Not Detect) 08/14/24 06:48 U Benzodiazepines Scrn Not Detected (Not Detect) 08/14/24 06:48 Urine Cocaine Screen Not Detected (Not Detect) 08/14/24 06:48 U Marijuana (THC) Screen POSITIVE (Not Detect) H 08/14/24 06:48 Influenza Type A (PCR) NEGATIVE (Negative) 08/14/24 06:48 Influenza Type B (PCR) NEGATIVE (Negative) 08/14/24 06:48 RSV RNA Qual (PCR) NEGATIVE (Negative) 08/14/24 06:48 SARS-CoV-2 RNA (RT-PCR) NEGATIVE (Negative) 08/14/24 06:48 CT A/P 08/14/24 No acute process evident. No bowel obstruction or acute inflammatory changes. Possible corpus luteum cyst left ovary although although perhaps persistent from prior CT. Small amount of free pelvic fluid most likely physiologic in this age group. If symptoms referable to the pelvis, follow-up pelvic ultrasound suggested. Discharge Plan Discharge Patient Disposition: Home, Self-Care Discharge Diagnosis: starvation ketosis and hypomagnesemia due to nausea and vomiting from cyclic vomiting/cannabinoid hyperemesis syndrome Referrals: Malcom Marquez MD [Primary Care Provider] - 1 Week Discharge Medications: New ondansetron HCl 4 mg tablet 4 mg PO Q6H PRN (Reason: nausea and vomiting) Qty: 20 0RF Continued clonidine HCl 0.1 mg Tablet 0.1 mg PO TID PRN (Reason: Anxiety) sertraline 50 mg Tablet 50 mg PO DAILY buspirone 15 mg Tablet 15 mg PO TID prazosin 1 mg Capsule 1 mg PO BEDTIME trazodone 50 mg tablet 50 mg PO BEDTIME atogepant 60 mg tablet 60 mg PO DAILY 30 Days Qty: 30 6RF Discharge Orders: Discharge Order (Routine); Ordered 08/15/24 Ordered By: Ladonna Gleason Diet: Advance to usual diet Activity on Discharge: As tolerated Stand Alone Forms: Patient Portal Discharge page Print Language: Andorran Care Plan Goals: prevention of cyclic vomiting attacks Health Concerns: starvation ketosis and hypomagnesemia due to nausea and vomiting from cyclic vomiting/cannabinoid hyperemesis syndrome Plan of Treatment: take migraine medication as prescribed use ondansetron as needed for nausea/vomiting avoid all cannabis products Please follow up with your primary care doctor within 1 week. Return to the hospital if you experience recurrent or worsening symptoms. Assessment: See Discharge Summary.
[2024-08-15 10:50] VITALS: BP 126/77; PULSE 83; RESP 18; TEMP 36.9; O2SAT 97
--- NOTE | 2024-08-15 11:23 | MHC.CM.PN ---
PT REPORTS SHE LIVES WITH HER S/O AND IS INDEPENDENT WITH CARE SHE HAS NO DME AND NO SERVICES HCP ON FILE AND VERIFIED PCP: [facility] NOTICE DELIVERED PT WILL DC HOME TODAY WITH NO SERVICES VIA PRIVATE TRANSPORT
== END 2024-08-15 10:45 | disposition home or self-care (01) ==
LOC: HO.ED 08:14 → HO.EDOVER 09:35
PROVIDERS: Internal Medicine; Physician Assistant; Admitting Provider Physician Assistant; Emergency Provider Emergency Medicine; PCP Internal Medicine; Visit Provider Family Medicine
DX: E88.89 Other specified metabolic disorders (principal); T73.0XXA Starvation, initial encounter; X58.XXXA Exposure to other specified factors, initial encounter; R11.15 Cyclical vomiting syndrome unrelated to migraine; E83.42 Hypomagnesemia; R00.0 Tachycardia, unspecified; F12.90 Cannabis use, unspecified, uncomplicated; F39 Unspecified mood [affective] disorder; G43.909 Migraine, unspecified, not intractable, without status migrainosus; F51.5 Nightmare disorder; R10.9 Unspecified abdominal pain; Z03.818 Encounter for observation for suspected exposure to other biological agents ruled out; Z79.899 Other long term (current) drug therapy
CPT/HCPCS: 0241U; 36415; 74177; 80048; 80053; 80307; 81003; 81025; 82010; 82803; 83605; 83690; 83735; 84100; 85025; 93005; 96361; 96365; 96366; 96372; 96375; 96376; 99221; 99285; J1650; J2060; J2270; J2405; J2765; J3475; J7120; Q9967

== ENCOUNTER 2024-08-14 09:34 | Outpatient (BNV) | payer OTHER, SELFPAY | END 2024-08-14 09:55 | PROVIDERS: Admitting Provider Physician Assistant; Emergency Provider Emergency Medicine; PCP Internal Medicine; Visit Provider Radiology Diagnostic Radiology | DX: R10.9 Unspecified abdominal pain (principal); R11.2 Nausea with vomiting, unspecified; R19.7 Diarrhea, unspecified | CPT/HCPCS: 74177 ==

== ENCOUNTER 2024-08-14 09:34 | Outpatient (BNV) | payer OTHER, SELFPAY | END 2024-08-14 22:15 | PROVIDERS: Admitting Provider Physician Assistant; Emergency Provider Emergency Medicine; PCP Internal Medicine; Visit Provider Internal Medicine | DX: R00.0 Tachycardia, unspecified (principal) | CPT/HCPCS: 93010 ==

== ENCOUNTER → 2024-08-14 09:34 | Outpatient (BNV) | payer OTHER, SELFPAY | PROVIDERS: Admitting Provider Physician Assistant; Emergency Provider Emergency Medicine; PCP Internal Medicine; Visit Provider Physician Assistant | DX: E87.29 Other acidosis (principal); R11.2 Nausea with vomiting, unspecified; F12.90 Cannabis use, unspecified, uncomplicated; F39 Unspecified mood [affective] disorder; R11.15 Cyclical vomiting syndrome unrelated to migraine; T73.0XXA Starvation, initial encounter | CPT/HCPCS: 99239 ==

== ENCOUNTER 2024-08-24 08:32 | Outpatient (REF) | payer OTHER, SELFPAY ==
--- OUTSIDE RECORDS SUMMARY | 2024-08-24 08:35 | XMS_ITS | Data Portability ---
Author Organization [facility], Main Office Address [address] [facility] [address] [place] [id number] Care Team Providers Care Quarrying Manager Name Role Phone EMILY FELDER Automotive General Manager TRAM HILLMAN Primary Care Provider Assessment No assessment recorded. Plan of Treatment Reminders Order Date Submit Date Provider Last Modified By Organization Details Last Modified Time Details Appointments None recorde dJerome Lab lipid panel, serum 2022 023 [email or web address] [facility], [address] , [facility], [place], [address], 3 10:43:10 BMP, serum or plasma 2022 023 KARY [facility], [address] , [facility], [place], [address], 3 10:05:31 CBC w/ auto diff 2022 023 KARY [facility], [address], [facility], [place], [address], 3 10:05:32 TSH, serum or plasma 2022 023 KARY [facility], [address], [facility], [place], [address], 3 10:05:32 hepatic functio n panel, serum 2022 023 KARY [facility], [address] [facility], [place], [address], 3 10:05:31 hepatit is C virus Ab, serum 2022 023 KARY [facility], [address] [facility], [address], [place], [address], 3 10:05:31 Referral neurolo gist referra l - severe migrain es and headach es 2022 023 oneal [facility], [address] [facility] [address], [place], [address], 3 07:50:30 gynecol ogist referra l - Patient to schedul e 2022 023 [email or web address] Not available 4 12:33:55 audiolo gist referra l - hx of several ear infecti ons, complai timur of hearing loss, ordered to check baselin e 2022 023 [email or web address] [facility], [address] [place], [address], 3 18:20:56 dermato logist referra l 2022 023 silvio Baptiste MD, [address] [facility], [place], [address], 4 09:30:28 Procedures None recorde d. Surgeries None recorde d. Imaging MRI, brain, w/o contras t - wakes with headach es 2022 023 oneal [facility] (Ultrasound), [address] [place], [address], 3 14:30:45 Medication Orders sumatri ptan 50 mg tablet 2022 023 [place] [facility], [address] [place], [address], 3 09:14:47 Topamax 50 mg tablet 2022 023 [email or web address] [facility] [address] [place], [address], 3 13:11:07 hydroco rtisone 2.5 % topical cream 2022 023 [facility] [address] [place], [address], 3 15:09:11 sertral ine 25 mg tablet 2022 023 [facility] [address] [place], [address], 3 15:09:10 sertral ine 50 mg tablet 2022 023 [facility] [address] [place], [address], 3 15:09:11 Ubrelvy 50 mg tablet 2022 023 [email or web address] [facility] [address] [place], [address], 3 13:07:14 Patient TargetsNo targets recorded. Patient Instructions Encounter Date Encounter Id Patient Instructions Last Modified By Organization Details Last Modified Time 03/10/2023 [id number] medical record request* [email or web address] Not available 03/10/2023 13:41:00 Well Visit, Ages 18 to 65: Care Instructions Not available 03/10/2023 10:05:25 Cervical Cancer Screening Not available 03/10/2023 10:05:26 03/18/2023 [id number] At [facility] follow up visit, all current and discharge medications (OTC, herbal therapies, supplements) reviewed and reconciled with patient and or caregiver, including potential side effects, drug interactions, instructions, and the consequences of not taking medication. Reviewed potential barriers to medication adherence, such as side effects from medication or cost of medication. [email or web address] Not available 03/18/2023 08:51:39 04/10/2023 [id number] At [facility] follow up visit, all current and discharge medications (OTC, herbal therapies, supplements) reviewed and reconciled with patient and or caregiver, including potential side effects, drug interactions, instructions, and the consequences of not taking medication. Reviewed potential barriers to medication adherence, such as side effects from medication or cost of medication. 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 for Referral Manager Security And Safety Referral for Sc reening for malignant neoplasm of cervix Patient to schedule Referring Physician: Tram Hillman [facility], Encounter Date: 03/10/2023 Neurologist Referral for Hea dache severe migraines and headaches Referring Physician: Tram Hillman [facility], Encounter Date: 03/10/2023 Foot Caster Referral for Yobany ateral hearing loss hx of several ear infections, complaining of hearing loss, ordered to check baseline Referring Physician: Tram Hillman [facility], Encounter Date: 03/10/2023 Solar Photovoltaic Electrician Referral for U rticaria Referring Physician: Tram Hillman [facility], Encounter Date: 04/10/2023 Results Created Date Observation [...] : The flow voids throug h the [place] are mainta ined, and there [...] 10 mm. This displa allyn the left buying intern al cerebr al vein and pineal gland [...] with a small arachn oid cyst. WSN: [id number] Orderi ng Physic ai: Patrice Conte ie Dictat ed By: Salvatore Lara MD Dictat ed Date/T donna: 11:47 a Review ed By: Salvatore Lara MD Signed By: Salvatore Lara MD Signed Date/T donna: 11:47 am Transc ribed By: ANGIE Transc ribed Date/T donna: 11:41 am Patien t Class: Outpat ient [facility] (Outpt Imaging) [address] [place], [address], 05/20/2023 16:05:27 04/11/2004/10/2023 MRI, brain , w/o contr ast No observ ation record ed. [email or web address] [facility] [address] [facility], [place], [address], 04/12/2023 11:45:48 Result Notes None recorded. Problems Name Problem SNOMED Code Status Onset Date Resolution Date Notes Provider Name and Address Organization Details Recorded Time Priscilla johnson [id number] Completed 202203/10/2023 TRAM HILLMAN MD [address] [facility] [address], [place], [address], [facility], [place] 3 04:52:57 Headache 74701465 Active 2022 TRAM HILLMAN MD [address] [facility] [address], [place], [address], [facility], [place] 3 13:26:41 Bipolar disorder 39512900 Active 2022 type II TRAM HILLMAN MD [address] [facility] [address], [place], [address], [facility], [place] 3 13:26:32 [place] edness 615814584 Active 2022 while doing house chores TRAM HILLMAN MD [address] [facility] [address], [place], [address], [facility], [place] 3 09:53:11 Anxiety 76425023 Active 2022 once a month will have a therapis t, looking for a new one TRAM HILLMAN MD [address] [facility] [address], [place], [address], [facility] 3 09:54:42 Depressiv e disorder 34618589 Active 2022 TRAM HILLMAN MD [address] [facility] [address], [place], [address], [facility], [place] 3 09:54:12 Migraine without aura 53223088 Active 2022 Yanique Isaacs PA-C [address] [address], [place], [address], [facility], [place] 3 09:12:42 Problem Notes None recorded. Procedures Surgical History None recorded. Imaging Results Imaging Date Name Status LastModified by Organiz ation Details LastModified Time 04/10/2023 MRI, brain, w/o contrast completed [email or web address] [facility] (Outpt Imaging) [address], [place], [address], 05/20/2023 16:05:27 04/10/2023 MRI, brain, w/o contrast completed [email or web address] [facility] [address], [place], [address], 04/12/2023 11:45:48 Procedure Notes None recorded. Medical [...] Updated DateTime 3 160.02 cm 21.1 kg/m2 14494.4 9 g 100 % 100 % 92 /min 98 [degF] 134 mm[Hg] 91 mm[Hg] 131 mm[Hg] 81 mm[Hg] Marlena Aquino MA [facility] 3 10:00:01 Date Recorded Body height Body mass index (BMI) Body weight Heart rate Oxygen saturation Oxygen saturation in Arterial blood by Pulse oximetry Body temperature Systolic blood pressure Diastolic blood pressure Systolic blood pressure Diastolic blood pressure Provider Name and Address Organization Details Last Updated DateTime 3 160.02 cm 21.6 kg/m2 00875.2 7 g 94 /min 99 % 99 % 98.8 [degF] 145 mm[Hg] 98 mm[Hg] 132 mm[Hg] 90 mm[Hg] Vic Hernandez MA [facility] 3 09:03:07 Date Recorded Body height Body mass index (BMI) Body weight Oxygen saturation Oxygen saturation in Arterial blood by Pulse oximetry Heart rate Body temperature Systolic blood pressure Diastolic blood pressure Systolic blood pressure Diastolic blood pressure Provider Name and Address Organization Details Last Updated DateTime 3 160.02 cm 22.9 kg/m2 96071.5 2 g 97 % 97 % 95 /min 98.3 [degF] 126 mm[Hg] 93 mm[Hg] 121 mm[Hg] 77 mm[Hg] Marlena Aquino MA [facility] 3 14:56:59 Social History Question Answer Notes LastModified by Organizat ion Details LastModified Time Tobacco Smoking Status Never Smoker Marlena Aquino MA [facility] 03/10/2023 09:41:26 What Is Your Level Of Alcohol Consumption? Occasional Rare [email or web address] Information not available 03/10/2023 Is Blood Transfusion Acceptable In An Emergency? Yes [email or web address] Information not available 03/10/2023 Are You Currently Employed? No [email or web address] Information not available 03/10/2023 What Type Of Diet Are You Following? REGULAR [email or web address] Information not available 03/10/2023 Which Illicit Or Recreational Drugs Have You Used? Marijuana [email or web address] Information not available 03/10/2023 Do You Take Precautions To Prevent Distracted Driving? Yes [email or web address] Information not available 03/10/2023 How Often Do You Need To Have Someone Help You When You Read Instructions, Pamphlets, Or Other Written Material From Your Doctor Or Pharmacy? Sometimes Information not available 03/10/2023 Have You Served In The ? No [email or web address] Information not available 03/10/2023 How Many Children Do You Have? 0 [email or web address] Information not available 03/10/2023 Are You Passively Exposed To Smoke? No [email or web address] Information no t available 03/10/2023 Do You Use Any Illicit Or Recreational Drugs? Yes [email or web address] Information not available 03/10/2023 Do You Or Have You Ever Used Any Other Forms Of Tobacco Or Nicotine? No [email or web address] Information not available 03/10/2023 Sex: Unknown Functional Status Question Answer Note LastModified by Organization D etails LastModified Time Are you able to walk? YESWOREST [email or web address] Information not available 03/10/2023 What is your exercise level? None [email or web address] Information not available 03/10/2023 Mental Status None recorded. Family History Relationship Description Onset Age of this Age Resolved Age Notes LastModified by Organization Details LastModified Time Paternal Aunt Malignant tumor of breast 4 patern al aunts [email or web address] Not available 03/10/2023 09:40:06 Paternal Aunt Diabetes mellitus [email or web address] Not available 03/10 09:40:22 Maternal Grandfather Diabetes mellitus [email or web address] Not available 03/10 09:40:15 Mother Depressive disorder [email or web address] Not available 03/10 09:40:42 Father Depressive disorder [email or web address] Not available 03/10 09:40:49 Brother Depressive disorder [email or web address] Not available 03/10 09:40:56 Medical History No medical history recorded. Gynecological History Statement/Question Response Date of Last Pap Smear Obstetrics History GPAL:G 0 P 0 0 0 0 Past Encounters Encounter ID Performer Location Encounter Start Date Encounter Closed Date Diagnosis/Indication Diagnosis SNOMED-CT Code Diagnosis ICD10 Code Diagnosis Note [id number] TRAM HILLMAN MD Main Office [address] [place] [address] 03/10/2023 09:16:25 03/10/2023 10:12:07 Adult health examination 182842272 Z00.00 Health Maintenanc e FemaleA) Patient was [...] in 2021TdAP: will considerZo ster: due at 30ZNA04: due at 97VUSR77: due at 97TEI00:PC V15:COVID: REFUSED D) Routine blood work orderedE) Updated patient's history RTC in one year for annual exam or sooner if any acute complaints Fatigue 61611482 R53.83 Z00.00 Hyperlipidemia 52547116 E78.5 Z00.00 Screening for malignant neoplasm of cervix 153408123 Z12.4 Hepatitis C screening 41 0122200 Z11.59 Patient ne w to provider [id number] 73707 Z76.89 - reviewed previous pediatric notes Headache 57939645 R51.9 - migraines with vomiting- pt has [...] pt mentions she has been going to [facility] for treatment of her headaches in the ED, will obtain records Bipolar disorder 3850338 4 F31.9 - pt was relanctant to admit this diagnosis- currently on aripiprazo le, given by a psychiatri st who patient sees monthly> pt currently looking for a new provider as current provider is a close family friend- pt does not have a therapist, advised to find one- will differ all medication s to psychiatri st Bilateral hearing loss 13850622 H91.93 - hx of several ear infections - will send for audiology testing Anxiety 24674677 F41.9 - SONJA-7 score of 19- pt [...] as needed in the evening Depressive disorder 7729 9007 F32.A - PHQ-9 score of 17- currently on escitalopr am 20mg, given by a psychiatri st who patient sees monthly> pt currently looking for a new provider as current provider is a close family friend- denies SI/HI- counselled patient on finding a therapist as well Requires a tetanus booster 630549281 Z28.39 Nausea and vomiting 1693 2000 R11.2 - associated with patient's migraines- pt does also smoke marijuana which can cause cannabis hyperemesi s syndrome- will first control patient's headaches and then if there is still vomiting present will consider this differenti al diagnosis [id number] Yanique Isaacs PA-C Main Office [address] [facility] [address] [place] [address] 03/18/2023 08:49:59 03/18/2023 09:17:32 Migraine without aura 88100795 G43.009 Uncontroll ed migraine headache syndrome. PT. will require preventati ve medication as well as rescue meds. WE will begin topiramate 50 mg daily and for rescue sumatripta n 50 mg. Migraine diary is recommende d to keep. F/u 1 month with PCP already set up. [id number] TRAM HILLMAN MD Main Office [address] [facility] [address] [place] [address] 04/10/2023 14:42:27 04/10/2023 15:11:37 Migraine without aura 22419122 G43.009 - uncontroll ed, several ED visits- [...] pt has been referred to neurology Urticaria [id number] L50. 9 - noted on the abdomen only- will try hydorcorti sone cream- pt referred to dermatolog y Anxiety 63308235 F41.9 - SONJA-7 score of 19 on [...] [place] Member ID Guarantor Name 03/10/2023 1 [facility] HEALTH PLAN (POS) Diana D [place] [id number] 3 Terri D [place] 03/18/2023 1 [facility] Diana D [place] [id number] 3 Terri D [place] 04/10/2023 1 [facility] HEALTH PLAN (POS) Diana D [place] [id number] 3 Terri D [place] Notes Date Note Type Note Provider Name [...] does not do TRAM HILLMAN MD [address] [facility] [address], [place], [address], [facility], [place] 03/11/2023 13:57:15 03/18/2023 text/html 22 year old [...] no otc meds. Yanique Isaacs PA-C [address] [facility] [address], [place], [address], [facility], [place] 03/18/2023 13:16:56 04/10/2023 text/html Emergency Depart ment Follow-Up RecordReported bypatient.Discharge Informationname of ED [facility]; emergency department discharge date: (Please enter [...] her anxiety and migraines. TRAM HILLMAN MD [address], [address], [facility], [place] 04/12/2023 13:27:53 OBGyn Episode No OBEpisode recorded.
[2024-08-26 18:13] LABS: Homocysteine 15.1 umol/L (<10.4)
== END 2024-08-24 08:33 | disposition home or self-care (01) ==
LOC: HO.LAB 08:32
PROVIDERS: PCP Internal Medicine; Visit Provider Nurse Practitioner Family
DX: D64.9 Anemia, unspecified (principal); G47.10 Hypersomnia, unspecified; R25.2 Cramp and spasm; R51.9 Headache, unspecified; R55 Syncope and collapse
CPT/HCPCS: 36415; 83090

== ENCOUNTER 2024-08-27 04:09 | Emergency (ER) | payer OTHER, SELFPAY ==
[2024-08-27 04:21] VITALS: BP 139/71; PULSE 96; RESP 16; TEMP 36.7; O2SAT 98; BMI 27.4
[2024-08-27] MEDS: ondansetron HCL 4 MG/2 ML VIAL IVPUSH (04:38)
[2024-08-27 04:39] LABS: MANUAL DIFF FLAG NO
[2024-08-27 04:40] LABS: Basophils Percent Auto 0.6 % (0-2); Eosinophils Percent Auto 0.3 % (0-4); Hematocrit 30.9 % (37.0-47.0); Hemoglobin 11.1 g/dl (12.0-16.0); Imm Gran Abs Auto 0.01 X10*3/uL (0.00-0.03); Imm Gran Pct Auto 0.2 % (0.0-0.4); Lymphocytes Absolute Auto 0.9 X10*3/uL (1.2-4.9); Lymphocytes Percent Auto 13.4 % (20-40); Mean Corpuscular HGB Conc 35.9 g/dl (31.0-35.0); Mean Corpuscular Hemoglobin 31.5 pg (27.0-33.0); Mean Corpuscular Volume 87.8 fL (80.0-98.0); Mean Platelet Volume 9.3 fL (9.4-12.3); Monocytes Absolute Auto 0.6 X10*3/uL (0.1-1.2); Monocytes Percent Auto 8.7 % (2-11); Neutrophils Absolute Auto 4.9 x10*3/uL (2.0-8.3); Neutrophils Percent Auto 76.8 % (45-73); Platelet Count 236 X10*3/uL (160-400); Red Blood Count 3.52 X10*6/uL (4.20-5.50); Red Cell Distribution Width 14.6 % (11.0-16.0); White Blood Count 6.4 X10*3/uL (4.8-10.8)
[2024-08-27 04:53] LABS: Alanine Aminotransferase 7 U/L (0-31); Albumin Level 4.3 g/dL (3.5-5.0); Alkaline Phosphatase 48 U/L (39-117); Anion Gap 19 (12-20); Aspartate Amino Transferase 25 U/L (5-31); Bilirubin Direct 0.2 mg/dL (0.0-0.5); Bilirubin Total 0.6 mg/dL (0.0-1.0); Blood Urea Nitrogen 11 mg/dL (9-16); Calcium 9.2 mg/dL (8.4-10.2); Carbon Dioxide 16 mmol/L (22-29); Chloride 110 mmol/L (96-108); Creatinine Clr Calc Pharmacy 129.5; Estimated Glomerular Filt Rate > 60; Glucose Random 111 mg/dL (60-115); Potassium 3.7 mmol/L (3.3-5.1); Sodium 141 mmol/L (135-145); Total Protein 7.1 g/dL (6.5-8.0)
[2024-08-27 05:03] LABS: Ethanol < 10 mg/dL
[2024-08-27 05:16] LABS: Influenza A PCR NEGATIVE (Negative); Influenza B PCR NEGATIVE (Negative); Resp Syncy Virus RNA Qual PCR NEGATIVE (Negative); SARS COV2 PCR INHOUSE NEGATIVE (Negative)
[2024-08-27 05:55] VITALS: BP 135/95; PULSE 92; RESP 22; O2SAT 100
--- NOTE | 2024-08-27 05:55 | ED.NAVMDI ---
HPI - Nausea/Vomiting/Diarrhea General Chief complaint: Abdominal Pain Stated complaint: n/v Time Seen by Provider: 08/27/24 05:54 Source: patient Mode of arrival: ambulatory Limitations: no limitations History of Present Illness ED Provider: HPI Narrative: Patient's cyclic vomiting/marijuana induced vomiting been here multiple times eating comes here for vomiting for last few days got worse last night patient is seen here on 08/14 for same Related Data Home Medications ?Medication ?Instructions ?Recorded ?Confirmed buspirone 15 mg tablet 15 mg PO TID 05/24/24 08/14/24 clonidine HCl 0.1 mg tablet 0.1 mg PO TID PRN Anxiety 05/24/24 08/14/24 sertraline 50 mg tablet 50 mg PO DAILY 05/24/24 08/14/24 trazodone 50 mg tablet 50 mg PO BEDTIME 08/08/24 08/14/24 prazosin 1 mg capsule 1 mg PO BEDTIME 08/14/24 08/14/24 Previous Rx's ?Medication ?Instructions ?Recorded atogepant 60 mg tablet 60 mg PO DAILY 30 days #30 tabs 08/08/24 ondansetron HCl 4 mg tablet 4 mg PO Q6H PRN nausea and 08/15/24 vomiting #20 tabs cholecalciferol (vitamin D3) 1,250 1,250 mcg PO QWEEK 12 days #12 caps 08/25/24 mcg (50,000 unit) capsule ondansetron 4 mg disintegrating 4 mg PO Q6-8H PRN nausea and 08/27/24 tablet vomiting #7 tabs Allergies Allergy/AdvReac Type Severity Reaction Status Date / Time No Known Allergies Allergy Verified 08/27/24 04:24 [No Known Allergies*] Review of Systems Review of Systems: Yes all other systems are reviewed and are negative PMFSH Past Medical History Medical History Mood disorder Cannabinoid hyperemesis syndrome Cannabinoid hyperemesis syndrome Migraine headache Social History Social History Household Members: Spouse Housing: House Do you presently have visiting nurse or other home services: No Alcohol intake: former Patient Tobacco Use Status: Never used Tobacco Substance Use Type: Marijuana Advance Directives: No Advance Directives Information Provided: Yes Advance Directives Date on File: 05/26/24 Do you have a plan to hurt others: No Plan service: No Physical Exam Vital Signs: Vital Signs: Last Vital Signs Temp 99.0 F 08/27/24 07:50 Pulse 106 H 08/27/24 07:50 Resp 16 08/27/24 07:50 BP 131/79 08/27/24 07:50 Pulse Ox 99 08/27/24 07:50 O2 Del Method Room Air 08/27/24 07:50 BMI result Body Mass Index 27.4 Appearance: Alert. Oriented X3. Anxious. Eyes: PERRLA, No Nystagmus ENT: Pharynx normal. Oral Mucosa moist Neck: Normal inspection. Neck supple. CVS: Normal heart rate and rhythm. Pulses normal. Respiratory: No respiratory distress. Equal air entry bilateral, no wheezing/rales/rhonchi Abdomen: Soft and nontender. Bowel sounds are present, no mass palpable, no CVA tenderness Skin: Skin warm and dry. Normal skin color. Normal skin turgor. Extremities: No lower extremity edema. No calf tenderness Neuro: Oriented X 3. No motor deficit. Medications Administered Discontinued Medications Generic Name Dose Route Start Last Admin Trade Name Freq PRN Reason Stop Dose Admin Sodium Chloride 1,000 mls @ 999 mls/hr 08/27/24 05:56 08/27/24 06:01 Ns IV 08/27/24 06:56 999 mls/hr .Q1H1M ONE Administration Lorazepam 2 mg 08/27/24 05:55 08/27/24 06:01 Lorazepam 2 Mg/Ml Vial IVPUSH 08/27/24 05:56 2 mg ONCE ONE Administration Ondansetron HCl 4 mg 08/27/24 04:35 08/27/24 04:38 Ondansetron Hcl 4 Mg/2 Ml Vial IVPUSH 08/27/24 04:36 4 mg ONCE ONE Administration Medical Decision Making Medical Decision Making [facility] Narrative: Patient with cannabis induced vomiting/cyclic vomiting discharge patient after IV hydration feeling much better at this time Differential Diagnosis Differential Diagnoses: The differential diagnosis associated with the presentation includes Cyclic vomiting/cannabis induced vomiting/anxiety Lab Data [facility] Lab Attestation statement: I reviewed the patient's lab results. 08/27/24 04:34 08/27/24 04:34 Labs: Lab Results 08/27/24 08/27/24 08/27/24 Range/Units 04:29 04:34 07:58 WBC 6.4 (4.8-10.8) X10*3/uL RBC 3.52 L (4.20-5.50) X10*6/uL Hgb 11.1 L (12.0-16.0) g/dl Hct 30.9 L (37.0-47.0) % MCV 87.8 (80.0-98.0) fL MCH 31.5 (27.0-33.0) pg MCHC 35.9 H (31.0-35.0) g/dl RDW 14.6 (11.0-16.0) % Plt Count 236 (160-400) X10*3/uL MPV 9.3 L (9.4-12.3) fL Immature Gran % (Auto) 0.2 (0.0-0.4) % Neut % (Auto) 76.8 H (45-73) % Lymph % (Auto) 13.4 L (20-40) % [place] % (Auto) 8.7 (2-11) % Eos % (Auto) 0.3 (0-4) % Baso % (Auto) 0.6 (0-2) % Lymph # (Auto) 0.9 L (1.2-4.9) X10*3/uL [place] # (Auto) 0.6 (0.1-1.2) X10*3/uL Eos # (Auto) 0.0 (0.0-0.4) X10*3/uL Baso # (Auto) 0.0 (0.0-0.2) X10*3/uL Abs Immat Gran (auto) 0.01 (0.00-0.03) X10*3/uL Absolute Neuts (auto) 4.9 (2.0-8.3) x10*3/uL Absolute Nucleated RBC 0.000 (0.0-0.012) X10*3/uL Nucleated RBC % (auto) 0.0 (0.0-0.2) /100WBC Sodium 141 (135-145) mmol/L Potassium 3.7 (3.3-5.1) mmol/L Chloride 110 H (96-108) mmol/L Carbon Dioxide 16 L (22-29) mmol/L Anion Gap 19 (12-20) BUN 11 (9-16) mg/dL Creatinine 0.60 (0.5-1.4) mg/dL Estim Creat Clear Calc 129.5 Estimated GFR > 60 Random Glucose 111 (60-115) mg/dL Calcium 9.2 D (8.4-10.2) mg/dL Total Bilirubin 0.6 (0.0-1.0) mg/dL Direct Bilirubin 0.2 (0.0-0.5) mg/dL AST 25 (5-31) U/L ALT 7 (0-31) U/L Alkaline Phosphatase 48 (39-117) U/L Total Protein 7.1 (6.5-8.0) g/dL Albumin 4.3 (3.5-5.0) g/dL Urine Color Yellow Urine Appearance Clear Urine pH 8.5 (5.0-9.0) Ur Specific [place] 1.015 (1.005-1.025) Urine Protein Negative (Neg-Trace) mg/dL Urine Glucose (UA) Negative (Negative) mg/dL Urine Ketones 15 (Negative) mg/dL Urine Blood Negative (Negative) Urine Nitrite Negative (Negative) Ur Leukocyte Esterase Negative (Negative) Ethyl Alcohol < 10 mg/dL Influenza Type A (PCR) NEGATIVE (Negative) Influenza Type B (PCR) NEGATIVE (Negative) RSV RNA Qual (PCR) NEGATIVE (Negative) SARS-CoV-2 RNA (RT-PCR) NEGATIVE (Negative) Discharge Plan Discharge Clinical Impression: Cyclic vomiting syndrome Patient Disposition: Home, Self-Care Instructions: Cyclic Vomiting Syndrome (ED) Additional Instructions: Drink plenty of fluids Stop smoking marijuana Take your anxiety medication as prescribed Take medicine for vomiting as prescribed Prescriptions: New ondansetron 4 mg tablet,disintegrating 4 mg PO Q6-8H PRN (Reason: nausea and vomiting) Qty: 7 0RF No Action cholecalciferol (vitamin D3) 1,250 mcg (50,000 unit) capsule 1,250 mcg PO QWEEK 12 Days Qty: 12 0RF clonidine HCl 0.1 mg Tablet 0.1 mg PO TID PRN (Reason: Anxiety) sertraline 50 mg Tablet 50 mg PO DAILY buspirone 15 mg Tablet 15 mg PO TID prazosin 1 mg Capsule 1 mg PO BEDTIME ondansetron HCl 4 mg tablet 4 mg PO Q6H PRN (Reason: nausea and vomiting) Qty: 20 0RF trazodone 50 mg tablet 50 mg PO BEDTIME atogepant 60 mg tablet 60 mg PO DAILY 30 Days Qty: 30 6RF Print Language: Kinyarwanda
[2024-08-27] MEDS: LORazepam 2 MG/ML VIAL IVPUSH (06:01)
[2024-08-27] MEDS: 0.9 % Sodium Chloride 1,000 ML 999 ML IV (06:01)
[2024-08-27 07:50] VITALS: BP 131/79; PULSE 106; RESP 16; TEMP 37.2; O2SAT 99
[2024-08-27 08:04] LABS: Appearance Urine Clear; Color Urine Yellow; Glucose Urine UA Negative (Negative); Leukocyte Esterase Urine Negative (Negative); Nitrite Urine Negative (Negative); PH 8.5 (5.0-9.0); Specific Gravity - Urine 1.015 (1.005-1.025); Urine Blood Negative (Negative); Urine Ketones 15 mg/dL (Negative); Urine Protein Negative (Neg-Trace)
[2024-08-27 08:09] LABS: Bacteria Urine None Seen (None Seen); Hyaline Casts Urine 0-2 /LPF (0-2); RBC Urine 0-2 /HPF (0-2); Squamous Epithelial Cell Urine 0-2 /HPF (0-2); WBC Urine 0-5 /HPF (0-5)
[2024-08-27 08:10] LABS: UPreg QC Valid YES; Urine Pregnancy NEGATIVE (NEGATIVE)
[2024-08-27 08:14] LABS: Amphetamine Screen Urine Not Detected (Not Detect); Barbiturates, Urine Not Detected (Not Detect); Benzodiazepines Screen Urine Not Detected (Not Detect); Buprenorphine Scr Not Detected (Not Detect); Cannabinoid Screen Urine POSITIVE (Not Detect); Cocaine Screen Urine Not Detected (Not Detect); Fentanyl, urine Not Detected (Not Detect); Methadone Screen, Urine Not Detected (Not Detect); Opiate Screen Urine Not Detected (Not Detect); Oxycodone Screen Urine Not Detected (Not Detect); Phencyclidine Screen Urine Not Detected (Not Detect)
[2024-08-27 08:34] VITALS: BP 120/80; PULSE 77; RESP 16; TEMP 37.1; O2SAT 98
== END 2024-08-27 10:13 | disposition home or self-care (01) ==
PROVIDERS: Internal Medicine; Emergency Provider Emergency Medicine; PCP Obstetrics & Gynecology
DX: R11.15 Cyclical vomiting syndrome unrelated to migraine (principal); Z03.818 Encounter for observation for suspected exposure to other biological agents ruled out; Z79.899 Other long term (current) drug therapy
CPT/HCPCS: 0241U; 80053; 80307; 81001; 81025; 82248; 85025; 96361; 96374; 96375; 99284; J2060; J2405

== ENCOUNTER 2024-09-13 06:12 | Emergency (ER) | payer OTHER, SELFPAY ==
--- NOTE | ~2024-09-13 | CT_ITS ---
EXAMINATION: CT CERVICAL SPINE WITHOUT CONTRAST CLINICAL INFORMATION: Head strike, positive LOC, neck pain. COMPARISON: None available. TECHNIQUE: Spiral CT imaging of the cervical spine performed in axial plane without contrast. Multiplanar reformatted images were constructed from the axial data set. This CT examination was performed using dose optimization techniques as appropriate, variously including the following: *Automated exposure control *Adjustment of mA and/or kV according to patient size (this includes techniques or standardized protocols for targeted exams where dose is matched to indication/reason for exam; i.e. extremities or head) *Use of iterative reconstruction technique FINDINGS: CORONAL ALIGNMENT: -Minimal levoconvex scoliosis. SAGITTAL ALIGNMENT: -Reversal of the normal lordosis centered at C5. C1-C2 AND CRANIOCERVICAL JUNCTION: -Intact and normally aligned. VERTEBRAL BODIES AND FACETS: -No fracture, compression deformity, traumatic malalignment, or suspicious bone lesion. -Facets are normal in alignment without subluxations. DISCS: -Preserved throughout PREVERTEBRAL AND PARAVERTEBRAL SOFT TISSUES: -Normal. -Normal thyroid. LUNG APICES: -Clear bilaterally. CT/CT cervical spine wo IV con IMPRESSION: 1. No CT evidence of acute cervical spine fracture or injury. 2. Reversal of normal lordosis, nonspecific, possibly indicating muscular rigidity. Electronically signed by: Gabe Owens MD 09/13/2024 10:05 AM MILDR[facility] CASILLAS
--- NOTE | ~2024-09-13 | CT_ITS ---
EXAMINATION: CT HEAD WITHOUT CONTRAST CLINICAL INFORMATION: fall +head strike +loc COMPARISON: None available. TECHNIQUE: Contiguous axial imaging was performed from the skull base to vertex without intravenous administration of contrast. This CT examination was performed using dose optimization techniques as appropriate, variously including the following: *Automated exposure control *Adjustment of mA and/or kV according to patient size (this includes techniques or standardized protocols for targeted exams where dose is matched to indication/reason for exam; i.e. extremities or head) *Use of iterative reconstruction technique DLP: 1072.55 mGy-cm FINDINGS: Limited by patient's motion artifact. No gross acute cortical disruption in the bony calvarium. No acute intracranial hemorrhage, mass effect, midline shift, hydrocephalus or herniation. Phillips-white matter differentiation is normal. Posterior cranial fossa contents demonstrated no acute intracranial hemorrhage or mass effect. Tympanic cavities and mastoid cells are aerated. No gross air-fluid levels in the included paranasal sinuses. CT/CT head/brain wo IV con IMPRESSION: Limited examination demonstrated no gross acute intracranial hemorrhage. Electronically signed by: Navin Shay MD 09/13/2024 10:03 AM [facility]ED
[2024-09-13 06:14] VITALS: BP 125/76; PULSE 98; RESP 22; TEMP 36.1; O2SAT 98; BMI 19.7
--- OUTSIDE RECORDS SUMMARY | 2024-09-13 06:22 | XMS_ITS | Data Portability ---
Author Organization [facility], Main Office Address [address] 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 Plan of Treatment Reminders Order Date Submit Date Provider Last Modified By Organization Details Last Modified Time Details Appointments None recorde dJerome Lab lipid panel, serum 2022 023 [email or web address] [facility], [address] [facility], [facility], [place], [address], 3 10:43:10 BMP, serum or plasma 2022 023 KARY [facility], [address] , [facility], [place], [address], 3 10:05:31 CBC w/ auto diff 2022 023 KARY [facility], [address], [facility], [place], [address], 3 10:05:32 TSH, serum or plasma 2022 023 KARY [facility], [address], [facility], [place], [address], 3 10:05:32 hepatic functio n panel, serum 2022 023 KARY [facility], [address] [facility], [address], [place], [address], 3 10:05:31 hepatit is C virus Ab, serum 2022 023 KARY [facility], [address] [facility], [address], [place], [address], 3 10:05:31 Referral dermato logist referra l 2022 023 [email or web address] Baptiste MD, [address] [facility], [place], [address], 4 09:30:28 neurolo gist referra l - severe migrain es and headach es [email or web address] [facility], [address] [place] [address], [place], [address], 3 07:50:30 gynecol ogist referra l - Patient to schedul e 2022 023 [email or web address] Not available 4 12:33:55 audiolo gist referra l - hx of several ear infecti ons, complai timur of hearing loss, ordered to check baselin e [email or web address] [place] [address] Audiology, [address] [place], [address], 3 18:20:56 Procedures None recorde d. Surgeries None recorde d. Imaging MRI, brain, w/o contras t - wakes with headach es [email or web address] (Ultrasound), [address] [place], [address], 3 14:30:45 Medication Orders hydroco rtisone 2.5 % topical cream 2022 023 [facility], [address] [place], [address], 3 15:09:11 sertral ine 25 mg tablet 2022 023 [facility] [address] [place], [address], 3 15:09:10 sertral ine 50 mg tablet 2022 023 [facility] [address] [place], [address], 3 15:09:11 Ubrelvy 50 mg tablet 2022 023 [email or web address] [facility], [address] [place], [address], 3 13:07:14 sumatri ptan 50 mg tablet 2022 023 [facility] [address] [place], [address], 3 09:14:47 Topamax 50 mg tablet 2022 023 [email or web address] [facility] [address] [place], [address], 13:11:07 Patient TargetsNo targets recorded. Patient Instructions Encounter Date Encounter Id Patient Instructions Last Modified By Organization Details Last Modified Time 03/10/2023 [id number] medical record request* [email or web address] Not available 03/10/2023 13:41:00 Well Visit, Ages 18 to 65: Care Instructions Not available 03/10/2023 10:05:25 Cervical Cancer Screening Not available 03/10/2023 10:05:26 03/18/2023 [id number] At [facility], all current and discharge medications (OTC, herbal therapies, supplements) reviewed and reconciled with patient and or caregiver, including potential side effects, drug interactions, instructions, and the consequences of not taking medication. Reviewed potential barriers to medication adherence, such as side effects from medication or cost of medication. [email or web address] Not available 03/18/2023 08:51:39 04/10/2023 [id number] At [facility], all current and discharge medications (OTC, herbal therapies, supplements) reviewed and reconciled with patient and or caregiver, including potential side effects, drug interactions, instructions, and the consequences of not taking medication. Reviewed potential barriers to medication adherence, such as side effects from medication or cost of medication. 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 for Sc reening for malignant neoplasm of cervix Patient to schedule Referring Physician: Tram Hillman [facility], Encounter Date: 03/10/2023 Neurologist Referral for Hea dache severe migraines and headaches Referring Physician: Tram Hillman [facility], Encounter Date: 03/10/2023 Director Of Perioperative Services Referral for Yobany ateral hearing loss hx of several ear infections, complaining of hearing loss, ordered to check baseline Referring Physician: Tram Hillman [facility], Encounter Date: 03/10/2023 Harness Cutter Referral for U rticaria Referring Physician: Tram Hillman [facility], Encounter Date: 04/10/2023 Results Created Date [...] was made in light of this techni rohda confin e. BRAIN and EXTRA- AXIAL SPACES : The flow voids throug h the [place] of Eng are mainta ined, and there [...] 10 mm. This displa allyn the left manager of internal al cerebr al vein and pineal gland [...] with a small arachn oid cyst. WSN: [id number] Orderi ng Physic ai: Patrice Conte ie Dictat ed By: Salvatore Lara MD Dictat ed Date/T donna: 11:47 a Review ed By: Salvatore Lara MD Signed By: Salvatore Lara MD Signed Date/T donna: 11:47 am Transc ribed By: ANGIE Transc ribed Date/T donna: 11:41 am Patien t Class: Outpat ient [email or web address] [facility] (Outpt Imaging) [address] [place], [address], 05/20/2023 16:05:27 04/11/2004/10/2023 MRI, brain , w/o contr ast No observ ation record ed. [email or web address] [facility] [address] [facility], [place], [address], 04/12/2023 11:45:48 Result Notes None recorded. Problems Name Problem SNOMED Code Status Onset Date Resolution Date Notes Provider Name and Address Organization Details Recorded Time Priscilla johnson [id number] Completed 202203/10/2023 TRAM HILLMAN MD [address] [facility] [address], [place], [address], [facility] 3 04:52:57 Headache 33953482 Active 2022 TRAM HILLMAN MD [address] [facility] [address], [place], [address], [facility] 3 13:26:41 Bipolar disorder 65149002 Active 2022 type II TRAM HILLMAN MD [address] [facility] [address], [place], [address], [facility] 3 13:26:32 [place] 530612519 Active 2022 while doing house chores TRAM HILLMAN MD [address] [facility] [address], [place], [address], [facility] 3 09:53:11 Anxiety 22478426 Active 2022 once a month will have a therapis t, looking for a new one TRAM HILLMAN MD [address] [facility] [address], [place], [address], [facility] 3 09:54:42 Depressiv e disorder 56418989 Active 2022 TRAM HILLMAN MD [address] [facility] [address], [place], [address], [facility] 3 09:54:12 Migraine without aura 01703486 Active 2022 Yanique Isaacs PA-C [address] [address], [place], [address], [facility] 3 09:12:42 Problem Notes None recorded. Procedures Surgical History None recorded. Imaging Results Imaging Date Name Status LastModified by Organiz ation Details LastModified Time 04/10/2023 MRI, brain, w/o contrast completed [email or web address] [facility] (Outpt Imaging) [address], [place], [address], 05/20/2023 16:05:27 04/10/2023 MRI, brain, w/o contrast completed [email or web address] [facility] [address], [place], [address], 04/12/2023 11:45:48 Procedure Notes None recorded. Medical [...] Updated DateTime 3 160.02 cm 21.1 kg/m2 17945.4 9 g 100 % 100 % 92 /min 98 [degF] 134 mm[Hg] 91 mm[Hg] 131 mm[Hg] 81 mm[Hg] Marlena Aquino MA [facility] 3 10:00:01 Date Recorded Body height Body mass index (BMI) Body weight Heart rate Oxygen saturation Oxygen saturation in Arterial blood by Pulse oximetry Body temperature Systolic blood pressure Diastolic blood pressure Systolic blood pressure Diastolic blood pressure Provider Name and Address Organization Details Last Updated DateTime 3 160.02 cm 21.6 kg/m2 36551.2 7 g 94 /min 99 % 99 % 98.8 [degF] 145 mm[Hg] 98 mm[Hg] 132 mm[Hg] 90 mm[Hg] Vic Hernandez MA [facility] 3 09:03:07 Date Recorded Body height Body mass index (BMI) Body weight Oxygen saturation Oxygen saturation in Arterial blood by Pulse oximetry Heart rate Body temperature Systolic blood pressure Diastolic blood pressure Systolic blood pressure Diastolic blood pressure Provider Name and Address Organization Details Last Updated DateTime 3 160.02 cm 22.9 kg/m2 54428.5 2 g 97 % 97 % 95 /min 98.3 [degF] 126 mm[Hg] 93 mm[Hg] 121 mm[Hg] 77 mm[Hg] Marlena Aquino MA [facility] 3 14:56:59 Social History Question Answer Notes LastModified by Organizat ion Details LastModified Time Tobacco Smoking Status Never Smoker Marlena Aquino MA [facility] 03/10/2023 09:41:26 What Is Your Level Of Alcohol Consumption? Occasional Rare [email or web address] Information not available 03/10/2023 Is Blood Transfusion Acceptable In An Emergency? Yes Information not available 03/10/2023 Are You Currently Employed? No [email or web address] Information not available 03/10/2023 What Type Of Diet Are You Following? REGULAR [email or web address] Information not available 03/10/2023 Which Illicit Or Recreational Drugs Have You Used? Marijuana [email or web address] Information not available 03/10/2023 Do You Take Precautions To Prevent Distracted Driving? Yes [email or web address] Information not available 03/10/2023 How Often Do You Need To Have Someone Help You When You Read Instructions, Pamphlets, Or Other Written Material From Your Doctor Or Pharmacy? Sometimes Information not available 03/10/2023 Have You Served In The ? No [email or web address] Information not available 03/10/2023 How Many Children Do You Have? 0 [email or web address] Information not available 03/10/2023 Are You Passively Exposed To Smoke? No [email or web address] Information no t available 03/10/2023 Do You Use Any Illicit Or Recreational Drugs? Yes [email or web address] Information not available 03/10/2023 Do You Or Have You Ever Used Any Other Forms Of Tobacco Or Nicotine? No [email or web address] Information not available 03/10/2023 Sex: Unknown Functional Status Question Answer Note LastModified by Organization D etails LastModified Time Are you able to walk? YESWOREST [email or web address] Information not available 03/10/2023 What is your exercise level? None [email or web address] Information not available 03/10/2023 Mental Status None recorded. Family History Relationship Description Onset Age of this Age Resolved Age Notes LastModified by Organization Details LastModified Time Paternal Aunt Malignant tumor of breast 4 patern al aunts [email or web address] Not available 03/10/2023 09:40:06 Paternal Aunt Diabetes mellitus Not available 03/10 09:40:22 Maternal Grandfather Diabetes mellitus [email or web address] Not available 03/10 09:40:15 Mother Depressive disorder [email or web address] Not available 03/10 09:40:42 Father Depressive disorder [email or web address] Not available 03/10 09:40:49 Brother Depressive disorder [email or web address] Not available 03/10 09:40:56 Medical History No medical history recorded. Gynecological History Statement/Question Response Date of Last Pap Smear Obstetrics History GPAL:G 0 P 0 0 0 0 Past Encounters Encounter ID Performer Location Encounter Start Date Encounter Closed Date Diagnosis/Indication Diagnosis SNOMED-CT Code Diagnosis ICD10 Code Diagnosis Note [id number] TRAM HILLMAN MD Main Office [address] [place] [address] 03/10/2023 09:16:25 03/10/2023 10:12:07 Adult health examination 514833115 Z00.00 Health Maintenanc e FemaleA) Patient was [...] in 2021TdAP: will considerZo ster: due at 64LHX29: due at 91TLXO35: due at 35PHN09:PC V15:COVID: REFUSED D) Routine blood work orderedE) Updated patient's history RTC in one year for annual exam or sooner if any acute complaints Fatigue 31002341 R53.83 Z00.00 Hyperlipidemia 97896011 E78.5 Z00.00 Screening for malignant neoplasm of cervix 392133234 Z12.4 Hepatitis C screening 39 0175551 Z11.59 Patient ne w to provider [id number] 93708 Z76.89 - reviewed previous pediatric notes Headache 77598749 R51.9 - migraines with vomiting- pt has [...] pt mentions she has been going to [facility] for treatment of her headaches in the ED, will obtain records Bipolar disorder 1501964 4 F31.9 - pt was relanctant to admit this diagnosis- currently on aripiprazo le, given by a psychiatri st who patient sees monthly> pt currently looking for a new provider as current provider is a close family friend- pt does not have a therapist, advised to find one- will differ all medication s to psychiatri st Bilateral hearing loss 19656119 H91.93 - hx of several ear infections - will send for audiology testing Anxiety 22907612 F41.9 - SONJA-7 score of 19- pt [...] as needed in the evening Depressive disorder 5395 9007 F32.A - PHQ-9 score of 17- currently on escitalopr am 20mg, given by a psychiatri st who patient sees monthly> pt currently looking for a new provider as current provider is a close family friend- denies SI/HI- counselled patient on finding a therapist as well Requires a tetanus booster 626676969 Z28.39 Nausea and vomiting 1693 2000 R11.2 - associated with patient's migraines- pt does also smoke marijuana which can cause cannabis hyperemesi s syndrome- will first control patient's headaches and then if there is still vomiting present will consider this differenti al diagnosis [id number] Yanique Isaacs PA-C Main Office [address] [facility] [address] [place] [address] 03/18/2023 08:49:59 03/18/2023 09:17:32 Migraine without aura 57547356 G43.009 Uncontroll ed migraine headache syndrome. PT. will require preventati ve medication as well as rescue meds. WE will begin topiramate 50 mg daily and for rescue sumatripta n 50 mg. Migraine diary is recommende d to keep. F/u 1 month with PCP already set up. [id number] TRAM HILLMAN MD Main Office [address] [facility] [address] [place] [address] 04/10/2023 14:42:27 04/10/2023 15:11:37 Migraine without aura 23309538 G43.009 - uncontroll ed, several ED visits- [...] pt has been referred to neurology Urticaria 973853797 L50. 9 - noted on the abdomen only- will try hydorcorti sone cream- pt referred to dermatolog y Anxiety 29334192 F41.9 - SONJA-7 score of 19 on [...] [place] Member ID Guarantor Name 03/10/2023 1 [facility] (POS) Diana D [place] [id number] 3 Terri D [place] 03/18/2023 1 [facility] Diana D [place] [id number] 3 Terri D [place] 04/10/2023 1 [facility] (POS) Diana D [place] [id number] 3 Terri D [place] Notes Date Note Type Note Provider Name [...] does not do TRAM HILLMAN MD [address] [facility] [address], [place], [address], [facility] 03/11/2023 13:57:15 03/18/2023 [...] no otc meds. Yanique Isaacs PA-C [address] [facility] [address], [place], [address], [facility] 03/18/2023 13:16:56 04/10/2023 text/html Emergency Depart ment Follow-Up RecordReported bypatient.Discharge Informationname of ED [facility]; emergency department discharge date: (Please enter [...] her anxiety and migraines. TRAM HILLMAN MD [address], [address], [facility] 04/12/2023 13:27:53 OBGyn Episode No OBEpisode recorded.
[2024-09-13 06:28] LABS: MANUAL DIFF FLAG NO
[2024-09-13 06:29] LABS: Basophils Percent Auto 0.5 % (0-2); Eosinophils Percent Auto 0.2 % (0-4); Hematocrit 36.1 % (37.0-47.0); Hemoglobin 13.2 g/dl (12.0-16.0); Imm Gran Abs Auto 0.01 X10*3/uL (0.00-0.03); Imm Gran Pct Auto 0.2 % (0.0-0.4); Lymphocytes Absolute Auto 0.8 X10*3/uL (1.2-4.9); Lymphocytes Percent Auto 12.5 % (20-40); Mean Corpuscular HGB Conc 36.6 g/dl (31.0-35.0); Mean Corpuscular Hemoglobin 31.1 pg (27.0-33.0); Mean Corpuscular Volume 84.9 fL (80.0-98.0); Mean Platelet Volume 9.5 fL (9.4-12.3); Monocytes Absolute Auto 0.4 X10*3/uL (0.1-1.2); Monocytes Percent Auto 6.7 % (2-11); Neutrophils Absolute Auto 5.2 x10*3/uL (2.0-8.3); Neutrophils Percent Auto 79.9 % (45-73); Platelet Count 266 X10*3/uL (160-400); Red Blood Count 4.25 X10*6/uL (4.20-5.50); Red Cell Distribution Width 13.7 % (11.0-16.0); White Blood Count 6.6 X10*3/uL (4.8-10.8)
[2024-09-13 06:30] VITALS: BP 125/76; PULSE 98; RESP 22; TEMP 36.1; O2SAT 98
[2024-09-13 06:49] LABS: Alanine Aminotransferase 13 U/L (0-31); Albumin Level 4.5 g/dL (3.5-5.0); Alkaline Phosphatase 53 U/L (39-117); Anion Gap 20 (12-20); Aspartate Amino Transferase 31 U/L (5-31); Bilirubin Total 0.7 mg/dL (0.0-1.0); Blood Urea Nitrogen 18 mg/dL (9-16); Calcium 9.4 mg/dL (8.4-10.2); Carbon Dioxide 13 mmol/L (22-29); Chloride 109 mmol/L (96-108); Creatinine Clr Calc Pharmacy 95.6; Estimated Glomerular Filt Rate > 60; Glucose Random 98 mg/dL (60-115); Potassium 3.6 mmol/L (3.3-5.1); Sodium 138 mmol/L (135-145); Total Protein 7.6 g/dL (6.5-8.0)
--- NOTE | 2024-09-13 07:31 | ED.GENADULT ---
HPI - General Adult General Chief complaint: Nausea/Vomiting/Diarrhea Stated complaint: fall on Sat,n/v Time Seen by Provider: 09/13/24 07:16 Source: patient, RN notes reviewed and old records reviewed Mode of arrival: wheelchair History of Present Illness ED Provider: Gila Rapp PA-C HPI narrative: 23-year-old female with a past medical history of migraine headaches, unspecified mood disorder, cyclical vomiting, presenting to the ED complaining of mechanical trip and fall on the ice on Thursday with + head strike and + LOC. reports persistent lightheadedness / dizziness and syncopal episodes since incident with additional head strike. Denies anticoagulation use or symptoms prior to fall. Also reports associated epigastric abdominal pain, nausea and vomiting. Denies fever, chills, diarrhea, dysuria/hematuria. Denies substance use including marijuana Related Data Home Medications ?Medication ?Instructions ?Recorded ?Confirmed buspirone 15 mg tablet 15 mg PO TID 05/24/24 08/14/24 clonidine HCl 0.1 mg tablet 0.1 mg PO TID PRN Anxiety 05/24/24 08/14/24 sertraline 50 mg tablet 50 mg PO DAILY 05/24/24 08/14/24 trazodone 50 mg tablet 50 mg PO BEDTIME 08/08/24 08/14/24 prazosin 1 mg capsule 1 mg PO BEDTIME 08/14/24 08/14/24 Previous Rx's ?Medication ?Instructions ?Recorded atogepant 60 mg tablet 60 mg PO DAILY 30 days #30 tabs 08/08/24 ondansetron HCl 4 mg tablet 4 mg PO Q6H PRN nausea and 08/15/24 vomiting #20 tabs cholecalciferol (vitamin D3) 1,250 1,250 mcg PO QWEEK 12 days #12 caps 08/25/24 mcg (50,000 unit) capsule ondansetron 4 mg disintegrating 4 mg PO Q6-8H PRN nausea and 08/27/24 tablet vomiting #7 tabs ondansetron 4 mg disintegrating 4 mg PO Q8H PRN nausea and 09/13/24 tablet vomiting #10 tabs Allergies Allergy/AdvReac Type Severity Reaction Status Date / Time No Known Allergies Allergy Verified 09/13/24 06:16 [No Known Allergies*] Review of Systems Review of Systems: Yes all other systems are reviewed and are negative Constitutional: Constitutional: Reports as per HPI Neurologic: Denies Abnormal speech present [facility] Past Medical History Attestation statement: The following information was validated with the patient. Source: old records reviewed Medical History Mood disorder Cannabinoid hyperemesis syndrome Cannabinoid hyperemesis syndrome Migraine headache Social History Social History Household Members: Spouse Housing: House Do you presently have visiting nurse or other home services: No Alcohol intake: former Patient Tobacco Use Status: Never used Tobacco Substance Use Type: Marijuana Advance Directives Date on File: 05/26/24 service: No Physical Exam ED Vital Signs: Vital Signs - 24 hr 09/13/24 06:14 09/13/24 06:30 09/13/24 10:23 Temperature 97.0 F 97.0 F 98.0 F Pulse Rate 98 98 81 Respiratory Rate 22 H 22 H 18 Blood Pressure 125/76 125/76 128/92 H Pulse Oximetry 98 98 100 Oxygen Delivery Method Room Air Room Air Room Air 09/13/24 10:24 09/13/24 10:26 09/13/24 10:27 Temperature Pulse Rate 70 81 80 Respiratory Rate Blood Pressure 123/74 123/83 129/89 Pulse Oximetry Oxygen Delivery Method BMI result Body Mass Index 19.7 Const General: cooperative, healthy appearing and no acute distress Orientation/consciousness: patient oriented x3 Limitations: no limitations HENMT Head: Yes normal to inspection and Yes atraumatic Ears: hearing grossly normal bilaterally General nose exam: Normal external nose present Face and sinus: Yes normal facial exam Mouth: Normal oral and palatal mucosa present and no drooling Throat: Yes posterior oropharynx normal and Yes uvula midline Eyes General: appearance normal, both eyes and all related structures Pupils: Equal, round and reactive pupils present EOM: EOMs intact bilaterally Neck Neck: Yes normal visual inspection and Yes no meningeal signs Resp Effort & Inspection: normal respiratory effort and no respiratory distress Auscultation: clear to auscultation bilaterally Cardio Rate: regular rate Heart sounds: S1 normal heart sound present and S2 normal heart sound present GI Inspection: Yes normal to inspection Palpation (GI): Soft to palpation, Tenderness to palpation present (GI) in the epigastrum; with no rebound tenderness, no guarding and not rigid Back/Spine/Pelvis Other: No midline cervical/thoracic/lumbar spinous tenderness/step-off or deformity Skin Rashes: no rashes Wounds: no wounds Neuro General: patient oriented x3, tone normal, moves all extremities, no meningeal signs, no focal motor deficits and CN's II-XI intact bilaterally Cranial nerves: Yes CN's II-XII intact bilaterally and Yes Equal, round and reactive pupils present Cognition (Neuro): normal cognition Speech: No Abnormal speech present Motor exam (neuro): 5/5 motor strength present throughout and no tremor noted Extrem General: Yes normal to inspection Course Course Course Narrative: -1129--no leukocytosis. H/H stable. Labs otherwise reassuring. Troponin negative. HCG negative -UA with 40 ketones. Not infected. Tox screen positive for THC -COVID/flu/RSV negative CT head/brain wo IV con IMPRESSION: Limited examination demonstrated no gross acute intracranial hemorrhage. CT cervical spine wo IV con IMPRESSION: 1. No CT evidence of acute cervical spine fracture or injury. 2. Reversal of normal lordosis, nonspecific, possibly indicating muscular rigidity. -orthostatic vital signs negative >1145--on re-evaluation patient reports symptomatic improvement. Is able to tolerate p.o. in the ED without pain, nausea or vomiting. Safe for discharge home at this time Results discussed with patient including worrisome signs and symptoms and strict return precautions, and when to return to the emergency department. They verbalized understanding and feel safe for discharge at this time. Medications Administered Discontinued Medications Generic Name Dose Route Start Last Admin Trade Name Kishorq PRN Reason Stop Dose Admin Al Hydroxide/Mg Hydroxide 30 ml 09/13/24 07:30 09/13/24 07:43 Magnesium Hydrox/Alum Hydrox 30 Ml Oral.Susp PO 09/13/24 07:31 30 ml ONCE ONE Administration Diphenhydramine HCl 12.5 mg 09/13/24 07:28 09/13/24 07:43 Diphenhydramine Hcl 50 Mg/Ml Vial IVPUSH 09/13/24 07:29 12.5 mg ONCE ONE Administration Famotidine 20 mg 09/13/24 07:30 09/13/24 07:43 Famotidine/Pf 20 Mg/2 Ml Vial IVPUSH 09/13/24 07:31 20 mg ONCE ONE Administration Sodium Chloride 1,000 mls @ 999 mls/hr 09/13/24 07:30 09/13/24 08:45 Ns IV 09/13/24 08:30 Infused .Q1H1M EDMOND Infusion Lactated Ringer's 1,000 mls @ 999 mls/hr 09/13/24 09:30 09/13/24 09:33 Lr IV 09/13/24 10:30 999 mls/hr .Q1H1M EDMOND Administration Lidocaine HCl 15 ml 09/13/24 10:03 09/13/24 11:12 Lidocaine Hcl Viscous 2 % 15 Ml Solution MUCOUS MEM 09/13/24 10:04 15 ml ONCE ONE Administration Metoclopramide HCl 10 mg 09/13/24 07:28 09/13/24 07:43 Metoclopramide Hcl 10 Mg/2 Ml Vial IVPUSH 09/13/24 07:29 10 mg ONCE ONE Administration Medical Decision Making Medical Decision Making MDM Narrative: 07:37 - 23-year-old female with a past medical history of migraine headaches, unspecified mood disorder, cyclical vomiting, presenting to the ED complaining of mechanical trip and fall on the ice on Thursday with + head strike and + LOC. reports persistent lightheadedness / dizziness and syncopal episodes since incident with additional head strike. Also reports associated epigastric abdominal pain, nausea and vomiting. On exam tachypneic, retching during evaluation, no focal neuro deficits, abdomen is soft with mild epigastric tenderness, no rebound or guarding. Concern for concussion vs ICH vs cyclical vomiting vs GERD/gastritis vs metabolic abnormalities. Acute pancreatitis/cholecystitis/lithiasis on differential however lower at this time. Unlikely appendicitis/diverticulitis. Unlikely severe sepsis Plan: Labs, UA, head/C-spine CT, IVF, orthostatics, antiemetics, re-evaluate Please refer to course for remaining clinical decision making, interpretation of labs/imaging results, and discussions with consultants and/or family members. Differential Diagnosis Differential Diagnoses: The differential diagnosis associated with the presentation includes As above Admission/Observation Consideration of admission/observation: Escalation of care including admission/observation considered Lab Data [facility] Lab Attestation statement: I reviewed the patient's lab results. 09/13/24 06:23 09/13/24 06:23 Labs: Lab Results 09/13/24 09/13/24 09/13/24 Range/Units 06:23 09:19 10:18 WBC 6.6 (4.8-10.8) X10*3/uL RBC 4.25 D (4.20-5.50) X10*6/uL Hgb 13.2 (12.0-16.0) g/dl Hct 36.1 L (37.0-47.0) % MCV 84.9 (80.0-98.0) fL MCH 31.1 (27.0-33.0) pg MCHC 36.6 H (31.0-35.0) g/dl RDW 13.7 (11.0-16.0) % Plt Count 266 (160-400) X10*3/uL MPV 9.5 (9.4-12.3) fL Immature Gran % (Auto) 0.2 (0.0-0.4) % Neut % (Auto) 79.9 H (45-73) % Lymph % (Auto) 12.5 L (20-40) % Bonner % (Auto) 6.7 (2-11) % Eos % (Auto) 0.2 (0-4) % Baso % (Auto) 0.5 (0-2) % Lymph # (Auto) 0.8 L (1.2-4.9) X10*3/uL Bonner # (Auto) 0.4 (0.1-1.2) X10*3/uL Eos # (Auto) 0.0 (0.0-0.4) X10*3/uL Baso # (Auto) 0.0 (0.0-0.2) X10*3/uL Abs Immat Gran (auto) 0.01 (0.00-0.03) X10*3/uL Absolute Neuts (auto) 5.2 (2.0-8.3) x10*3/uL Absolute Nucleated RBC 0.000 (0.0-0.012) X10*3/uL Nucleated RBC % (auto) 0.0 (0.0-0.2) /100WBC Sodium 138 (135-145) mmol/L Potassium 3.6 (3.3-5.1) mmol/L Chloride 109 H (96-108) mmol/L Carbon Dioxide 13 L (22-29) mmol/L Anion Gap 20 (12-20) BUN 18 H (9-16) mg/dL Creatinine 0.74 (0.5-1.4) mg/dL Estim Creat Clear Calc 95.6 Estimated GFR > 60 Random Glucose 98 (60-115) mg/dL Calcium 9.4 (8.4-10.2) mg/dL Magnesium 1.6 (1.6-2.6) mg/dL Total Bilirubin 0.7 (0.0-1.0) mg/dL AST 31 (5-31) U/L ALT 13 (0-31) U/L Alkaline Phosphatase 53 (39-117) U/L Troponin I High Sens < 2.7 (<3.5-17.0) ng/L Total Protein 7.6 (6.5-8.0) g/dL Albumin 4.5 (3.5-5.0) g/dL Lipase 24 (8-78) U/L Beta HCG, Quant < 2 mIU/mL Urine Color Dark Yellow Urine Appearance Cloudy Urine pH 6.0 (5.0-9.0) Ur Specific [place] >= 1.030 H (1.005-1.025) Urine Protein 30 (1+) H (Neg-Trace) mg/dL Urine Glucose (UA) Negative (Negative) mg/dL Urine Ketones 40 (Negative) mg/dL Urine Blood Negative (Negative) Urine Nitrite Negative (Negative) Ur Leukocyte Esterase Negative (Negative) Urine RBC 0-2 (0-2) /HPF Urine WBC 0-5 (0-5) /HPF Ur Squamous Epith Cells 6-10 (0-2) /HPF Urine Bacteria 1+ (None Seen) Hyaline Casts 3-5 (0-2) /LPF Urine Opiates Screen Not Detected (Not Detect) Ur Buprenorphine Scrn Not Detected (Not Detect) ng/mL Ur Oxycodone Screen Not Detected (Not Detect) ng/mL Urine Methadone Screen Not Detected (Not Detect) ng/mL Urine Fentanyl Screen Not Detected (Not Detect) Ur Barbiturates Screen Not Detected (Not Detect) Ur Phencyclidine Scrn Not Detected (Not Detect) Ur Amphetamines Screen Not Detected (Not Detect) U Benzodiazepines Scrn Not Detected (Not Detect) Urine Cocaine Screen Not Detected (Not Detect) U Marijuana (THC) Screen POSITIVE H (Not Detect) Influenza Type A (PCR) NEGATIVE (Negative) Influenza Type B (PCR) NEGATIVE (Negative) RSV RNA Qual (PCR) NEGATIVE (Negative) SARS-CoV-2 RNA (RT-PCR) NEGATIVE (Negative) Independent Interpretation I performed an independent interpretation of an: CT Scan Radiology Impression Discussion of test interpretation with radiology: I have reviewed the radiologist's reading. External Record Review External record reviewed: Inpatient record, Office record, Outpatient record, Prior outpatient labs, Prior outpatient radiology, Primary care record and Outside ED record Tests considered The following testing was considered but not selected: As above Prescription Management I considered prescription management with: Pain Medication and Other Chronic Conditions Patient?s care impacted by: Other Social Determinants Patient?s care significantly limited by Social Determinants of Health including: Low income, Alcoholism and drug addiction in family, Problems related to primary support group and Other Social Determinant of Health Discharge Plan Discharge Clinical Impression: Concussion, Nausea & vomiting Patient Disposition: Home, Self-Care Instructions: Concussion (ED), Acute Nausea and Vomiting (ED) Additional Instructions: Your blood work and CT scans are reassuring Zofran as an antinausea medication, please take as needed for nausea and vomiting Make sure you are staying hydrated at home Please avoid marijuana use as this is likely contributing to your symptoms Return to the ED if symptoms persist or worsen, you are unable to eat or drink, persistent pain/nausea or vomiting Prescriptions: New ondansetron 4 mg tablet,disintegrating 4 mg PO Q8H PRN (Reason: nausea and vomiting) Qty: 10 0RF No Action cholecalciferol (vitamin D3) 1,250 mcg (50,000 unit) capsule 1,250 mcg PO QWEEK 12 Days Qty: 12 0RF clonidine HCl 0.1 mg Tablet 0.1 mg PO TID PRN (Reason: Anxiety) sertraline 50 mg Tablet 50 mg PO DAILY buspirone 15 mg Tablet 15 mg PO TID prazosin 1 mg Capsule 1 mg PO BEDTIME ondansetron HCl 4 mg tablet 4 mg PO Q6H PRN (Reason: nausea and vomiting) Qty: 20 0RF ondansetron 4 mg tablet,disintegrating 4 mg PO Q6-8H PRN (Reason: nausea and vomiting) Qty: 7 0RF trazodone 50 mg tablet 50 mg PO BEDTIME atogepant 60 mg tablet 60 mg PO DAILY 30 Days Qty: 30 6RF Referrals: Physician,Unknown J [Primary Care Provider] - 5 days Discharge Date/Time: 09/13/24 11:57 Print Language: German
[2024-09-13] MEDS: 0.9 % Sodium Chloride 1,000 ML 999 ML IV (07:42)
[2024-09-13] MEDS: Metoclopramide HCl 10 MG/2 ML VIAL IVPUSH (07:43)
[2024-09-13] MEDS: Magnesium Hydrox/Alum Hydrox 30 ML ORAL.SUSP PO (07:43)
[2024-09-13] MEDS: Famotidine/PF 20 MG/2 ML VIAL IVPUSH (07:43)
[2024-09-13] MEDS: diphenhydrAMINE HCL 50 MG/ML VIAL 12.5 MG IVPUSH (07:43)
[2024-09-13 08:03] LABS: Troponin-I High Sensitivity < 2.7 ng/L (<3.5-17.0)
[2024-09-13 09:12] LABS: Lipase 24 U/L (8-78); Magnesium 1.6 mg/dL (1.6-2.6)
[2024-09-13 09:13] LABS: HCG Quantitative < 2 mIU/mL
[2024-09-13] MEDS: Lactated Ringers 1,000 ML 999 ML IV (09:33)
[2024-09-13 10:02] LABS: Influenza A PCR NEGATIVE (Negative); Influenza B PCR NEGATIVE (Negative); Resp Syncy Virus RNA Qual PCR NEGATIVE (Negative); SARS COV2 PCR INHOUSE NEGATIVE (Negative)
--- NOTE | 2024-09-13 10:02 | PC.NURSE ---
patient given water, tolerated po
[2024-09-13 10:23] VITALS: BP 128/92; PULSE 81; RESP 18; TEMP 36.7; O2SAT 100
[2024-09-13 10:24] VITALS: BP 123/74; PULSE 70
[2024-09-13 10:26] VITALS: BP 123/83; PULSE 81
[2024-09-13 10:27] VITALS: BP 129/89; PULSE 80
[2024-09-13 10:42] LABS: Appearance Urine Cloudy; Color Urine Dark Yellow; Glucose Urine UA Negative (Negative); Leukocyte Esterase Urine Negative (Negative); Nitrite Urine Negative (Negative); Specific Gravity - Urine >= 1.030 (1.005-1.025); UMIC TRIGGER UACC YES; Urine Blood Negative (Negative); Urine Ketones 40 mg/dL (Negative); Urine Protein 30 (1+) mg/dL (Neg-Trace)
[2024-09-13 10:47] LABS: Bacteria Urine 1+ (None Seen); RBC Urine 0-2 /HPF (0-2); WBC Urine 0-5 /HPF (0-5)
[2024-09-13 10:59] LABS: Amphetamine Screen Urine Not Detected (Not Detect); Barbiturates, Urine Not Detected (Not Detect); Benzodiazepines Screen Urine Not Detected (Not Detect); Buprenorphine Scr Not Detected (Not Detect); Cannabinoid Screen Urine POSITIVE (Not Detect); Cocaine Screen Urine Not Detected (Not Detect); Fentanyl, urine Not Detected (Not Detect); Methadone Screen, Urine Not Detected (Not Detect); Opiate Screen Urine Not Detected (Not Detect); Oxycodone Screen Urine Not Detected (Not Detect); Phencyclidine Screen Urine Not Detected (Not Detect)
[2024-09-13] MEDS: Lidocaine HCl Viscous 2 % 15 ML SOLUTION MUCOUS MEM (11:12)
--- NOTE | 2024-09-13 11:51 | PC.NURSE ---
patient given gingerale and crackers, patient tolerated po
== END 2024-09-13 11:57 | disposition home or self-care (01) ==
PROVIDERS: Physician Assistant; Emergency Provider Emergency Medicine
DX: S06.0X1A Concussion with loss of consciousness of 30 minutes or less, initial encounter (principal); W00.0XXA Fall on same level due to ice and snow, initial encounter; Y93.89 Activity, other specified; Y92.89 Other specified places as the place of occurrence of the external cause; Y99.8 Other external cause status; R10.2 Pelvic and perineal pain; R42 Dizziness and giddiness; R51.9 Headache, unspecified; Y93.9 Activity, unspecified; Y92.9 Unspecified place or not applicable; Z03.818 Encounter for observation for suspected exposure to other biological agents ruled out; Z79.899 Other long term (current) drug therapy
CPT/HCPCS: 0241U; 36415; 70450; 72125; 80053; 80307; 81001; 83690; 83735; 84484; 84702; 85025; 96361; 96374; 96375; 99284; J1200; J2765; J7120

== ENCOUNTER → 2024-09-13 07:28 | Outpatient (BNV) | payer OTHER, SELFPAY | PROVIDERS: Emergency Provider Emergency Medicine; Visit Provider Radiology Diagnostic Radiology | DX: M54.2 Cervicalgia (principal); R55 Syncope and collapse | CPT/HCPCS: 70450; 72125 ==

== ENCOUNTER 2024-12-09 03:19 | Inpatient (IN) | payer OTHER, SELFPAY ==
[2024-12-09] VITALS (9 sets, daily range): BP systolic 109–133; BP diastolic 58–86; PULSE 98–120; RESP 13–20; TEMP 36.1–37.2; O2SAT 98–100; BMI 23.8
--- NOTE | ~2024-12-09 | CT_ITS ---
EXAMINATION: CT ABDOMEN AND PELVIS WITH CONTRAST CLINICAL INFORMATION: Right lower quadrant pain. COMPARISON: May 23, 2024. TECHNIQUE: Multidetector volumetric images were obtained from the superior aspect of the liver through the pubic symphysis following administration 85 mL of Omnipaque 350 intravenous contrast. Sagittal and coronal reformatted images were obtained on the technologist's workstation. Oral contrast: No This CT examination was performed using dose optimization techniques as appropriate, variously including the following: *Automated exposure control *Adjustment of mA and/or kV according to patient size (this includes techniques or standardized protocols for targeted exams where dose is matched to indication/reason for exam; i.e. extremities or head) *Use of iterative reconstruction technique. DLP: 365 mGy centimeter. FINDINGS: Limited by patient's motion artifact. LUNG BASES: No acute airspace disease. LIVER, GALLBLADDER, AND BILIARY TREE: Liver measures 15 cm. Decreased enhancement pattern. Portal veins, hepatic veins and intrahepatic portion of the IVC are patent. No focal mass. No pericholecystic fluid collection or gallbladder wall thickening. No intrahepatic or extrahepatic biliary ductal dilatation. PANCREAS: No focal lesion. No peripancreatic fluid collection. No main pancreatic ductal dilatation. SPLEEN: 8 cm. No focal lesion. ADRENAL GLANDS: No nodular lesion. KIDNEYS AND URETERS: No hydronephrosis. No gross nephrolithiasis. No renal mass. Normal enhancement pattern of the renal parenchyma and excretion into the collecting system. BLADDER: Fluid-filled. GASTROINTESTINAL TRACT: I cannot identify the appendix. There is a concentric wall thickening throughout the large intestine extending from the cecum to the rectosigmoid colon more pronounced on the right hemicolon and transverse colon. Mild pericolonic edema pattern in the ascending colon. No pneumatosis intestinalis. No ascites. No pneumoperitoneum. No intestinal obstruction pattern. ABDOMINAL WALL: No umbilical hernia. LYMPH NODES: No mesenteric or retroperitoneal lymphadenopathy. VASCULAR: No aneurysm or dissection. No gross calcified plaques. PELVIC VISCERA: No gross masses. OSSEOUS STRUCTURES: A S-shaped curvature of the lumbar spine which could be positional. Prominent transverse processes of L5 and articulating with S1. Rudimentary ribs at T12 CT/CT abdomen pelvis w IV con IMPRESSION: Diffuse acute colitis. Inflammatory bowel disease versus post antibiotic among other etiologies. Hepatic steatosis. Pseudoarthrosis transverse processes L5 vertebra. Bertolotti syndrome cannot be excluded. Fleischner guidelines were followed. Electronically signed by: Navin Shay MD 12/09/2024 08:06 AM EDT RP
--- NOTE | 2024-12-09 03:28 | ED_ITS ---
HPI - General Adult General Chief complaint: General Medical Stated complaint: n/v, abd pain Time Seen by Provider: 12/09/24 03:23 Source: patient Mode of arrival: ambulatory Limitations: no limitations History of Present Illness ED Provider: Dr. Nancy Alonzo HPI narrative: Patient comes to the emergency room complaining of nausea vomiting for 4 days. Patient known to have cyclical vomiting. Patient denies fever chills. Patient complaining of mild dysuria. Patient denies flank pain. Related Data Home Medications ?Medication ?Instructions ?Recorded ?Confirmed buspirone 15 mg tablet 15 mg PO TID 05/24/24 08/14/24 clonidine HCl 0.1 mg tablet 0.1 mg PO TID PRN Anxiety 05/24/24 08/14/24 sertraline 50 mg tablet 50 mg PO DAILY 05/24/24 08/14/24 trazodone 50 mg tablet 50 mg PO BEDTIME 08/08/24 08/14/24 prazosin 1 mg capsule 1 mg PO BEDTIME 08/14/24 08/14/24 Previous Rx's ?Medication ?Instructions ?Recorded atogepant 60 mg tablet 60 mg PO DAILY 30 days #30 tabs 08/08/24 ondansetron HCl 4 mg tablet 4 mg PO Q6H PRN nausea and 08/15/24 vomiting #20 tabs cholecalciferol (vitamin D3) 1,250 1,250 mcg PO QWEEK 12 days #12 caps 08/25/24 mcg (50,000 unit) capsule ondansetron 4 mg disintegrating 4 mg PO Q6-8H PRN nausea and 08/27/24 tablet vomiting #7 tabs ondansetron 4 mg disintegrating 4 mg PO Q8H PRN nausea and 09/13/24 tablet vomiting #10 tabs Allergies Allergy/AdvReac Type Severity Reaction Status Date / Time No Known Allergies Allergy Verified 12/09/24 03:28 [No Known Allergies*] Review of Systems 2 Review of Systems: Constitutional : No Weight loss, No Fever, No Chills, No Night Sweats, No Fatigue, No Malaise ENT/Mouth : No Hearing loss, No Ear Pain, No Nasal Congestion, No Sinus Pain, No Hoarseness, No sore throat, No Rhinorrhea, No Swallowing Difficulty Eyes: No Eye Pain, No Swelling, No Redness, No Foreign Body, No Discharge, No Vision Changes Cardiovascular : No Chest Pain, No SOB, No Dyspnea on Exertion, No Orthopnea, No Edema, No Palpitations Respiratory : No Cough, No Sputum, No Wheezing, No Smoke Exposure, No Dyspnea Gastrointestinal : Complaining of nausea vomiting, denies diarrhea or constipation, complaining of diffuse abdominal discomfort Genitourinary : no irregular bleeding, No Dysuria, No Urinary Frequency, No Hematuria, No Urinary Incontinence, No Urgency, No Flank Pain, No Urinary Flow Changes, No Hesitancy Musculoskeletal : No joint pain, No Myalgias, No Joint Swelling Skin : No Skin Lesions, No rash Neuro : No Weakness, No Numbness, No Paresthesias, No Loss of Consciousness, No Dizziness, No Headache Psych : No Anxiety/Panic, No Depression, No SI/HI/AH/VH, No Social Issues, Heme/Lymph: No Bruising, No Bleeding,No Lymphadenopathy Endocrine : No Polyuria, No Polydipsia, No Temperature Intolerance PMFSH Past Medical History Medical History Mood disorder Cannabinoid hyperemesis syndrome Cannabinoid hyperemesis syndrome Migraine headache Social History Social History Household Members: Spouse Housing: House Do you presently have visiting nurse or other home services: No Unable to assess alcohol history related to: Unknown Alcohol intake: former Patient Tobacco Use Status: Never used Tobacco Smoked in Last 30 Days: No Use of substances other than those prescribed or required for medical reasons: Yes Substance Use Type: Marijuana Any prior treatment program specific to substance use: No Advance Directives: Yes Advance Directives on File: Yes Advance Directives Date on File: 05/26/24 service: No Physical Exam ED Vital Signs: Vital Signs - 24 hr 12/09/24 03:26 12/09/24 04:33 12/09/24 05:26 Temperature 97 F 98.4 F Pulse Rate 104 H 111 H 108 H Respiratory Rate 20 18 13 Blood Pressure 109/72 116/72 133/68 Pulse Oximetry 98 98 98 Oxygen Delivery Method Room Air Room Air Room Air BMI result Body Mass Index 23.8 Const Other: Appearance: Alert. Oriented X3. actively vomit Eyes: Pupils equal, round and reactive to light. ENT: Pharynx normal. Neck: Normal inspection. Neck supple. No lymph nodes noted. No crepitus CVS: Normal heart rate and rhythm. Pulses normal. Normal S1 and S2 Respiratory: No respiratory distress. Breath sounds normal. No Wheezing. No rales Abdomen: Soft and nontender. No rigidity. No distention. actively vomiting Skin: Skin warm and dry. Normal skin color. Normal skin turgor. Extremities: No lower extremity edema. No Lacerations. No Rash Neuro: Oriented X 3. No motor deficit. No sensory deficit. Moving all extremities. No slurred speech. CN 2 through 12 grossly intact Psych: calm, anxious Course Course Course Narrative: all of patient labs pending Patient violently vomiting, very likely cyclical vomiting secondary to THC. Patient denies smoke marijuana for over a month. Patient receiving IV fluids, IV diazepam, diphenhydramine and Reglan Medications Administered Generic Name Dose Route Start Last Admin Trade Name Freq PRN Reason Stop Dose Admin Lactated Ringer's 2,000 mls @ 999 mls/hr 12/09/24 04:15 12/09/24 04:30 Lr IV 12/09/24 06:15 999 mls/hr .Q2H1M EDMOND Administration Discontinued Medications Generic Name Dose Route Start Last Admin Trade Name Freq PRN Reason Stop Dose Admin Diazepam 2.5 mg 12/09/24 03:26 12/09/24 03:41 Diazepam 10 Mg/2 Ml Cartridge IVPUSH 12/09/24 03:27 2.5 mg STAT STA Administration Diphenhydramine HCl 50 mg 12/09/24 03:26 12/09/24 03:41 Diphenhydramine Hcl 50 Mg/Ml Vial IVPUSH 12/09/24 03:27 50 mg ONCE ONE Administration Sodium Chloride 1,000 mls @ 999 mls/hr 12/09/24 03:26 12/09/24 04:46 Ns IVCONT 12/09/24 04:26 Infused .Q1H1M ONE Infusion Metoclopramide HCl 10 mg 12/09/24 03:26 12/09/24 03:41 Metoclopramide Hcl 10 Mg/2 Ml Vial IVPUSH 12/09/24 03:27 10 mg ONCE ONE Administration Sodium Bicarbonate 50 meq 12/09/24 04:20 12/09/24 04:26 Sodium Bicarbonate 8.4% 50 Meq/50 Ml Syringe IVPUSH 12/09/24 04:21 50 meq ONCE ONE Administration Medical Decision Making Medical Decision Making MDM Narrative: my interpretation of labs: Patient's white blood cell count 13.2, likely reactive leukocytosis. Venous blood gases show a normal pH, decreased bicarb however much improved since patient received IV fluids. Patient's chemistry initially show a bicarb of 10, we then anion gap of 30, patient's repeat labs showed bicarb of 13, anion gap of 26. Urinalysis negative for UTI, toxicology positive for EtOH of 221 and positive for marijuana I reviewed patient's past medical records, patient has been admitted multiple times for high anion gap metabolic acidosis, cannabinoid hyperemesis syndrome, starvation ketoacidosis which is the same case today. I discussed the above-mentioned with Dr. Valladares, patient being admitted Differential Diagnosis Differential Diagnoses: The differential diagnosis associated with the presentation includes ( as above) Admission/Observation Consideration of admission/observation: Escalation of care including admission/observation considered Consult Healthcare Provider Management of the patient was discussed with: Hospitalist Lab Data [facility] Lab Attestation statement: I reviewed the patient's lab results. 12/09/24 03:37 12/09/24 05:30 Labs: Lab Results 12/09/24 12/09/24 12/09/24 Range/Units 03:37 04:40 05:30 WBC 13.2 H (4.8-10.8) X10*3/uL RBC 4.27 (4.20-5.50) X10*6/uL Hgb 13.3 (12.0-16.0) g/dl Hct 37.2 (37.0-47.0) % MCV 87.1 (80.0-98.0) fL MCH 31.1 (27.0-33.0) pg MCHC 35.8 H (31.0-35.0) g/dl RDW 14.2 (11.0-16.0) % Plt Count 288 (160-400) X10*3/uL MPV 9.4 (9.4-12.3) fL Immature Gran % (Auto) 0.4 (0.0-0.4) % Neut % (Auto) 91.4 H (45-73) % Lymph % (Auto) 5.8 L (20-40) % Miner % (Auto) 1.9 L (2-11) % Eos % (Auto) 0.0 (0-4) % Baso % (Auto) 0.5 (0-2) % Lymph # (Auto) 0.8 L (1.2-4.9) X10*3/uL Miner # (Auto) 0.3 (0.1-1.2) X10*3/uL Eos # (Auto) 0.0 (0.0-0.4) X10*3/uL Baso # (Auto) 0.1 (0.0-0.2) X10*3/uL Abs Immat Gran (auto) 0.05 H (0.00-0.03) X10*3/uL Absolute Neuts (auto) 12.1 H (2.0-8.3) x10*3/uL Absolute Nucleated RBC 0.000 (0.0-0.012) X10*3/uL Nucleated RBC % (auto) 0.0 (0.0-0.2) /100WBC Smear Tech's Comments VERIFIED VBG pH (7.32-7.43) VBG pCO2 mmHg VBG pO2 mmHg VBG HCO3 (22-26) mmol/L VBG O2 Saturation % VBG Base Excess mmol/L Sodium 140 140 (135-145) mmol/L Potassium 4.3 4.4 (3.3-5.1) mmol/L Chloride 104 105 (96-108) mmol/L Carbon Dioxide 10 L* D 13 L (22-29) mmol/L Anion Gap 30 H 26 H (12-20) BUN 11 10 (9-16) mg/dL Creatinine 0.67 0.60 (0.5-1.4) mg/dL Estim Creat Clear Calc 100.6 112.4 Estimated GFR > 60 > 60 Random Glucose 110 84 (60-115) mg/dL Calcium 9.3 8.4 D (8.4-10.2) mg/dL Magnesium 1.6 (1.6-2.6) mg/dL Total Bilirubin 0.7 0.8 (0.0-1.0) mg/dL Direct Bilirubin 0.3 (0.0-0.5) mg/dL AST 38 H 39 H (5-31) U/L ALT 14 13 (0-31) U/L Alkaline Phosphatase 55 47 (39-117) U/L Total Protein 7.9 7.0 (6.5-8.0) g/dL Albumin 5.2 H 4.6 (3.5-5.0) g/dL Lipase 13 (8-78) U/L Beta HCG, Quant < 2 mIU/mL Urine Color Yellow Urine Appearance Clear Urine pH 5.0 (5.0-9.0) Ur Specific Pierce 1.020 (1.005-1.025) Urine Protein Trace (Neg-Trace) mg/dL Urine Glucose (UA) Negative (Negative) mg/dL Urine Ketones >=160 (Negative) mg/dL Urine Blood Trace H (Negative) Urine Nitrite Negative (Negative) Ur Leukocyte Esterase Negative (Negative) Urine RBC 0-2 (0-2) /HPF Urine WBC 0-5 (0-5) /HPF Ur Squamous Epith Cells 3-5 (0-2) /HPF Urine Bacteria None Seen (None Seen) Hyaline Casts 0-2 (0-2) /LPF Urine Opiates Screen Not Detected (Not Detect) Ur Buprenorphine Scrn Not Detected (Not Detect) ng/mL Ur Oxycodone Screen Not Detected (Not Detect) ng/mL Urine Methadone Screen Not Detected (Not Detect) ng/mL Urine Fentanyl Screen Not Detected (Not Detect) Ur Barbiturates Screen Not Detected (Not Detect) Ur Phencyclidine Scrn Not Detected (Not Detect) Ur Amphetamines Screen Not Detected (Not Detect) U Benzodiazepines Scrn Not Detected (Not Detect) Urine Cocaine Screen Not Detected (Not Detect) U Marijuana (THC) Screen POSITIVE H (Not Detect) Ethyl Alcohol 221 mg/dL 12/09/24 Range/Units 05:34 WBC (4.8-10.8) X10*3/uL RBC (4.20-5.50) X10*6/uL Hgb (12.0-16.0) g/dl Hct (37.0-47.0) % MCV (80.0-98.0) fL MCH (27.0-33.0) pg MCHC (31.0-35.0) g/dl RDW (11.0-16.0) % Plt Count (160-400) X10*3/uL MPV (9.4-12.3) fL Immature Gran % (Auto) (0.0-0.4) % Neut % (Auto) (45-73) % Lymph % (Auto) (20-40) % Miner % (Auto) (2-11) % Eos % (Auto) (0-4) % Baso % (Auto) (0-2) % Lymph # (Auto) (1.2-4.9) X10*3/uL Miner # (Auto) (0.1-1.2) X10*3/uL Eos # (Auto) (0.0-0.4) X10*3/uL Baso # (Auto) (0.0-0.2) X10*3/uL Abs Immat Gran (auto) (0.00-0.03) X10*3/uL Absolute Neuts (auto) (2.0-8.3) x10*3/uL Absolute Nucleated RBC (0.0-0.012) X10*3/uL Nucleated RBC % (auto) (0.0-0.2) /100WBC Smear Tech's Comments VBG pH 7.40 (7.32-7.43) VBG pCO2 22 mmHg VBG pO2 66 mmHg VBG HCO3 14 L (22-26) mmol/L VBG O2 Saturation 90.0 % VBG Base Excess -8.7 mmol/L Sodium (135-145) mmol/L Potassium (3.3-5.1) mmol/L Chloride (96-108) mmol/L Carbon Dioxide (22-29) mmol/L Anion Gap (12-20) BUN (9-16) mg/dL Creatinine (0.5-1.4) mg/dL Estim Creat Clear Calc Estimated GFR Random Glucose (60-115) mg/dL Calcium (8.4-10.2) mg/dL Magnesium (1.6-2.6) mg/dL Total Bilirubin (0.0-1.0) mg/dL Direct Bilirubin (0.0-0.5) mg/dL AST (5-31) U/L ALT (0-31) U/L Alkaline Phosphatase (39-117) U/L Total Protein (6.5-8.0) g/dL Albumin (3.5-5.0) g/dL Lipase (8-78) U/L Beta HCG, Quant mIU/mL Urine Color Urine Appearance Urine pH (5.0-9.0) Ur Specific Pierce (1.005-1.025) Urine Protein (Neg-Trace) mg/dL Urine Glucose (UA) (Negative) mg/dL Urine Ketones (Negative) mg/dL Urine Blood (Negative) Urine Nitrite (Negative) Ur Leukocyte Esterase (Negative) Urine RBC (0-2) /HPF Urine WBC (0-5) /HPF Ur Squamous Epith Cells (0-2) /HPF Urine Bacteria (None Seen) Hyaline Casts (0-2) /LPF Urine Opiates Screen (Not Detect) Ur Buprenorphine Scrn (Not Detect) ng/mL Ur Oxycodone Screen (Not Detect) ng/mL Urine Methadone Screen (Not Detect) ng/mL Urine Fentanyl Screen (Not Detect) Ur Barbiturates Screen (Not Detect) Ur Phencyclidine Scrn (Not Detect) Ur Amphetamines Screen (Not Detect) U Benzodiazepines Scrn (Not Detect) Urine Cocaine Screen (Not Detect) U Marijuana (THC) Screen (Not Detect) Ethyl Alcohol mg/dL Critical Care Time Critical Care Time Critical Care Time: Yes Total Critical Care Time: 60 Attestation: I have personally provided critical care time. Time includes review of lab data, radiology results, discussion with consultants, and monitoring for potential decompensation. Intervention performed as documented. Discharge Plan Discharge Clinical Impression: High anion gap metabolic acidosis, Starvation ketoacidosis, Cannabinoid hyperemesis syndrome Patient Disposition: Admitted As Inpatient Prescriptions: No Action cholecalciferol (vitamin D3) 1,250 mcg (50,000 unit) capsule 1,250 mcg PO QWEEK 12 Days Qty: 12 0RF clonidine HCl 0.1 mg Tablet 0.1 mg PO TID PRN (Reason: Anxiety) sertraline 50 mg Tablet 50 mg PO DAILY buspirone 15 mg Tablet 15 mg PO TID prazosin 1 mg Capsule 1 mg PO BEDTIME ondansetron HCl 4 mg tablet 4 mg PO Q6H PRN (Reason: nausea and vomiting) Qty: 20 0RF ondansetron 4 mg tablet,disintegrating 4 mg PO Q6-8H PRN (Reason: nausea and vomiting) Qty: 7 0RF ondansetron 4 mg tablet,disintegrating 4 mg PO Q8H PRN (Reason: nausea and vomiting) Qty: 10 0RF trazodone 50 mg tablet 50 mg PO BEDTIME atogepant 60 mg tablet 60 mg PO DAILY 30 Days Qty: 30 6RF Print Language: [place]
[2024-12-09] MEDS: diazePAM 10 MG/2 ML CARTRIDGE 2.5 MG IVPUSH (03:41)
[2024-12-09] MEDS: diphenhydrAMINE HCL 50 MG/ML VIAL IVPUSH (03:41)
[2024-12-09] MEDS: Metoclopramide HCl 10 MG/2 ML VIAL IVPUSH ×2 (03:41→20:48)
[2024-12-09] MEDS: 0.9 % Sodium Chloride 1,000 ML 999 ML IVCONT (03:41)
[2024-12-09 03:44] LABS: Basophils Absolute Auto 0.1 X10*3/uL (0.0-0.2); Basophils Percent Auto 0.5 % (0-2); Hematocrit 37.2 % (37.0-47.0); Hemoglobin 13.3 g/dl (12.0-16.0); Imm Gran Abs Auto 0.05 X10*3/uL (0.00-0.03); Imm Gran Pct Auto 0.4 % (0.0-0.4); Lymphocytes Absolute Auto 0.8 X10*3/uL (1.2-4.9); Lymphocytes Percent Auto 5.8 % (20-40); MANUAL DIFF FLAG SCAN; Mean Corpuscular HGB Conc 35.8 g/dl (31.0-35.0); Mean Corpuscular Hemoglobin 31.1 pg (27.0-33.0); Mean Corpuscular Volume 87.1 fL (80.0-98.0); Mean Platelet Volume 9.4 fL (9.4-12.3); Monocytes Absolute Auto 0.3 X10*3/uL (0.1-1.2); Monocytes Percent Auto 1.9 % (2-11); Neutrophils Absolute Auto 12.1 x10*3/uL (2.0-8.3); Neutrophils Percent Auto 91.4 % (45-73); Platelet Count 288 X10*3/uL (160-400); Red Blood Count 4.27 X10*6/uL (4.20-5.50); Red Cell Distribution Width 14.2 % (11.0-16.0); SCAN SMEAR FLAG 1; White Blood Count 13.2 X10*3/uL (4.8-10.8)
[2024-12-09 04:02] LABS: SLIDE REVIEW VERIFIED
[2024-12-09 04:10] LABS: Alanine Aminotransferase 14 U/L (0-31); Albumin Level 5.2 g/dL (3.5-5.0); Alkaline Phosphatase 55 U/L (39-117); Anion Gap 30 (12-20); Aspartate Amino Transferase 38 U/L (5-31); Bilirubin Direct 0.3 mg/dL (0.0-0.5); Bilirubin Total 0.7 mg/dL (0.0-1.0); Blood Urea Nitrogen 11 mg/dL (9-16); Calcium 9.3 mg/dL (8.4-10.2); Carbon Dioxide 10 mmol/L (22-29); Chloride 104 mmol/L (96-108); Creatinine Clr Calc Pharmacy 100.6; Estimated Glomerular Filt Rate > 60; Ethanol 221 mg/dL; Glucose Random 110 mg/dL (60-115); HCG Quantitative < 2 mIU/mL; Lipase 13 U/L (8-78); Magnesium 1.6 mg/dL (1.6-2.6); Potassium 4.3 mmol/L (3.3-5.1); Sodium 140 mmol/L (135-145); Total Protein 7.9 g/dL (6.5-8.0)
[2024-12-09] MEDS: Sodium Bicarbonate 8.4% 50 MEQ/50 ML SYRINGE IVPUSH (04:26)
[2024-12-09] MEDS: Lactated Ringers 2,000 ML 999 ML IV (04:30)
[2024-12-09 04:48] LABS: Appearance Urine Clear; Color Urine Yellow; Glucose Urine UA Negative (Negative); Leukocyte Esterase Urine Negative (Negative); Nitrite Urine Negative (Negative); UMIC TRIGGER UACC YES; Urine Blood Trace (Negative); Urine Ketones >=160 mg/dL (Negative); Urine Protein Trace mg/dL (Neg-Trace)
[2024-12-09 04:50] LABS: Bacteria Urine None Seen (None Seen); Hyaline Casts Urine 0-2 /LPF (0-2); RBC Urine 0-2 /HPF (0-2); WBC Urine 0-5 /HPF (0-5)
[2024-12-09 04:59] LABS: Amphetamine Screen Urine Not Detected (Not Detect); Barbiturates, Urine Not Detected (Not Detect); Benzodiazepines Screen Urine Not Detected (Not Detect); Buprenorphine Scr Not Detected (Not Detect); Cannabinoid Screen Urine POSITIVE (Not Detect); Cocaine Screen Urine Not Detected (Not Detect); Fentanyl, urine Not Detected (Not Detect); Methadone Screen, Urine Not Detected (Not Detect); Opiate Screen Urine Not Detected (Not Detect); Oxycodone Screen Urine Not Detected (Not Detect); Phencyclidine Screen Urine Not Detected (Not Detect)
[2024-12-09 05:33] LABS: Venous Blood Gas Refer to POC result
[2024-12-09 05:38] LABS: VBG Base Excess -8.7 mmol/L; VBG HCO3 14 mmol/L (22-26); VBG pCO2 22 mmHg; VBG pO2 66 mmHg
[2024-12-09 05:50] LABS: Alanine Aminotransferase 13 U/L (0-31); Albumin Level 4.6 g/dL (3.5-5.0); Anion Gap 26 (12-20); Aspartate Amino Transferase 39 U/L (5-31); Bilirubin Total 0.8 mg/dL (0.0-1.0); Blood Urea Nitrogen 10 mg/dL (9-16); Calcium 8.4 mg/dL (8.4-10.2); Carbon Dioxide 13 mmol/L (22-29); Chloride 105 mmol/L (96-108); Creatinine Clr Calc Pharmacy 112.4; Estimated Glomerular Filt Rate > 60; Glucose Random 84 mg/dL (60-115); Potassium 4.4 mmol/L (3.3-5.1); Sodium 140 mmol/L (135-145)
[2024-12-09 05:53] LABS: Alkaline Phosphatase 47 U/L (39-117)
--- NOTE | 2024-12-09 06:18 | PC.NURSE ---
patient ambulated to bathroom with a steady gait, states that her nausea has subsided, c/o 9 out of 10 abdominal pain, otherwise stable including VS, plan for admission, wctm
--- NOTE | 2024-12-09 06:26 | PM.IMHP ---
History of Present Illness Date of Service: 12/09/24 Attending physician on admission: Severino Valladares Chief Complaint: nausea, vomiting Patient is a 24-year-old female with a past medical history mood disorder cannabinoid hyperemesis syndrome with multiple admissions due to in [place] metabolic acidosis with starvation ketosis, who presented to the ED due to nausea and vomiting x4 days. She reports blood-tinged vomit and upper abdominal pain rating it an 8/10 describing it as a cramping. She denies any fever, chills, recent illness or diarrhea. She does report dysuria for the past few days and denies any vaginal discharge. She reports that she has not smoked marijuana or use any marijuana in the past month and does not feel this is similar to previous episodes of cannabinoid induced hyperemesis syndrome. She also reports that she has been sober from alcohol for while but recently relapsed. She can not quantify how much alcohol she consumes but reports it is not on a daily basis. She denies any shortness of breath, chest pain or cough. She reports last consuming alcohol 2 days ago. Review of Systems Constitutional: Constitutional: Denies chills, Denies fatigue and Denies fever(s) Eyes: Eyes: Denies change in vision and Denies photophobia ENT: Denies nasal congestion, Denies nasal discharge and Denies sore throat Cardiovascular: Cardiovascular: Denies chest pain, Denies syncope, Denies rapid heart rate, Denies leg edema and Denies dyspnea Respiratory: Respiratory: Denies chest congestion, Denies cough, Denies dyspnea and Denies wheezing Gastrointestinal: Gastrointestinal: Reports as per HPI, Reports abdominal pain, Reports nausea and Reports vomiting Genitourinary: Genitourinary: Denies difficulty voiding, Reports dysuria and Denies vaginal discharge Musculoskeletal: Musculoskeletal: Denies back pain Integumentary/Breasts: Skin/Breast: Denies rash Neurologic: Denies confusion and Denies syncope Psychiatric: Psychiatric: Denies confusion Endocrine: Endocrine: Denies fatigue Hematologic/Lymphatic: Hematologic/Lymphatic: Denies easy bleeding and Denies easy bruising Allergic/Immunologic: Allergic/Immunologic: Denies wheezing [facility] Medical History Mood disorder Cannabinoid hyperemesis syndrome Cannabinoid hyperemesis syndrome Migraine headache Functional capacity: independent ambulation Social History Household Members: Spouse Housing: House Do you presently have visiting nurse or other home services: No Unable to assess alcohol history related to: Unknown Alcohol intake: former Patient Tobacco Use Status: Never used Tobacco Smoked in Last 30 Days: No Use of substances other than those prescribed or required for medical reasons: Yes Substance Use Type: Marijuana Currently Displaying Signs/Symptoms of Drug Intoxication Withdrawal: No Any prior treatment program specific to substance use: No Have you been hit, kicked, punched, or otherwise hurt by someone within the past year? If so, by whom?: No Do you feel safe in your current relationship?: No Current Relationship Is there a partner from a previous relationship who is making you feel unsafe now?: No Are you made to feel afraid or neglected: No Advance Directives: Yes Advance Directives on File: Yes Advance Directives Date on File: 05/26/24 Do you have a plan to hurt others: No Plan Recently lost weight without trying: No Nutrition Risks: No Nutritional Risk Patient : No : No Poor oral hygiene: No service: No Narrative: previous marijuana user, reports none x1 month. cannot quantify stoh use. Meds Allergies Allergy/AdvReac Type Severity Reaction Status Date / Time No Known Allergies Allergy Verified 12/09/24 03:28 [No Known Allergies*] Active Medications: Current Medications Acetaminophen (Acetaminophen 325 Mg Tablet) 975 mg PO Q6H PRN PRN Reason: Pain, Mild 1-3,fever,headache Calcium Carbonate (Calcium Carbonate 750 Mg Tab.Chew) 750 mg PO Q4H PRN PRN Reason: Heartburn Hydromorphone HCl (Hydromorphone Hcl 1 Mg/Ml Syringe) 0.5 mg IVPUSH Q4H PRN; Protocol PRN Reason: Pain, Severe (Pain Scale 7-10) Lactated Ringer's (Lr) 1,000 mls @ 100 mls/hr IVCONT .Q10H [facility] Magnesium Hydroxide (Milk Of Magnesia 30 Ml Oral.Susp) 30 ml PO DAILY PRN PRN Reason: Constipation Melatonin (Melatonin 3 Mg Tablet) 6 mg PO BEDTIME PRN PRN Reason: Insomnia Metoclopramide HCl (Metoclopramide Hcl 10 Mg/2 Ml Vial) 10 mg IVPUSH Q6H PRN PRN Reason: Nausea and Vomiting Morphine Sulfate (Morphine Sulfate 4 Mg/Ml Cartridge) 2 mg IVPUSH Q4H PRN; Protocol PRN Reason: Pain, Moderate(Pain Scale 4-6) Ondansetron HCl (Ondansetron Hcl 4 Mg/2 Ml Vial) 4 mg IVPUSH Q8H PRN PRN Reason: Nausea and Vomiting Pantoprazole Sodium (Pantoprazole Sodium 40 Mg/10 Ml Vial) 40 mg IVPUSH BID@0630,1630 [facility] Sodium Chloride (0.9 % Sodium Chloride Flush 3 Ml Syringe) 3 ml IVFLUSH QSHIFT [facility] Home Medications ?Medication ?Instructions ?Recorded ?Confirmed ?Last Taken ?Type clonidine HCl 0.1 mg tablet 0.1 mg PO TID PRN Anxiety 05/24/24 12/09/24 Unknown History multivitamin 1 tab PO DAILY 12/09/24 12/09/24 12/08/24 History Physical Exam Vital Signs and Narrative: Vital Signs: Last Vital Signs Temp 98.4 F 12/09/24 05:26 Pulse 112 H 12/09/24 06:23 Resp 18 12/09/24 06:23 BP 130/58 L 12/09/24 06:23 Pulse Ox 98 12/09/24 06:23 O2 Del Method Room Air 12/09/24 06:23 BMI result Body Mass Index 23.8 General: AOx3, appears uncomfortable, sitting forward in bed grabbing abdomen Resp: CTA bilaterally CVS: S1, S2, RRR GI: +BS, 10 to throughout, positive McBurney's point, no distention Skin: Warm, dry Neuro: Cranial nerves II-XII grossly intact bilaterally. Motor grossly intact bilaterally Extremities: No LE edema Psych: Appropriate affect Const: General: No confusion Orientation/consciousness: No confusion Eyes: Direct Ophthalmoscopy: No photophobia Neuro: General: No confusion Results Labs 12/09/24 03:37 12/09/24 14:59 Labs: Laboratory Results - last 24 hr 12/09/24 12/09/24 12/09/24 03:37 04:40 05:30 MCV 87.1 MCH 31.1 MCHC 35.8 H RDW 14.2 Plt Count 288 MPV 9.4 Immature Gran % (Auto) 0.4 Neut % (Auto) 91.4 H Lymph % (Auto) 5.8 L [place] % (Auto) 1.9 L Eos % (Auto) 0.0 Baso % (Auto) 0.5 Lymph # (Auto) 0.8 L [place] # (Auto) 0.3 Eos # (Auto) 0.0 Baso # (Auto) 0.1 Abs Immat Gran (auto) 0.05 H Absolute Neuts (auto) 12.1 H Absolute Nucleated RBC 0.000 Nucleated RBC % (auto) 0.0 Smear Tech's Comments VERIFIED VBG pH VBG pCO2 VBG pO2 VBG HCO3 VBG O2 Saturation VBG Base Excess Anion Gap 30 H 26 H Estim Creat Clear Calc 100.6 112.4 Estimated GFR > 60 > 60 Random Glucose 110 84 Calcium 9.3 8.4 D Magnesium 1.6 Total Bilirubin 0.7 0.8 Direct Bilirubin 0.3 AST 38 H 39 H ALT 14 13 Alkaline Phosphatase 55 47 Total Protein 7.9 7.0 Albumin 5.2 H 4.6 Lipase 13 Beta HCG, Quant < 2 Urine Color Yellow Urine Appearance Clear Urine pH 5.0 Ur Specific [place] 1.020 Urine Protein Trace Urine Glucose (UA) Negative Urine Ketones >=160 Urine Blood Trace H Urine Nitrite Negative Ur Leukocyte Esterase Negative Urine RBC 0-2 Urine WBC 0-5 Ur Squamous Epith Cells 3-5 Urine Bacteria None Seen Hyaline Casts 0-2 Urine Opiates Screen Not Detected Ur Buprenorphine Scrn Not Detected Ur Oxycodone Screen Not Detected Urine Methadone Screen Not Detected Urine Fentanyl Screen Not Detected Ur Barbiturates Screen Not Detected Ur Phencyclidine Scrn Not Detected Ur Amphetamines Screen Not Detected U Benzodiazepines Scrn Not Detected Urine Cocaine Screen Not Detected U Marijuana (THC) Screen POSITIVE H Ethyl Alcohol 221 12/09/24 05:34 MCV MCH MCHC RDW Plt Count MPV Immature Gran % (Auto) Neut % (Auto) Lymph % (Auto) [place] % (Auto) Eos % (Auto) Baso % (Auto) Lymph # (Auto) [place] # (Auto) Eos # (Auto) Baso # (Auto) Abs Immat Gran (auto) Absolute Neuts (auto) Absolute Nucleated RBC Nucleated RBC % (auto) Smear Tech's Comments VBG pH 7.40 VBG pCO2 22 VBG pO2 66 VBG HCO3 14 L VBG O2 Saturation 90.0 VBG Base Excess -8.7 Anion Gap Estim Creat Clear Calc Estimated GFR Random Glucose Calcium Magnesium Total Bilirubin Direct Bilirubin AST ALT Alkaline Phosphatase Total Protein Albumin Lipase Beta HCG, Quant Urine Color Urine Appearance Urine pH Ur Specific [place] Urine Protein Urine Glucose (UA) Urine Ketones Urine Blood Urine Nitrite Ur Leukocyte Esterase Urine RBC Urine WBC Ur Squamous Epith Cells Urine Bacteria Hyaline Casts Urine Opiates Screen Ur Buprenorphine Scrn Ur Oxycodone Screen Urine Methadone Screen Urine Fentanyl Screen Ur Barbiturates Screen Ur Phencyclidine Scrn Ur Amphetamines Screen U Benzodiazepines Scrn Urine Cocaine Screen U Marijuana (THC) Screen Ethyl Alcohol Assessment and Plan (1) Intractable nausea and vomiting: Status: Acute (2) Abdominal pain: Status: Acute (3) High anion gap metabolic acidosis: Status: Acute (4) Starvation ketoacidosis: Status: Acute Plan Patient is a 24-year-old female with a past medical history mood disorder cannabinoid hyperemesis syndrome with multiple admissions due to in [place] metabolic acidosis with starvation ketosis, who presented to the ED due to nausea and vomiting x4 days. Intractable nausea and vomiting with blood tinged vomit and abdominal pain - generalized abdominal pain however positive McBurney's point on exam, concern for appendicitis however history of multiple admissions due to cannabinoid hyperemesis syndrome with anion gap metabolic acidosis secondary to starvation ketosis - WBC 13.2, tachycardic, likely reactive, no infectious etiology identified - UA negative - abdominopelvic CT ordered - Utox positive for marijuana - alcohol level 221 - GI consult - NPO - Protonix - Zofran and Reglan as needed for nausea and vomiting - LR 100ml/hr - monitor CBC and BMP High anion gap metabolic acidosis secondary to starvation ketosis - bicarb initially 10, improved to 13 with 3 L IV fluids and bicarb - anion gap improved from 30 to 26 with IV fluids as above - history previous admissions for similar - LR 100ml/hr - monitor BMP Alcohol use disorder - patient unable to quantify alcohol frequency or quantity - reports last use 2 days ago however alcohol level 221 - monitor CIWA - initiate phenobarb if CIWA scores elevated Mood disorder - continue home meds Full code VTE prophylaxis: Pneumoboots pending complete evaluation Patient with intractable nausea and vomiting with blood-tinged vomiting abdominal pain complicated by high anion gap metabolic acidosis secondary to starvation ketosis, requiring admission for at least 2 midnight stay for IV fluids, antiemetics and GI consultation. Quality Stroke Does the patient have a stroke diagnosis?: No VTE Prior VTE?: No VTE Risk Level:: Medical - moderate - high VTE Device Contraindication: N/A - Device Ordered VTE Drug Contraindication: Treatment Not Indicated
[2024-12-09] MEDS: iohexoL 350 MG/ML 100 ML INFUS..BTL 85 ML IV (06:36)
--- NOTE | 2024-12-09 06:36 | PC.NURSE ---
pt taken to CT Scan
--- NOTE | 2024-12-09 06:37 | PC.NURSE ---
patient to CT
--- NOTE | 2024-12-09 06:59 | PC.NURSE ---
report given to RAISA De La Cruz
[2024-12-09] MEDS: Lactated Ringers 1,000 ML 100 ML IVCONT ×2 (07:03→18:17)
[2024-12-09] MEDS: Pantoprazole Sodium 40 MG/10 ML VIAL IVPUSH ×2 (07:03→16:10)
[2024-12-09] MEDS: HYDROmorphone HCl 1 MG/ML SYRINGE 0.5 MG IVPUSH ×2 (07:21→11:41)
--- NOTE | 2024-12-09 07:26 | PC.NURSE ---
Pt is alert and oriented. Reports epigastric pain 8/10 and restless in bed. Medicated with PRN Diluadid as charted. VSS but tachy in low 100s on tele. Skin pink warm and dry. No acute vomiting. Awaiting CT results. Ambulatory to bathroom. LR at 100ml/hr
--- NOTE | 2024-12-09 08:34 | PC.NURSE ---
CT scan resulted, okay to give ice chips per Analisa SANCHEZ ABX ordered after report put in, blood cultures to be given prior, will obtain bld cultures before transfer to [facility], inpt RN aware notified.
[2024-12-09 09:17] LABS: Lactic Acid 6.3 mmol/L (0.5-2.0)
--- NOTE | 2024-12-09 09:17 | PHA.MEDREC ---
Addendum entered by Issa Nieves RPh 12/09/24 09:24: Med rec was reviewed by [facility]. Original Note: Pharmacy Consult ? Medication Reconciliation Pharmacy has completed the medication reconciliation. Spoke with pt and she confirmed she is only taking a Multivitamin tab once daily and still has Clonidine 0.1mg tabs TID as needed for anxiety at home; she states she got the Clonidine filled at a [facility] in [place]. I called [facility] and they confirmed the pt last got Clonidine 0.1mg tabs 07/11/2024 QTY 90 for 30 days.
[2024-12-09] MEDS: SODIUM CHLORIDE 1770 ML IV (09:36)
[2024-12-09] MEDS: PHENobarbitaL sodium 130 MG/ML IM ONCE 160 MG IM (09:43)
[2024-12-09] MEDS: ondansetron HCL 4 MG/2 ML VIAL IVPUSH ×2 (09:56→22:03)
[2024-12-09] MEDS: metroNIDAZOLE/NS 500 MG/100 ML PIGGYBACK 100 MG IV ×3 (10:32→20:44)
[2024-12-09] MEDS: cefTRIAXone sodium 1 GM VIAL IVPUSH (10:32)
[2024-12-09 10:56] LABS: Reflex Lactate? Lactic Acid Added
--- NOTE | 2024-12-09 11:09 | PM.GICN ---
History of Present Illness Data of Consult Service Date: 12/09/24 Requesting physician: Tanya Gifford Primary Care Provider: Unknown Physician HPI Reason for consult: Blood in emesis Patient is a 24-year-old female with a past medical history mood disorder cannabinoid hyperemesis syndrome with prev hx of multiple ER visits for abd pain, N,V triggered by migraines per her report. Pt reports that 4 days ago she again had a migraine headache and within a day developed abd pain, N,V. Has been unable to keep anything down. Assoc with diarrhea which resolved within 2 days. No fevers but chills +. No sick contacts. Lives with her . Reports last drink 4 days ago (single shot) however BAL > 200 on admission. Similarly does not report marijuana use for a month but urine THC +. On arrival noted to be tachycardiac. Labs significant for hemoconcentration with acidosis from alcoholic ketoacidosis as well as starvation acidosis. CT abd pel with enlarged fatty liver and duodenal wall thickening and colon wall edema on independent review of imaging. Currently at bedside, report abd pain is better, main CC is persistent headahce with nausea and dry heaving. Had one episode of emesis with small streaks of blood. Review of Systems Review of Systems: Yes all other systems are reviewed and are negative PMFSH Past Medical History Medical History Mood disorder Cannabinoid hyperemesis syndrome Cannabinoid hyperemesis syndrome Migraine headache Social History Social History Household Members: Spouse Housing: House Do you presently have visiting nurse or other home services: No Unable to assess alcohol history related to: Unknown Alcohol intake: former Patient Tobacco Use Status: Never used Tobacco Smoked in Last 30 Days: No Use of substances other than those prescribed or required for medical reasons: Yes Substance Use Type: Marijuana Currently Displaying Signs/Symptoms of Drug Intoxication Withdrawal: No Any prior treatment program specific to substance use: No Have you been hit, kicked, punched, or otherwise hurt by someone within the past year? If so, by whom?: No Do you feel safe in your current relationship?: No Current Relationship Is there a partner from a previous relationship who is making you feel unsafe now?: No Are you made to feel afraid or neglected: No Advance Directives: Yes Advance Directives on File: Yes Advance Directives Date on File: 05/26/24 Do you have a plan to hurt others: No Plan Recently lost weight without trying: No Nutrition Risks: No Nutritional Risk Patient : No : No Poor oral hygiene: No service: No Meds Allergies Allergy/AdvReac Type Severity Reaction Status Date / Time No Known Allergies Allergy Verified 12/09/24 03:28 [No Known Allergies*] Active Medications: Current Medications Acetaminophen (Acetaminophen 325 Mg Tablet) 975 mg PO Q6H PRN PRN Reason: Pain, Mild 1-3,fever,headache Calcium Carbonate (Calcium Carbonate 750 Mg Tab.Chew) 750 mg PO Q4H PRN PRN Reason: Heartburn Ceftriaxone Sodium (Ceftriaxone Sodium 1 Gm Vial) 1 gm IVPUSH Q24H [facility] Last Admin: 12/09/24 10:32 Dose: 1 gm Clonidine HCl (Clonidine Hcl 0.1 Mg Tablet) 0.1 mg PO TID PRN; Protocol PRN Reason: Anxiety Folic Acid (Folic Acid 1 Mg Tablet) 1 mg PO DAILY [facility] Hydromorphone HCl (Hydromorphone Hcl 1 Mg/Ml Syringe) 0.5 mg IVPUSH Q4H PRN; Protocol PRN Reason: Pain, Severe (Pain Scale 7-10) Last Admin: 12/09/24 07:21 Dose: 0.5 mg Lactated Ringer's (Lr) 1,000 mls @ 100 mls/hr IVCONT .Q10H [facility] Last Admin: 12/09/24 07:03 Dose: 100 mls/hr Metronidazole (Flagyl) 500 mg in 100 mls @ 100 mls/hr IV Q6H [facility] Last Admin: 12/09/24 10:32 Dose: 100 mls/hr Magnesium Hydroxide (Milk Of Magnesia 30 Ml Oral.Susp) 30 ml PO DAILY PRN PRN Reason: Constipation Melatonin (Melatonin 3 Mg Tablet) 6 mg PO BEDTIME PRN PRN Reason: Insomnia Metoclopramide HCl (Metoclopramide Hcl 10 Mg/2 Ml Vial) 10 mg IVPUSH Q6H PRN PRN Reason: Nausea and Vomiting Multivitamins/Vitamin C (Multivitamin Tablet) 1 tab PO DAILY [facility] Ondansetron HCl (Ondansetron Hcl 4 Mg/2 Ml Vial) 4 mg IVPUSH Q8H PRN PRN Reason: Nausea and Vomiting Last Admin: 12/09/24 09:56 Dose: 4 mg Pantoprazole Sodium (Pantoprazole Sodium 40 Mg/10 Ml Vial) 40 mg IVPUSH BID@0630,1630 [facility] Last Admin: 12/09/24 07:03 Dose: 40 mg Pharmacy Consult (Consult Rx Etoh Phenob Im/Po) 1 each MISCELLANE ONCE PRN; Protocol PRN Reason: Consult order Phenobarbital (Phenobarbital 15 Mg Tablet) 45 mg PO BID [facility]; Protocol Stop: 12/11/24 09:01 Phenobarbital (Phenobarbital 30 Mg Tablet) 30 mg PO BID [facility]; Protocol Stop: 12/13/24 09:01 Phenobarbital (Phenobarbital 30 Mg Tablet) 30 mg PO DAILY [facility]; Protocol Stop: 12/15/24 09:01 Phenobarbital Sodium (Phenobarbital Sodium 130 Mg/Ml Vial Im Q3hx2) 120 mg IM Q3H [facility]; Protocol Stop: 12/09/24 15:01 Sodium Chloride (0.9 % Sodium Chloride Flush 3 Ml Syringe) 3 ml IVFLUSH QSHIFT [facility] Last Admin: 12/09/24 07:12 Dose: Not Given Thiamine HCl (Thiamine Hcl 100 Mg Tablet) 100 mg PO DAILY [facility] Home Medications ?Medication ?Instructions ?Recorded ?Confirmed ?Last Taken ?Type clonidine HCl 0.1 mg tablet 0.1 mg PO TID PRN Anxiety 05/24/24 12/09/24 Unknown History multivitamin 1 tab PO DAILY 12/09/24 12/09/24 12/08/24 History Physical Exam Vital Signs: Vital Signs: Last Vital Signs Temp 98.9 F 12/09/24 09:15 Pulse 114 H 12/09/24 09:15 Resp 18 12/09/24 09:15 BP 129/71 12/09/24 09:15 Pulse Ox 99 12/09/24 09:15 O2 Del Method Room Air 12/09/24 09:15 BMI result Body Mass Index 23.8 Young female no apparent distress Nonicteric Abdomen soft, nondistended, non tender, no guarding Alert and oriented x3, Results Labs 12/09/24 03:37 12/09/24 05:30 Labs: Short CBC 12/09/24 Range/Units 03:37 WBC 13.2 H (4.8-10.8) X10*3/uL Hgb 13.3 (12.0-16.0) g/dl Hct 37.2 (37.0-47.0) % Plt Count 288 (160-400) X10*3/uL BMP 12/09/24 12/09/24 03:37 05:30 Sodium 140 140 Potassium 4.3 4.4 Chloride 104 105 Carbon Dioxide 10 L* D 13 L BUN 11 10 Creatinine 0.67 0.60 Calcium 9.3 8.4 D Liver Function 12/09/24 12/09/24 Range/Units 03:37 05:30 Total Bilirubin 0.7 0.8 (0.0-1.0) mg/dL Direct Bilirubin 0.3 (0.0-0.5) mg/dL AST 38 H 39 H (5-31) U/L ALT 14 13 (0-31) U/L Alkaline Phosphatase 55 47 (39-117) U/L Albumin 5.2 H 4.6 (3.5-5.0) g/dL Urine 12/09/24 Range/Units 04:40 Urine Color Yellow Urine Appearance Clear Urine pH 5.0 (5.0-9.0) Ur Specific [place] 1.020 (1.005-1.025) Urine Protein Trace (Neg-Trace) mg/dL Urine Glucose (UA) Negative (Negative) mg/dL Assessment and Plan (1) Abdominal pain: Status: Acute (2) Intractable nausea and vomiting: Status: Acute (3) High anion gap metabolic acidosis: Status: Acute Plan DDx include acute gastroenteritis bhumi as colitis noted as well, etOH gastritis, abdominal migraine, cyclical vomiting syndrome which has known association with migraine headaches, PUD, GOO - although none ntoed on CT. Plan: - Fluid resuscitation and electrolyte correction - CIWA protocol - Consider migraine abortive therapy such as sumatriptan which can also help with abdominal migraine as well as CVS. - Clear liquids as tolerated - Agree with stool studies although pt reports no further diarrheal BMs x 2 days - Can consider endoscopic evaluation if limited clinical improvement with above Thank you for allowing me to participate in her care. Please do not hesitate to reach out for questions or concerns. Procedures Date of Service Date of Service: 12/09/24
[2024-12-09 12:29] LABS: ~Lactic Acid-LAB USE ONLY 2.8 mmol/L (0.5-2.0)
--- NOTE | 2024-12-09 12:50 | MHC.CM.PN ---
PT REPORTS SHE LIVES WITH HER AND IS INDEPENDENT WITH CARE SHE HAS NO SERVICES AND NO DME SHE DECLINES ASSISTANCE COMPLETING A HCP PCP AT [facility] IN [place] DCP: HOME VIA PRIVATE TRANSPORT
[2024-12-09] MEDS: PHENobarbitaL sodium 130 MG/ML VIAL IM Q3Hx2 120 MG IM ×2 (13:51→16:09)
[2024-12-09 14:04] LABS: Reflex Lactate? 2 Y
--- NOTE | 2024-12-09 14:19 | P.PNIM_ITS ---
Subjective Subjective Date of Service: 12/09/24 Interval History: seen and examined this morning follow up for abdominal pain has ongoing abdominal pain, reporting diarrhea Review of Systems Review of Systems: Yes all other systems are reviewed and are negative Constitutional Constitutional: Denies chills and Denies fever(s) Cardiovascular Cardiovascular: Denies chest pain and Denies palpitations Gastrointestinal Gastrointestinal: Reports abdominal pain, Reports diarrhea and Reports nausea Endocrine Endocrine: Denies palpitations Physical Exam 2 Vital Signs: Vital Signs: Last Vital Signs Temp 98.9 F 12/09/24 09:15 Pulse 111 H 12/09/24 13:52 Resp 18 12/09/24 13:52 BP 127/69 12/09/24 13:52 Pulse Ox 99 12/09/24 09:15 O2 Del Method Room Air 12/09/24 09:15 BMI result Body Mass Index 23.8 Const: Other: appears uncomfortable General: alert and awake Nutritional Appearance: average body habitus Orientation/consciousness: patient oriented x3 Resp: Effort & Inspection: normal respiratory effort, able to speak in complete sentences, no respiratory distress and no use of accessory muscles Cardio: Rate: tachycardic GI: Other: no rebound Inspection: No distended Palpation (GI): Soft to palpation Neuro: General: patient oriented x3, moves all extremities and CN's II-XI intact bilaterally Objective Data Active Medications Acetaminophen (Acetaminophen 325 Mg Tablet) 975 mg PO Q6H PRN PRN Reason: Pain, Mild 1-3,fever,headache Calcium Carbonate (Calcium Carbonate 750 Mg Tab.Chew) 750 mg PO Q4H PRN PRN Reason: Heartburn Ceftriaxone Sodium (Ceftriaxone Sodium 1 Gm Vial) 1 gm IVPUSH Q24H [facility] Last Admin: 12/09/24 10:32 Dose: 1 gm Documented By: KASIA Clonidine HCl (Clonidine Hcl 0.1 Mg Tablet) 0.1 mg PO TID PRN; Protocol PRN Reason: Anxiety Folic Acid (Folic Acid 1 Mg Tablet) 1 mg PO DAILY [facility] Hydromorphone HCl (Hydromorphone Hcl 1 Mg/Ml Syringe) 0.5 mg IVPUSH Q4H PRN; Protocol PRN Reason: Pain, Severe (Pain Scale 7-10) Last Admin: 12/09/24 11:41 Dose: 0.5 mg Documented By: KASIA Lactated Ringer's (Lr) 1,000 mls @ 100 mls/hr IVCONT .Q10H [facility] Last Admin: 12/09/24 07:03 Dose: 100 mls/hr Documented By: HARPAL Metronidazole (Flagyl) 500 mg in 100 mls @ 100 mls/hr IV Q6H [facility] Last Infusion: 12/09/24 11:41 Dose: Infused Documented By: KASIA Magnesium Hydroxide (Milk Of Magnesia 30 Ml Oral.Susp) 30 ml PO DAILY PRN PRN Reason: Constipation Melatonin (Melatonin 3 Mg Tablet) 6 mg PO BEDTIME PRN PRN Reason: Insomnia Metoclopramide HCl (Metoclopramide Hcl 10 Mg/2 Ml Vial) 10 mg IVPUSH Q6H PRN PRN Reason: Nausea and Vomiting Multivitamins/Vitamin C (Multivitamin Tablet) 1 tab PO DAILY [facility] Ondansetron HCl (Ondansetron Hcl 4 Mg/2 Ml Vial) 4 mg IVPUSH Q8H PRN PRN Reason: Nausea and Vomiting Last Admin: 12/09/24 09:56 Dose: 4 mg Documented By: KASIA Pantoprazole Sodium (Pantoprazole Sodium 40 Mg/10 Ml Vial) 40 mg IVPUSH BID@0630,1630 [facility] Last Admin: 12/09/24 07:03 Dose: 40 mg Documented By: HARPAL Pharmacy Consult (Consult Rx Etoh Phenob Im/Po) 1 each MISCELLANE ONCE PRN; Protocol PRN Reason: Consult order Phenobarbital (Phenobarbital 15 Mg Tablet) 45 mg PO BID [facility]; Protocol Stop: 12/11/24 09:01 Phenobarbital (Phenobarbital 30 Mg Tablet) 30 mg PO BID [facility]; Protocol Stop: 12/13/24 09:01 Phenobarbital (Phenobarbital 30 Mg Tablet) 30 mg PO DAILY [facility]; Protocol Stop: 12/15/24 09:01 Phenobarbital Sodium (Phenobarbital Sodium 130 Mg/Ml Vial Im Q3hx2) 120 mg IM Q3H [facility]; Protocol Stop: 12/09/24 15:01 Last Admin: 12/09/24 13:51 Dose: 120 mg Documented By: KASIA Sodium Chloride (0.9 % Sodium Chloride Flush 3 Ml Syringe) 3 ml IVFLUSH QSHIFT [facility] Last Admin: 12/09/24 07:12 Dose: Not Given Documented By: HO.SANTEE Non-Admin Reason: IV Running Thiamine HCl (Thiamine Hcl 100 Mg Tablet) 100 mg PO DAILY [facility] Labs 12/09/24 03:37 12/09/24 05:30 Labs: Laboratory Results - last 24 hr 12/09/24 12/09/24 12/09/24 03:37 04:40 05:30 MCV 87.1 MCH 31.1 MCHC 35.8 H RDW 14.2 Plt Count 288 MPV 9.4 Immature Gran % (Auto) 0.4 Neut % (Auto) 91.4 H Lymph % (Auto) 5.8 L [place] % (Auto) 1.9 L Eos % (Auto) 0.0 Baso % (Auto) 0.5 Lymph # (Auto) 0.8 L [place] # (Auto) 0.3 Eos # (Auto) 0.0 Baso # (Auto) 0.1 Abs Immat Gran (auto) 0.05 H Absolute Neuts (auto) 12.1 H Absolute Nucleated RBC 0.000 Nucleated RBC % (auto) 0.0 Smear Tech's Comments VERIFIED VBG pH VBG pCO2 VBG pO2 VBG HCO3 VBG O2 Saturation VBG Base Excess Anion Gap 30 H 26 H Estim Creat Clear Calc 100.6 112.4 Estimated GFR > 60 > 60 Random Glucose 110 84 Lactic Acid Lactic Acid F/U @ 2Hr Calcium 9.3 8.4 D Magnesium 1.6 Total Bilirubin 0.7 0.8 Direct Bilirubin 0.3 AST 38 H 39 H ALT 14 13 Alkaline Phosphatase 55 47 Total Protein 7.9 7.0 Albumin 5.2 H 4.6 Lipase 13 Beta-Hydroxybutyrate 2.00 H Beta HCG, Quant < 2 Urine Color Yellow Urine Appearance Clear Urine pH 5.0 Ur Specific [place] 1.020 Urine Protein Trace Urine Glucose (UA) Negative Urine Ketones >=160 Urine Blood Trace H Urine Nitrite Negative Ur Leukocyte Esterase Negative Urine RBC 0-2 Urine WBC 0-5 Ur Squamous Epith Cells 3-5 Urine Bacteria None Seen Hyaline Casts 0-2 Urine Opiates Screen Not Detected Ur Buprenorphine Scrn Not Detected Ur Oxycodone Screen Not Detected Urine Methadone Screen Not Detected Urine Fentanyl Screen Not Detected Ur Barbiturates Screen Not Detected Ur Phencyclidine Scrn Not Detected Ur Amphetamines Screen Not Detected U Benzodiazepines Scrn Not Detected Urine Cocaine Screen Not Detected U Marijuana (THC) Screen POSITIVE H Ethyl Alcohol 221 12/09/24 12/09/24 12/09/24 05:34 08:52 11:44 MCV MCH MCHC RDW Plt Count MPV Immature Gran % (Auto) Neut % (Auto) Lymph % (Auto) [place] % (Auto) Eos % (Auto) Baso % (Auto) Lymph # (Auto) [place] # (Auto) Eos # (Auto) Baso # (Auto) Abs Immat Gran (auto) Absolute Neuts (auto) Absolute Nucleated RBC Nucleated RBC % (auto) Smear Tech's Comments VBG pH 7.40 VBG pCO2 22 VBG pO2 66 VBG HCO3 14 L VBG O2 Saturation 90.0 VBG Base Excess -8.7 Anion Gap Estim Creat Clear Calc Estimated GFR Random Glucose Lactic Acid 6.3 H* Lactic Acid F/U @ 2Hr 2.8 H* Calcium Magnesium Total Bilirubin Direct Bilirubin AST ALT Alkaline Phosphatase Total Protein Albumin Lipase Beta-Hydroxybutyrate Beta HCG, Quant Urine Color Urine Appearance Urine pH Ur Specific [place] Urine Protein Urine Glucose (UA) Urine Ketones Urine Blood Urine Nitrite Ur Leukocyte Esterase Urine RBC Urine WBC Ur Squamous Epith Cells Urine Bacteria Hyaline Casts Urine Opiates Screen Ur Buprenorphine Scrn Ur Oxycodone Screen Urine Methadone Screen Urine Fentanyl Screen Ur Barbiturates Screen Ur Phencyclidine Scrn Ur Amphetamines Screen U Benzodiazepines Scrn Urine Cocaine Screen U Marijuana (THC) Screen Ethyl Alcohol Assessment and Plan (1) Abdominal pain: Status: Acute (2) Alcohol dependence: Status: Acute (3) Intractable nausea and vomiting: Status: Acute (4) Cyclic vomiting syndrome: Status: Acute Plan This is a 24-year-old female with a past medical history mood disorder, cannabinoid hyperemesis syndrome with multiple admissions due to in [place] metabolic acidosis with starvation ketosis, who presented to the ED due to nausea and vomiting x4 days. N/V/D and abdominal pain History of cannabis hyperemesis syndrome, did test +for marijuana but feels this episode is different from previous Alcoholic gastritis possible contributing factor CT scan showing diffuse colitis IVF, IV PPI, antiemetics start abx ceftriaxone, flagyl advance to clears check stool studies GI consult sepsis due to colitis Met sepsis criteria with tachycardia, leukocytosis Lactic acid elevated 6.3, resolved with IVF Received 30 cc/kg bolus of IV fluid Blood cultures pending Started on antibiotics High anion gap metabolic acidosis secondary to starvation ketosis/lactic acidosis bicarb initially 10, improved to 13 with 3 L IV fluids and bicarb anion gap improved from 30 to 26 with IV fluids as above continue IVF recheck BMP Alcohol use disorder CIWA trending up start phenobarbital Supplementation with thiamine, folic acid Addiction Medicine consultation Mood disorder on prn clonidine for anxiety Full code VTE prophylaxis: Pneumoboots Patient with intractable nausea and vomiting with blood-tinged vomiting abdominal pain complicated by high anion gap metabolic acidosis secondary to starvation ketosis, requiring admission for at least 2 midnight stay for IV fluids, antiemetics and GI consultation. Quality Stroke Does the patient have a stroke diagnosis?: No VTE Prior VTE?: No VTE Risk Level:: Medical - moderate - high VTE Device Contraindication: N/A - Device Ordered VTE Drug Contraindication: Treatment Not Indicated
[2024-12-09 14:34] LABS: ~Lactic Acid-LAB USE ONLY 0.8 mmol/L (0.5-2.0)
[2024-12-09 15:29] LABS: Anion Gap 15 (12-20); Blood Urea Nitrogen 6 mg/dL (9-16); Calcium 8.3 mg/dL (8.4-10.2); Carbon Dioxide 20 mmol/L (22-29); Chloride 101 mmol/L (96-108); Creatinine Clr Calc Pharmacy 116.2; Estimated Glomerular Filt Rate > 60; Glucose Random 108 mg/dL (60-115); Potassium 4.5 mmol/L (3.3-5.1); Sodium 131 mmol/L (135-145)
[2024-12-09] MEDS: PHENobarbitaL 15 MG TABLET 45 MG PO (20:43)
[2024-12-09] MEDS: Acetaminophen 325 MG TABLET 975 MG PO (20:48)
[2024-12-10] MEDS: HYDROmorphone HCl 1 MG/ML SYRINGE 0.5 MG IVPUSH (01:38)
[2024-12-10] MEDS: Metoclopramide HCl 10 MG/2 ML VIAL IVPUSH (01:38)
[2024-12-10] MEDS: metroNIDAZOLE/NS 500 MG/100 ML PIGGYBACK 100 MG IV ×2 (02:06→08:41)
--- NOTE | 2024-12-10 04:25 | PM.EVENT ---
Event Note Date of Service: 12/10/24 Event Note: Lab reported: Blood culture positive for Gram-positive cocci in clusters. Initiating vancomycin until cultures finalize. Time Spent With Patient Time: Total time managing care of this patient today ____ minutes.
[2024-12-10] MEDS: Pantoprazole Sodium 40 MG/10 ML VIAL IVPUSH (05:22)
[2024-12-10] MEDS: vancomycin HCL 1,500 MG in 0.9 % Sodium Chloride 500 ML 333.33 MG IV (05:22)
[2024-12-10] MEDS: Lactated Ringers 1,000 ML 100 ML IVCONT (05:22)
[2024-12-10 06:59] LABS: MANUAL DIFF FLAG NO
[2024-12-10 07:17] LABS: Basophils Percent Auto 0.5 % (0-2); Hematocrit 33.5 % (37.0-47.0); Hemoglobin 11.4 g/dl (12.0-16.0); Imm Gran Abs Auto 0.01 X10*3/uL (0.00-0.03); Imm Gran Pct Auto 0.2 % (0.0-0.4); Lymphocytes Absolute Auto 1.1 X10*3/uL (1.2-4.9); Lymphocytes Percent Auto 24.9 % (20-40); Mean Corpuscular Hemoglobin 30.6 pg (27.0-33.0); Mean Corpuscular Volume 90.1 fL (80.0-98.0); Mean Platelet Volume 10.2 fL (9.4-12.3); Monocytes Absolute Auto 0.3 X10*3/uL (0.1-1.2); Monocytes Percent Auto 6.6 % (2-11); Neutrophils Absolute Auto 2.9 x10*3/uL (2.0-8.3); Neutrophils Percent Auto 67.8 % (45-73); Platelet Count 194 X10*3/uL (160-400); Red Blood Count 3.72 X10*6/uL (4.20-5.50); Red Cell Distribution Width 13.7 % (11.0-16.0); White Blood Count 4.2 X10*3/uL (4.8-10.8)
[2024-12-10 07:40] LABS: Anion Gap 13 (12-20); Blood Urea Nitrogen 6 mg/dL (9-16); Calcium 8.4 mg/dL (8.4-10.2); Carbon Dioxide 22 mmol/L (22-29); Chloride 101 mmol/L (96-108); Creatinine Clr Calc Pharmacy 122.6; Estimated Glomerular Filt Rate > 60; Glucose Random 76 mg/dL (60-115); Magnesium 1.5 mg/dL (1.6-2.6); Potassium 4.1 mmol/L (3.3-5.1); Sodium 132 mmol/L (135-145)
[2024-12-10 08:00] VITALS: BP 116/75; PULSE 80; RESP 16; TEMP 36.2; O2SAT 99
--- NOTE | 2024-12-10 08:25 | PHA.PROG ---
Admission Date/Time: December 09, 2024 06:02 Indication: BACTEREMIA Weight in k kg Adjusted body weight in Kg: [place] body weight in Kg: Obesity Dosing Indication % IBW: Serum Creatinine - Last 168 Hours 12/09/24 12/09/24 12/09/24 03:37 05:30 14:59 Creatinine 0.67 0.60 0.58 12/10/24 06:09 Creatinine 0.55 Estimated CrCl and GFR - Last 168 Hours 12/09/24 12/09/24 12/09/24 03:37 05:30 14:59 Estim Creat Clear Calc 100.6 112.4 116.2 Estimated GFR > 60 > 60 > 60 12/10/24 06:09 Estim Creat Clear Calc 122.6 Estimated GFR > 60 Vancomycin Loading Dose:1500 Current Vancomycin Dosing Regimen: 1250 MG Q12H Vancomycin Monitoring using AUC goal of 400 - 600 range with trough as surrogate marker: 479 Date and Time for next Vancomycin Level to be drawn: 12/11 @1600 Pharmacist Comments on Vancomycin Plan: Vancomycin dosing will take advantage of [employer] as a clinical decision support tool that uses Bayesian modeling to calculate individual patient's pharmacokinetic parameters and forecast the patient's drug concentration time course with the target goal AUC 24 range of 400 - 600 mg/L/hr.
[2024-12-10] MEDS: cefTRIAXone sodium 1 GM VIAL IVPUSH (08:36)
[2024-12-10] MEDS: Folic Acid 1 MG TABLET PO (08:41)
[2024-12-10] MEDS: Thiamine HCL 100 MG TABLET PO (08:41)
[2024-12-10] MEDS: Multivitamin TABLET 1 TAB PO (08:41)
[2024-12-10] MEDS: PHENobarbitaL 15 MG TABLET 45 MG PO (08:41)
--- NOTE | 2024-12-10 11:29 | PM.DS ---
DS: Providers Provider Date of Service: 12/10/24 Date of admission: 12/09/24 06:02 Date of discharge: 12/10/24 Primary care physician: Unknown Physician Consults: 12/09/24 06:20 Consult to Gastroenterology Routine Consulting Provider: Jenny Henriquez Reason for consultation: blood streaked vomit; colitis Has provider been notified: No 12/09/24 09:13 Addiction Medicine Provider Routine Consulting Provider: Addiction Covering Reason for consultation: recent relapse on ETOH after 1 yr sober DS: Diagnosis Discharge Diagnosis (1) Intractable nausea and vomiting: Status: Acute (2) Abdominal pain: Status: Acute (3) High anion gap metabolic acidosis: Status: Acute (4) Starvation ketoacidosis: Status: Acute DS: Summary Hospital Course Hospital Course: History and physical as per admitting provider. Patient is a 24-year-old female with a past medical history mood disorder cannabinoid hyperemesis syndrome with multiple admissions due to in [place] metabolic acidosis with starvation ketosis, who presented to the ED due to nausea and vomiting x4 days. She reports blood-tinged vomit and upper abdominal pain rating it an 8/10 describing it as a cramping. She denies any fever, chills, recent illness or diarrhea. She does report dysuria for the past few days and denies any vaginal discharge. She reports that she has not smoked marijuana or use any marijuana in the past month and does not feel this is similar to previous episodes of cannabinoid induced hyperemesis syndrome. She also reports that she has been sober from alcohol for while but recently relapsed. She can not quantify how much alcohol she consumes but reports it is not on a daily basis. She denies any shortness of breath, chest pain or cough. She reports last consuming alcohol 2 days ago. The patient has decided to leave against medical advice. She has normal mental status and adequate capacity to make medical decisions. The patient refuses hospital admission and wants to be discharged. The risks have been explained to the patient including worsening illness, chronic pain, permanent disability and even . The benefits of admission have also been explained including the availability of nurses, medical providers, close monitoring, IV medications, diagnostic imaging, treatments, etc.. The patient was able to understand and state the risks and benefits of hospital admission. The patient was given opportunities to ask questions prior to leaving. GPC bacteremia. 1/2. Patient was started on IV vancomycin overnight. Unfortunately, she is leaving against medical advice so an oral alternative was sent to the pharmacy, doxycycline. It is unknown at this time what exactly the bacteria is therefore this medication may or may not be the correct choice. The correct choice at this time would be an empiric IV antibiotic but again patient is deciding to leave against medical advice. Patient should return to the ER if she experiences any of sign of infection including fever, chills, nausea, vomiting, diarrhea. Hospital problems: N/V/D and abdominal pain History of cannabis hyperemesis syndrome, did test +for marijuana but feels this episode is different from previous Alcoholic gastritis possible contributing factor CT scan showing diffuse colitis IVF, IV PPI, antiemetics start abx ceftriaxone, flagyl advance to clears check stool studies GI following>rec stool studies, not completed home with oral PPI sepsis due to colitis. Sepsis resolved Met sepsis criteria with tachycardia, leukocytosis Lactic acid elevated 6.3, resolved with IVF Received 30 cc/kg bolus of IV fluid Blood cultures showing 1/2 GPC Started on antibiotics, Vancomycin High anion gap metabolic acidosis. Resolved secondary to starvation ketosis/lactic acidosis bicarb initially 10, improved to 13 with 3 L IV fluids and bicarb anion gap improved from 30 to 26 with IV fluids as above continue IVF recheck BMP Alcohol use disorder CIWA trending up started phenobarbital Supplementation with thiamine, folic acid Addiction Medicine consultation>not seen Mood disorder on prn clonidine for anxiety Time Attestation Discharge Coordination Time (in mins): 36 Quality: Safe Use of Opioids Does Pt have an Active Cancer Diagnosis on the Problem List?: No Quality: Stroke Does the patient have a stroke diagnosis?: No Physical Exam Vital Signs: Vital Signs: Last Vital Signs Temp 97.2 F 12/10/24 08:00 Pulse 80 12/10/24 08:00 Resp 16 12/10/24 08:00 BP 116/75 12/10/24 08:00 Pulse Ox 99 12/10/24 08:00 O2 Del Method Room Air 12/10/24 08:00 BMI result Body Mass Index 23.8 Declined DS: Data Data Completed and Pending Labs on day of discharge: Laboratory Results - last 24 hr 12/09/24 12/09/24 12/09/24 05:30 11:44 14:14 WBC RBC Hgb Hct MCV MCH MCHC RDW Plt Count MPV Immature Gran % (Auto) Neut % (Auto) Lymph % (Auto) [place] % (Auto) Eos % (Auto) Baso % (Auto) Lymph # (Auto) [place] # (Auto) Eos # (Auto) Baso # (Auto) Abs Immat Gran (auto) Absolute Neuts (auto) Absolute Nucleated RBC Nucleated RBC % (auto) Sodium Potassium Chloride Carbon Dioxide Anion Gap BUN Creatinine Estim Creat Clear Calc Estimated GFR Random Glucose Lactic Acid F/U @ 2Hr 2.8 H* Lactic Acid F/U @ 4Hr 0.8 Calcium Magnesium Beta-Hydroxybutyrate 2.00 H 12/09/24 12/10/24 14:59 06:09 WBC 4.2 L RBC 3.72 L Hgb 11.4 L Hct 33.5 L MCV 90.1 MCH 30.6 MCHC 34.0 RDW 13.7 Plt Count 194 D MPV 10.2 Immature Gran % (Auto) 0.2 Neut % (Auto) 67.8 Lymph % (Auto) 24.9 [place] % (Auto) 6.6 Eos % (Auto) 0.0 Baso % (Auto) 0.5 Lymph # (Auto) 1.1 L [place] # (Auto) 0.3 Eos # (Auto) 0.0 Baso # (Auto) 0.0 Abs Immat Gran (auto) 0.01 Absolute Neuts (auto) 2.9 Absolute Nucleated RBC 0.000 Nucleated RBC % (auto) 0.0 Sodium 131 L 132 L Potassium 4.5 4.1 Chloride 101 101 Carbon Dioxide 20 L 22 Anion Gap 15 13 BUN 6 L 6 L Creatinine 0.58 0.55 Estim Creat Clear Calc 116.2 122.6 Estimated GFR > 60 > 60 Random Glucose 108 76 Lactic Acid F/U @ 2Hr Lactic Acid F/U @ 4Hr Calcium 8.3 L 8.4 Magnesium 1.5 L Beta-Hydroxybutyrate Preliminary micro results at discharge 12/09/24 08:52 Blood Culture - Preliminary Blood - Venous Prelim: GPC Gram Stain only Discharge Plan Discharge Anticipated Discharge Date/Time: 12/10/24 10:57 Patient Disposition: Left Against Medical Advice Discharge Diagnosis: Intractable nausea vomiting and diarrhea Sepsis Colitis High anion gap metabolic acidosis Alcohol use disorder Discharge Medications: New doxycycline hyclate 100 mg tablet 100 mg PO BID Qty: 20 0RF Prilosec 10 mg susp,delayed release for recon 20 mg PO DAILY Qty: 30 0RF Continued clonidine HCl 0.1 mg Tablet 0.1 mg PO TID PRN (Reason: Anxiety) multivitamin Tablet 1 tab PO DAILY Discharge Orders: Discharge Order (Routine); Ordered 12/10/24 Ordered By: Ludmila Mcwilliams Diet: Advance to usual diet Activity on Discharge: As tolerated Print Language: Malagasy Activity Restrictions/Additional Instructions: The patient has decided to leave against medical advice. She has normal mental status and adequate capacity to make medical decisions. The patient refuses hospital admission and wants to be discharged. The risks have been explained to the patient including worsening illness, chronic pain, permanent disability and even . The benefits of admission have also been explained including the availability of nurses, medical providers, close monitoring, IV medications, diagnostic imaging, treatments, etc.. The patient was able to understand and state the risks and benefits of hospital admission. The patient was given opportunities to ask questions prior to leaving. You have Gram-positive cocci blood culture. At this time is unknown exactly what bacteria this is and you should be treated with broad-spectrum IV antibiotics. However, if you are leaving against medical advice and oral medication we will be sent to your pharmacy that may or may not cover the bacteria in your blood but unfortunately since you are deciding to leave against medical advice this is the alternative. Please return to the ER for any symptoms of fever or worsening nausea or vomiting. Care Plan Goals: Eat bland diet for the next few days Avoid marijuana Avoid alcohol Health Concerns: Intractable nausea vomiting and diarrhea Sepsis Colitis High anion gap metabolic acidosis Alcohol use disorder Plan of Treatment: Follow-up with primary care provider as needed Take all medications as prescribed Assessment: See discharge summary
--- NOTE | 2024-12-10 11:55 | PC.NURSE ---
pt reports there is a family emergency and she has to be discharged, MD made aware but d/t patient having positive blood cultures she cannot be discharged at this time and would need to leave AMA. Patient agreeable to sign AMA form and discharge instructions, sent antibiotics to pharmacy, pt instructed to return if any symptoms or fever return.
== END 2024-12-10 12:12 | disposition left against medical advice (07) | DRG 871 ==
LOC: HO.ED 06:00 → HO.EDOVER 06:05 → HO.S3 07:54
PROVIDERS: Internal Medicine; Physician Assistant; Physician Assistant Medical; Admitting Provider Student in an Organized Health Care Education/Training Program; Emergency Provider Emergency Medicine; PCP Internal Medicine; Visit Provider Nurse Practitioner Acute Care
DX: A41.9 Sepsis, unspecified organism (principal); K29.21 Alcoholic gastritis with bleeding; R11.2 Nausea with vomiting, unspecified; E88.89 Other specified metabolic disorders; F10.90 Alcohol use, unspecified, uncomplicated; F39 Unspecified mood [affective] disorder; F12.90 Cannabis use, unspecified, uncomplicated; Y90.7 Blood alcohol level of 200-239 mg/100 ml; Z79.899 Other long term (current) drug therapy
CPT/HCPCS: 36415; 74177; 80048; 80053; 80076; 80307; 81001; 82010; 82803; 83605; 83690; 83735; 84702; 85025; 87040; 87147; 87205; 99285; J0696; J1171; J1200; J1836; J2405; J2470; J2560; J2765; J3360; J3371; J7120; Q9967

== ENCOUNTER 2024-12-09 06:02 | Outpatient (BNV) | payer SELFPAY | END 2024-12-09 06:19 | PROVIDERS: Admitting Provider Student in an Organized Health Care Education/Training Program; Emergency Provider Emergency Medicine; Visit Provider Radiology Diagnostic Radiology | DX: K51.00 Ulcerative (chronic) pancolitis without complications (principal) | CPT/HCPCS: 74177 ==

== ENCOUNTER → 2024-12-09 06:02 | Outpatient (BNV) | payer SELFPAY | PROVIDERS: Admitting Provider Student in an Organized Health Care Education/Training Program; Emergency Provider Emergency Medicine; Visit Provider Physician Assistant Medical | DX: R11.2 Nausea with vomiting, unspecified (principal); R10.9 Unspecified abdominal pain; E87.29 Other acidosis; T73.0XXA Starvation, initial encounter | CPT/HCPCS: 99223; 99239; 99499 ==

== ENCOUNTER → 2024-12-09 06:02 | Outpatient (BNV) | payer SELFPAY | PROVIDERS: Admitting Provider Student in an Organized Health Care Education/Training Program; Emergency Provider Emergency Medicine; Visit Provider Internal Medicine | DX: R10.9 Unspecified abdominal pain (principal); R11.2 Nausea with vomiting, unspecified; E87.29 Other acidosis | CPT/HCPCS: 99232 ==

== ENCOUNTER 2025-04-28 02:59 | Inpatient (IN) | payer OTHER, SELFPAY ==
[2025-04-28] VITALS (7 sets, daily range): BP systolic 108–142; BP diastolic 57–74; PULSE 100–115; RESP 12–19; TEMP 36.9–37.1; O2SAT 97–100; BMI 26.6
--- NOTE | 2025-04-28 03:14 | ECG_ITS ---
Test Reason : QT CHECK Blood Pressure : */* mmHG Vent. Rate : 81 BPM Atrial Rate : 81 BPM P-R Int : 116 ms QRS Dur : 80 ms QT Int : 420 ms P-R-T Axes : 47 64 55 degrees QTcB Int : 487 ms Normal sinus rhythm with sinus arrhythmia Prolonged QT Abnormal ECG When compared with ECG of 14-Aug-2024 22:15, Vent. rate has decreased by 63 bpm Referred By: Mercedez Kaye Electronically Signed By: MANI REYNOSO MD
--- NOTE | 2025-04-28 03:21 | ED_ITS ---
HPI - Alcohol General Chief Complaint: ETOH/Substance Use Stated Complaint: n/v Time Seen by Provider: 04/28/25 03:13 Source: patient and old records reviewed Mode of arrival: ambulatory Limitations: no limitations History of Present Illness ED Provider: KEITH JUSTICE narrative: 24 yo female with PMH of alcohol use disorder - prior seizure she states a year ago, starvation ketosis, migraines, anemia. She reports she is going through a divorce with her and relapsed yesterday by drinking a sleeve of ETOH. She notes she started vomiting yesterday as well. She states she saw some maroon blood in it. She wants to stop drinking and is looking for detox. She states she has a safe place to live. No trauma reported. No lower GIB symptoms reported. No SI/HI. Patient notes she had not drank in 5 months prior to this. complaint: alcohol withdrawal and desires rehab Last drink: Days (ago) (1) Chronic alcohol use: Yes Previous visits for alcohol intoxication: Yes Recent trauma: No Associated symptoms: nausea and vomiting Treatments prior to arrival: none Related Data Home Medications ?Medication ?Instructions ?Recorded ?Confirmed clonidine HCl 0.1 mg tablet 0.1 mg PO TID PRN Anxiety 05/24/24 12/09/24 multivitamin 1 tab PO DAILY 12/09/2411/18 Previous Rx's ?Medication ?Instructions ?Recorded doxycycline hyclate 100 mg tablet 100 mg PO BID #20 ta bs 12/10/24 omeprazole magnesium 10 mg oral 20 mg PO DAILY gastrit is #30 ea 12/10/24 suspension,delayed release (Prilosec) Allergies Allergy/AdvReac Type Severity Reaction Status Date / Time No Known Allergies (No Known Allergy Verified 04/28/25 03:34 Allergies*) Review of Systems 2 Review of Systems: Constitutional : No Weight loss, No Fever, No Chills ENT/Mouth : No sore throat, No Rhinorrhea Eyes: No Swelling, No Redness Cardiovascular : No Chest Pain, No SOB, NoEdema Respiratory : No Cough, No Sputum, No Wheezing Gastrointestinal : Positive Nausea, Positive Vomiting, no Diarrhea, positive abdominal Pain, No Hematochezia, No Melena Genitourinary : No Dysuria, No Urinary Frequency, No Hematuria, No Urgency Musculoskeletal : No joint pain, No Myalgias, No Joint Swelling Skin : No Skin Lesions, No rash Neuro : pos Weakness, No Numbness, No Dizziness, No Headache Psych : pos Anxiety/Panic, No Depression All other systems reviewed and are negative. COUNT INCLUDES THE [facility] Past Medical History Attestation statement: The following information was validated with the patient. Source: old records reviewed Medical History Alcohol dependence Mood disorder Cannabinoid hyperemesis syndrome Cannabinoid hyperemesis syndrome Migraine headache Social History Social History Household Members: Spouse Housing: House Do you presently have visiting nurse or other home services: No Alcohol intake: former Patient Tobacco Use Status: Never used Tobacco Substance Use Type: Marijuana Advance Directives: Yes Advance Directives on File: Yes Advance Directives Date on File: 05/26/24 Do you have a plan to hurt others: No Plan service: No Physical Exam ED Vital Signs: Vital Signs - 24 hr 04/28/25 03:09 04/28/25 04:36 Temperature 98.5 F Pulse Rate 100 105 H Respiratory Rate 18 12 Blood Pressure 140/74 H 121/72 Pulse Oximetry 100 97 Oxygen Delivery Method Room Air Room Air BMI result Body Mass Index 26.6 Appearance: Alert. Oriented X3. No acute distress. Eyes: Pupils equal, round and reactive to light. ENT: Pharynx mild dry mouth, with tongue fasciculations Neck: Normal inspection. Neck supple. CVS: tachycardic heart rate and rhythm. Pulses normal. Respiratory: No respiratory distress. Breath sounds normal. Abdomen: Soft and nontender. Skin: Skin warm and dry. Normal skin color. Normal skin turgor. Extremities: No lower extremity edema. No calf ttp Neuro: Oriented X 3. No motor deficit. No sensory deficit. ext tremors of both hands Medical Decision Making Medical Decision Making MDM Narrative: 24 yo female with PMH of alcohol use disorder - prior seizure she states a year ago, starvation ketosis, migraines, anemia here with c/o n/v noted some signs of UGIB she presents with tremors, tachycardia at this time I have ordered IV thiamine, protonix, IV valium, anti emeticis and IVF x 2L. Will monitor labs and improvement if she requires further control of ETOH withdrawal will start on phenobarb and admit Differential Diagnosis Differential Diagnoses: The differential diagnosis associated with the presentation includes alcohol abuse, lyte abnormality, ETOH gastritis, dehydration, alcohol withdrawal Admission/Observation Consideration of admission/observation: Escalation of care including admission/observation considered still tremulous and shaky after IV medications. I am going to start phenobarb and admit for further workup and managment Consult Healthcare Provider Management of the patient was discussed with: Hospitalist (will admit) Lab Data MDM Lab Attestation statement: I reviewed the patient's lab results. gap due to ETOH abuse and n/v (starvation) 04/28/25 03:19 04/28/25 03:19 Labs: Lab Results 04/28/25 04/28/25 04/28/25 Range/Units 03:19 03:19 03:41 WBC 5.6 (4.8-10.8) X10*3/uL RBC 4.17 L (4.20-5.50) X10*6/uL Hgb 12.5 (12.0-16.0) g/dl Hct 37.3 (37.0-47.0) % MCV 89.4 (80.0-98.0) fL MCH 30.0 (27.0-33.0) pg MCHC 33.5 (31.0-35.0) g/dl RDW 14.2 (11.0-16.0) % Plt Count 300 D (160-400) X10*3/uL MPV 9.6 (9.4-12.3) fL Immature Gran % (Auto) 0.2 (0.0-0.4) % Neut % (Auto) 52.6 (45-73) % Lymph % (Auto) 40.0 (20-40) % [place] % (Auto) 5.7 (2-11) % Eos % (Auto) 0.2 (0-4) % Baso % (Auto) 1.3 (0-2) % Lymph # (Auto) 2.2 (1.2-4.9) X10*3/uL [place] # (Auto) 0.3 (0.1-1.2) X10*3/uL Eos # (Auto) 0.0 (0.0-0.4) X10*3/uL Baso # (Auto) 0.1 (0.0-0.2) X10*3/uL Abs Immat Gran (auto) 0.01 (0.00-0.03) X10*3/uL Absolute Neuts (auto) 3.0 (2.0-8.3) x10*3/uL Absolute Nucleated RBC 0.000 (0.0-0.012) X10*3/uL Nucleated RBC % (auto) 0.0 (0.0-0.2) /100WBC VBG pH (7.32-7.43) VBG pCO2 mmHg VBG pO2 mmHg VBG HCO3 (22-26) mmol/L VBG O2 Saturation % VBG Base Excess mmol/L Sodium 141 (135-145) mmol/L Potassium 4.6 (3.3-5.1) mmol/L Chloride 105 (96-108) mmol/L Carbon Dioxide 14 L (22-29) mmol/L Anion Gap 27 H (12-20) BUN 13 (9-16) mg/dL Creatinine 0.74 (0.5-1.4) mg/dL Estim Creat Clear Calc 106.6 Estimated GFR > 60 Random Glucose 81 (60-115) mg/dL Calcium 9.0 D (8.4-10.2) mg/dL Magnesium 2.1 (1.6-2.6) mg/dL Total Bilirubin 0.6 (0.0-1.0) mg/dL Direct Bilirubin 0.2 (0.0-0.5) mg/dL AST 38 H (5-31) U/L ALT < 6 (0-31) U/L Alkaline Phosphatase 57 (39-117) U/L Total Protein 7.9 (6.5-8.0) g/dL Albumin 5.0 (3.5-5.0) g/dL Lipase 23 (8-78) U/L Beta HCG, Quant < 2 mIU/mL Urine Color Yellow Urine Appearance Cloudy Urine pH 5.5 (5.0-9.0) Ur Specific [place] 1.025 (1.005-1.025) Urine Protein 30 (1+) H (Neg-Trace) mg/dL Urine Glucose (UA) Negative (Negative) mg/dL Urine Ketones 40 (Negative) mg/dL Urine Blood Negative (Negative) Urine Nitrite Negative (Negative) Ur Leukocyte Esterase Negative (Negative) Urine RBC 0-2 (0-2) /HPF Urine WBC 0-5 (0-5) /HPF Ur Squamous Epith Cells 11-20 (0-2) /HPF Urine Bacteria 1+ (None Seen) Hyaline Casts 3-5 (0-2) /LPF Urine Opiates Screen Not Detected (Not Detect) Ur Buprenorphine Scrn Not Detected (Not Detect) ng/mL Ur Oxycodone Screen Not Detected (Not Detect) ng/mL Urine Methadone Screen Not Detected (Not Detect) ng/mL Urine Fentanyl Screen Not Detected (Not Detect) Ur Barbiturates Screen Not Detected (Not Detect) Ur Phencyclidine Scrn Not Detected (Not Detect) Ur Amphetamines Screen Not Detected (Not Detect) U Benzodiazepines Scrn Not Detected (Not Detect) Urine Cocaine Screen Not Detected (Not Detect) U Marijuana (THC) Screen POSITIVE H (Not Detect) Ethyl Alcohol 212 Cancelled mg/dL 04/28/25 Range/Units 04:41 WBC (4.8-10.8) X10*3/uL RBC (4.20-5.50) X10*6/uL Hgb (12.0-16.0) g/dl Hct (37.0-47.0) % MCV (80.0-98.0) fL MCH (27.0-33.0) pg MCHC (31.0-35.0) g/dl RDW (11.0-16.0) % Plt Count (160-400) X10*3/uL MPV (9.4-12.3) fL Immature Gran % (Auto) (0.0-0.4) % Neut % (Auto) (45-73) % Lymph % (Auto) (20-40) % [place] % (Auto) (2-11) % Eos % (Auto) (0-4) % Baso % (Auto) (0-2) % Lymph # (Auto) (1.2-4.9) X10*3/uL [place] # (Auto) (0.1-1.2) X10*3/uL Eos # (Auto) (0.0-0.4) X10*3/uL Baso # (Auto) (0.0-0.2) X10*3/uL Abs Immat Gran (auto) (0.00-0.03) X10*3/uL Absolute Neuts (auto) (2.0-8.3) x10*3/uL Absolute Nucleated RBC (0.0-0.012) X10*3/uL Nucleated RBC % (auto) (0.0-0.2) /100WBC VBG pH 7.41 (7.32-7.43) VBG pCO2 27 mmHg VBG pO2 176 mmHg VBG HCO3 17 L (22-26) mmol/L VBG O2 Saturation 100.0 % VBG Base Excess -5.7 mmol/L Sodium (135-145) mmol/L Potassium (3.3-5.1) mmol/L Chloride (96-108) mmol/L Carbon Dioxide (22-29) mmol/L Anion Gap (12-20) BUN (9-16) mg/dL Creatinine (0.5-1.4) mg/dL Estim Creat Clear Calc Estimated GFR Random Glucose (60-115) mg/dL Calcium (8.4-10.2) mg/dL Magnesium (1.6-2.6) mg/dL Total Bilirubin (0.0-1.0) mg/dL Direct Bilirubin (0.0-0.5) mg/dL AST (5-31) U/L ALT (0-31) U/L Alkaline Phosphatase (39-117) U/L Total Protein (6.5-8.0) g/dL Albumin (3.5-5.0) g/dL Lipase (8-78) U/L Beta HCG, Quant mIU/mL Urine Color Urine Appearance Urine pH (5.0-9.0) Ur Specific [place] (1.005-1.025) Urine Protein (Neg-Trace) mg/dL Urine Glucose (UA) (Negative) mg/dL Urine Ketones (Negative) mg/dL Urine Blood (Negative) Urine Nitrite (Negative) Ur Leukocyte Esterase (Negative) Urine RBC (0-2) /HPF Urine WBC (0-5) /HPF Ur Squamous Epith Cells (0-2) /HPF Urine Bacteria (None Seen) Hyaline Casts (0-2) /LPF Urine Opiates Screen (Not Detect) Ur Buprenorphine Scrn (Not Detect) ng/mL Ur Oxycodone Screen (Not Detect) ng/mL Urine Methadone Screen (Not Detect) ng/mL Urine Fentanyl Screen (Not Detect) Ur Barbiturates Screen (Not Detect) Ur Phencyclidine Scrn (Not Detect) Ur Amphetamines Screen (Not Detect) U Benzodiazepines Scrn (Not Detect) Urine Cocaine Screen (Not Detect) U Marijuana (THC) Screen (Not Detect) Ethyl Alcohol mg/dL Independent Interpretation I performed an independent interpretation of an: EKG Interpretation: Rate: 81 Rhythm: NSR [place]: normal Normal P waves. Normal WALTER. Normal QRS complex. ST T wave : inverted t waves V1, no MORENITA qTC: 487 prior studies: no acute ischemia The study has been interpreted contemporaneously by me. . External Record Review External record reviewed: Inpatient record and Outpatient record Social Determinants Patient?s care significantly limited by Social Determinants of Health including: Problems related to primary support group Medications Administered Generic Name Dose Route Start Last Admin Trade Name Freq PRN Reason Stop Dose Admin Magnesium Sulfate 2 gm in 50 mls @ 25 mls/hr 04/28/25 03:19 04/28/25 04:02 Magnesium Sulfate/H2o IV 04/28/25 05:18 25 mls/hr ONCE ONE Administration Discontinued Medications Generic Name Dose Route Start Last Admin Trade Name Freq PRN Reason Stop Dose Admin Diazepam 5 mg 04/28/25 03:19 04/28/25 03:57 Diazepam 10 Mg/2 Ml Cartridge IVPUSH 04/28/25 03:20 5 mg STAT STA Administration Diphenhydramine HCl 25 mg 04/28/25 03:14 04/28/25 03:55 Diphenhydramine Hcl 50 Mg/Ml Vial IVPUSH 04/28/25 03:15 25 mg ONCE ONE Administration Lactated Ringer's 1,000 mls @ 999 mls/hr 04/28/25 03:14 04/28/25 03:39 Lr IV 04/28/25 04:14 999 mls/hr .Q1H1M ONE Administration Thiamine HCl 200 mg/ Sodium 102 mls @ 204 mls/hr 04/28/25 03:19 04/28/25 03:56 Chloride IV 04/28/25 03:48 204 mls/hr ONCE ONE Administration Metoclopramide HCl 10 mg 04/28/25 03:14 04/28/25 03:55 Metoclopramide Hcl 10 Mg/2 Ml Vial IVPUSH 04/28/25 03:15 10 mg ONCE ONE Administration Pantoprazole Sodium 40 mg 04/28/25 03:25 04/28/25 03:56 Pantoprazole Sodium 40 Mg/10 Ml Vial IVPUSH 04/28/25 03:26 40 mg ONCE ONE Administration Critical Care Time Critical Care Time Critical Care Time: Yes Total Critical Care Time: 45 Attestation: IV valium and IM Phenobarb protocol for ETOH withdrawal, IV magnesium, review of records, admission, IVF x 2L, repeat labs I attest to this time spent taking care of the patient Discharge Plan Discharge Clinical Impression: Alcoholic ketoacidosis Alcohol withdrawal syndrome Qualifiers: Complication of substance-induced condition: with unspecified complication Q ualified Code(s): F10.939 - Alcohol use, unspecified with withdrawal, unspecified Acute alcoholic gastritis Qualifiers: Gastritis bleeding: with bleeding Qualified Code(s): K29.21 - Alcoholic gastritis with bleeding Patient Disposition: Admitted As Inpatient Print Language: [place]ese
[2025-04-28 03:27] LABS: MANUAL DIFF FLAG NO
[2025-04-28 03:30] LABS: Hematocrit 37.3 % (37.0-47.0); Hemoglobin 12.5 g/dl (12.0-16.0); Imm Gran Abs Auto 0.01 X10*3/uL (0.00-0.03); Imm Gran Pct Auto 0.2 % (0.0-0.4); Lymphocytes Absolute Auto 2.2 X10*3/uL (1.2-4.9); Mean Corpuscular HGB Conc 33.5 g/dl (31.0-35.0); Mean Corpuscular Hemoglobin 30.0 pg (27.0-33.0); Mean Corpuscular Volume 89.4 fL (80.0-98.0); NRBC Abs Auto 0.000 X10*3/uL (0.0-0.012); NRBC Pct Auto 0.0 /100WBC (0.0-0.2); Platelet Count 300 X10*3/uL (160-400); Red Blood Count 4.17 X10*6/uL (4.20-5.50); White Blood Count 5.6 X10*3/uL (4.8-10.8)
[2025-04-28] MEDS: Lactated Ringers 1,000 ML 999 ML IV ×2 (03:39→04:30)
--- OUTSIDE RECORDS SUMMARY | 2025-04-28 03:45 | XMS_ITS | Data Portability ---
Author Organization [facility], Main Office Address [address] [facility] [address] [place] [address] Care Team Providers Care Communications Project Manager Name Role Phone EMILY FELDER High Lead Yarder TRAM HILLMAN Primary Care Provider Assessment No assessment recorded. Plan of Treatment Reminders Order Date Submit Date Provider Last Modified By Organization Details Last Modified Time Details Appointments None recorde dJerome Lab lipid panel, serum 2022 023 [email or web address] [facility], [address], [address], [place], [address], 3 10:43:10 BMP, serum or plasma 2022 023 KARY [facility], [address], [address], [place], [address], 3 10:05:31 CBC w/ auto diff 2022 023 KARY [facility], [address], [address], [place], [address], 3 10:05:32 TSH, serum or plasma 2022 023 KARY [facility], [address], [address], [place], [address], 3 10:05:32 hepatic functio n panel, serum 2022 023 KARY [facility], [address], [address], [place], [address], 3 10:05:31 hepatit is C virus Ab, serum 2022 023 KARY [facility], [address], [address], [place], [address], 3 10:05:31 Referral dermato logist referra l 2022 023 [email or web address] Baptiste MD, [facility], [place], [address], 4 09:30:28 neurolo gist referra l - severe migrain es and headach es [email or web address] [facility], [address] [facility] [address], [place], [address], 3 07:50:30 gynecol ogist referra l - Patient to schedul e 2022 023 [email or web address] Not available 4 12:33:55 audiolo gist referra l - hx of several ear infecti ons, complai timur of hearing loss, ordered to check baselin e 2022 023 oneal [facility], [address], [place], [address], 3 18:20:56 Procedures None recorde d. Surgeries None recorde d. Imaging MRI, brain, w/o contras t - wakes with headach es [email or web address] (Ultrasound), [address] [place], [address], 3 14:30:45 Medication Orders hydroco rtisone 2.5 % topical cream 2022 023 [place], [address] [place], [address], 3 15:09:11 sertral ine 25 mg tablet 2022 023 [facility], [address] [place], [address], 3 15:09:10 sertral ine 50 mg tablet 2022 023 [facility], [address] [place], [address], 3 15:09:11 Ubrelvy 50 mg tablet 2022 023 [email or web address] [facility] [address] [place], [address], 3 13:07:14 sumatri ptan 50 mg tablet 2022 023 [facility], [address] [place], [address], 3 09:14:47 Topamax 50 mg tablet 2022 023 [email or web address] [facility] [address] [place], [address], 3 13:11:07 Patient TargetsNo targets recorded. Patient Instructions Encounter Date Encounter Id Patient Instructions Last Modified By Organization Details Last Modified Time 03/10/2023 [id number] medical record request* [email or web address] Not available 03/10/2023 13:41:00 Well Visit, Ages 18 to 65: Care Instructions Not available 03/10/2023 10:05:25 Cervical Cancer Screening Not available 03/10/2023 10:05:26 03/18/2023 [id number] At [facility] follow up visit, all current and discharge medications (OTC, herbal therapies, supplements) reviewed and reconciled with patient and or caregiver, including potential side effects, drug interactions, instructions, and the consequences of not taking medication. Reviewed potential barriers to medication adherence, such as side effects from medication or cost of medication. [email or web address] Not available 03/18/2023 08:51:39 04/10/2023 [id number] At [facility] follow up visit, all current and discharge medications (OTC, herbal therapies, supplements) reviewed and reconciled with patient and or caregiver, including potential side effects, drug interactions, instructions, and the consequences of not taking medication. Reviewed potential barriers to medication adherence, such as side effects from medication or cost of medication. [email or web address] 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 for Referral Legal Stenographer Referral for Sc reening for malignant neoplasm of cervix Patient to schedule Referring Physician: Tram Hillman [facility], Encounter Date: 03/10/2023 Neurologist Referral for Hea daceran severe migraines and headaches Referring Physician: Tram Hillman [facility], Encounter Date: 03/10/2023 Environmental Technology Professor Referral for Yobany ateral hearing loss hx of several ear infections, complaining of hearing loss, ordered to check baseline Referring Physician: Tram Hillman [facility], Encounter Date: 03/10/2023 Family Advocate Referral for U rticaria Referring Physician: Tram Hillman [facility], Encounter Date: 04/10/2023 Results Created Date Observation [...] le images are degrad ed by cassidy clifford which dimini shes detail , and interp retati on was made in light of this techni rhoda confin e. BRAIN and EXTRA- AXIAL SPACES : The flow voids throug h the [place] of [place] are mainta ined, and there [...] 10 mm. This displa allyn the left chief internal auditor al cerebr al vein and pineal gland [...] with a small arachn oid cyst. WSN: [id number] Orderi ng Physic ai: Patrice Conte ie Dictat ed By: Salvatore Lara MD Dictat ed Date/T donna: 11:47 a Review ed By: Salvatore Lara MD Signed By: Salvatore Lara MD Signed Date/T donna: 11:47 am Transc ribed By: ANGIE Transc ribed Date/T donna: 11:41 am Patien t Class: Outpat ient [email or web address] [facility] (Outpt Imaging) [address] [facility], [place], [address], 05/20/2023 16:05:27 04/11/2004/10/2023 MRI, brain , w/o contr ast No observ ation record ed. [email or web address] [facility] [address] [facility], [place], [address], 04/12/2023 11:45:48 Result Notes Documentation Provider Name and Address Organization Details Recorded Time Mri, Brain, W/o Contrast : MRI Brain W/O Contrast INDICATION: Reason: R51.9 headache; Clinical Question(s): Other: Other: TECHNIQUE: MRI of the brain was performed without contrast utilizing sagittal T1, axial T2, axial FLAIR, axial SWAN, and axial DWI sequences. COMPARISON: No prior studies are available for comparison at the time of interpretation. FINDINGS: Multiple images are degraded by patient motion which diminishes detail, and interpretation was made in light of this technical confine. BRAIN and EXTRA-AXIAL SPACES: The flow voids through the [place] of [place] are maintained, and there is no restricted diffusion or abnormal susceptibility artifact. Small punctate FLAIR bright foci are present within the right frontal white matter. The ventricles are normal in size, and the cervicomedullary junction is unremarkable. Asymmetrical prominence of the extra-axial CSF space of the left superior quadrigeminal plate cistern is noted measuring approximately 18 mm x 10 mm. This displaces the left internal cerebral vein and pineal gland slightly to the right. EXTRACRANIAL SOFT TISSUES: Orbits are unremarkable. Paranasal sinuses and mastoids are unremarkable. BONES: Marrow signal is preserved. IMPRESSION: 1. Punctate FLAIR bright foci are present within the frontal white matter of indeterminate etiology. These may represent the sequela of an inflammatory process. Small white matter lesions have also been reported in patients with migraine headache. 2. Focal prominence of the extra-axial CSF space of the superior left quadrigeminal plate cistern. This measures approximately 18 mm x 10 mm and is compatible with a small arachnoid cyst. WSN: [id number] Ordering Physician: Tram Hillman Dictated By: Salvatore Lara MD Dictated Date/Time: 04/11/23 11:47 a Reviewed By: Salvatore Lara MD Signed By: Salvatore Lara MD Signed Date/Time: 04/11/23 11:47 am Transcribed By: ANGIE Transcribed Date/Time: 04/11/23 11:41 am [facility] 16:05:27 Problems Name Problem SNOMED Code Status Onset Date Resolution Date Notes Provider Name and Address Organization Details Recorded Time Priscilla johnson [id number] Completed 202203/10/2023 TRAM HILLMAN MD [address], [place], [address], [facility] 3 04:52:57 Headache 68894226 Active 2022 TRAM HILLMAN MD [address], [place], [address], [facility] 3 13:26:41 Bipolar disorder 17938239 Active 2022 type II TRAM HILLMAN MD [address], [place], [address], [facility] 3 13:26:32 [place] edness 217755876 Active 2022 while doing house chores TRAM HILLMAN MD [address], [place], [address], [facility] 3 09:53:11 Anxiety 23057149 Active 2022 once a month will have a therapis t, looking for a new one TRAM HILLMAN MD [address], [place], [address], [facility] 3 09:54:42 Depressiv e disorder 38494829 Active 2022 TRAM HILLMAN MD [address], [place], [address], [facility] 3 09:54:12 Migraine without aura 60260661 Active 2022 Yanique Isaacs PA-C [address], [place], [address], [facility] 3 09:12:42 Problem Notes None recorded. Medical Equipment None Reported. [...] Pulse oximetry Heart rate Body temperature Systolic And Diastolic Systolic And Diastolic Provider Name and Address Organization Details Last Updated DateTime 3 160.02 cm 21.1 kg/m2 15966.4 9 g 100 % 100 % 92 /min 98 [degF] 134/91 mm[Hg] 131/81 mm[Hg] Marlena Aquino MA [facility] 3 10:00:01 Date Recorded Body height Body mass index (BMI) Body weight Heart rate Oxygen saturation Oxygen saturation in Arterial blood by Pulse oximetry Body temperature Systolic And Diastolic Systolic And Diastolic Provider Name and Address Organization Details Last Updated DateTime 3 160.02 cm 21.6 kg/m2 53035.2 7 g 94 /min 99 % 99 % 98.8 [degF] 145/98 mm[Hg] 132/90 mm[Hg] Vic Hernandez MA [facility] 3 09:03:07 Date Recorded Body height Body mass index (BMI) Body weight Oxygen saturation Oxygen saturation in Arterial blood by Pulse oximetry Heart rate Body temperature Systolic And Diastolic Systolic And Diastolic Provider Name and Address Organization Details Last Updated DateTime 3 160.02 cm 22.9 kg/m2 26067.5 2 g 97 % 97 % 95 /min 98.3 [degF] 126/93 mm[Hg] 121/77 mm[Hg] Marlena Aquino MA [facility] 3 14:56:59 Social History Question Answer Notes LastModified by Mobiplexizat ion Details LastModified Time Tobacco Smoking Status Never Smoker [place] [facility] 03/10/2023 09:41:26 Is Blood Transfusion Acceptable In An Emergency? Yes [email or web address] Information not available 03/10/2023 What Type Of Diet Are You Following? REGULAR [email or web address] Information not available 03/10/2023 Which Illicit Or Recreational Drugs Have You Used? Marijuana Information not available 03/10/2023 Do You Take Precautions To Prevent Distracted Driving? Yes [email or web address] Information not available 03/10/2023 How Often Do You Need To Have Someone Help You When You Read Instructions, Pamphlets, Or Other Written Material From Your Doctor Or Pharmacy? Sometimes [email or web address] Information not available 03/10/2023 Have You Served In The ? No [email or web address] Information not available 03/10/2023 How Many Children Do You Have? 0 [email or web address] Information not available 03/10/2023 Are You Passively Exposed To Smoke? No [email or web address] Information no t available 03/10/2023 Sex: Unknown Functional Status Question Answer Note LastModified by Organizat ion Details LastModified Time Do you use any illicit or recreational drugs? Yes [email or web address] Information not available 03/10/2023 Do you or have you ever used any other forms of tobacco or nicotine? No [email or web address] Information not available 03/10/2023 What is your level of alcohol consumption? Occasional rare [email or web address] Information not available 03/10/2023 Are you currently employed? No Information not available 03/10/2023 Are you able to walk independently without assistance or assistive devices? YESWOREST [email or web address] Information not available 03/10/2023 What is your exercise level? None [email or web address] Information not available 03/10/2023 Mental Status None recorded. Family History Relationship Description Onset Age of this Age Resolved Age Notes LastModified by Organization Details LastModified Time Paternal Aunt Malignant neoplasm of breast 4 patern al aunts [email or web address] Not available 03/10/2023 09:40:06 Paternal Aunt Diabetes mellitus [email or web address] Not available 03/10 09:40:22 Maternal Grandfather Diabetes mellitus [email or web address] Not available 03/10 09:40:15 Mother Depressive disorder [email or web address] Not available 03/10 09:40:42 Father Depressive disorder Not available 03/10 09:40:49 Brother Depressive disorder [email or web address] Not available 03/10 09:40:56 Medical History No medical history recorded. Gynecological History Statement/Question Response Date of Last Pap Smear Obstetrics History GPAL:G 0 P 0 0 0 0 Past Encounters Encounter ID Performer Location Encounter Start Date Encounter Closed Date Diagnosis/Indication Diagnosis SNOMED-CT Code Diagnosis ICD10 Code Diagnosis IMO Codes Diagnosis Note [id number] TRAM HILLMAN MD Main Office [address] [facility] [address] [place] [address] 03/10/2023 09:16:25 03/10/2023 10:12:07 Adult health examination 706215054 Z00.00 Health Maintenanc e FemaleA) Patient was [...] in 2021TdAP: will considerZo ster: due at 52NZS14: due at 88AWUM21: due at 66ATH15:PC V15:COVID: REFUSED D) Routine blood work orderedE) Updated patient's history RTC in one year for annual exam or sooner if any acute complaints Fatigue 02544957 R53.83 Z00.00 Hyperlipidemia 31746354 E78.5 Z00.00 Screening for malignant neoplasm of cervix 233291285 Z12.4 Hepatitis C screening 41 9620091 Z11.59 Patient ne w to provider [id number] 39301 Z76.89 - reviewed previous pediatric notes Headache 52842427 R51.9 - migraines with vomiting- pt has [...] pt mentions she has been going to [facility] for treatment of her headaches in the ED, will obtain records Bipolar disorder 3588041 4 F31.9 - pt was relanctant to admit this diagnosis- currently on aripiprazo le, given by a psychiatri st who patient sees monthly> pt currently looking for a new provider as current provider is a close family friend- pt does not have a therapist, advised to find one- will differ all medication s to psychiatri st Bilateral hearing loss 53307146 H91.93 - hx of several ear infections - will send for audiology testing Anxiety 61153471 F41.9 - SONJA-7 score of 19- pt [...] as needed in the evening Depressive disorder 2786 9000 F32.A - PHQ-9 score of 17- currently on escitalopr am 20mg, given by a psychiatri st who patient sees monthly> pt currently looking for a new provider as current provider is a close family friend- denies SI/HI- counselled patient on finding a therapist as well Requires a tetanus booster 475490346 Z28.39 Nausea and vomiting 1692 1999 R11.2 - associated with patient's migraines- pt does also smoke marijuana which can cause cannabis hyperemesi s syndrome- will first control patient's headaches and then if there is still vomiting present will consider this differenti al diagnosis [id number] Dexter Reynoso MD Main Office [address] [facility] [address] [place] [address] 03/18/2023 08:49:59 03/18/2023 09:17:32 Migraine without aura 64891315 G43.009 Uncontroll ed migraine headache syndrome. PT. will require preventati ve medication as well as rescue meds. WE will begin topiramate 50 mg daily and for rescue sumatripta n 50 mg. Migraine diary is recommende d to keep. F/u 1 month with PCP already set up. [id number] TRAM HILLMAN MD Main Office [address] [facility] [address] [place] [address] 04/10/2023 14:42:27 04/10/2023 15:11:37 Migraine without aura 75287102 G43.009 - uncontroll ed, several ED visits- [...] pt has been referred to neurology Urticaria 173415816 L50. 9 - noted on the abdomen only- will try hydorcorti sone cream- pt referred to dermatolog y Anxiety 10723241 F41.9 - SONJA-7 score of 19 on [...] Recorded Advance Directives Directive None Recorded Payers Insurance Date Sequence Insurance Name Policy Number Policy Castanon Covered Member ID Castanon Member ID Guarantor Name 03/30/2025 1 [facility] [employer] PLAN (POS) Diana D Toledo [id number] Terri D Toledo 03/30/2025 1 [facility] PL[facility] (POS) [id number] Diana D Toledo [id number] Terri D Tol[place] 10/30/2022 1 [facility] (HMO) [id number] Terri Toledo [id number] Terri D [place] Notes Date Note Type Note Provider Name and Address Organization Details Recorded Time 3 text/html VomitingReported by PatientHPI:For associated symptoms, patient reportsheadache,nausea, anddry heavesbut reportsno abdominal pain,no excess gas,no fever,no chills,no frequent coughing,no sore throat,no rash,no weight loss,no decreased appetite,no hematuria,no hematochezia,no melena,no weakness, andno fatigue. For quality, patient reportsnot changing. For severity, patient reportsmoderate. For duration, patient reportsunknown. For onset/timing, patient reportsintermittentand1- 3 times a day. For context, patient reportsno one else with similar symptoms,no possible food sources,no recent travel,no well water,non-smoker,no drug/alcohol abuse, andno drug alcohol withdrawal. HeadacheReported by PatientHPIFor quality, patient reportsthrobbingandpierc ing/stabbing (lancinating)but reportssimilar to previous headaches. For associated symptoms, patient reportsnauseaandvomiting . For location, patient reportsbilateralandfront al(radiates to the back). For severity, patient reportssevere. For onset/timing, patient reportsabrupt onsetandoccur at the same time every day(will wake up with the headache and go sleep with the migraine). For context, patient reportsnot related to trauma. For alleviating factors, patient reportsnothing gives reliefandcaffeine intake. For duration, (started at the age of 11).Pt mentions she tried propanolol and sumatriptan with little relief. Will use fiorcept which helps a lot. No refills until patient sees a neurologist. Generic HPI TemplateReported by Patient Diana Wilder is a 22 year old [...] without clothsMenstrual cycle: irregularSexually active: yes with husbandContraception:has not had a pap smearDenies cysts, stds, fibroids Obstetric HistoryGravida: 0Para: 0AB: 0Complications: Drug use: marijuana (smoking)-> before bed dailyEtoh use: only on holidaystobacco use: neverspf/derm: Dental: every yearEye: has not been, has trouble seeing farDiet: lactose intoleranceActivity: does not do TRAM HILLMAN MD [address] [address], [place], [address], [facility] 03/11/2023 13:57:15 3 text/html 22 year old female with past h/o migraine headache . Pt. [...] no otc meds. Yanique Isaacs PA-C [address], [address], [facility] 03/18/2023 13:16:56 3 text/html HeadacheReported by PatientHPIFor associated symptoms, patient reportsnausea,vomiting, andphotophobia. For location, patient reportsunilateral. For quality, patient reportssimilar to previous headaches. For severity, patient reportssevereandpain level 10/10. For duration, patient reportsoccur many times in groups or clusters. For onset/timing, patient reportsoccur upon awakeningandoccur every few weeks. For context, patient reportsnot related to trauma. For alleviating factors, patient reportsotc medicationandlaying in a dark room. Emergency Department Follow-Up RecordReported by PatientEmergency Room Follow-Up RecordFor discharge information, patient reportsname of ed [facility],emergency department discharge date: (please enter in format 'mm/dd/yyyy') (04/11/23), anddate of follow-up phone call: (please enter in format 'mm/dd/yyyy') (04/12/23).Pt mentions she went to the ED due to severe migraine. Pt was having nausea and vomiting and received IV treatement due to dehydration and anti-emetic.ROS as noted in the HPI Diana Wilder is a 22 year old F who presented to the clinic for follow-up on her anxiety and migraines. TRAM HILLMAN MD [address] [address], [place], [address], [facility] 04/12/2023 13:27:53 OBGyn Episode No OBEpisode recorded.
[2025-04-28 03:48] LABS: Appearance Urine Cloudy; Glucose Urine UA Negative (Negative); PH 5.5 (5.0-9.0); Specific Gravity - Urine 1.025 (1.005-1.025); UMIC TRIGGER UACC YES
[2025-04-28 03:51] LABS: Alanine Aminotransferase < 6 U/L (0-31); Albumin Level 5.0 g/dL (3.5-5.0); Alkaline Phosphatase 57 U/L (39-117); Anion Gap 27 (12-20); Aspartate Amino Transferase 38 U/L (5-31); Blood Urea Nitrogen 13 mg/dL (9-16); Calcium 9.0 mg/dL (8.4-10.2); Carbon Dioxide 14 mmol/L (22-29); Chloride 105 mmol/L (96-108); Creatinine Clr Calc Pharmacy 106.6; Estimated Glomerular Filt Rate > 60; Lipase 23 U/L (8-78); Magnesium 2.1 mg/dL (1.6-2.6); Potassium 4.6 mmol/L (3.3-5.1); Sodium 141 mmol/L (135-145); Total Protein 7.9 g/dL (6.5-8.0)
[2025-04-28] MEDS: Thiamine HCL 200 MG in 0.9 % Sodium Chloride 100 ML 204 MG IV (03:56)
[2025-04-28] MEDS: diazePAM 10 MG/2 ML CARTRIDGE 5 MG IVPUSH (03:57)
[2025-04-28 03:59] LABS: Cannabinoid Screen Urine POSITIVE (Not Detect)
[2025-04-28] MEDS: Magnesium Sulfate/H2O 2 GM/50 ML PIGGYBACK IV (04:02)
[2025-04-28 04:42] LABS: Venous Blood Gas Refer to POC result
[2025-04-28 04:46] LABS: VBG HCO3 17 mmol/L (22-26); VBG O2 % Saturation 100.0 %
--- NOTE | 2025-04-28 05:41 | P.HPHOSP_ITS ---
History of Present Illness Date of Service: 04/28/25 Chief Complaint: Nausea/vomiting 24-year-old female with a past medical history of alcohol use disorder, migraine headaches, anemia presented to the hospital today with a chief complaint of nausea and vomiting. Patient mentions she has been going to personal stress and has been started drinking over the past couple days. And since yesterday she has been having nausea and vomiting and today she had episode of blood in the vomitus. Denies any chest pain or palpitations. Denies any fever chills cough or sputum production. Denies any urinary symptoms. Denies any headaches or blurry visions. Review of all other systems is negative except mentioned above ER course: Per ER team, patient noted to be tachycardic; tremulous; concern for alcohol withdrawal; given Valium and phenobarbital. Patient also received IV fluids. H&H stable. Concern for possible Nadiya-Modi for gastritis. [facility] Medical History Alcohol dependence Mood disorder Cannabinoid hyperemesis syndrome Cannabinoid hyperemesis syndrome Migraine headache Social History Household Members: Spouse Housing: House Do you presently have visiting nurse or other home services: No Alcohol intake: former Patient Tobacco Use Status: Never used Tobacco Smoked in Last 30 Days: No Use of substances other than those prescribed or required for medical reasons: No Substance Use Type: Marijuana Advance Directives: Yes Advance Directives on File: Yes Advance Directives Date on File: 05/26/24 Do you have a plan to hurt others: No Plan service: No Meds Allergies Allergy/AdvReac Type Severity Reaction Status Date / Time No Known Allergies (No Known Allergy Verified 04/28/25 03:34 Allergies*) Active Medications: Current Medications Pharmacy Consult (Consult Rx Etoh Phenob Im/Po) 1 each MISCELLANE ONCE PRN; Protocol PRN Reason: Consult order Phenobarbital Sodium (Phenobarbital Sodium 130 Mg/Ml Vial) 208 mg IM ONCE ONE Stop: 04/28/25 05:31 Phenobarbital Sodium (Phenobarbital Sodium 130 Mg/Ml Vial) 156 mg IM Q3H [facility] Stop: 04/28/25 11:31 Home Medications ?Medication ?Instructions ?Recorded ?Confirmed ?Last Taken ?Type clonidine HCl 0.1 mg tablet 0.1 mg PO TID PRN Anxiety 05/24/24 12/09/24 Unknown History multivitamin 1 tab PO DAILY 12/09/2411/1812/08/24 History Physical Exam 2 Vital Signs and Narrative: Vital Signs: Last Vital Signs Temp 98.5 F 04/28/25 03:09 Pulse 105 H 04/28/25 04:36 Resp 12 04/28/25 04:36 BP 121/72 04/28/25 04:36 Pulse Ox 97 04/28/25 04:36 O2 Del Method Room Air 04/28/25 04:36 BMI result Body Mass Index 26.6 Gen: Appears be in no acute distress HEENT: NCAT, Moist mucosa. Pulmonary: Vesicular breath sounds, fair air entry CVS: Normal S1-S2 Abdomen: BS+, Soft, Nontender Extremities: Warm well perfused Neuro: Alert and awake. Results Labs 04/28/25 03:19 04/28/25 03:19 Labs: Laboratory Results - last 24 hr 04/28/25 04/28/25 04/28/25 03:19 03:19 03:41 MCV 89.4 MCH 30.0 MCHC 33.5 RDW 14.2 Plt Count 300 D MPV 9.6 Immature Gran % (Auto) 0.2 Neut % (Auto) 52.6 Lymph % (Auto) 40.0 [place] % (Auto) 5.7 Eos % (Auto) 0.2 Baso % (Auto) 1.3 Lymph # (Auto) 2.2 [place] # (Auto) 0.3 Eos # (Auto) 0.0 Baso # (Auto) 0.1 Abs Immat Gran (auto) 0.01 Absolute Neuts (auto) 3.0 Absolute Nucleated RBC 0.000 Nucleated RBC % (auto) 0.0 VBG pH VBG pCO2 VBG pO2 VBG HCO3 VBG O2 Saturation VBG Base Excess Anion Gap 27 H Estim Creat Clear Calc 106.6 Estimated GFR > 60 Random Glucose 81 Calcium 9.0 D Magnesium 2.1 Total Bilirubin 0.6 Direct Bilirubin 0.2 AST 38 H ALT < 6 Alkaline Phosphatase 57 Total Protein 7.9 Albumin 5.0 Lipase 23 Beta HCG, Quant < 2 Urine Color Yellow Urine Appearance Cloudy Urine pH 5.5 Ur Specific [place] 1.025 Urine Protein 30 (1+) H Urine Glucose (UA) Negative Urine Ketones 40 Urine Blood Negative Urine Nitrite Negative Ur Leukocyte Esterase Negative Urine RBC 0-2 Urine WBC 0-5 Ur Squamous Epith Cells 11-20 Urine Bacteria 1+ Hyaline Casts 3-5 Urine Opiates Screen Not Detected Ur Buprenorphine Scrn Not Detected Ur Oxycodone Screen Not Detected Urine Methadone Screen Not Detected Urine Fentanyl Screen Not Detected Ur Barbiturates Screen Not Detected Ur Phencyclidine Scrn Not Detected Ur Amphetamines Screen Not Detected U Benzodiazepines Scrn Not Detected Urine Cocaine Screen Not Detected U Marijuana (THC) Screen POSITIVE H Ethyl Alcohol 212 Cancelled 04/28/25 04:41 MCV MCH MCHC RDW Plt Count MPV Immature Gran % (Auto) Neut % (Auto) Lymph % (Auto) [place] % (Auto) Eos % (Auto) Baso % (Auto) Lymph # (Auto) [place] # (Auto) Eos # (Auto) Baso # (Auto) Abs Immat Gran (auto) Absolute Neuts (auto) Absolute Nucleated RBC Nucleated RBC % (auto) VBG pH 7.41 VBG pCO2 27 VBG pO2 176 VBG HCO3 17 L VBG O2 Saturation 100.0 VBG Base Excess -5.7 Anion Gap Estim Creat Clear Calc Estimated GFR Random Glucose Calcium Magnesium Total Bilirubin Direct Bilirubin AST ALT Alkaline Phosphatase Total Protein Albumin Lipase Beta HCG, Quant Urine Color Urine Appearance Urine pH Ur Specific [place] Urine Protein Urine Glucose (UA) Urine Ketones Urine Blood Urine Nitrite Ur Leukocyte Esterase Urine RBC Urine WBC Ur Squamous Epith Cells Urine Bacteria Hyaline Casts Urine Opiates Screen Ur Buprenorphine Scrn Ur Oxycodone Screen Urine Methadone Screen Urine Fentanyl Screen Ur Barbiturates Screen Ur Phencyclidine Scrn Ur Amphetamines Screen U Benzodiazepines Scrn Urine Cocaine Screen U Marijuana (THC) Screen Ethyl Alcohol Assessment and Plan (1) Alcohol withdrawal syndrome: Qualifiers: Complication of substance-induced condition: with unspecified complication Qualified Code(s): F10.939 - Alcohol use, unspecified with withdrawal, unspecified Status: Acute Plan 24-year-old female with a past medical history of alcohol use disorder, migraine headaches, anemia presented to the hospital today with a chief complaint of nausea and vomiting/blood in the vomitus/alcohol abuse. 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 Seizure precautions Hematemesis: Likely from retching from vomiting versus Nadiya-Modi tear versus alcoholic gastritis. H and H currently stable GI follow-up IV ppi NPO Gentle IV fluids DVT prophylaxis: SCD boots Code status: Full code Quality Stroke Does the patient have a stroke diagnosis?: No VTE Prior VTE?: No VTE Risk Level:: Medical - moderate - high VTE Device Contraindication: Treatment Not Indicated VTE Drug Contraindication: N/A - Med Ordered
--- NOTE | 2025-04-28 06:20 | PC.NURSE ---
security present at bedside to complete safety check s/t the pt's ETOH level and admission
[2025-04-28] MEDS: Dextrose 5 % and 0.45 % NaCl 1,000 ML 100 ML IVCONT (06:39)
--- NOTE | 2025-04-28 07:49 | PM.GICN ---
History of Present Illness Data of Consult Service Date: 04/28/25 Requesting physician: Jak Storey Primary Care Provider: None Physician HPI Reason for consult: Hematemesis 24 YF with history of alcohol use disorder, migraine headaches, anemia seen at [facility] on 04/28/25 with nausea and vomiting. Patient stated she has been going through personal stress (due to a divorce) and started drinking over the past couple days - took 2 nips of vodka yesterday (after abstaining x 5 months). She notes nausea and vomiting since 04/27 and had an episode of blood in the vomitus at 2 am today (approx 1/4 cup of dark blood and no clots) Pt notes mild abdominal pain and denies heartburn or dysphagia She states nausea has improved and denies further episodes of hematemesis since arrival to the ED Pt denied chest pain or palpitations, fever chills, cough or sputum production or urinary symptoms, headaches or blurry visions. Pt admits to smoking marijuana p.r.n. for headaches - last used on 04/24/25 Family Hx: Positive for alcoholism in several family members including her grandparents. Patient denies known family history of colon polyps or GI malignancy. ER course: Per ER team, patient noted to be tachycardic; tremulous; concern for alcohol withdrawal; given Valium and phenobarbital. Patient also received IV fluids. H&H stable. Concern for possible Nadiya-Modi for gastritis. Labs showed H & H of 12.5 and 27.3 (stable) Review of Systems Review of Systems: Yes all other systems are reviewed and are negative [facility] Past Medical History Medical History Alcohol dependence Mood disorder Cannabinoid hyperemesis syndrome Cannabinoid hyperemesis syndrome Migraine headache Social History Social History Household Members: Spouse Housing: House Do you presently have visiting nurse or other home services: No Alcohol intake: former Patient Tobacco Use Status: Never used Tobacco Smoked in Last 30 Days: No Use of substances other than those prescribed or required for medical reasons: No Substance Use Type: Marijuana Advance Directives: Yes Advance Directives on File: Yes Advance Directives Date on File: 05/26/24 Do you have a plan to hurt others: No Plan service: No Meds Allergies Allergy/AdvReac Type Severity Reaction Status Date / Time No Known Allergies (No Known Allergy Verified 04/28/25 03:34 Allergies*) Active Medications: Current Medications Acetaminophen (Acetaminophen 325 Mg Tablet) 650 mg PO Q6H PRN PRN Reason: Pain, Mild 1-3,fever,headache Calcium Carbonate (Calcium Carbonate 750 Mg Tab.Chew) 750 mg PO Q4H PRN PRN Reason: Heartburn Folic Acid (Folic Acid 1 Mg Tablet) 1 mg PO DAILY [facility] Stop: 05/01/25 08:59 Dextrose/Sodium Chloride (D51/2ns) 1,000 mls @ 100 mls/hr IVCONT .Q10H [facility] Last Admin: 04/28/25 06:39 Dose: 100 mls/hr Magnesium Hydroxide (Milk Of Magnesia 30 Ml Oral.Susp) 30 ml PO DAILY PRN PRN Reason: Constipation Melatonin (Melatonin 3 Mg Tablet) 6 mg PO BEDTIME PRN PRN Reason: Insomnia Multivitamins/Vitamin C (Multivitamin Tablet) 1 tab PO DAILY [facility] Stop: 05/01/25 08:59 Pantoprazole Sodium (Pantoprazole Sodium 40 Mg/10 Ml Vial) 40 mg IVPUSH DAILY@0630 [facility] Last Admin: 04/28/25 06:33 Dose: 40 mg Pharmacy Consult (Consult Rx Etoh Phenob Im/Po) 1 each MISCELLANE ONCE PRN; Protocol PRN Reason: Consult order Phenobarbital 15 mg/ (Phenobarbital 30 mg) 45 mg PO BID [facility] Stop: 04/30/25 20:59 Phenobarbital (Phenobarbital 15 Mg Tablet) 15 mg PO BID [facility] Stop: 05/02/25 20:59 Phenobarbital (Phenobarbital 15 Mg Tablet) 15 mg PO DAILY [facility] Stop: 05/04/25 09:01 Phenobarbital Sodium (Phenobarbital Sodium 130 Mg/Ml Vial) 156 mg IM Q3H [facility] Stop: 04/28/25 11:31 Polyethylene Glycol (Polyethylene Glycol 3350 17 Gm Powd.Pack) 17 gm PO DAILY PRN PRN Reason: Constipation Sodium Chloride (0.9 % Sodium Chloride Flush 3 Ml Syringe) 3 ml IVFLUSH QSHIFT [facility] Thiamine HCl (Thiamine Hcl 100 Mg Tablet) 100 mg PO DAILY [facility] Stop: 05/01/25 08:59 Home Medications ?Medication ?Instructions ?Recorded ?Confirmed ?Last Taken ?Type folic acid 1 mg tablet 1 mg PO DAILY 04/28/25 04/28/25 Unknown History trazodone 50 mg tablet 50 mg PO BEDTIME PRN Anxiety/Sleep 04/28/25 04/28/25 Unknown History Physical Exam Vital Signs: Vital Signs: Last Vital Signs Temp 98.5 F 04/28/25 06:11 Pulse 115 H 04/28/25 06:11 Resp 12 04/28/25 06:11 BP 142/63 H 04/28/25 06:11 Pulse Ox 99 04/28/25 06:11 O2 Del Method Room Air 04/28/25 06:11 BMI result Body Mass Index 26.6 Const: General: no acute distress, anxious and other (Tremulous) Nutritional Appearance: overweight Orientation/consciousness: patient oriented x3 Limitations: no limitations HEENT: Head: Yes normal to inspection Ears: hearing grossly normal bilaterally Eyes: Sclerae: sclerae normal Pupils: Equal, round and reactive pupils present Neck: Neck: Yes normal visual inspection Chest: Chest palpation & inspection: normal inspection of the chest Resp: Effort & Inspection: normal respiratory effort Auscultation: clear to auscultation bilaterally Cardio: Palpation: normal PMI Rate: regular rate Rhythm: regular rhythm Heart sounds: S1 normal heart sound present, S2 normal heart sound present and no murmurs GI: Palpation (GI): Soft to palpation, nontender and No hepatosplenomegaly present Auscultation: normal bowel sounds Rectal Exam - Female: deferred Skin: General skin exam: no rashes or lesions noted Neuro: General: patient oriented x3, gait normal and moves all extremities Cranial nerves: Yes Equal, round and reactive pupils present Extrem: General: Yes other (tremors both hands) Psych: Appearance: grossly normal Mental Status: mental status grossly normal Results Labs 04/28/25 09:18 04/28/25 03:19 Labs: Short CBC 04/28/25 Range/Units 03:19 WBC 5.6 (4.8-10.8) X10*3/uL Hgb 12.5 (12.0-16.0) g/dl Hct 37.3 (37.0-47.0) % Plt Count 300 D (160-400) X10*3/uL BMP 04/28/25 03:19 Sodium 141 Potassium 4.6 Chloride 105 Carbon Dioxide 14 L BUN 13 Creatinine 0.74 Calcium 9.0 D Liver Function 04/28/25 Range/Units 03:19 Total Bilirubin 0.6 (0.0-1.0) mg/dL Direct Bilirubin 0.2 (0.0-0.5) mg/dL AST 38 H (5-31) U/L ALT < 6 (0-31) U/L Alkaline Phosphatase 57 (39-117) U/L Albumin 5.0 (3.5-5.0) g/dL Urine 04/28/25 Range/Units 03:41 Urine Color Yellow Urine Appearance Cloudy Urine pH 5.5 (5.0-9.0) Ur Specific [place] 1.025 (1.005-1.025) Urine Protein 30 (1+) H (Neg-Trace) mg/dL Urine Glucose (UA) Negative (Negative) mg/dL Assessment and Plan (1) Acute alcoholic gastritis: Qualifiers: Gastritis bleeding: with bleeding Qualified Code(s): K29.21 - Alcoholic gastritis with bleeding Status: Acute Plan 24 YF with history of alcohol use disorder, migraine headaches, anemia seen at [facility] on 04/28/25 with nausea and vomiting. She notes nausea and vomiting since 04/27 and had an episode of blood in the vomitus at 2 am today (approx 1/4 cup of dark blood and no clots) She states nausea has improved and denies further episodes of hematemesis since arrival to the ED ER course: Per ER team, patient noted to be tachycardic; tremulous; concern for alcohol withdrawal; given Valium and phenobarbital. Patient also received IV fluids. H&H stable. Concern for possible Nadiya-Modi for gastritis. Labs showed H & H of 12.5 and 27.3 (stable) Pt had a self-limited episode of upper GI bleeding after nausea and vomiting likely due to a Nadiya-Modi tear. Other possibilities include peptic ulcer disease, erosive esophagitis. RECOMMENDATIONS: 1. Agree with IV PPI, antiemetics and CIWA protocol for alcohol withdrawal. 2. Repeat CBC today and follow CBC twice daily x 24 hrs. 3. Recommend conservative management since pt is actively withdrawing from alcohol 4. Referral to addiction medicine for ETOH rehab. Procedures Date of Service Date of Service: 04/28/25
--- NOTE | 2025-04-28 07:50 | PC.NURSE ---
Report taken from previous rn at 0700. pt is caox4, she is speaking in clear and even tones, her skin is wpd and she has no tremors. She has ambulated to bathroom with a brisk steady gait and reports no dizziness weaknsee or other symtpoms post ambulation. We are awaiting a bed assignemnt.
[2025-04-28 09:25] LABS: Hematocrit 31.8 % (37.0-47.0); Hemoglobin 11.0 g/dl (12.0-16.0); Mean Corpuscular HGB Conc 34.6 g/dl (31.0-35.0); Mean Corpuscular Hemoglobin 30.4 pg (27.0-33.0); Mean Corpuscular Volume 87.8 fL (80.0-98.0); NRBC Abs Auto 0.000 X10*3/uL (0.0-0.012); NRBC Pct Auto 0.0 /100WBC (0.0-0.2); Platelet Count 243 X10*3/uL (160-400); Red Blood Count 3.62 X10*6/uL (4.20-5.50); White Blood Count 6.4 X10*3/uL (4.8-10.8)
[2025-04-28] MEDS: 0.9 % Sodium Chloride Flush 3 ML SYRINGE IVFLUSH (09:55)
--- NOTE | 2025-04-28 10:03 | PHA.MEDREC ---
Addendum entered by Marquis Gallagher, PharmD 04/28/25 10:53: med rec checked by [facility] Original Note: Pharmacy Consult ? Medication Reconciliation Pharmacy has completed the medication reconciliation. Spoke with pt and she confirmed her medications. Pt confirmed she never started the Pantoprazole filled 04/21, she is still taking Trazodone 50mg tabs as needed for anxiety/sleep and gets it filled at [facility] in [place]; called [facility] and they have not filled the Trazodone 50mg 07/11/2024 for QTY 60 for 30 days and pt does not remember the last time she took her medication at this time.
--- NOTE | 2025-04-28 13:57 | PC.NURSE ---
Pt requesting discharge citing she has a to attend later this evening. PA notified and will round on pt momentarily
--- NOTE | 2025-04-28 14:26 | PC.NURSE ---
PA at bedside for eval
--- NOTE | 2025-04-28 15:21 | P.DS_ITS ---
DS: Providers Provider Date of Service: 04/28/25 Date of admission: 04/28/25 05:39 Date of discharge: 04/28/25 Primary care physician: None Physician Consults: 04/28/25 05:42 Consult to Gastroenterology Routine Consulting Provider: [facility] Reason for consultation: Hematemesis DS: Diagnosis Discharge Diagnosis (1) Acute alcoholic gastritis: Status: Acute DS: Summary Hospital Course Hospital Course: From admission HPI: Date of Service: 04/28/25 Chief Complaint: Nausea/vomiting 24-year-old female with a past medical history of alcohol use disorder, migraine headaches, anemia presented to the hospital today with a chief complaint of nausea and vomiting. Patient mentions she has been going to personal stress and has been started drinking over the past couple days. And since yesterday she has been having nausea and vomiting and today she had episode of blood in the vomitus. Denies any chest pain or palpitations. Denies any fever chills cough or sputum production. Denies any urinary symptoms. Denies any headaches or blurry visions. Review of all other systems is negative except mentioned above ER course: Per ER team, patient noted to be tachycardic; tremulous; concern for alcohol withdrawal; given Valium and phenobarbital. Patient also received IV fluids. H&H stable. Concern for possible Nadiya-Modi for gastritis. Hospital course: Pt was admitted to the hospital for nausea and vomiting with hematemesis in the setting of alcohol use disorder with concerns for alcoholic gastritis and impending alcohol withdrawal. Pt was treated with antiemetics, IVF, and started on phenobarb protocol to good effect. No episodes of hematemesis or bleeding noted during hospitalization. Pt did have repeat H&H drawn which showed a slight drop, though this was likely dilutional from IVF. Pt reported that she had only recently relapsed during the past 48 hours after being sober for the past 5 months. States drank approximately 2 sleeves during this time. She does have a hx of alcohol withdrawal in the past, though CIWA remained low during hospital stay. Pt also reported blood in her vomit was flecks/streaks that she often gets when she vomits in the setting of either drinking or migraines. After short period of time in the hospital pt requested to be discharged in order to attend a later in the evening. Pt was able to tolerate solid food for breakfast and lunch, and denied any nausea or vomiting. No diaphoresis or auditory/visual hallucinations, or tactile disturbances. No tremors. Pt did report she was anxious, though she has a long hx of anxiety and is upset about her divorce from her . Overall concerns for impending alcohol withdrawal a relatively low as our concerns for active GI bleed. Pt will be discharged home with a prescription for ondansetron. Pt should continue all of her other home medications. She was counseled on signs and symptoms of alcohol withdrawal as well as acute blood loss anemia, and prompted to return to the ED if her symptoms return or worsen. Pt is strongly encouraged to use whatever familial, social, or community support she can in order to maintain her sobriety. Time Attestation Discharge Coordination Time (in mins): 35 Quality: Safe Use of Opioids Does Pt have an Active Cancer Diagnosis on the Problem List?: No Quality: Stroke Does the patient have a stroke diagnosis?: No Physical Exam Exam: Exam: General: AOx3, no acute distress Resp: CTA bilaterally CVS: S1, S2, RRR GI: +BS, NT, no distention Skin: Warm, dry Neuro: Cranial nerves II-XII grossly intact bilaterally. Motor grossly intact bilaterally. No upper extremity tremors appreciated. Extremities: No edema Psych: Occasionally tearful, but overall calm and cooperative Vital Signs: Vital Signs: Last Vital Signs Temp 98.7 F 04/28/25 10:46 Pulse 110 H 04/28/25 12:43 Resp 19 04/28/25 12:43 BP 108/57 L 04/28/25 12:43 Pulse Ox 99 04/28/25 12:43 O2 Del Method Room Air 04/28/25 12:43 BMI result Body Mass Index 26.6 DS: Data Data Completed and Pending Completed studies during hospitalization [Text1]: Procedures Detoxification Services for Substance Abuse Treatment (12/09/24) Labs on day of discharge: Laboratory Results - last 24 hr 04/28/25 04/28/25 04/28/25 03:19 03:19 03:41 WBC 5.6 RBC 4.17 L Hgb 12.5 Hct 37.3 MCV 89.4 MCH 30.0 MCHC 33.5 RDW 14.2 Plt Count 300 D MPV 9.6 Immature Gran % (Auto) 0.2 Neut % (Auto) 52.6 Lymph % (Auto) 40.0 [place] % (Auto) 5.7 Eos % (Auto) 0.2 Baso % (Auto) 1.3 Lymph # (Auto) 2.2 [place] # (Auto) 0.3 Eos # (Auto) 0.0 Baso # (Auto) 0.1 Abs Immat Gran (auto) 0.01 Absolute Neuts (auto) 3.0 Absolute Nucleated RBC 0.000 Nucleated RBC % (auto) 0.0 VBG pH VBG pCO2 VBG pO2 VBG HCO3 VBG O2 Saturation VBG Base Excess Sodium 141 Potassium 4.6 Chloride 105 Carbon Dioxide 14 L Anion Gap 27 H BUN 13 Creatinine 0.74 Estim Creat Clear Calc 106.6 Estimated GFR > 60 Random Glucose 81 Calcium 9.0 D Magnesium 2.1 Total Bilirubin 0.6 Direct Bilirubin 0.2 AST 38 H ALT < 6 Alkaline Phosphatase 57 Total Protein 7.9 Albumin 5.0 Lipase 23 Beta HCG, Quant < 2 Urine Color Yellow Urine Appearance Cloudy Urine pH 5.5 Ur Specific [place] 1.025 Urine Protein 30 (1+) H Urine Glucose (UA) Negative Urine Ketones 40 Urine Blood Negative Urine Nitrite Negative Ur Leukocyte Esterase Negative Urine RBC 0-2 Urine WBC 0-5 Ur Squamous Epith Cells 11-20 Urine Bacteria 1+ Hyaline Casts 3-5 Urine Opiates Screen Not Detected Ur Buprenorphine Scrn Not Detected Ur Oxycodone Screen Not Detected Urine Methadone Screen Not Detected Urine Fentanyl Screen Not Detected Ur Barbiturates Screen Not Detected Ur Phencyclidine Scrn Not Detected Ur Amphetamines Screen Not Detected U Benzodiazepines Scrn Not Detected Urine Cocaine Screen Not Detected U Marijuana (THC) Screen POSITIVE H Ethyl Alcohol 212 Cancelled 04/28/25 04/28/25 04:41 09:18 WBC 6.4 RBC 3.62 L Hgb 11.0 L Hct 31.8 L MCV 87.8 MCH 30.4 MCHC 34.6 RDW 14.0 Plt Count 243 MPV 9.6 Immature Gran % (Auto) Neut % (Auto) Lymph % (Auto) [place] % (Auto) Eos % (Auto) Baso % (Auto) Lymph # (Auto) [place] # (Auto) Eos # (Auto) Baso # (Auto) Abs Immat Gran (auto) Absolute Neuts (auto) Absolute Nucleated RBC 0.000 Nucleated RBC % (auto) 0.0 VBG pH 7.41 VBG pCO2 27 VBG pO2 176 VBG HCO3 17 L VBG O2 Saturation 100.0 VBG Base Excess -5.7 Sodium Potassium Chloride Carbon Dioxide Anion Gap BUN Creatinine Estim Creat Clear Calc Estimated GFR Random Glucose Calcium Magnesium Total Bilirubin Direct Bilirubin AST ALT Alkaline Phosphatase Total Protein Albumin Lipase Beta HCG, Quant Urine Color Urine Appearance Urine pH Ur Specific [place] Urine Protein Urine Glucose (UA) Urine Ketones Urine Blood Urine Nitrite Ur Leukocyte Esterase Urine RBC Urine WBC Ur Squamous Epith Cells Urine Bacteria Hyaline Casts Urine Opiates Screen Ur Buprenorphine Scrn Ur Oxycodone Screen Urine Methadone Screen Urine Fentanyl Screen Ur Barbiturates Screen Ur Phencyclidine Scrn Ur Amphetamines Screen U Benzodiazepines Scrn Urine Cocaine Screen U Marijuana (THC) Screen Ethyl Alcohol Discharge Plan Discharge Anticipated Discharge Date/Time: 04/28/25 14:59 Patient Disposition: Home, Self-Care Discharge Diagnosis: Acute alcoholic gastritis Referrals: Physician,None [Primary Care Provider, Medical] - 1 Week Discharge Medications: New ondansetron 4 mg tablet,disintegrating 4 mg PO Q8H PRN (Reason: nausea and vomiting) Qty: 30 0RF Continued folic acid 1 mg tablet 1 mg PO DAILY trazodone 50 mg Tablet 50 mg PO BEDTIME PRN (Reason: Anxiety/Sleep) Discharge Orders: Discharge Order (Routine); Ordered 04/28/25 Ordered By: Belkis Goldman Activity on Discharge: As tolerated Stand Alone Forms: Patient Portal Discharge page Print Language: Mauritanian Care Plan Goals: See below Health Concerns: Alcohol withdrawal Alcohol gastritis Hematemesis Alcohol use disorder Plan of Treatment: You were admitted to the hospital for nausea and vomiting with hematemesis in the setting of alcohol use disorder with concerns for alcoholic gastritis and impending alcohol withdrawal. Your nausea was controlled with antiemetics and you were given IV fluids to good effect. You were also started on phenobarb protocol for possible alcohol withdrawal, though your CIWA scored remained low. No episodes of bleeding or hematemesis were noted while in the hospital. Your H&H did drop with repeat labs, but this is likely dilutional from IV fluids. Your symptoms improved while in the hospital, and you were able to tolerate a solid diet. You requested to be discharged from the hospital as you felt better and also had a to attend later in the evening. You report that you has been sober for the past 5 months and only recently relapsed for the past 2 days by drinking 2 sleeves. You also reports only small flecks/streaks of blood in your vomit, which he state normally happens when either you drink or have severe migraines. Given that your clinical picture improved and that risk for alcohol withdrawal is relatively low, you will be discharged from the hospital. However, if symptoms persist or worsen, you should return to the ED for further evaluation. -- take Zofran 4 mg disintegrating tablet every 8 hours as necessary for nausea -- return to the hospital if you become lightheaded, dizzy, have loss of consciousness, or if have significant blood in your vomit -- returned to the hospital if you become tremulous, have auditory/visual hallucinations or tactile disturbances (feeling like bugs are crawling over her skin), sweaty, increasingly anxious, or significantly nauseous -- You were strongly encouraged to use whatever familial, social, or community support you can in order to maintain your sobriety -- continue all of your other home medications Assessment: See discharge summary
== END 2025-04-28 17:50 | disposition home or self-care (01) | DRG 241 ==
LOC: HO.ED 04:54 → HO.EDOVER 06:08
PROVIDERS: Internal Medicine Gastroenterology; Admitting Provider Hospitalist; Emergency Provider Emergency Medicine; Visit Provider Student in an Organized Health Care Education/Training Program
DX: K29.21 Alcoholic gastritis with bleeding (principal); F10.90 Alcohol use, unspecified, uncomplicated; Y90.7 Blood alcohol level of 200-239 mg/100 ml; K22.6 Gastro-esophageal laceration-hemorrhage syndrome; G43.909 Migraine, unspecified, not intractable, without status migrainosus; Z63.5 Disruption of family by separation and divorce; Z79.899 Other long term (current) drug therapy
CPT/HCPCS: 36415; 80048; 80076; 80307; 81001; 82803; 83690; 83735; 84702; 85025; 85027; 93005; 99285; J1200; J2470; J2560; J2765; J3360; J3411; J3475; J7120

== ENCOUNTER → 2025-04-28 03:14 | Outpatient (BNV) | payer OTHER, SELFPAY | PROVIDERS: Admitting Provider Hospitalist; Emergency Provider Emergency Medicine; Visit Provider Internal Medicine Cardiovascular Disease | DX: I49.9 Cardiac arrhythmia, unspecified (principal) | CPT/HCPCS: 93010 ==

== ENCOUNTER → 2025-04-28 05:39 | Outpatient (BNV) | payer OTHER, SELFPAY | PROVIDERS: Admitting Provider Hospitalist; Emergency Provider Emergency Medicine; Visit Provider Internal Medicine Gastroenterology | DX: K29.21 Alcoholic gastritis with bleeding (principal) | CPT/HCPCS: 99222 ==

== ENCOUNTER → 2025-04-28 05:39 | Outpatient (BNV) | payer OTHER, SELFPAY | PROVIDERS: Admitting Provider Hospitalist; Emergency Provider Emergency Medicine; Visit Provider Hospitalist | DX: F10.939 Alcohol use, unspecified with withdrawal, unspecified (principal) | CPT/HCPCS: 99223 ==